=== PATIENT | female | born 1940 | race Caucasian/White ===

== ENCOUNTER 2017-02-25 09:22 | Emergency (ER) | payer MEDICARE, OTHER ==
[~2017-02-25] VITALS: Wt 90.6 kg
[~2017-02-25 09:22] MED LIST: AMLO1TAB PO; CA C1TAB69 PO; CELE200C PO; CHOL20003 PO; CIPR500T4 PO; ESOM40CA PO; GABA300C16 PO; HYDR-762 PO; LANT3I SC; LEVO500T72 PO; METO10TA96 PO; METO50TA16 PO; SENN-53 PO; SITA100T8 PO; TRAM50TA2 PO; ZOLP5TAB6 PO
[2017-02-25] MEDS ORDERED: SOD CHLORIDE 0.9% 500 ML IV STA (09:38)
[2017-02-25] MEDS ORDERED: CEFTRIAXONE 1 GM/50 ML (PMX) 50 ML IVPB STA (09:38)
[2017-02-25 10:15] LABS: ADD SCAN DIFF NO
[2017-02-25 10:19] LABS: BASOPHILS % 0.4 % (0.0-2.0); EOSINOPHILS # 0.2 10^3/ul (0.0-0.5); EOSINOPHILS % 2.8 % (0.0-7.0); HEMATOCRIT 39.5 % (37.0-47.0); HEMOGLOBIN 13.2 g/dl (12.0-16.0); LYMPHOCYTES # 2.6 10^3/ul (0.8-2.9); LYMPHOCYTES % 33.7 % (15.0-51.0); MEAN CORPUSCULAR HEMOGLOBIN 31.3 pg (29.0-33.0); MEAN CORPUSCULAR HGB CONC 33.4 g/dl (32.0-37.0); MEAN CORPUSCULAR VOLUME 93.6 fl (82.0-101.0); MEAN PLATELET VOLUME 10.2 fl (7.4-10.4); MONOCYTE # 0.4 10^3/ul (0.3-0.9); MONOCYTES % 4.8 % (0.0-11.0); NEUTROPHIL # 4.5 10^3/ul (1.6-7.5); NEUTROPHILS % 57.8 % (39.0-77.0); PLATELET COUNT 201 10^3/UL (140-415); RED BLOOD COUNT 4.22 10^6/ul (4.20-5.40); RED CELL DISTRIBUTION WIDTH 14.3 % (11.5-14.5); WHITE BLOOD COUNT 7.7 10^3/ul (4.8-10.8)
[2017-02-25 10:35] LABS: ADD UMIC NO; URINE BILIRUBIN (Dip) NEGATIVE (NEGATIVE); URINE BLOOD (Dip) NEGATIVE (NEGATIVE); URINE COLOR LT. YELLOW (YELLOW); URINE GLUCOSE (Dip) NEGATIVE (NEGATIVE); URINE KETONES (Dip) NEGATIVE (NEGATIVE); URINE LEUKOCYTE ESTERASE (Dip) NEGATIVE (NEGATIVE); URINE NITRITE (Dip) NEGATIVE (NEGATIVE); URINE TOTAL PROTEIN (Dip) NEGATIVE (NEGATIVE); URINE UROBILINOGEN (Dip) 0.2 E.U./dL (0.1-1.0)
[2017-02-25 10:36] LABS: ALBUMIN 3.8 g/dl (3.3-4.9); POTASSIUM 4.2 mmol/L (3.5-5.1)
[2017-02-25 10:38] LABS: CREATININE 0.87 mg/dl (0.44-1.00)
[2017-02-25 10:39] LABS: ALBUMIN/GLOBULIN RATIO 1.11; BILIRUBIN,INDIRECT 0.2 mg/dl (0-1.1); BILIRUBIN,TOTAL 0.2 mg/dl (0.2-1.3); CALCIUM 10.4 mg/dl (8.4-10.2); TOTAL PROTEIN 7.2 g/dl (6.1-8.1)
[2017-02-25] MEDS ORDERED: LANT3I SC ×2 (10:40)
[2017-02-25] MEDS ORDERED: FLUC150T17 PO (10:55)
--- NOTE | 2017-02-25 11:01 | ERD ---
ER Documentation Chief Complaint Date/Time DATE: 02/25/17 TIME: 10:59 Chief Complaint LEFT FLANK PAIN LOWER ABD PAIN FOR A FEW DAYS. NO VOMITING. DYSURIA AT TIME HPI 76-year-old female referred to the emergency department for abdominal pain that she has had for years now. Her physician apparently checked a urine and was concerned that she might have a urinary tract infection and therefore referred the patient to the emergency department. Patient reports the pain is nonspecific non-provoked and poorly localized. Patient has no fevers, chills, vomiting, diarrhea. Patient has no hematuria or dysuria but reports an itching inside her vagina for many years. ROS All systems reviewed and are negative except as per history of present illness. Medications Home Meds Active Scripts Fluconazole* (Diflucan*) 150 Mg Tablet, 150 MG PO ONCE, #1 TAB Prov:VLADIMIR STEPHENS 02/25/17 Reported Medications Insulin Glargine* (Lantus*) 100 Unit/Ml Soln, 30 UNIT SC QPM Y for 0, #1 VIAL 02/25/17 Insulin Glargine* (Lantus*) 100 Unit/Ml Soln, 45 UNIT SC QAM, #1 VIAL 02/25/17 Zolpidem Tartrate* (Zolpidem Tartrate*) 5 Mg Tablet, 10 MG PO HS Y, TAB 09/13/14 Ca Carbonate/Vitamin D3/Vit K (VIACTIV SOFT CHEW TABLET) 1 Each Tab.chew, 1 EACH PO WITH MEALS, TAB.CHEW 08/19/14 Esomeprazole Mag Trihydrate (Nexium) 40 Mg Capsule.dr, 40 MG PO DAILY, CAP 08/19/14 Cholecalciferol (Vitamin D3) (VITAMIN D-3) 2,000 Unit Capsule, 2000 UNIT PO DAILY 08/19/14 Wyjrwuoykf-Rheuslmnl-MZXS (Exforge HCT) 10-160-12.5 Mg Tab, 1 TAB PO DAILY, TAB 08/19/14 Metoprolol Succinate* (Toprol XL*) 50 Mg Tab.er.24h, 50 MG PO DAILY, TAB 08/19/14 Discontinued Reported Medications Insulin Glargine* (Lantus*) 100 Unit/Ml Soln, 1 UNIT SC QHS, #1 VIAL 08/09/16 Insulin Glargine* (Lantus*) 100 Unit/Ml Soln, 40 UNIT SC DAILY, #1 VIAL 08/09/16 Hydrocodone Bit-Acetaminophen* ([place]*) 10-325 Mg Tablet, 1 TAB PO BID Y for PAIN, TAB 08/19/14 Celecoxib* (Celebrex*) 200 Mg Capsule, 200 MG PO DAILY, CAP 08/19/14 Gabapentin* (Gabapentin*) 300 Mg Capsule, 300 MG PO BID, CAP 08/19/14 Sitagliptin* (Januvia*) 100 Mg Tablet, 100 MG PO DAILY, TAB 08/19/14 Discontinued Scripts Metoclopramide Hcl* (Metoclopramide Hcl*) 10 Mg Tablet, 10 MG PO Q6H Y for NAUSEA AND OR VOMITING, #20 TAB Prov:CIPRIANO DANIELLE MD 08/09/16 Sennosides* (Senna Lax*) 8.6 Mg Tablet, 1 TAB PO Q12H Y for CONSTIPATION, #10 TAB Prov:CIPRIANO DANIELLE MD 08/09/16 Ciprofloxacin Hcl* (Ciprofloxacin Hcl*) 500 Mg Tablet, 500 MG PO BID for 10 Days , TAB Prov:RUDOLPH BLACKMAN DO 06/20/16 Tramadol HCl (Tramadol HCl) 50 Mg Tab, 50 MG PO Q6 Y for PAIN, #12 TAB Prov:VANDANA HOFFMAN MD 05/26/15 Levofloxacin* (Levaquin*) 500 Mg Tab, 500 MG PO DAILY@06 for 3 Days Prov:CHINTAN ESCOBAR NP 08/29/14 Allergies Allergies: Coded Allergies: No Known Allergies (Verified Allergy, Mild, 05/26/15) PMhx/Soc History of Surgery: No Anesthesia Reaction: No Hx Neurological Disorder: No Hx Respiratory Disorders: No Hx Cardiac Disorders: Yes (HTN ) Hx Psychiatric Problems: No Hx Miscellaneous Medical Probl: Yes (DM, HIGH CHOLESTEROL ) Hx Alcohol Use: No Hx Substance Use: No Hx Tobacco Use: No FmHx Noncontributory for chief complaint Physical Exam Vitals Vital Signs Date Time Temp Pulse Resp B/P Pulse Ox O2 Delivery O2 Flow Rate FiO2 02/25/17 09:27 98.8 67 20 184/77 97 Physical Exam GENERAL: The patient is well developed and appropriate for usual state of health in no apparent distress HEENT: Pupils equal, round, and reactive to light. EOMI. There is no scleral icterus. NECK: C-spine is soft and supple, there is no meningismus. There is no cervical lymphadenopathy. LUNGS: Clear to auscultation bilaterally. There are no rales, wheezes or rhonchi. HEART: Regular rate and rhythm, no murmurs, clicks, rubs or gallops. ABDOMEN: Soft, non-tender, non-distended. There are bowel sounds in all four quadrants. No rebound or guarding. EXTREMITIES: There is no peripheral cyanosis or edema. No focal swelling or erythema. NEURO: The patient moves all four extremities with 5/5 strength. Cranial nerves II - XII are intact. Normal gait. Alert and oriented SKIN: There is no apparent rash or petechiae. HEME/LYMPHATIC: There is no evidence of excessive bruising or lymphedema. PSYCHIATRIC: The patient does not appear anxious or depressed. Result Diagram: 02/25/1750 02/25/1750 Results 24 hrs Laboratory Tests Test 02/25/17 09:30 02/25/17 09:50 Urine Color LT. YELLOW Urine Clarity CLEAR Urine pH 6.0 Urine Specific [place] 1.020 Urine Ketones NEGATIVE Urine Nitrite NEGATIVE Urine Bilirubin NEGATIVE Urine Urobilinogen 0.2 E.U./dL Urine Leukocyte Esterase NEGATIVE Urine Hemoglobin NEGATIVE Urine Glucose NEGATIVE% Urine Total Protein NEGATIVE White Blood Count 7.710^3/ul Red Blood Count 4.2210^6/ul Hemoglobin 13.2g/dl Hematocrit 39.5% Mean Corpuscular Volume 93.6fl Mean Corpuscular Hemoglobin 31.3pg Mean Corpuscular Hemoglobin Concent 33.4g/dl Red Cell Distribution Width 14.3% Platelet Count 33323^3/UL Mean Platelet Volume 10.2fl Neutrophils % 57.8% Lymphocytes % 33.7% Monocytes % 4.8% Eosinophils % 2.8% Basophils % 0.4% Nucleated Red Blood Cells % 0.0/100WBC Neutrophils # 4.510^3/ul Lymphocytes # 2.610^3/ul Monocytes # 0.410^3/ul Eosinophils # 0.210^3/ul Basophils # 0.010^3/ul Nucleated Red Blood Cells # 0.010^3/ul Sodium Level 141mmol/L Potassium Level 4.2mmol/L Chloride Level 104mmol/L Carbon Dioxide Level 28mmol/L Anion Gap 13 Blood Urea Nitrogen 16mg/dl Creatinine 0.87mg/dl Glucose Level 173mg/dl Calcium Level 10.4mg/dl Total Bilirubin 0.2mg/dl Direct Bilirubin 0.00mg/dl Indirect Bilirubin 0.2mg/dl Aspartate Amino Transf (AST/SGOT) 25IU/L Alanine Aminotransferase (ALT/SGPT) 23IU/L Alkaline Phosphatase 119IU/L Total Protein 7.2g/dl Albumin 3.8g/dl Globulin 3.40g/dl Albumin/Globulin Ratio 1.11 Lipase 121U/L Current Medications Medications (Trade) Dose Ordered Sig/Gilbert Route PRN Reason Start Time Stop Time Status Last Admin Dose Admin Sodium Chloride 500 ml @ 500 mls/hr Q1H STAT IV 02/25/17 09:38 02/25/17 10:37 DC 02/25/17 10:06 Ceftriaxone Sodium (Rocephin) 50 ml @ 100 mls/hr ONCE STAT IVPB 02/25/17 09:38 02/25/17 10:07 DC 02/25/17 10:06 Procedures/MDM Patient was taken to a room, seen and evaluated. Comfort measures were initiated. Diagnostic tests were ordered and reviewed. REEVALUATION: Patient remained comfortable in the emergency room MEDICAL DECISION MAKING: Patient presents with abdominal pain of uncertain etiology. Differential diagnosis considered includes appendicitis, diverticulitis, cholecystitis and other intra-abdominal medical and surgical concerns. I have reviewed the patients lab studies as well as multiple examinations of the abdomen. At this time, patient shows no evidence of high risk infection in her urine, her he would sugar is well controlled, she has no evidence of appendicitis or other high-risk issues. I suspect the burning is likely a low-grade vaginitis which I will treat with fluconazole, but she is otherwise clinically well and appropriate for outpatient care. Departure Diagnosis: Primary Impression: Abdominal pain Condition: Stable Patient Instructions: Abdominal Pain Referrals: RD ALVES (PCP) Additional Instructions: See your doctor for follow-up as discussed. Take a copy of your test results, if appropriate, to this follow-up visit. See your doctor or return here if your symptoms do not improve as expected. At any time, please return to the emergency department for any change or worsening in her symptoms. VLADIMIR STEPHENS Feb 25, 2017 11:01
[2017-02-25 11:22] VITALS: BP 222/98; PULSE 65; RESP 20; TEMP 98.3
== END 2017-02-25 11:23 | disposition home or self-care (01) ==
LOC: E/R 09:22
DX: R10.30 Lower abdominal pain, unspecified (principal); I10 Essential (primary) hypertension; E11.9 Type 2 diabetes mellitus without complications; Z79.4 Long term (current) use of insulin; Z79.84 Long term (current) use of oral hypoglycemic drugs
CPT/HCPCS: 36415; 80053; 81003; 83690; 85025; 96374; 99284; J0696; J7040

== ENCOUNTER 2017-04-18 16:06 | Emergency (ER) | payer MEDICARE, OTHER ==
[~2017-04-18] VITALS: Ht 157.5 cm; Wt 110.0 kg
[~2017-04-18 16:06] MED LIST changes: -CELE200C PO; -CIPR500T4 PO; +FLUC150T17 PO; -GABA300C16 PO; -HYDR-762 PO; -LEVO500T72 PO; -METO10TA96 PO; -SENN-53 PO; -SITA100T8 PO; -TRAM50TA2 PO; -ZOLP5TAB6 PO; +ZOLP5TAB7 PO
[2017-04-18 16:08] VITALS: Ht 157.5 cm; Wt 110.0 kg
[2017-04-18] MEDS ORDERED: ONDANSETRON 4 MG INJ IV STA ×2 (16:30→21:50)
[2017-04-18] MEDS ORDERED: morphine 4 MG/ML VIAL IV STA (16:30)
[2017-04-18] MEDS ORDERED: SOD CHLORIDE 0.9% 1,000 ML IV STA (16:30)
[2017-04-18] MEDS ORDERED: EXEN2PEN SQ (17:05)
--- NOTE | 2017-04-18 17:18 | RADRPT ---
PROCEDURE: XR, Chest. CLINICAL INDICATION: Cough/abdomen pain. TECHNIQUE: AP chest COMPARISON: Chest, 08/09/2016. FINDINGS: There is no acute infiltrate in the lungs. There is calcified atherosclerosis of the aortic arch. No pleural effusion. The heart is not enlarged. IMPRESSION: 1. Unremarkable chest x-ray. 2. Calcified atherosclerosis of the aortic arch. RPTAT: GG .Jesse Alford MD, MD Date Time Electronically viewed and signed by .Jesse Alford MD, on 04/18/2017 17:17 .Y/
[2017-04-18 17:49] LABS: ADD SCAN DIFF NO
[2017-04-18 17:51] LABS: BASOPHILS % 0.3 % (0.0-2.0); EOSINOPHILS # 0.2 10^3/ul (0.0-0.5); EOSINOPHILS % 1.8 % (0.0-7.0); HEMATOCRIT 42.2 % (37.0-47.0); HEMOGLOBIN 13.9 g/dl (12.0-16.0); LYMPHOCYTES # 2.6 10^3/ul (0.8-2.9); LYMPHOCYTES % 27.3 % (15.0-51.0); MEAN CORPUSCULAR HEMOGLOBIN 30.6 pg (29.0-33.0); MEAN CORPUSCULAR HGB CONC 32.9 g/dl (32.0-37.0); MEAN PLATELET VOLUME 9.9 fl (7.4-10.4); MONOCYTE # 0.5 10^3/ul (0.3-0.9); MONOCYTES % 4.9 % (0.0-11.0); NEUTROPHIL # 6.3 10^3/ul (1.6-7.5); NEUTROPHILS % 65.4 % (39.0-77.0); PLATELET COUNT 232 10^3/UL (140-415); RED BLOOD COUNT 4.54 10^6/ul (4.20-5.40); RED CELL DISTRIBUTION WIDTH 13.6 % (11.5-14.5); WHITE BLOOD COUNT 9.6 10^3/ul (4.8-10.8)
--- NOTE | 2017-04-18 17:55 | ERA ---
ER Documentation Chief Complaint Date/Time DATE: 04/18/17 TIME: 17:53 Chief Complaint vomiting today HPI 76-year-old female history of chronic abdominal pain who presents with nausea and vomiting. 24 hours of nausea vomiting that is nonbloody nonbilious. She also describes mild diffuse cramping abdominal pain. She states no diarrhea, she is having regular bowel movements. No fevers or chills. Abdominal pain feels somewhat similar to abdominal pain in the past. ROS All systems reviewed and are negative except as per history of present illness. Medications Home Meds Active Scripts Ondansetron (Ondansetron Odt) 4 Mg Tab.rapdis, 4 MG PO Q6H Y for NAUSEA AND/OR VOMITING, #30 TAB Prov:CARMELA BIANCHI MD 04/18/17 Fluconazole* (Diflucan*) 150 Mg Tablet, 150 MG PO ONCE, #1 TAB Prov:VLADIMIR STEPHENS 02/25/17 Reported Medications Exenatide Microspheres (Bydureon Pen) 2 Mg/0.65 Ml Pen.injctr, 2 MG SQ Q7D for ON Wednesday., EACH 04/18/17 Insulin Glargine* (Lantus*) 100 Unit/Ml Soln, 30 UNIT SC QPM Y for 0, #1 VIAL 02/25/17 Insulin Glargine* (Lantus*) 100 Unit/Ml Soln, 45 UNIT SC QAM, #1 VIAL 02/25/17 Zolpidem Tartrate* (Zolpidem Tartrate*) 5 Mg Tablet, 10 MG PO HS Y, TAB 09/13/14 Ca Carbonate/Vitamin D3/Vit K (VIACTIV SOFT CHEW TABLET) 1 Each Tab.chew, 1 EACH PO WITH MEALS, TAB.CHEW 08/19/14 Esomeprazole Mag Trihydrate (Nexium) 40 Mg Capsule.dr, 40 MG PO DAILY, CAP 08/19/14 Cholecalciferol (Vitamin D3) (VITAMIN D-3) 2,000 Unit Capsule, 2000 UNIT PO DAILY 08/19/14 Fbzksaujlt-Tctnujkqt-FFIY (Exforge HCT) 10-160-12.5 Mg Tab, 1 TAB PO DAILY, TAB 08/19/14 Metoprolol Succinate* (Toprol XL*) 50 Mg Tab.er.24h, 50 MG PO DAILY, TAB 08/19/14 Allergies Allergies: Coded Allergies: No Known Allergies (Verified Allergy, Mild, 05/26/15) PMhx/Soc History of Surgery: No Anesthesia Reaction: No Hx Neurological Disorder: No Hx Respiratory Disorders: No Hx Cardiac Disorders: Yes (HTN ) Hx Psychiatric Problems: No Hx Miscellaneous Medical Probl: Yes (DM, HIGH CHOLESTEROL ) Hx Alcohol Use: No Hx Substance Use: No Hx Tobacco Use: No Smoking Status: Never smoker FmHx Family History: No diabetes Physical Exam Vitals Vital Signs Date Time Temp Pulse Resp B/P Pulse Ox O2 Delivery O2 Flow Rate FiO2 04/18/17 16:08 99.4 100 18 246/111 99 Physical Exam General: Well developed, well nourished, no acute distress Head: Normocephalic, atraumatic Eyes: Pupils equally reactive, EOM intact ENT: Moist mucous membranes Neck: Supple, no lymphadenopathy Respiratory: Lungs clear bilaterally, no distress Cardiovascular: RRR, no murmurs, rubs, or gallops Abdominal: Soft, mild diffuse tenderness without rebound or guarding : Deferred MSK: No edema, no unilateral swelling, 5/5 strength Neurologic: Alert and oriented, moving all extremities, normal speech, no focal weakness, no cerebellar signs Skin: No rash Psych: Normal mood Result Diagram: 04/18/17 1736 04/18/17 1736 Results 24 hrs Laboratory Tests Test 04/18/17 17:36 04/18/17 17:56 White Blood Count 9.610^3/ul Red Blood Count 4.5410^6/ul Hemoglobin 13.9g/dl Hematocrit 42.2% Mean Corpuscular Volume 93.0fl Mean Corpuscular Hemoglobin 30.6pg Mean Corpuscular Hemoglobin Concent 32.9g/dl Red Cell Distribution Width 13.6% Platelet Count 20635^3/UL Mean Platelet Volume 9.9fl Neutrophils % 65.4% Lymphocytes % 27.3% Monocytes % 4.9% Eosinophils % 1.8% Basophils % 0.3% Nucleated Red Blood Cells % 0.0/100WBC Neutrophils # 6.310^3/ul Lymphocytes # 2.610^3/ul Monocytes # 0.510^3/ul Eosinophils # 0.210^3/ul Basophils # 0.010^3/ul Nucleated Red Blood Cells # 0.010^3/ul Prothrombin Time 12.3Sec Prothrombin Time Ratio 1.0 INR International Normalized Ratio 0.91 Activated Partial Thromboplast Time 33.4Sec Sodium Level 141mmol/L Potassium Level 3.8mmol/L Chloride Level 102mmol/L Carbon Dioxide Level 27mmol/L Anion Gap 16 Blood Urea Nitrogen 17mg/dl Creatinine 0.82mg/dl Glucose Level 81mg/dl Calcium Level 10.9mg/dl Total Bilirubin 0.1mg/dl Direct Bilirubin 0.00mg/dl Indirect Bilirubin 0.1mg/dl Aspartate Amino Transf (AST/SGOT) 27IU/L Alanine Aminotransferase (ALT/SGPT) 38IU/L Alkaline Phosphatase 127IU/L Troponin I < 0.012ng/ml Total Protein 8.1g/dl Albumin 4.1g/dl Globulin 4.00g/dl Albumin/Globulin Ratio 1.02 Lipase 59U/L Urine Color LT. YELLOW Urine Clarity CLEAR Urine pH 7.0 Urine Specific [place] <=1.005 Urine Ketones NEGATIVE Urine Nitrite NEGATIVE Urine Bilirubin NEGATIVE Urine Urobilinogen 0.2 E.U./dL Urine Leukocyte Esterase NEGATIVE Urine Hemoglobin NEGATIVE Urine Glucose NEGATIVE% Urine Total Protein NEGATIVE Current Medications Medications (Trade) Dose Ordered Sig/Gilbert Route PRN Reason Start Time Stop Time Status Last Admin Dose Admin Sodium Chloride (NS) 1,000 ml @ 1,000 mls/hr Q1H STAT IV 04/18/17 16:30 04/18/17 17:29 DC 04/18/17 17:49 Morphine Sulfate (morphine) 4 mg ONCE STAT IV 04/18/17 16:30 04/18/17 16:31 DC 04/18/17 17:49 Ondansetron HCl (Zofran Inj) 4 mg ONCE STAT IV 04/18/17 16:30 04/18/17 16:31 DC 04/18/17 17:49 Procedures/MDM EKG, MONITORS, & DIAGNOSTIC IMAGING: Chest x-ray: I reviewed and interpreted a 1 view of the chest Mediastinum: No enlargement Cardiac silhouette: No cardiomegaly Airspace: Clear lung granados bilaterally without evidence of pneumothorax Bones: No evidence of fracture EKG: I reviewed and interpreted a 12-lead EKG. Rhythm: Normal sinus rhythm Ectopy: None Intervals: No abnormalities ST segments: No elevations or depressions T waves: No contiguous inversions CT abdomen and pelvis: IMPRESSION: 1. Mild atelectasis at the lung bases posteriorly. 2. Fatty metamorphosis of the liver. 3. Atherosclerosis. 4. Normal appendix. 5. Diverticulosis of the colon without evidence of diverticulitis. 6. Degenerative changes of the spine. 7. Bilateral pars defects at L5 with grade 1 anterolisthesis at L5-S1. 8. Otherwise unremarkable noncontrast CT scan of the abdomen and pelvis. 9. No significant change from 08/09/2016. RPTAT: QQ LAB INTERPRETATION: No leukocytosis, no hepatobiliary obstruction, no urinary tract infection, negative troponin MEDICAL DECISION MAKING: The patient does have a long history of abdominal pain, she has multiple visits to the emergency room including multiple CT scans. However, given the patient says she is at risk for misdiagnosis and delayed diagnosis or atypical presentation. For this reason a repeat CT scan was ordered. Consider possible viral process versus bowel obstruction among others. ER COURSE: The patient's laboratory testing and diagnostic imaging are unrevealing. Reviewing the patient's electronic medical record she has multiple visits for abdominal pain in the past. The patient is scheduled to follow-up with gastroenterology Dr. Brown next month. It is not clear if the patient has had a colonoscopy or endoscopy. I strongly recommend this. At this time the patient tolerated p.o. intake her symptoms are improved and repeat abdominal exam is benign. The patient is safe for discharge. I kept the patient and/or family informed of laboratory and diagnostic imaging results throughout the emergency room course. DISPOSITION PLAN: We discussed follow up with the patient's primary care doctor within 24 to 48 hours as needed. We also discussed return to the emergency room for worsening symptoms or worsening condition. Outpatient referral: Gastroenterology Discharge Medications: Zofran Departure Diagnosis: Primary Impression: Abdominal pain Qualified Code: R10.84 - Generalized abdominal pain Additional Impression: Vomiting Qualified Code: R11.11 - Non-intractable vomiting without nausea, unspecified vomiting type Condition: Stable CARMELA BIANCHI MD April 18, 2017 17:55
[2017-04-18 18:04] LABS: INR 0.91; PROTIME 12.3 Sec (12.2-14.2)
[2017-04-18 18:05] LABS: PARTIAL THROMBOPLASTIN TIME 33.4 Sec (25.0-35.0)
[2017-04-18 18:07] LABS: ALBUMIN 4.1 g/dl (3.3-4.9); CHLORIDE 102 mmol/L (97-110)
[2017-04-18 18:08] LABS: POTASSIUM 3.8 mmol/L (3.5-5.1); SODIUM 141 mmol/L (135-144)
[2017-04-18 18:10] LABS: ANION GAP 16 (8-16); BILIRUBIN,INDIRECT 0.1 mg/dl (0-1.1); BILIRUBIN,TOTAL 0.1 mg/dl (0.2-1.3); CARBON DIOXIDE 27 mmol/L (21-31); CREATININE 0.82 mg/dl (0.44-1.00)
[2017-04-18 18:11] LABS: ALANINE AMINOTRANSFERASE 38 IU/L (13-69); ALBUMIN/GLOBULIN RATIO 1.02; ALKALINE PHOSPHATASE 127 IU/L (42-121); ASPARTATE AMINO TRANSFERASE 27 IU/L (15-46); BLOOD UREA NITROGEN 17 mg/dl (7-20); CALCIUM 10.9 mg/dl (8.4-10.2); GLUCOSE 81 mg/dl (70-220); TOTAL PROTEIN 8.1 g/dl (6.1-8.1)
[2017-04-18 18:34] LABS: ADD UMIC NO; URINE BILIRUBIN (Dip) NEGATIVE (NEGATIVE); URINE BLOOD (Dip) NEGATIVE (NEGATIVE); URINE COLOR LT. YELLOW (YELLOW); URINE GLUCOSE (Dip) NEGATIVE (NEGATIVE); URINE KETONES (Dip) NEGATIVE (NEGATIVE); URINE LEUKOCYTE ESTERASE (Dip) NEGATIVE (NEGATIVE); URINE NITRITE (Dip) NEGATIVE (NEGATIVE); URINE TOTAL PROTEIN (Dip) NEGATIVE (NEGATIVE); URINE UROBILINOGEN (Dip) 0.2 E.U./dL (0.1-1.0)
[2017-04-18 18:40] LABS: TROPONIN-I < 0.012 ng/ml (0.00-0.12)
--- NOTE | 2017-04-18 18:47 | RADRPT ---
PROCEDURE: CT Abdomen and Pelvis without contrast. CLINICAL INDICATION: Abdominal and pelvic pain. TECHNIQUE: CT scan of the abdomen and pelvis without contrast was performed. Coronal and sagittal reformatted images were obtained from the axial source images. Images were reviewed on a [employer] PACS workstation. Total exam DLP is 1080.65 mGy-cm. CTDIvol is 21.14 mGy. One or more of the following dose reduction techniques were used: Automated exposure control, adjustment of the mA and/ or kV according to patient size, use of iterative reconstruction technique. COMPARISON: CT scan of the abdomen and pelvis dated 08/09/2016. FINDINGS: There is mild atelectasis at the lung bases posteriorly. The lung bases are otherwise normal. Ther e is no pleural effusion or pericardial effusion. The heart size is normal. The liver is normal in size and diffusely decreased in attenuation. There is no focal hepatic lesio n. The gallbladder and bile ducts are normal. The spleen is normal in size. There is no focal splenic lesion. Both adrenals are normal with no enlargement or mass. The pancreas is unremarkable with no mass or evidence of pancreatitis. There is no renal mass or hydronephrosis. There is no renal calculus or ureteral calculus. The abdominal aorta is not dilated. There is calcification in the wall of the aorta consistent with atherosclerosis. There is no retroperitoneal lymphadenopathy or mass. There is no pelvic lymphadenopathy or mass. The bladder and distal ureters are normal. The appendix is well seen and appears normal. There is diverticulosis of the colon without evidence of diverticulitis. The bowel and mesentery ar e otherwise normal. There is no free fluid or free gas. There are degenerative changes of the spine. There is no fracture or lytic lesion. There are bilat eral pars defects at L5 with grade 1 anterolisthesis at L5-S1. IMPRESSION: 1. Mild atelectasis at the lung bases posteriorly. 2. Fatty metamorphosis of the liver. 3. Atherosclerosis. 4. Normal appendix. 5. Diverticulosis of the colon without evidence of diverticulitis. 6. Degenerative changes of the spine. 7. Bilateral pars defects at L5 with grade 1 anterolisthesis at L5-S1. 8. Otherwise unremarkable noncontrast CT scan of the abdomen and pelvis. 9. No significant change from 08/09/2016. RPTAT: QQ .Jose Gilman MD, MD Date Time Electronically viewed and signed by .Jose Gilman MD, MD on 04/18/2017 18:46 .R/
[2017-04-18] MEDS ORDERED: ONDA4TAB14 PO (19:07)
[2017-04-18] MEDS ORDERED: NICARDipine HCL 30 MG CAPSULE PO ONE (19:30)
--- NOTE | 2017-04-18 21:05 | RADRPT ---
PROCEDURE: CT Brain without contrast. CLINICAL INDICATION: Hypertension. Nausea. Vomiting.. TECHNIQUE: A CT of the brain was performed on a multislice detector CT scanner utilizing axial sec tions from the skull base through the vertex without contrast. Images were reviewed on a [employer] [employer] PACS workstation. Exam CTDlvol = 44 mGy and DLP = 630 mGy-cm. One of the following 3 dose red uction techniques were used: Automated exposure control; adjustment of the mA and/or kV according to patient size; or use of iterative reconstruction technique. COMPARISON: None available FINDINGS: There are an old right occipital and left frontal subcortical infarct. There is age appropriate ailin tral and peripheral atrophy. There is no midline shift. There is a moderate degree of supratentori al periventricular and subcortical white matter hypodensities. There is no definite acute stroke. There is no mass lesion. There is no intracranial hemorrhage or abnormal extra-axial fluid collecti on. Visualized paranasal sinuses are clear. IMPRESSION: 1. No acute intracranial abnormality. 2. 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 3. Nonspecific white matter changes most commonly seen with microvascular ischemic disease. RPTAT: HMVK .Bam Phelps MD, Date Time Electronically viewed and signed by .Bam Phelps MD, on 04/18/2017 21:05 .K/
[2017-04-18 21:24] VITALS: BP 174/76; PULSE 102; RESP 18; TEMP 98.7
== END 2017-04-18 22:18 | disposition home or self-care (01) ==
LOC: E/R 16:06
DX: R10.84 Generalized abdominal pain (principal); R11.11 Vomiting without nausea; I10 Essential (primary) hypertension; E11.9 Type 2 diabetes mellitus without complications; R93.0 Abnormal findings on diagnostic imaging of skull and head, not elsewhere classified; Z79.4 Long term (current) use of insulin
CPT/HCPCS: 70450; 71010; 74176; 80053; 81003; 83690; 84484; 85025; 85610; 85730; 93005; J2270; J2405; J7030; 36415; 96374; 96375; 96376

== ENCOUNTER 2017-06-13 14:17 | Emergency (ER) | payer MEDICARE, OTHER ==
[~2017-06-13] VITALS: Ht 157.5 cm; Wt 89.5 kg
[~2017-06-13 14:17] MED LIST changes: -CHOL20003 PO; +CHOL200073 PO; +EXEN2PEN SQ; +ONDA4TAB14 PO
[2017-06-13 14:23] VITALS: Ht 157.5 cm; Wt 89.5 kg
[2017-06-13] MEDS ORDERED: SODIUM CHLORIDE 0.9% 1L BAG IV* STA (15:48)
--- NOTE | 2017-06-13 16:07 | ERD ---
ER Documentation Chief Complaint Date/Time DATE: 06/13/17 TIME: 16:04 Chief Complaint Pt here for abdominal pain x1 day with constipation and N/V HPI This is a very pleasant 76-year-old Estonian-speaking female presents to the emergency department brought in by her daughter. The patient has a known history of insulin-dependent diabetes mellitus and hypertension. She indicates that over the past year she has had recurrent abdominal pain however over the past 3 days she states she has had worsening of her left lower quadrant pain that has radiated to the suprapubic region. She states the pain is 8 out of 10 in intensity. She states there is no alleviating or exacerbating factors. She has had no past surgical history. She stated that this morning just prior to arrival the pain increased to 10 out of 10 intensity which prompted her to come to the emergency department to be further evaluated. She has not had a bowel movement in the past 24 hours but also indicates she has not consumed any oral intake for roughly 1 day due to the pain. She is not had any diarrhea or recent hospitalizations. She does have frequency urgency and dysuria with recurrent urinary tract infections. She did not take any analgesic medication or antipyretics prior to arrival. She denies any chest pain or pressure that radiates to the neck arm back or jaw. She has no shortness of breath at rest or exertion. She denies any back pain. She did have 4 episodes of nonbloody nonbilious emesis in the past 24 hours. ROS All systems reviewed and are negative except as per history of present illness. Medications Home Meds Active Scripts Sucralfate* (Carafate*) 1 Gm Tab, 1 GM PO AC MEALS AND BEDTIME, #30 TAB Prov:ELIZABETH MARCH 06/13/17 Hydrocodone/Acetaminophen (Gilchrist 5-325 Tablet) 1 Each Tablet, 1 EACH PO Q6, #20 TAB Prov:ELIZABETH MARCH 06/13/17 Ondansetron (Ondansetron Odt) 4 Mg Tab.rapdis, 4 MG PO Q6H Y for NAUSEA AND/OR VOMITING, #30 TAB Prov:CARMELA BIANCHI MD 04/18/17 Fluconazole* (Diflucan*) 150 Mg Tablet, 150 MG PO ONCE, #1 TAB Prov:VLADIMIR STEPHENS 02/25/17 Reported Medications Exenatide Microspheres (Bydureon Pen) 2 Mg/0.65 Ml Pen.injctr, 2 MG SQ Q7D for ON Wednesday., EACH 04/18/17 Insulin Glargine* (Lantus*) 100 Unit/Ml Soln, 30 UNIT SC QPM Y for 0, #1 VIAL 02/25/17 Insulin Glargine* (Lantus*) 100 Unit/Ml Soln, 45 UNIT SC QAM, #1 VIAL 02/25/17 Zolpidem Tartrate* (Zolpidem Tartrate*) 5 Mg Tablet, 10 MG PO HS Y, TAB 09/13/14 Ca Carbonate/Vitamin D3/Vit K (VIACTIV SOFT CHEW TABLET) 1 Each Tab.chew, 1 EACH PO WITH MEALS, TAB.CHEW 08/19/14 Esomeprazole Mag Trihydrate (Nexium) 40 Mg Capsule.dr, 40 MG PO DAILY, CAP 08/19/14 Cholecalciferol (Vitamin D3) (VITAMIN D-3) 2,000 Unit Capsule, 2000 UNIT PO DAILY 08/19/14 Xagyvuzkek-Dgpzqkjgk-QNSR (Exforge HCT) 10-160-12.5 Mg Tab, 1 TAB PO DAILY, TAB 08/19/14 Metoprolol Succinate* (Toprol XL*) 50 Mg Tab.er.24h, 50 MG PO DAILY, TAB 08/19/14 Allergies Allergies: Coded Allergies: No Known Allergies (Verified Allergy, Mild, 05/26/15) PMhx/Soc History of Surgery: No Anesthesia Reaction: No Hx Neurological Disorder: No Hx Respiratory Disorders: No Hx Cardiac Disorders: Yes (HTN ) Hx Psychiatric Problems: No Hx Miscellaneous Medical Probl: Yes (DM, HIGH CHOLESTEROL ) Hx Alcohol Use: No Hx Substance Use: No Hx Tobacco Use: No Physical Exam Vitals Vital Signs Date Time Temp Pulse Resp B/P Pulse Ox O2 Delivery O2 Flow Rate FiO2 06/13/17 18:40 98.2 87 16 159/73 96 Room Air 06/13/17 16:30 98.3 91 20 168/72 97 Room Air 06/13/17 14:23 97.3 107 24 183/86 97 Physical Exam Constitutional:Well-developed. Well-nourished. HEENT:Normocephalic. Atraumatic.Pupils were equal round reactive to light. Moist mucous membranes.No tonsillar exudates. Neck: No nuchal rigidity. No lymphadenopathy. No posterior cervical spine tenderness or step-offs. Respiratory: Not using accessory muscles of respiration.Lungs were clear to auscultation bilaterally. No rhonchi. No rales. No wheezing. Cardiovascular: Regular rate regular rhythm.No murmurs. No rubs were appreciated.S1, S2 normal. Distal pulses are palpable 2+ bilaterally. GI: Abdomen was soft. Left lower quadrant tenderness. Non Distended. No pulsatile abdominal masses or bruits. No rebound. No guarding. Bowel sounds were present and normal. Muscle skeletal: Full range of motion of both the upper and lower extremities bilaterally.Normal muscle tone.No assymetrical calf tenderness or swelling. Skin: No petechia, no purpura. No lesions on the palms or the soles of the feet. No maculopapular rash. NEURO: Patient was alert, awake, orientated x3.No facial droop. Gait observed and normal with no ataxia.Speech had regular rate and rhythm. No focal neurological deficits. Result Diagram: 06/13/17 1610 06/13/17 1610 Results 24 hrs Laboratory Tests Test 06/13/17 16:10 06/13/17 18:04 06/13/17 18:10 White Blood Count 10.410^3/ul Red Blood Count 4.6310^6/ul Hemoglobin 14.1g/dl Hematocrit 42.0% Mean Corpuscular Volume 90.7fl Mean Corpuscular Hemoglobin 30.5pg Mean Corpuscular Hemoglobin Concent 33.6g/dl Red Cell Distribution Width 13.6% Platelet Count 02742^3/UL Mean Platelet Volume 9.8fl Neutrophils % 68.5% Lymphocytes % 25.7% Monocytes % 4.1% Eosinophils % 0.9% Basophils % 0.3% Nucleated Red Blood Cells % 0.0/100WBC Neutrophils # 7.110^3/ul Lymphocytes # 2.710^3/ul Monocytes # 0.410^3/ul Eosinophils # 0.110^3/ul Basophils # 0.010^3/ul Nucleated Red Blood Cells # 0.010^3/ul Prothrombin Time 11.9Sec Prothrombin Time Ratio 0.9 INR International Normalized Ratio 0.88 Activated Partial Thromboplast Time 32.6Sec Sodium Level 141mmol/L Potassium Level 4.2mmol/L Chloride Level 97mmol/L Carbon Dioxide Level 27mmol/L Anion Gap 21 Blood Urea Nitrogen 19mg/dl Creatinine 0.80mg/dl Glucose Level 163mg/dl Lactic Acid Level 1.5mmol/L Calcium Level 11.0mg/dl Total Bilirubin 0.1mg/dl Direct Bilirubin 0.00mg/dl Indirect Bilirubin 0.1mg/dl Aspartate Amino Transf (AST/SGOT) 25IU/L Alanine Aminotransferase (ALT/SGPT) 28IU/L Alkaline Phosphatase 142IU/L Troponin I < 0.012ng/ml Total Protein 8.3g/dl Albumin 4.7g/dl Globulin 3.60g/dl Albumin/Globulin Ratio 1.30 Amylase Level 52U/L Lipase 125U/L Urine Color STRAW Urine Clarity CLEAR Urine pH 7.0 Urine Specific [place] 1.020 Urine Ketones NEGATIVEmg/dL Urine Nitrite NEGATIVEmg/dL Urine Bilirubin NEGATIVEmg/dL Urine Urobilinogen NEGATIVEmg/dL Urine Leukocyte Esterase NEGATIVELeu/ul Urine Hemoglobin NEGATIVEmg/dL Urine Glucose NEGATIVEmg/dL Urine Total Protein NEGATIVEmg/dl Bedside Urine pH (LAB) 7.0 Bedside Urine Protein (LAB) Trace Bedside Urine Glucose (UA) Negative Bedside Urine Ketones (LAB) Negative Bedside Urine Blood Negative Bedside Urine Nitrite (LAB) Negative Bedside Urine Leukocyte Esterase (L Negative Current Medications Medications (Trade) Dose Ordered Sig/Gilbert Route PRN Reason Start Time Stop Time Status Last Admin Dose Admin Sodium Chloride (NS) 2,770 ml BOLUS OVER 2 HOURS STAT IV* 06/13/17 15:48 06/13/17 15:51 DC 06/13/17 16:21 IV Flush 10 ml 10 ml STK-MED ONCE .ROUTE 06/13/17 17:21 06/13/17 17:22 DC 06/13/17 17:33 Sodium Chloride (NS) 100 ml @ ud STK-MED ONCE .ROUTE 06/13/17 17:21 06/13/17 17:22 DC 06/13/17 17:34 Iodixanol (Visipaque Locm) 100 ml STK-MED ONCE .ROUTE 06/13/17 17:21 06/13/17 17:22 DC 06/13/17 17:34 Ketorolac Tromethamine (Toradol) 30 mg ONCE STAT IV 06/13/17 18:24 06/13/17 18:26 DC 06/13/17 18:38 Hydromorphone HCl (Dilaudid) 1 mg ONCE STAT IV 06/13/17 19:24 06/13/17 19:25 DC 06/13/17 19:32 Ondansetron HCl (Zofran Inj) 4 mg ONCE STAT IV 06/13/17 19:24 06/13/17 19:25 DC 06/13/17 19:32 Procedures/MDM This patient presented to the emergency department with abdominal pain and was seen and evaluated by myself. My differential diagnosis included but was not limited to abdominal aortic aneurysm, appendicitis, pancreatitis, perforated peptic ulcer, perforated viscus, Boerhaave's syndrome or visceral pain such as diverticulitis, DKA, esophagitis, hepatitis or bowel obstruction. The patient was placed on a prototype carpenter, continuous pulse oximetry, and IV access was established by nursing staff. Patient did meet SIRS criteria and therefore was given a 30 cc/kg bolus of normal saline. She was afebrile. She was given intravenous morphine and Zofran for analgesic control. I did obtain blood cultures and urine cultures. The patient did not have a urinary tract infection. Also obtained a CT scan of the patient's abdomen and pelvis which showed no acute pathology. This was reviewed by myself and the radiologist. There is no evidence of appendicitis, small bowel obstruction, masses or perforated viscus. Given that this pain has been present for over 2 years I did indicate that the patient will benefit from an outpatient upper endoscopy and colonoscopy. The patient received analgesic medication with opiates and her pain had completely resolved. Lactic acid was normal and there is no evidence of sepsis. Observation Note: Time: 6 hours Family Hx: No Hypertension Evaluation: Multiple exams showed improving symptoms and no evidence of peritoneal signs to suggest a surgical abdomen. The patient was discharged home in fair condition. They were instructed to return to the emergency department at any time if there was any worsening of their condition. The patient stated they would follow up with their PCP in the next 24-48 hours to initiate a suitable medication regimen under the care of their PCP as well as to allow their PCP to monitor any drug reactions. The patient was discharged home with prescriptions after they gave informed consent to the new medication. They were also fully informed by myself on the adverse effects and adverse drug interactions in order to provide adequate safeguards to prevent possible adverse reactions to medications. Departure Diagnosis: Primary Impression: Abdominal pain Abdominal location: left lower quadrant Qualified Code: R10.32 - Left lower quadrant pain Condition: ELIZABETH Gomez Jun 13, 2017 16:07
[2017-06-13 16:34] LABS: ADD SCAN DIFF NO
[2017-06-13 16:37] LABS: BASOPHILS % 0.3 % (0.0-2.0); EOSINOPHILS # 0.1 10^3/ul (0.0-0.5); EOSINOPHILS % 0.9 % (0.0-7.0); HEMOGLOBIN 14.1 g/dl (12.0-16.0); LYMPHOCYTES # 2.7 10^3/ul (0.8-2.9); LYMPHOCYTES % 25.7 % (15.0-51.0); MEAN CORPUSCULAR HEMOGLOBIN 30.5 pg (29.0-33.0); MEAN CORPUSCULAR HGB CONC 33.6 g/dl (32.0-37.0); MEAN CORPUSCULAR VOLUME 90.7 fl (82.0-101.0); MEAN PLATELET VOLUME 9.8 fl (7.4-10.4); MONOCYTE # 0.4 10^3/ul (0.3-0.9); MONOCYTES % 4.1 % (0.0-11.0); NEUTROPHIL # 7.1 10^3/ul (1.6-7.5); NEUTROPHILS % 68.5 % (39.0-77.0); PLATELET COUNT 248 10^3/UL (140-415); RED BLOOD COUNT 4.63 10^6/ul (4.20-5.40); RED CELL DISTRIBUTION WIDTH 13.6 % (11.5-14.5); WHITE BLOOD COUNT 10.4 10^3/ul (4.8-10.8)
--- NOTE | 2017-06-13 16:40 | RADRPT ---
PROCEDURE: XR Chest. CLINICAL INDICATION: Sepsis TECHNIQUE: Single frontal chest x-ray. COMPARISON: 04/18/2017 FINDINGS: The lungs are clear of acute infiltrates, edema, effusions, or masses. Calcific atherosclerosis of t he aorta is present.. The cardiomediastinal silhouette is unremarkable. The osseous structures are intact. IMPRESSION: No acute cardiopulmonary disease. RPTAT: HJPL .Bryson Dunn MD, MD Date Time Electronically viewed and signed by .Bryson Dunn MD, on 06/13/2017 16:40 .L/
[2017-06-13 16:56] LABS: INR 0.88; PROTIME 11.9 Sec (12.2-14.2); PT RATIO 0.9
[2017-06-13 16:57] LABS: PARTIAL THROMBOPLASTIN TIME 32.6 Sec (25.0-35.0)
[2017-06-13 17:10] LABS: ALANINE AMINOTRANSFERASE 28 IU/L (13-69); ALBUMIN 4.7 g/dl (3.3-4.9); ALKALINE PHOSPHATASE 142 IU/L (42-121); AMYLASE 52 U/L (11-123); ANION GAP 21 (8-16); ASPARTATE AMINO TRANSFERASE 25 IU/L (15-46); BILIRUBIN,INDIRECT 0.1 mg/dl (0-1.1); BILIRUBIN,TOTAL 0.1 mg/dl (0.2-1.3); BLOOD UREA NITROGEN 19 mg/dl (7-20); CARBON DIOXIDE 27 mmol/L (21-31); CHLORIDE 97 mmol/L (97-110); GLUCOSE 163 mg/dl (70-220); POTASSIUM 4.2 mmol/L (3.5-5.1); SODIUM 141 mmol/L (135-144); TOTAL PROTEIN 8.3 g/dl (6.1-8.1)
[2017-06-13] MEDS ORDERED: IODIXANOL LOCM 100 ML BTL ONE (17:21)
[2017-06-13] MEDS ORDERED: SOD CHLORIDE 0.9% 100 ML ONE (17:21)
[2017-06-13 17:29] LABS: TROPONIN-I < 0.012 ng/ml (0.00-0.12)
--- NOTE | 2017-06-13 17:48 | RADRPT ---
PROCEDURE: CT abdomen and pelvis with contrast. CLINICAL INDICATION: abdominal pain TECHNIQUE: CT scan of the abdomen and pelvis with contrast [facility] The patient was scanned after administration of 100 cc of Visipaque 320 intravenous contrast. Sagittal and coronal reformatted images were obtained from the axial source images. One or more of the following dose reduction techniques were used: - Automated exposure control. - Adjustment of the mA and/or kV according to patient size. - Use of iterative reconstruction technique. DLP 1121.0 mGycm. CTDIvol 21.4 mGy COMPARISON: 04/18/2017 FINDINGS: Mild scarring is seen in the lung bases.. Coronary artery calcifications are seen in the heart. There is hepatomegaly and fatty infiltration of the liver with a slightly nodular contour. No evide nce of focal hepatic lesion or biliary ductal dilatation. The gallbladder is unremarkable without i nflammation, and the portal vein is intact without thrombus. The spleen is at the upper limits of normal in size.. The adrenal glands are within normal limits w ithout mass. The kidneys enhance symmetrically bilaterally without hydronephrosis or perinephric st randing. The pancreas is unremarkable without focal lesion or surrounding inflammatory changes. There is no bowel obstruction or focal bowel inflammation. The appendix is unremarkable. There is a mildly fecal filled colon.. There is diverticulosis without diverticulitis. There is no free air . There is no free fluid. There are no enlarged lymph nodes. There is aortic atherosclerosis without aneurysmal dilatation. Degenerative changes are seen in t he lumbar spine with no acute osseous abnormality. The uterus and adnexal structures are grossly within normal limits. There is a trace fat containing right inguinal hernia. IMPRESSION: No evidence of bowel obstruction or inflammation. There is a mildly fecal filled colon. There is di verticulosis without diverticulitis. Atherosclerotic disease is present. There is hepatomegaly and fatty infiltration of the liver which has a slightly nodular contour. RPTAT: AA .Aníbal Weaver MD, Date Time Electronically viewed and signed by .Aníbal Weaver MD, MD on 06/13/2017 17:47 .J/
[2017-06-13 18:06] LABS: URINE BLOOD (Dip) POC Negative (NEGATIVE)
[2017-06-13] MEDS ORDERED: KETOROLAC 30 MG INJ IV STA (18:24)
[2017-06-13 18:40] VITALS: TEMP 98.2
[2017-06-13 18:48] LABS: ADD UMIC NO; UR ASCORBIC ACID NEGATIVE (NEGATIVE); UR BILIRUBIN (Dip) NEGATIVE (NEGATIVE); UR BLOOD (Dip) NEGATIVE (NEGATIVE); UR CLARITY CLEAR (CLEAR); UR COLOR STRAW (YELLOW); UR GLUCOSE (Dip) NEGATIVE (NEGATIVE); UR KETONES (Dip) NEGATIVE (NEGATIVE); UR LEUKOCYTE ESTERASE (Dip) NEGATIVE Leu/ul (NEGATIVE); UR NITRITE (Dip) NEGATIVE (NEGATIVE); UR TOTAL PROTEIN (Dip) NEGATIVE (NEGATIVE); UR UROBILINOGEN (Dip) NEGATIVE (NEGATIVE)
[2017-06-13] MEDS ORDERED: ONDANSETRON 4 MG INJ IV STA (19:24)
[2017-06-13] MEDS ORDERED: HYDROmorphONE 1 MG/ML SYG IV STA (19:24)
[2017-06-13] MEDS ORDERED: SUCR1TAB56 PO (19:26)
[2017-06-13] MEDS ORDERED: HYDR-906 PO (19:26)
[2017-06-13 20:31] VITALS: BP 154/68; PULSE 71; RESP 18
== END 2017-06-13 20:33 | disposition home or self-care (01) ==
LOC: E/R 14:17
DX: R10.32 Left lower quadrant pain (principal); I10 Essential (primary) hypertension; E11.9 Type 2 diabetes mellitus without complications; Z79.4 Long term (current) use of insulin
CPT/HCPCS: 71010; 74177; 80053; 81003; 82150; 83605; 83690; 84484; 85025; 85610; 85730; 87040; 87086; 93005; J1170; J1885; J2405; J7030; Q9967; 96374; 96375

== ENCOUNTER 2017-06-20 10:18 | Inpatient (IN) | payer MEDICARE, OTHER ==
[~2017-06-20] VITALS: Ht 157.5 cm; Wt 93.3 kg
[~2017-06-20 10:18] MED LIST changes: +HYDR-906 PO; +SUCR1TAB56 PO
[2017-06-20] MEDS ORDERED: morphine 4 MG/ML VIAL IV STA (10:32)
[2017-06-20] MEDS ORDERED: ONDANSETRON 4 MG INJ IV STA (10:32)
[2017-06-20] MEDS ORDERED: SOD CHLORIDE 0.9% 1,000 ML IV STA (10:32)
--- NOTE | 2017-06-20 10:41 | ERA ---
ER Documentation Chief Complaint Date/Time DATE: 06/20/17 TIME: 10:39 Chief Complaint 10 abd pain with N/V x 1 week HPI 76-year-old female history of chronic abdominal pain who presents with abdominal pain. Abdominal pain for approximately 1 week with nonbloody nonbilious emesis. The patient has multiple visits to the emergency room one recently within the past week or so. Patient had a CAT scan with IV contrast that showed no acute process other than mild constipation. However the patient still reports 10 out of 10 diffuse abdominal pain with nonbloody nonbilious emesis, lack of oral intake. The patient has had a colonoscopy in the last several years that showed polyps and no other acute process. No abdominal surgical history. ROS All systems reviewed and are negative except as per history of present illness. Medications Home Meds Reported Medications Alprazolam* (Alprazolam*) 0.5 Mg Tablet, 0.5 MG PO QHS Y for SLEEP, TAB 06/20/17 Omeprazole* (Omeprazole*) 40 Mg Capsule.dr, 40 MG PO DAILY, #30 CAP 06/20/17 Metoprolol Succinate* (Toprol XL*) 100 Mg Tab.sr.24h, 100 MG PO DAILY, #30 TAB 06/20/17 Insulin Glargine* (Lantus*) 100 Unit/Ml Soln, 35 UNIT SC QPM, #1 VIAL 06/20/17 Insulin Glargine* (Lantus*) 100 Unit/Ml Soln, 40 UNIT SC QAM, #1 VIAL 06/20/17 Exenatide Microspheres (Bydureon Pen) 2 Mg/0.65 Ml Pen.injctr, 2 MG SQ Q7D for ON Wednesday., EACH 04/18/17 Zolpidem Tartrate* (Zolpidem Tartrate*) 5 Mg Tablet, 10 MG PO HS Y, TAB 09/13/14 Ca Carbonate/Vitamin D3/Vit K (VIACTIV SOFT CHEW TABLET) 1 Each Tab.chew, 1 EACH PO WITH MEALS, TAB.CHEW 08/19/14 Cholecalciferol (Vitamin D3) (VITAMIN D-3) 2,000 Unit Capsule, 2000 UNIT PO DAILY 08/19/14 Ketbyicwah-Txqomhetx-GHHV (Exforge HCT) 10-160-12.5 Mg Tab, 1 TAB PO DAILY, TAB 08/19/14 Discontinued Reported Medications Insulin Glargine* (Lantus*) 100 Unit/Ml Soln, 30 UNIT SC QPM Y for 0, #1 VIAL 02/25/17 Insulin Glargine* (Lantus*) 100 Unit/Ml Soln, 45 UNIT SC QAM, #1 VIAL 02/25/17 Esomeprazole Mag Trihydrate (Nexium) 40 Mg Capsule.dr, 40 MG PO DAILY, CAP 08/19/14 Metoprolol Succinate* (Toprol XL*) 50 Mg Tab.er.24h, 50 MG PO DAILY, TAB 08/19/14 Discontinued Scripts Sucralfate* (Carafate*) 1 Gm Tab, 1 GM PO AC MEALS AND BEDTIME, #30 TAB Prov:ELIZABETH MARCH 06/13/17 Hydrocodone/Acetaminophen (Fowler 5-325 Tablet) 1 Each Tablet, 1 EACH PO Q6, #20 TAB Prov:ELIZABETH MARCH 06/13/17 Ondansetron (Ondansetron Odt) 4 Mg Tab.rapdis, 4 MG PO Q6H Y for NAUSEA AND/OR VOMITING, #30 TAB Prov:CARMELA BIANCHI MD 04/18/17 Fluconazole* (Diflucan*) 150 Mg Tablet, 150 MG PO ONCE, #1 TAB Prov:VLADIMIR STEPHENS 02/25/17 Allergies Allergies: Coded Allergies: No Known Allergies (Verified Allergy, Mild, 06/20/17) PMhx/Soc History of Surgery: No Anesthesia Reaction: No Hx Neurological Disorder: No Hx Respiratory Disorders: No Hx Cardiac Disorders: No Hx Psychiatric Problems: No Hx Miscellaneous Medical Probl: No Hx Alcohol Use: No Hx Substance Use: No Hx Tobacco Use: No FmHx Family History: No diabetes Physical Exam Vitals Vital Signs Date Time Temp Pulse Resp B/P Pulse Ox O2 Delivery O2 Flow Rate FiO2 06/20/17 12:39 98.1 96 18 167/81 96 06/20/17 10:19 98.2 120 18 194/86 96 Physical Exam General: Morbidly obese, uncomfortable Head: Normocephalic, atraumatic. Eyes: Pupils equally reactive, EOM intact ENT: Moist mucous membranes Neck: Supple, no lymphadenopathy Respiratory: Lungs clear bilaterally, no distress Cardiovascular: RRR, no murmurs, rubs, or gallops Abdominal: Soft, protuberant, diffuse tenderness without rebound or guarding, negative Recinos sign, no tenderness to McBurney's point : Deferred MSK: No edema, no unilateral swelling, 5/5 strength Neurologic: Alert and oriented, moving all extremities, normal speech, no focal weakness, no cerebellar signs Skin: No rash Psych: Normal mood Result Diagram: 06/20/17 1040 06/20/17 1040 Results 24 hrs Laboratory Tests Test 06/20/17 10:40 White Blood Count 11.210^3/ul Red Blood Count 4.7910^6/ul Hemoglobin 14.8g/dl Hematocrit 43.6% Mean Corpuscular Volume 91.0fl Mean Corpuscular Hemoglobin 30.9pg Mean Corpuscular Hemoglobin Concent 33.9g/dl Red Cell Distribution Width 13.9% Platelet Count 62072^3/UL Mean Platelet Volume 10.2fl Neutrophils % 81.1% Lymphocytes % 14.8% Monocytes % 2.9% Eosinophils % 0.3% Basophils % 0.4% Nucleated Red Blood Cells % 0.0/100WBC Neutrophils # 9.110^3/ul Lymphocytes # 1.710^3/ul Monocytes # 0.310^3/ul Eosinophils # 0.010^3/ul Basophils # 0.010^3/ul Nucleated Red Blood Cells # 0.010^3/ul Prothrombin Time 12.4Sec Prothrombin Time Ratio 1.0 INR International Normalized Ratio 0.92 Activated Partial Thromboplast Time 33.2Sec Urine Color YELLOW Urine Clarity SLIGHTLY CLOUDY Urine pH 6.0 Urine Specific [place] 1.016 Urine Ketones TRACEmg/dL Urine Nitrite NEGATIVEmg/dL Urine Bilirubin NEGATIVEmg/dL Urine Urobilinogen NEGATIVEmg/dL Urine Leukocyte Esterase NEGATIVELeu/ul Urine Microscopic RBC 2/HPF Urine Microscopic WBC 6/HPF Urine Mucus FEW/HPF Urine Hemoglobin NEGATIVEmg/dL Urine Glucose 1+mg/dL Urine Total Protein 2+mg/dl Sodium Level 145mmol/L Potassium Level 4.4mmol/L Chloride Level 99mmol/L Carbon Dioxide Level 29mmol/L Anion Gap 21 Blood Urea Nitrogen 13mg/dl Creatinine 0.89mg/dl Glucose Level 208mg/dl Lactic Acid Level 2.7mmol/L Calcium Level 11.1mg/dl Total Bilirubin 0.2mg/dl Direct Bilirubin 0.00mg/dl Indirect Bilirubin 0.2mg/dl Aspartate Amino Transf (AST/SGOT) 26IU/L Alanine Aminotransferase (ALT/SGPT) 31IU/L Alkaline Phosphatase 160IU/L Troponin I < 0.012ng/ml Total Protein 8.8g/dl Albumin 4.7g/dl Globulin 4.10g/dl Albumin/Globulin Ratio 1.14 Lipase 174U/L Current Medications Medications (Trade) Dose Ordered Sig/Gilbert Route PRN Reason Start Time Stop Time Status Last Admin Dose Admin Sodium Chloride (NS) 1,000 ml @ 1,000 mls/hr Q1H STAT IV 06/20/17 10:32 06/20/17 11:31 DC 06/20/17 10:59 Morphine Sulfate (morphine) 4 mg ONCE STAT IV 06/20/17 10:32 06/20/17 10:33 DC 06/20/17 10:59 Ondansetron HCl (Zofran Inj) 4 mg ONCE STAT IV 06/20/17 10:32 06/20/17 10:33 DC 06/20/17 10:59 Ondansetron HCl (Zofran Inj) 4 mg BRIDGE ORDER PRN IV NAUSEA AND/OR VOMITING 06/20/17 13:00 06/21/17 12:59 Acetaminophen (Tylenol Tab) 650 mg ER BRIDGE PRN PO MILD PAIN/FEVER 06/20/17 13:00 06/21/17 12:59 Procedures/MDM EKG, MONITORS, & DIAGNOSTIC IMAGING: EKG: I reviewed and interpreted a 12-lead EKG. Rhythm: Normal sinus rhythm Ectopy: None Intervals: No abnormalities ST segments: No elevations or depressions T waves: No contiguous inversions CT abdomen and pelvis: IMPRESSION: 1. Unremarkable CT scan of the abdomen and pelvis. 2. Mild colonic diverticulosis without diverticulitis. Mild fecal retention within the colon. 3. No lymphadenopathy, bowel obstruction, obstructive uropathy, inflammatory process. 4. Stable mild hepatomegaly with nodular contour. No mass, intra or extrahepatic biliary ductal dilatation. 5. Chronic changes as detailed above. RPTAT:AAJJ LAB INTERPRETATION: Elevated lactic acid, no significant leukocytosis MEDICAL DECISION MAKING: The patient has a history of chronic abdominal pain. However given her age and comorbidities she is at risk for acute intra-abdominal process. My bigger concern is that the patient has not tolerated any oral intake in the past 48 hours. She appears to be uncomfortable. Unfortunately repeat laboratory testing and CT imaging is required to rule out acute process. No evidence of dissection or mesenteric ischemia given the chronicity of symptoms. The patient had a CT with IV contrast last time. Plain CT here is appropriate. Low threshold for hospitalization given chronicity of symptoms multiple repeat visits to the emergency room. ER COURSE: The patient has 1 out of 4 Sirs criteria with no evidence of source. CT belly is negative. The patient's lactic acid is slightly elevated likely secondary to vomiting and dehydration. Fluid resuscitation will continue. Repeat lactic acid pending. At this time no indication for antibiotics. I believe the patient will benefit from hospitalization for hydration and close monitoring. I kept the patient and/or family informed of laboratory and diagnostic imaging results throughout the emergency room course. DISPOSITION PLAN: Medical surgical admission for management of vomiting, abdominal pain, dehydration CONSULTATION: Accepting care team and consultations: I discussed the current laboratory data, diagnostic imaging and emergency care provided. Admitting team: Dr. Rodrigez Admitting team indication: Insurance directed, Dr. Small, the patient's primary care physician requests admission to Dr. Rodrigez Consulting services: None Departure Diagnosis: Primary Impression: Abdominal pain Qualified Code: R10.84 - Generalized abdominal pain Additional Impressions: Nausea and vomiting Qualified Code: R11.2 - Nausea and vomiting, intractability of vomiting not specified, unspecified vomiting type Moderate dehydration Lactic acidosis Condition: Stable CARMELA BIANCHI MD Jun 20, 2017 10:41
[2017-06-20 11:06] LABS: BASOPHILS % 0.4 % (0.0-2.0); EOSINOPHILS % 0.3 % (0.0-7.0); HEMATOCRIT 43.6 % (37.0-47.0); HEMOGLOBIN 14.8 g/dl (12.0-16.0); LYMPHOCYTES # 1.7 10^3/ul (0.8-2.9); LYMPHOCYTES % 14.8 % (15.0-51.0); MEAN CORPUSCULAR HEMOGLOBIN 30.9 pg (29.0-33.0); MEAN CORPUSCULAR HGB CONC 33.9 g/dl (32.0-37.0); MEAN PLATELET VOLUME 10.2 fl (7.4-10.4); MONOCYTE # 0.3 10^3/ul (0.3-0.9); MONOCYTES % 2.9 % (0.0-11.0); NEUTROPHIL # 9.1 10^3/ul (1.6-7.5); NEUTROPHILS % 81.1 % (39.0-77.0); PLATELET COUNT 237 10^3/UL (140-415); RED BLOOD COUNT 4.79 10^6/ul (4.20-5.40); RED CELL DISTRIBUTION WIDTH 13.9 % (11.5-14.5); WHITE BLOOD COUNT 11.2 10^3/ul (4.8-10.8)
[2017-06-20] MEDS ORDERED: LANT3I SC ×2 (11:07)
[2017-06-20] MEDS ORDERED: OMEP40CA6 PO (11:08)
[2017-06-20] MEDS ORDERED: METO100T13 PO (11:08)
[2017-06-20] MEDS ORDERED: ALPR0.5T6 PO (11:08)
[2017-06-20 11:17] LABS: ADD UMIC YES; UR ASCORBIC ACID NEGATIVE (NEGATIVE); UR BILIRUBIN (Dip) NEGATIVE (NEGATIVE); UR BLOOD (Dip) NEGATIVE (NEGATIVE); UR CLARITY SLIGHTLY CLOUDY (CLEAR); UR COLOR YELLOW (YELLOW); UR GLUCOSE (Dip) 1+ mg/dL (NEGATIVE); UR KETONES (Dip) TRACE mg/dL (NEGATIVE); UR LEUKOCYTE ESTERASE (Dip) NEGATIVE Leu/ul (NEGATIVE); UR MUCUS FEW /HPF (NONE SEEN); UR NITRITE (Dip) NEGATIVE (NEGATIVE); UR RBC 2 /HPF (0-5); UR SPECIFIC GRAVITY (Dip) 1.016 (1.003-1.030); UR TOTAL PROTEIN (Dip) 2+ mg/dl (NEGATIVE); UR UROBILINOGEN (Dip) NEGATIVE (NEGATIVE)
[2017-06-20 11:24] LABS: INR 0.92; PROTIME 12.4 Sec (12.2-14.2)
[2017-06-20 11:25] LABS: PARTIAL THROMBOPLASTIN TIME 33.2 Sec (25.0-35.0)
[2017-06-20 11:28] LABS: ALANINE AMINOTRANSFERASE 31 IU/L (13-69); ALBUMIN 4.7 g/dl (3.3-4.9); ALBUMIN/GLOBULIN RATIO 1.14; ALKALINE PHOSPHATASE 160 IU/L (42-121); ANION GAP 21 (8-16); ASPARTATE AMINO TRANSFERASE 26 IU/L (15-46); BILIRUBIN,INDIRECT 0.2 mg/dl (0-1.1); BILIRUBIN,TOTAL 0.2 mg/dl (0.2-1.3); BLOOD UREA NITROGEN 13 mg/dl (7-20); CALCIUM 11.1 mg/dl (8.4-10.2); CARBON DIOXIDE 29 mmol/L (21-31); CHLORIDE 99 mmol/L (97-110); CREATININE 0.89 mg/dl (0.44-1.00); GLUCOSE 208 mg/dl (70-220); POTASSIUM 4.4 mmol/L (3.5-5.1); SODIUM 145 mmol/L (135-144); TOTAL PROTEIN 8.8 g/dl (6.1-8.1)
[2017-06-20 11:51] LABS: TROPONIN-I < 0.012 ng/ml (0.00-0.12)
--- NOTE | 2017-06-20 11:57 | RADRPT ---
PROCEDURE: CT Abdomen and Pelvis without contrast. CLINICAL INDICATION: Abdominal pain. Vomiting. TECHNIQUE: CT scan of the abdomen and pelvis with and without contrast was performed on a multidet chris high-resolution CT scanner. Coronal and sagittal reformatted images were obtained from the a xial source images. The total exam CTDI equals 21.99 mGy and the total exam DLP equals 1166.61 mGy-c m. One or more of the following dose reduction techniques were utilized: Automated exposure control , adjustment of the mA and/or kV according to patient size, use of iterative reconstruction techniqu e. COMPARISON: 06/13/2017 CT abdomen FINDINGS: CT abdomen: The lung bases are clear. The heart size is normal, without pericardial thickening or effusion. Sta ble hepatomegaly with mild nodular contour. The liver is otherwise normal in density without focal mass or intrahepatic biliary dilatation. The darryl hepatis region is clear. The spleen is normal in size and homogeneous in density. The stomach is partially collapsed, but is grossly unremarkable. The pancreas as visualized is normal. The gallbladder is mildly distended. No evidence of intra or extra hepatic biliary ductal dilatation . Minimal nodularity of the adrenal gland. Bilaterally left greater than right without focal mass. The kidneys demonstrate no parenchymal abnormality. No nephrolithiasis, hydronephrosis, or obstructi ve uropathy. The aorta is of normal caliber. Aortic vascular calcifications are present. There is no ascites, r etroperitoneal, or mesenteric lymphadenopathy. The bowel and mesentery, as visualized, are equally unremarkable. Mild fecal retention within the colon. Scattered colonic diverticulosis. CT pelvis: Normal retrocecal appendix. The small bowel loops situated within the pelvis are unremarkable. Fat containing right inguinal her susan. The pelvic organs are normal. The pelvic sidewalls and inguinal regions are clear. No lympha denopathy, free fluid, or mass. Sigmoid diverticulosis without diverticulitis. Bones: Multilevel degenerative spondylosis and enthesopathy throughout the visualized thoracic and lumbar s pine. Grade 1 anterior anterolisthesis of 5 S1 with bilateral spondylolysis vacuum disk formation. No osteolytic or osteoblastic lesion is detected. IMPRESSION: 1. Unremarkable CT scan of the abdomen and pelvis. 2. Mild colonic diverticulosis without diverticulitis. Mild fecal retention within the colon. 3. No lymphadenopathy, bowel obstruction, obstructive uropathy, inflammatory process. 4. Stable mild hepatomegaly with nodular contour. No mass, intra or extrahepatic biliary ductal di latation. 5. Chronic changes as detailed above. RPTAT:AAJJ Nate Ordoñez Physician Date Time Electronically viewed and signed by Nate Ordoñez Physician on 06/20/2017 11:56 RAJESH/
[2017-06-20 12:39] VITALS: TEMP 98.1
[2017-06-20] MEDS ORDERED: LORAZEPAM 2 MG INJ IV ONE (13:00)
[2017-06-20] MEDS ORDERED: ACETAMINOPHEN 325 MG TAB PO PRN ×2 (13:00→20:00)
[2017-06-20] MEDS ORDERED: ONDANSETRON 4 MG INJ IV PRN ×2 (13:00→20:00)
[2017-06-20 14:55] VITALS: BP 162/70; PULSE 93; RESP 20; Ht 157.5 cm; Wt 93.3 kg
[2017-06-20] MEDS: SOD CHLORIDE 0.45% 1,000 ML IV SCH (15:54)
[2017-06-20] MEDS ORDERED: DEXTROSE 50% 50 ML SYRINGE IV PRN ×2 (18:30)
[2017-06-20] MEDS ORDERED: GLUCOSE GEL 15 GRAM TUBE BUCCAL PRN (18:30)
[2017-06-20] MEDS ORDERED: GLUCOSE GEL 15 GRAM TUBE PO PRN ×2 (18:30)
[2017-06-20] MEDS ORDERED: GLUCAGON 1 MG INJ IM PRN (18:30)
[2017-06-20 18:35] LABS: ALBUMIN 4.3 g/dl (3.3-4.9); BILIRUBIN,INDIRECT 0.1 mg/dl (0-1.1); BILIRUBIN,TOTAL 0.1 mg/dl (0.2-1.3); TOTAL PROTEIN 7.8 g/dl (6.1-8.1)
[2017-06-20 19:18] LABS: WHITE BLOOD COUNT 9.5 10^3/ul (4.8-10.8)
[2017-06-20 19:19] LABS: BASOPHILS % 0.4 % (0.0-2.0); EOSINOPHILS # 0.1 10^3/ul (0.0-0.5); EOSINOPHILS % 0.6 % (0.0-7.0); HEMATOCRIT 38.6 % (37.0-47.0); HEMOGLOBIN 12.6 g/dl (12.0-16.0); LYMPHOCYTES # 2.8 10^3/ul (0.8-2.9); MEAN CORPUSCULAR HEMOGLOBIN 30.1 pg (29.0-33.0); MEAN CORPUSCULAR HGB CONC 32.6 g/dl (32.0-37.0); MEAN CORPUSCULAR VOLUME 92.1 fl (82.0-101.0); MEAN PLATELET VOLUME 10.1 fl (7.4-10.4); MONOCYTE # 0.4 10^3/ul (0.3-0.9); MONOCYTES % 4.5 % (0.0-11.0); NEUTROPHIL # 6.1 10^3/ul (1.6-7.5); PLATELET COUNT 221 10^3/UL (140-415); RED BLOOD COUNT 4.19 10^6/ul (4.20-5.40)
--- NOTE | 2017-06-20 19:33 | HP ---
Date/Time of Note Date/Time of Note DATE: 06/20/17 TIME: 19:20 Assessment/Plan VTE Prophylaxis VTE Prophylaxis Intervention: SCD's Lines/Catheters IV Catheter Type (from Nrsg): Saline Lock Assessment/Plan Assessment/Plan - intractable Abdominal pain. CT showed- diverticulosis without diverticulitis. Mild fecal retention within the colon. - ADMIT TO ms - clear liquid diet - IVF - GI consult- Dr Garcia is notified - Zosyn - bowl regimen - resume home meds -Intractable Nausea and vomiting- none at present -Moderate dehydration- IVF, am labs -Lactic acidosis - Diabetes Mellitus - Glycemic control - SCD for DVT prophylaxis - Protonix for GI prophylaxis Patient is getting Bydureon Pen 2 mg SQ q7DAY- staff to check with MD in am if needed to be continued here. Further recommendations depend upon patient clinical course. Further recommendations depend upon patient clinical course. Plan of care dw Dr Rodrigez/staff/patient daughter. HPI/ROS Admit Date/Time Admit Date/Time Jun 20, 2017 at 12:54 Hx of Present Illness HPI This is a 76-year-old female with history of chronic abdominal pain is admitted with abdominal pain from x1 week with nonbloody nonbilious emesis. The patient was seen multiple times in the emergency the past week. In ER, CAT scan with IV contrast that showed no acute process other than mild constipation but patient c/o 10 out of 10 diffuse abdominal pain with nonbloody nonbilious emesis, lack of oral intake. The patient has had a colonoscopy in the last several years that showed polyps and no other acute process. No abdominal surgical history reported. During exam patient is alert,awake. oriented, seems comfortable. During assessment, patient c/o weakness /Denies any chest pain, shortness of breath, headache, dizziness, palpitations, focal weakness/numbness, nausea/vomitting. Plan of care dw daughter/staff/Dr Waite. Daughter at bed side- all Qs answered. Patient is admitted under DR Rodrigez on med surg unit. ROS All systems reviewed and are negative except as per history of present illness. Allergies No Known Allergies (Verified Allergy, Mild, 06/20/17) ROS Respiratory: no complaints Cardiovascular: no complaints Gastrointestinal: nausea, pain Genitourinary: no complaints Skin: no complaints Neurologic: no complaints PMH/Family/Social Past Medical History PMhx/Soc History of Surgery: No Anesthesia Reaction: No Hx Neurological Disorder: No Hx Respiratory Disorders: No Hx Cardiac Disorders: No Hx Psychiatric Problems: No Hx Miscellaneous Medical Probl: No Hx Alcohol Use: No Hx Substance Use: No Hx Tobacco Use: No FmHx Family History: No diabetes Past Surgical History Past Surgical Hx: no surgical history Family History Significant Family History: no pertinent family hx Social History Alcohol Use: none Smoking Status: Never smoker Drug Use: cocaine Exam/Review of Systems Vital Signs Vitals Vital Signs Date Time Temp Pulse Resp B/P Pulse Ox O2 Delivery O2 Flow Rate FiO2 06/20/17 15:10 Nasal Cannula 2.0 06/20/17 14:55 99.3 93 20 162/70 96 Exam Constitutional: alert, oriented, well developed Psych: nl mood/affect Respiratory: clear to auscultation, normal air movement Cardiovascular: nl pulses, regular rate and rhythm Gastrointestinal: soft, tender (Diffuse tenderness without rebound or guarding , negative Recinos sign, no tenderness to McBurney's point) Musculoskeletal: nl extremities to inspection Extremities: normal pulses Neurological: nl mental status, nl speech Labs Result Diagram: 06/20/17 1905 06/20/17 1040 Medications Medications Current Medications Sodium Chloride (1/2 NS) 1,000 ml @ 50 mls/hr Q20H IV Last administered on t 15:54; Admin Dose 50 MLS/HR; Start 06/20/17 at 15:30 Ondansetron HCl (Zofran Inj) 4 mg Q6H PRN IV NAUSEA AND/OR VOMITING; Start at 15:30 Insulin Aspart (Novolog Insulin Pen) NOVOLOG *MILD* ALGORITHM Q6 SC ; Start at 00:00 Miscellaneous Information 1 ea NOTE XX ; Start 06/20/17 at 18:30 Glucose (Glutose) 15 gm Q15M PRN PO DECREASED GLUCOSE; Start 06/20/17 at 18:30 Glucose (Glutose) 22.5 gm Q15M PRN PO DECREASED GLUCOSE; Start 06/20/17 at 18: 30 Dextrose (D50w Syringe) 25 ml Q15M PRN IV DECREASED GLUCOSE; Start 06/20/17 at 18:30 Dextrose (D50w Syringe) 50 ml Q15M PRN IV DECREASED GLUCOSE; Start 06/20/17 at 18:30 Glucagon (Glucagen) 1 mg Q15M PRN IM DECREASED GLUCOSE; Start 06/20/17 at 18:30 Glucose (Glutose) 15 gm Q15M PRN BUCCAL DECREASED GLUCOSE; Start 06/20/17 at 18 :[address] ABDOMEN/PELVIS IMPRESSION: 1. Unremarkable CT scan of the abdomen and pelvis. 2. Mild colonic diverticulosis without diverticulitis. Mild fecal retention within the colon. 3. No lymphadenopathy, bowel obstruction, obstructive uropathy, inflammatory process. 4. Stable mild hepatomegaly with nodular contour. No mass, intra or extrahepatic biliary ductal dilatation. 5. Chronic changes as detailed above. JUAN PICHARDO Jun 20, 2017 19:33
[2017-06-20] MEDS ORDERED: ZOLPIDEM 5 MG TAB PO PRN (20:00)
[2017-06-20] MEDS ORDERED: PIPER-TAZO 3.375 GM IV (PMX) 100 ML IVPB ONE (20:00)
[2017-06-20 20:24] VITALS: BP 177/72; RESP 16
[2017-06-20] MEDS ORDERED: INSULIN GLARGINE [LANtus] 3 ML PEN SC SCH (21:00)
[2017-06-20] MEDS: DOCUSATE SODIUM 100 MG CAP PO SCH (21:02)
[2017-06-20] MEDS: SENNA TAB PO SCH (21:02)
[2017-06-20] MEDS: hydrALAzine 20 MG INJ IV PRN (21:15)
[2017-06-20] MEDS: INSULIN GLARGINE [LANtus] 3 ML PEN SC SCH (22:36)
[2017-06-21] VITALS (8 sets, daily range): BP systolic 115–189; BP diastolic 57–85; PULSE 84–86; RESP 16–19
[2017-06-21] MEDS: ZOLPIDEM 5 MG TAB PO PRN (00:20)
[2017-06-21] MEDS: PIPER-TAZO 3.375 GM IV (PMX) 100 ML IVPB SCH ×3 (02:13→17:10)
[2017-06-21] MEDS: INSULIN ASPART [NOVOLOG] 3 ML PEN SC SCH ×5 (06:00→21:00)
[2017-06-21] MEDS: ONDANSETRON 4 MG INJ IV PRN (06:06)
[2017-06-21 06:42] LABS: CALCIUM 10.2 mg/dl (8.4-10.2); CREATININE 0.86 mg/dl (0.44-1.00); POTASSIUM 3.9 mmol/L (3.5-5.1)
[2017-06-21] MEDS: CALCIUM CARBONATE 500 MG CHEW TAB PO SCH ×3 (08:17→18:06)
[2017-06-21] MEDS: AMLODIPINE 10 MG TAB PO SCH (08:17)
[2017-06-21] MEDS: SENNA TAB PO SCH ×2 (08:17→21:00)
[2017-06-21] MEDS: DOCUSATE SODIUM 100 MG CAP PO SCH ×2 (08:17→21:00)
[2017-06-21] MEDS: METOPROLOL (XL) 100 MG TAB PO SCH (08:17)
[2017-06-21] MEDS: CHOLECALCIFEROL 2,000 UNIT CAP PO SCH (08:17)
[2017-06-21] MEDS: INSULIN GLARGINE [LANtus] 3 ML PEN SC SCH ×2 (08:19→21:00)
[2017-06-21] MEDS ORDERED: INSULIN GLARGINE [LANtus] 3 ML PEN SC SCH (09:00)
[2017-06-21] MEDS ORDERED: METOPROLOL (XL) 100 MG TAB PO SCH (09:00)
[2017-06-21] MEDS: SOD CHLORIDE 0.45% 1,000 ML IV SCH (11:30)
[2017-06-21] MEDS: hydrALAzine 20 MG INJ IV PRN (12:13)
[2017-06-21] MEDS: morphine 2 MG INJ IV PRN (13:50)
--- NOTE | 2017-06-21 17:25 | CONS ---
Date/Time of Note Date/Time of Note DATE: 06/21/17 TIME: 17:22 Assessment/Plan Assessment/Plan Additional Assessment/Plan 1. Epigastric pain associated with nausea going on for last 6 month 2. Irregular surface of the liver probably nodular may have cirrhosis of liver. Patient's alkaline phosphatase is elevated 3. Diabetes mellitus 4. Obesity Plan Start empirically on Reglan for possible diabetic gastroparesis Hepatitis panel Cirrhosis of liver might be due to Gandhi. Patient may need EGD for abdominal pain vomiting and also surveillance for her varicose veins Consultation Date/Type/Reason Admit Date/Time Jun 20, 2017 at 12:54 Reason for Consultation Abdominal pain and vomiting Hx of Present Illness Patient is 76-year-old female with history of diabetes mellitus, presented to the ER complaining of abdominal pain confined to the epigastric area associated with nausea and vomiting. This pain is going on for last 6 months. No radiation to any part of the body. 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 No history of weight loss. Patient had a CAT scan done which showed the irregular contour consistent with the diagnosis of possible cirrhosis. Respiratory: no complaints Cardiovascular: no complaints Gastrointestinal: nausea, pain Genitourinary: no complaints Skin: no complaints Neurologic: no complaints Past Surgical History Past Surgical Hx: no surgical history Social History Alcohol Use: none Smoking Status: Never smoker Drug Use: none Exam/Review of Systems Vital Signs Vitals Vital Signs Date Time Temp Pulse Resp B/P Pulse Ox O2 Delivery O2 Flow Rate FiO2 06/21/17 15:04 84 156/68 06/21/17 14:03 98.4 18 98 06/21/17 08:30 Nasal Cannula 2.0 Intake and Output 06/20/17 06/20/17 06/21/17 15:00 23:00 07:00 Intake Total 200 ml 750 ml Balance 200 ml 750 ml Exam Constitutional: alert, oriented, well developed Psych: nl mood/affect, no complaints Head: atraumatic, normocephalic Eyes: EOMI, PERRL, nl conjunctiva, nl lids, nl sclera ENMT: nl external ears & nose, nl lips & teeth, nl nasal mucosa & septum Neck: non-tender, supple Respiratory: clear to auscultation, normal air movement Cardiovascular: nl pulses, regular rate and rhythm Gastrointestinal: nl liver, spleen, non-tender, soft Musculoskeletal: nl extremities to inspection, nl gait and stance Extremities: normal pulses Neurological: AIRLINE TRANSPORT PILOT II-XII intact, nl mental status, nl speech, nl strength Skin: nl turgor, No rash or lesions Lymph: nl lymph nodes Results Result Diagram: 06/20/17 1905 06/21/17 0502 Results 24 hrs Laboratory Tests Test 06/20/17 19:05 06/20/17 22:32 06/21/17 00:11 06/21/17 05:02 White Blood Count 9.5 Red Blood Count 4.19 L Hemoglobin 12.6 Hematocrit 38.6 Mean Corpuscular Volume 92.1 Mean Corpuscular Hemoglobin 30.1 Mean Corpuscular Hemoglobin Concent 32.6 Red Cell Distribution Width 14.0 Platelet Count 221 Mean Platelet Volume 10.1 Neutrophils % 65.0 Lymphocytes % 29.0 Monocytes % 4.5 Eosinophils % 0.6 Basophils % 0.4 Nucleated Red Blood Cells % 0.0 Neutrophils # 6.1 Lymphocytes # 2.8 Monocytes # 0.4 Eosinophils # 0.1 Basophils # 0.0 Nucleated Red Blood Cells # 0.0 Bedside Glucose 167 140 Sodium Level 141 Potassium Level 3.9 Chloride Level 99 Carbon Dioxide Level 28 Anion Gap 18 H Blood Urea Nitrogen 12 Creatinine 0.86 Glucose Level 148 # Hemoglobin A1c 7.8 H Calcium Level 10.2 Test 06/21/17 06:02 06/21/17 08:11 06/21/17 11:49 06/21/17 13:00 Bedside Glucose 137 137 134 Troponin I < 0.012 Test 06/21/17 17:11 Bedside Glucose 136 Medications Medications Current Medications Sodium Chloride (1/2 NS) 1,000 ml @ 50 mls/hr Q20H IV Last administered on 15:54; Admin Dose 50 MLS/HR; Start 06/20/17 at 15:30 Ondansetron HCl (Zofran Inj) 4 mg Q6H PRN IV NAUSEA AND/OR VOMITING Last administered on 06/21/17 06:06; Admin Dose 4 MG; Start 06/20/17 at 15:30 Insulin Aspart (Novolog Insulin Pen) NOVOLOG *MILD* ALGORITHM Q6 SC ; Start at 00:00 Miscellaneous Information 1 ea NOTE XX ; Start 06/20/17 at 18:30 Glucose (Glutose) 15 gm Q15M PRN PO DECREASED GLUCOSE; Start 06/20/17 at 18:30 Glucose (Glutose) 22.5 gm Q15M PRN PO DECREASED GLUCOSE; Start 06/20/17 at 18: 30 Dextrose (D50w Syringe) 25 ml Q15M PRN IV DECREASED GLUCOSE; Start 06/20/17 at 18:30 Dextrose (D50w Syringe) 50 ml Q15M PRN IV DECREASED GLUCOSE; Start 06/20/17 at 18:30 Glucagon (Glucagen) 1 mg Q15M PRN IM DECREASED GLUCOSE; Start 06/20/17 at 18:30 Glucose (Glutose) 15 gm Q15M PRN BUCCAL DECREASED GLUCOSE; Start 06/20/17 at 18 :30 Ondansetron HCl 4 mg 4 mg Q6H PRN IV NAUSEA AND/OR VOMITING; Start 06/20/17 at 20:00 Piperacillin Sod/ Tazobactam Sod (Zosyn 3.375gm/ 100 ml (Pmx)) 100 ml @ 25 mls/ hr TID@02,10,18 IVPB Last administered on 06/21/17 17:10; Admin Dose 25 MLS/HR ; Start 06/21/17 at 02:00 Morphine Sulfate (morphine) 2 mg Q6 PRN IV PAIN LEVEL 7-10 Last administered on 06/21/17 13:50; Admin Dose 2 MG; Start 06/20/17 at 20:00 Docusate Sodium (Colace) 200 mg BID PO Last administered on 06/21/17 08:17; Admin Dose 200 MG; Start 06/20/17 at 21:00 Senna (Senokot) 2 tab BID PO Last administered on 06/21/17 08:17; Admin Dose 2 TAB; Start 06/20/17 at 21:00 Acetaminophen (Tylenol Tab) 650 mg Q6H PRN PO PAIN AND OR ELEVATED TEMP Last administered on 06/20/17 21:15; Admin Dose 650 MG; Start 06/20/17 at 20:00 Cholecalciferol (Vitamin D) 2,000 unit DAILY PO Last administered on 06/21/17 08:17; Admin Dose 2,000 UNIT; Start 06/21/17 at 09:00 Metoprolol Succinate (Toprol Xl) 100 mg DAILY PO Last administered on 08:17; Admin Dose 100 MG; Start 06/21/17 at 09:00 Zolpidem Tartrate (Ambien) 5 mg HS PRN PO INSOMNIA Last administered on 00:20; Admin Dose 5 MG; Start 06/20/17 at 20:00 Amlodipine Besylate (Norvasc) 10 mg DAILY PO Last administered on 06/21/17 08: 17; Admin Dose 10 MG; Start 06/21/17 at 09:00 Insulin Glargine (Lantus) 35 unit QPM SC Last administered on 06/20/17 22:36; Admin Dose 35 UNIT; Start 06/20/17 at 21:00 Insulin Glargine (Lantus) 40 unit QAM SC Last administered on 06/21/17 08:19; Admin Dose 40 UNIT; Start 06/21/17 at 09:00 Miscellaneous Information (* Miscellaneous Pharmacy Order) ONCE XX ; Start at 20:00 Miscellaneous Information (* Miscellaneous Pharmacy Order) ONCE XX ; Start at 20:00 Hydralazine HCl (Apresoline) 10 mg Q6H PRN IV ELEVATED BLOOD PRESSURE Last administered on 06/21/17 12:13; Admin Dose 10 MG; Start 06/20/17 at 20:30 MEL ROBERTS MD Jun 21, 2017 17:25
--- NOTE | 2017-06-21 19:20 | PN ---
Date/Time of Note Date/Time of Note DATE: 06/21/17 TIME: 19:15 Assessment/Plan VTE Prophylaxis VTE Prophylaxis Intervention: SCD's Lines/Catheters IV Catheter Type (from Nrs): Saline Lock Assessment/Plan Chief Complaint/Hosp Course Patient denies any nausea and vomiting, denies chest pain denies shortness of breath Problems: Assessment/Plan - Epigastric pain associated with nausea going on for last [address] Garcia is following in gastroenterology consultation. Possible EGD. - Intractable nausea and vomiting and admission, continue Zofran as needed. - Possible diabetic gastroparesis, continue Reglan. - Diabetes mellitus, hemoglobin A1c 7.8, continue Lantus and NovoLog. - Hypertension, continue metoprolol and Norvasc - Obesity with BMI of 37.6 Further recommendations based on clinical course. Plan of care discussed with Dr. Rodrigez. Exam/Review of Systems Vital Signs Vitals Vital Signs Date Time Temp Pulse Resp B/P Pulse Ox O2 Delivery O2 Flow Rate FiO2 06/21/17 15:04 84 156/68 06/21/17 14:03 98.4 18 98 06/21/17 08:30 Nasal Cannula 2.0 Intake and Output 06/20/17 06/20/17 06/21/17 15:00 23:00 07:00 Intake Total 200 ml 750 ml Balance 200 ml 750 ml Exam Constitutional: alert, oriented Neck: supple Respiratory: normal air movement Cardiovascular: nl pulses Gastrointestinal: non-tender, soft Extremities: normal pulses Neurological: nl mental status Results Result Diagram: 06/20/17 1905 06/21/17 0502 Results 24 hrs Laboratory Tests Test 06/20/17 22:32 06/21/17 00:11 06/21/17 05:02 06/21/17 06:02 Bedside Glucose 167 140 137 Sodium Level 141 Potassium Level 3.9 Chloride Level 99 Carbon Dioxide Level 28 Anion Gap 18 H Blood Urea Nitrogen 12 Creatinine 0.86 Glucose Level 148 # Hemoglobin A1c 7.8 H Calcium Level 10.2 Test 06/21/17 08:11 06/21/17 11:49 06/21/17 13:00 06/21/17 17:11 Bedside Glucose 137 134 136 Troponin I < 0.012 Medications Medications Current Medications Sodium Chloride (1/2 NS) 1,000 ml @ 50 mls/hr Q20H IV Last administered on 15:54; Admin Dose 50 MLS/HR; Start 06/20/17 at 15:30 Ondansetron HCl (Zofran Inj) 4 mg Q6H PRN IV NAUSEA AND/OR VOMITING Last administered on 06/21/17 06:06; Admin Dose 4 MG; Start 06/20/17 at 15:30 Miscellaneous Information 1 ea NOTE XX ; Start 06/20/17 at 18:30 Glucose (Glutose) 15 gm Q15M PRN PO DECREASED GLUCOSE; Start 06/20/17 at 18:30 Glucose (Glutose) 22.5 gm Q15M PRN PO DECREASED GLUCOSE; Start 06/20/17 at 18: 30 Dextrose (D50w Syringe) 25 ml Q15M PRN IV DECREASED GLUCOSE; Start 06/20/17 at 18:30 Dextrose (D50w Syringe) 50 ml Q15M PRN IV DECREASED GLUCOSE; Start 06/20/17 at 18:30 Glucagon (Glucagen) 1 mg Q15M PRN IM DECREASED GLUCOSE; Start 06/20/17 at 18:30 Glucose (Glutose) 15 gm Q15M PRN BUCCAL DECREASED GLUCOSE; Start 06/20/17 at 18 :30 Ondansetron HCl 4 mg 4 mg Q6H PRN IV NAUSEA AND/OR VOMITING; Start 06/20/17 at 20:00 Piperacillin Sod/ Tazobactam Sod (Zosyn 3.375gm/ 100 ml (Pmx)) 100 ml @ 25 mls/ hr TID@02,10,18 IVPB Last administered on 06/21/17 17:10; Admin Dose 25 MLS/HR ; Start 06/21/17 at 02:00 Morphine Sulfate (morphine) 2 mg Q6 PRN IV PAIN LEVEL 7-10 Last administered on 06/21/17 13:50; Admin Dose 2 MG; Start 06/20/17 at 20:00 Docusate Sodium (Colace) 200 mg BID PO Last administered on 06/21/17 08:17; Admin Dose 200 MG; Start 06/20/17 at 21:00 Senna (Senokot) 2 tab BID PO Last administered on 06/21/17 08:17; Admin Dose 2 TAB; Start 06/20/17 at 21:00 Acetaminophen (Tylenol Tab) 650 mg Q6H PRN PO PAIN AND OR ELEVATED TEMP Last administered on 06/20/17 21:15; Admin Dose 650 MG; Start 06/20/17 at 20:00 Cholecalciferol (Vitamin D) 2,000 unit DAILY PO Last administered on 06/21/17 08:17; Admin Dose 2,000 UNIT; Start 06/21/17 at 09:00 Metoprolol Succinate (Toprol Xl) 100 mg DAILY PO Last administered on 08:17; Admin Dose 100 MG; Start 06/21/17 at 09:00 Zolpidem Tartrate (Ambien) 5 mg HS PRN PO INSOMNIA Last administered on 00:20; Admin Dose 5 MG; Start 06/20/17 at 20:00 Amlodipine Besylate (Norvasc) 10 mg DAILY PO Last administered on 06/21/17 08: 17; Admin Dose 10 MG; Start 06/21/17 at 09:00 Insulin Glargine (Lantus) 35 unit QPM SC Last administered on 06/20/17 22:36; Admin Dose 35 UNIT; Start 06/20/17 at 21:00 Insulin Glargine (Lantus) 40 unit QAM SC Last administered on 06/21/17 08:19; Admin Dose 40 UNIT; Start 06/21/17 at 09:00 Miscellaneous Information (* Miscellaneous Pharmacy Order) ONCE XX ; Start at 20:00 Miscellaneous Information (* Miscellaneous Pharmacy Order) ONCE XX ; Start at 20:00 Hydralazine HCl (Apresoline) 10 mg Q6H PRN IV ELEVATED BLOOD PRESSURE Last administered on 06/21/17 12:13; Admin Dose 10 MG; Start 06/20/17 at 20:30 VINCENZO RODRIGUEZ Jun 21, 2017 19:20
[2017-06-21 20:33] LABS: ALBUMIN 3.8 g/dl (3.3-4.9); ALBUMIN/GLOBULIN RATIO 1.08; BILIRUBIN,INDIRECT 0.2 mg/dl (0-1.1); BILIRUBIN,TOTAL 0.2 mg/dl (0.2-1.3); CALCIUM 10.1 mg/dl (8.4-10.2); CREATININE 0.9 mg/dl (0.44-1.00); POTASSIUM 3.8 mmol/L (3.5-5.1); TOTAL PROTEIN 7.3 g/dl (6.1-8.1)
[2017-06-22] MEDS: SOD CHLORIDE 0.45% 1,000 ML IV SCH (01:00)
[2017-06-22 02:00] VITALS: BP 181/72; RESP 19
[2017-06-22] MEDS: PIPER-TAZO 3.375 GM IV (PMX) 100 ML IVPB SCH ×3 (02:00→17:46)
[2017-06-22 06:12] LABS: BASOPHILS % 0.3 % (0.0-2.0); EOSINOPHILS # 0.2 10^3/ul (0.0-0.5); EOSINOPHILS % 1.5 % (0.0-7.0); HEMATOCRIT 39.5 % (37.0-47.0); HEMOGLOBIN 12.9 g/dl (12.0-16.0); LYMPHOCYTES # 2.9 10^3/ul (0.8-2.9); LYMPHOCYTES % 28.7 % (15.0-51.0); MEAN CORPUSCULAR HEMOGLOBIN 29.9 pg (29.0-33.0); MEAN CORPUSCULAR HGB CONC 32.7 g/dl (32.0-37.0); MEAN CORPUSCULAR VOLUME 91.4 fl (82.0-101.0); MEAN PLATELET VOLUME 10.1 fl (7.4-10.4); MONOCYTE # 0.6 10^3/ul (0.3-0.9); MONOCYTES % 5.5 % (0.0-11.0); NEUTROPHIL # 6.4 10^3/ul (1.6-7.5); NEUTROPHILS % 63.7 % (39.0-77.0); PLATELET COUNT 236 10^3/UL (140-415); RED BLOOD COUNT 4.32 10^6/ul (4.20-5.40); RED CELL DISTRIBUTION WIDTH 14.2 % (11.5-14.5)
[2017-06-22] MEDS: INSULIN ASPART [NOVOLOG] 3 ML PEN SC SCH ×4 (07:30→21:00)
[2017-06-22 08:13] VITALS: BP 154/69; RESP 20
[2017-06-22] MEDS: DOCUSATE SODIUM 100 MG CAP PO SCH ×2 (09:09→21:06)
[2017-06-22] MEDS: SENNA TAB PO SCH ×2 (09:09→21:07)
[2017-06-22] MEDS: AMLODIPINE 10 MG TAB PO SCH (09:10)
[2017-06-22] MEDS: METOPROLOL (XL) 100 MG TAB PO SCH (09:11)
[2017-06-22] MEDS: CHOLECALCIFEROL 2,000 UNIT CAP PO SCH (09:12)
[2017-06-22] MEDS: CALCIUM CARBONATE 500 MG CHEW TAB PO SCH ×3 (09:12→17:44)
[2017-06-22] MEDS: INSULIN GLARGINE [LANtus] 3 ML PEN SC SCH ×2 (09:16→21:08)
[2017-06-22 14:00] VITALS: BP 149/70; RESP 18
[2017-06-22] MEDS ORDERED: PEG/ELECTROLYTES 4L BTL PO ONE (16:00)
[2017-06-22] MEDS ORDERED: ALPRAZOLAM 0.5 MG TAB PO PRN (16:00)
--- NOTE | 2017-06-22 17:15 | RADRPT ---
PROCEDURE: XR Chest. CLINICAL INDICATION: Shortness of breath. TECHNIQUE: Single frontal view. COMPARISON: 06/13/2017. FINDINGS: The lungs are clear. The heart size is normal. There is calcification in the aorta consistent with atherosclerosis. There is no pleural effusion. There is no pneumothorax. IMPRESSION: 1. Atherosclerosis. 2. Otherwise normal chest radiograph. RPTAT: QQ .Jose Gilman MD, MD Date Time Electronically viewed and signed by .Jose Gilman MD, MD on 06/22/2017 17:15 .R/
--- NOTE | 2017-06-22 17:19 | PN ---
Date/Time of Note Date/Time of Note DATE: 06/22/17 TIME: 17:18 Assessment/Plan VTE Prophylaxis VTE Prophylaxis Intervention: SCD's Lines/Catheters IV C[facility]ter Type (from [facility] Saline Lock Assessment/Plan Chief Complaint/Hosp Course Patient complains of left upper quadrant pain, denies nausea vomiting. Assessment/Plan - Epigastric pain associated with nausea going on for last [address] Garcia is following in gastroenterology consultation. Possible EGD. - Intractable nausea and vomiting and admission, continue Zofran as needed. - Possible diabetic gastroparesis, continue Reglan. - Diabetes mellitus, hemoglobin A1c 7.8, continue Lantus and NovoLog. - Hypertension, continue metoprolol and Norvasc - Obesity with BMI of 37.6 Further recommendations based on clinical course. Plan of care discussed with Dr. Rodrigez. Problems: Exam/Review of Systems Vital Signs Vitals Vital Signs Date Time Temp Pulse Resp B/P Pulse Ox O2 Delivery O2 Flow Rate FiO2 06/22/17 14:00 97.8 75 18 149/70 95 06/22/17 09:00 Nasal Cannula 2.0 Intake and Output 06/21/17 06/21/17 06/22/17 15:00 23:00 07:00 Intake Total 250 ml 1010 ml 500 ml Balance 250 ml 1010 ml 500 ml Exam Constitutional: alert, oriented Neck: supple Respiratory: normal air movement Cardiovascular: nl pulses Gastrointestinal: non-tender, soft Extremities: normal pulses Neurological: nl mental status Results Result Diagram: 06/22/17 0539 06/21/172004 Results 24 hrs Laboratory Tests Test 06/21/17 20:05 06/21/17 20:47 06/21/17 22:42 06/22/17 05:39 Sodium Level 141 Potassium Level 3.8 Chloride Level 99 Carbon Dioxide Level 28 Anion Gap 18 H Blood Urea Nitrogen 12 Creatinine 0.90 Glucose Level 178 Calcium Level 10.1 Total Bilirubin 0.2 Direct Bilirubin 0.00 Indirect Bilirubin 0.2 Aspartate Amino Transf (AST/SGOT) 21 Alanine Aminotransferase (ALT/SGPT) 23 Alkaline Phosphatase 108 Total Protein 7.3 Albumin 3.8 Globulin 3.50 H Albumin/Globulin Ratio 1.08 Bedside Glucose 171 146 White Blood Count 10.0 Red Blood Count 4.32 Hemoglobin 12.9 Hematocrit 39.5 Mean Corpuscular Volume 91.4 Mean Corpuscular Hemoglobin 29.9 Mean Corpuscular Hemoglobin Concent 32.7 Red Cell Distribution Width 14.2 Platelet Count 236 Mean Platelet Volume 10.1 Neutrophils % 63.7 Lymphocytes % 28.7 Monocytes % 5.5 Eosinophils % 1.5 Basophils % 0.3 Nucleated Red Blood Cells % 0.0 Neutrophils # 6.4 Lymphocytes # 2.9 Monocytes # 0.6 Eosinophils # 0.2 Basophils # 0.0 Nucleated Red Blood Cells # 0.0 Test 06/22/17 08:08 06/22/17 11:39 Bedside Glucose 119 137 Medications Medications Current Medications Sodium Chloride (1/2 NS) 1,000 ml @ 50 mls/hr Q20H IV Last administered on 01:00; Admin Dose 50 MLS/HR; Start 06/20/17 at 15:30 Ondansetron HCl (Zofran Inj) 4 mg Q6H PRN IV NAUSEA AND/OR VOMITING Last administered on 06/21/17 06:06; Admin Dose 4 MG; Start 06/20/17 at 15:30 Miscellaneous Information 1 ea NOTE XX ; Start 06/20/17 at 18:30 Glucose (Glutose) 15 gm Q15M PRN PO DECREASED GLUCOSE; Start 06/20/17 at 18:30 Glucose (Glutose) 22.5 gm Q15M PRN PO DECREASED GLUCOSE; Start 06/20/17 at 18: 30 Dextrose (D50w Syringe) 25 ml Q15M PRN IV DECREASED GLUCOSE; Start 06/20/17 at 18:30 Dextrose (D50w Syringe) 50 ml Q15M PRN IV DECREASED GLUCOSE; Start 06/20/17 at 18:30 Glucagon (Glucagen) 1 mg Q15M PRN IM DECREASED GLUCOSE; Start 06/20/17 at 18:30 Glucose (Glutose) 15 gm Q15M PRN BUCCAL DECREASED GLUCOSE; Start 06/20/17 at 18 :30 Ondansetron HCl 4 mg 4 mg Q6H PRN IV NAUSEA AND/OR VOMITING; Start 06/20/17 at 20:00 Piperacillin Sod/ Tazobactam Sod (Zosyn 3.375gm/ 100 ml (Pmx)) 100 ml @ 25 mls/ hr TID@02,10,18 IVPB Last administered on 06/22/17 09:18; Admin Dose 25 MLS/HR ; Start 06/21/17 at 02:00 Morphine Sulfate (morphine) 2 mg Q6 PRN IV PAIN LEVEL 7-10 Last administered on 06/21/17 13:50; Admin Dose 2 MG; Start 06/20/17 at 20:00 Docusate Sodium (Colace) 200 mg BID PO Last administered on 06/22/17 09:09; Admin Dose 200 MG; Start 06/20/17 at 21:00 Senna (Senokot) 2 tab BID PO Last administered on 06/22/17 09:09; Admin Dose 2 TAB; Start 06/20/17 at 21:00 Acetaminophen (Tylenol Tab) 650 mg Q6H PRN PO PAIN AND OR ELEVATED TEMP Last administered on 06/20/17 21:15; Admin Dose 650 MG; Start 06/20/17 at 20:00 Cholecalciferol (Vitamin D) 2,000 unit DAILY PO Last administered on 06/22/17 09:12; Admin Dose 2,000 UNIT; Start 06/21/17 at 09:00 Metoprolol Succinate (Toprol Xl) 100 mg DAILY PO Last administered on 09:11; Admin Dose 100 MG; Start 06/21/17 at 09:00 Zolpidem Tartrate (Ambien) 5 mg HS PRN PO INSOMNIA Last administered on 00:20; Admin Dose 5 MG; Start 06/20/17 at 20:00 Amlodipine Besylate (Norvasc) 10 mg DAILY PO Last administered on 06/22/17 09: 10; Admin Dose 10 MG; Start 06/21/17 at 09:00 Insulin Glargine (Lantus) 35 unit QPM SC Last administered on 06/21/17 21:00; Admin Dose 35 UNIT; Start 06/20/17 at 21:00 Insulin Glargine (Lantus) 40 unit QAM SC Last administered on 06/22/17 09:16; Admin Dose 40 UNIT; Start 06/21/17 at 09:00 Miscellaneous Information (* Miscellaneous Pharmacy Order) ONCE XX ; Start at 20:00 Miscellaneous Information (* Miscellaneous Pharmacy Order) ONCE XX ; Start at 20:00 Hydralazine HCl (Apresoline) 10 mg Q6H PRN IV ELEVATED BLOOD PRESSURE Last administered on 06/21/17t 12:13; Admin Dose 10 MG; Start 06/20/17 at 20:30 Alprazolam (Xanax) 0.5 mg Q6H PRN PO ANXIETY; Start 06/22/17 at 16:00 VINCENZO RODRIGUEZ Jun 22, 2017 17:19
[2017-06-22] MEDS: morphine 2 MG INJ IV PRN (17:47)
--- NOTE | 2017-06-22 19:45 | CONS ---
Date/Time of Note Date/Time of Note DATE: 06/22/17 TIME: 19:44 Assessment/Plan Assessment/Plan Chief Complaint/Hosp Course Patient is 76-year-old female with history of diabetes mellitus, presented to the ER complaining of abdominal pain confined to the epigastric area associated with nausea and vomiting. This pain is going on for last 6 months. No radiation to any part of the body. No chest pain no shortness of breath no GI bleeding no or SORORITY MOTHER problem. No history of weight loss. Patient had a CAT scan done which showed the irregular contour consistent with the diagnosis of possible cirrhosis. Problems: Additional Assessment/Plan Additional Assessment/Plan 1. Epigastric pain associated with nausea going on for last 6 month 2. Irregular surface of the liver probably nodular may have cirrhosis of liver. Patient's alkaline phosphatase is elevated 3. Diabetes mellitus 4. Obesity Plan Start empirically on Reglan for possible diabetic gastroparesis Hepatitis panel Cirrhosis of liver might be due to Gandhi. Patient may need EGD for abdominal pain vomiting and also surveillance for her varicose veins Colonoscopy for abdominal pain and constipation Consultation Date/Type/Reason Admit Date/Time Jun 22, 2017 at 16:00 Initial Consult Date 24 HR Interval Summary Free Text/Dictation Complaints of severe, constipation. Patient also is demanding colonoscopy Exam/Review of Systems Vital Signs Vitals Vital Signs Date Time Temp Pulse Resp B/P Pulse Ox O2 Delivery O2 Flow Rate FiO2 06/22/17 14:00 97.8 75 18 149/70 95 06/22/17 09:00 Nasal Cannula 2.0 Intake and Output 06/21/17 06/21/17 06/22/17 15:00 23:00 07:00 Intake Total 250 ml 1010 ml 500 ml Balance 250 ml 1010 ml 500 ml Exam Constitutional: alert, oriented, well developed Psych: nl mood/affect, no complaints Head: atraumatic, normocephalic Eyes: EOMI, PERRL, nl conjunctiva, nl lids, nl sclera ENMT: nl external ears & nose, nl lips & teeth, nl nasal mucosa & septum Neck: non-tender, supple Respiratory: clear to auscultation, normal air movement Cardiovascular: nl pulses, regular rate and rhythm Gastrointestinal: nl liver, spleen, non-tender, soft Musculoskeletal: nl extremities to inspection, nl gait and stance Extremities: normal pulses Neurological: SORORITY MOTHER II-XII intact, nl mental status, nl speech, nl strength Skin: nl turgor, No rash or lesions Lymph: nl lymph nodes Results Result Diagram: 06/22/17 0539 06/21/172004 Results 24 hrs Laboratory Tests Test 06/21/17 20:05 06/21/17 20:47 06/21/17 22:42 06/22/17 05:39 Sodium Level 141 Potassium Level 3.8 Chloride Level 99 Carbon Dioxide Level 28 Anion Gap 18 H Blood Urea Nitrogen 12 Creatinine 0.90 Glucose Level 178 Calcium Level 10.1 Total Bilirubin 0.2 Direct Bilirubin 0.00 Indirect Bilirubin 0.2 Aspartate Amino Transf (AST/SGOT) 21 Alanine Aminotransferase (ALT/SGPT) 23 Alkaline Phosphatase 108 Total Protein 7.3 Albumin 3.8 Globulin 3.50 H Albumin/Globulin Ratio 1.08 Bedside Glucose 171 146 White Blood Count 10.0 Red Blood Count 4.32 Hemoglobin 12.9 Hematocrit 39.5 Mean Corpuscular Volume 91.4 Mean Corpuscular Hemoglobin 29.9 Mean Corpuscular Hemoglobin Concent 32.7 Red Cell Distribution Width 14.2 Platelet Count 236 Mean Platelet Volume 10.1 Neutrophils % 63.7 Lymphocytes % 28.7 Monocytes % 5.5 Eosinophils % 1.5 Basophils % 0.3 Nucleated Red Blood Cells % 0.0 Neutrophils # 6.4 Lymphocytes # 2.9 Monocytes # 0.6 Eosinophils # 0.2 Basophils # 0.0 Nucleated Red Blood Cells # 0.0 Test 06/22/17 08:08 06/22/17 11:39 06/22/17 17:33 Bedside Glucose 119 137 160 Medications Medications Current Medications Sodium Chloride (1/2 NS) 1,000 ml @ 50 mls/hr Q20H IV Last administered on 01:00; Admin Dose 50 MLS/HR; Start 06/20/17 at 15:30 Ondansetron HCl (Zofran Inj) 4 mg Q6H PRN IV NAUSEA AND/OR VOMITING Last administered on 06/21/17 06:06; Admin Dose 4 MG; Start 06/20/17 at 15:30 Miscellaneous Information 1 ea NOTE XX ; Start 06/20/17 at 18:30 Glucose (Glutose) 15 gm Q15M PRN PO DECREASED GLUCOSE; Start 06/20/17 at 18:30 Glucose (Glutose) 22.5 gm Q15M PRN PO DECREASED GLUCOSE; Start 06/20/17 at 18: 30 Dextrose (D50w Syringe) 25 ml Q15M PRN IV DECREASED GLUCOSE; Start 06/20/17 at 18:30 Dextrose (D50w Syringe) 50 ml Q15M PRN IV DECREASED GLUCOSE; Start 06/20/17 at 18:30 Glucagon (Glucagen) 1 mg Q15M PRN IM DECREASED GLUCOSE; Start 06/20/17 at 18:30 Glucose (Glutose) 15 gm Q15M PRN BUCCAL DECREASED GLUCOSE; Start 06/20/17 at 18 :30 Ondansetron HCl 4 mg 4 mg Q6H PRN IV NAUSEA AND/OR VOMITING; Start 06/20/17 at 20:00 Piperacillin Sod/ Tazobactam Sod (Zosyn 3.375gm/ 100 ml (Pmx)) 100 ml @ 25 mls/ hr TID@02,10,18 IVPB Last administered on 06/22/17 17:46; Admin Dose 25 MLS/HR ; Start 06/21/17 at 02:00 Morphine Sulfate (morphine) 2 mg Q6 PRN IV PAIN LEVEL 7-10 Last administered on 06/22/17 17:47; Admin Dose 2 MG; Start 06/20/17 at 20:00 Docusate Sodium (Colace) 200 mg BID PO Last administered on 06/22/17 09:09; Admin Dose 200 MG; Start 06/20/17 at 21:00 Senna (Senokot) 2 tab BID PO Last administered on 06/22/17 09:09; Admin Dose 2 TAB; Start 06/20/17 at 21:00 Acetaminophen (Tylenol Tab) 650 mg Q6H PRN PO PAIN AND OR ELEVATED TEMP Last administered on 06/20/17 21:15; Admin Dose 650 MG; Start 06/20/17 at 20:00 Cholecalciferol (Vitamin D) 2,000 unit DAILY PO Last administered on 06/22/17 09:12; Admin Dose 2,000 UNIT; Start 06/21/17 at 09:00 Metoprolol Succinate (Toprol Xl) 100 mg DAILY PO Last administered on 09:11; Admin Dose 100 MG; Start 06/21/17 at 09:00 Zolpidem Tartrate (Ambien) 5 mg HS PRN PO INSOMNIA Last administered on 00:20; Admin Dose 5 MG; Start 06/20/17 at 20:00 Amlodipine Besylate (Norvasc) 10 mg DAILY PO Last administered on 06/22/17 09: 10; Admin Dose 10 MG; Start 06/21/17 at 09:00 Insulin Glargine (Lantus) 35 unit QPM SC Last administered on 06/21/17 21:00; Admin Dose 35 UNIT; Start 06/20/17 at 21:00 Insulin Glargine (Lantus) 40 unit QAM SC Last administered on 06/22/17 09:16; Admin Dose 40 UNIT; Start 06/21/17 at 09:00 Miscellaneous Information (* Miscellaneous Pharmacy Order) ONCE XX ; Start at 20:00 Miscellaneous Information (* Miscellaneous Pharmacy Order) ONCE XX ; Start at 20:00 Hydralazine HCl (Apresoline) 10 mg Q6H PRN IV ELEVATED BLOOD PRESSURE Last administered on 06/21/17 12:13; Admin Dose 10 MG; Start 06/20/17 at 20:30 Alprazolam (Xanax) 0.5 mg Q6H PRN PO ANXIETY; Start 06/22/17 at 16:00 MEL ROBERTS MD Jun 22, 2017 19:45
[2017-06-22 20:00] VITALS: BP 178/74; RESP 20
[2017-06-22 20:15] VITALS: BP 153/76; PULSE 78; RESP 20
[2017-06-22] MEDS: ZOLPIDEM 5 MG TAB PO PRN (22:02)
[2017-06-23] VITALS (20 sets, daily range): BP systolic 123–190; BP diastolic 65–87; PULSE 71–90; RESP 16–28
[2017-06-23] MEDS: PIPER-TAZO 3.375 GM IV (PMX) 100 ML IVPB SCH ×2 (02:05→09:33)
[2017-06-23] MEDS: SOD CHLORIDE 0.45% 1,000 ML IV SCH (03:30)
[2017-06-23 05:34] LABS: HAAIG REFLEX REFLEX FILED
[2017-06-23 05:38] LABS: BASOPHILS % 0.3 % (0.0-2.0); EOSINOPHILS # 0.1 10^3/ul (0.0-0.5); EOSINOPHILS % 0.9 % (0.0-7.0); HEMOGLOBIN 12.6 g/dl (12.0-16.0); LYMPHOCYTES # 2.9 10^3/ul (0.8-2.9); LYMPHOCYTES % 30.7 % (15.0-51.0); MEAN CORPUSCULAR HEMOGLOBIN 30.1 pg (29.0-33.0); MEAN CORPUSCULAR HGB CONC 33.2 g/dl (32.0-37.0); MEAN CORPUSCULAR VOLUME 90.9 fl (82.0-101.0); MEAN PLATELET VOLUME 9.8 fl (7.4-10.4); MONOCYTE # 0.6 10^3/ul (0.3-0.9); NEUTROPHIL # 5.8 10^3/ul (1.6-7.5); NEUTROPHILS % 61.8 % (39.0-77.0); PLATELET COUNT 243 10^3/UL (140-415); RED BLOOD COUNT 4.18 10^6/ul (4.20-5.40); WHITE BLOOD COUNT 9.4 10^3/ul (4.8-10.8)
[2017-06-23 06:19] LABS: CALCIUM 9.8 mg/dl (8.4-10.2); CREATININE 0.9 mg/dl (0.44-1.00); POTASSIUM 3.3 mmol/L (3.5-5.1)
[2017-06-23 07:03] LABS: HEPATITIS B CORE ANTIBODY NEGATIVE (NEGATIVE)
[2017-06-23] MEDS: INSULIN ASPART [NOVOLOG] 3 ML PEN SC SCH ×4 (07:30→21:09)
[2017-06-23] MEDS: AMLODIPINE 10 MG TAB PO SCH (08:55)
[2017-06-23] MEDS: METOPROLOL (XL) 100 MG TAB PO SCH (08:55)
--- NOTE | 2017-06-23 08:59 | RADRPT ---
Vent Rate: 89 bpm RR Interval: 0 msec MI Interval: 180 msec QRS Duration: 84 msec QT Interval: 382 msec QTC Interval: 464 msec P-R-T [place]: 56 - 2 - 51 degrees Normal sinus rhythm Normal ECG Electronically Signed By: Alexandr Strickland [id number]
[2017-06-23] MEDS: CALCIUM CARBONATE 500 MG CHEW TAB PO SCH ×3 (09:00→19:41)
[2017-06-23] MEDS: DOCUSATE SODIUM 100 MG CAP PO SCH ×2 (09:00→21:06)
[2017-06-23] MEDS: CHOLECALCIFEROL 2,000 UNIT CAP PO SCH (09:00)
[2017-06-23] MEDS: SENNA TAB PO SCH ×2 (09:00→20:54)
[2017-06-23] MEDS ORDERED: DEXTROSE 5%-0.45% NACL 1,000 ML IV SCH (10:30)
[2017-06-23] MEDS: INSULIN GLARGINE [LANtus] 3 ML PEN SC SCH ×2 (10:53→21:07)
[2017-06-23] MEDS ORDERED: POTASSIUM CHLORIDE 20 MEQ in SOD CHLORIDE 0.9% 100 ML IVPB ONE (11:00)
[2017-06-23] MEDS ORDERED: ONDANSETRON 4 MG INJ IV PRN (13:00)
[2017-06-23] MEDS ORDERED: hydrALAzine 20 MG INJ IV PRN (13:00)
--- NOTE | 2017-06-23 15:58 | PN ---
Date/Time of Note Date/Time of Note DATE: 06/23/17 TIME: 15:56 Assessment/Plan VTE Prophylaxis VTE Prophylaxis Intervention: SCD's Lines/Catheters IV Catheter Type (from Nrs): Peripheral IV Assessment/Plan Chief Complaint/Hosp Course Patient status post EGD yesterday, report is not available, patient denies any nausea vomiting, states decrease in abdominal pain. Assessment/Plan - Epigastric pain associated with nausea going on for last [address] Garcia is following in gastroenterology consultation. S/p EGD, report is not available. Continue to follow-up gastroenterology recommendations. - Intractable nausea and vomiting and admission, continue Zofran as needed. - Possible diabetic gastroparesis, continue Reglan. - Diabetes mellitus, hemoglobin A1c 7.8, continue Lantus and NovoLog. - Hypertension, continue metoprolol and Norvasc - Obesity with BMI of 37.6 Further recommendations based on clinical course. Plan of care discussed with Dr. Rodrigez. Problems: Exam/Review of Systems Vital Signs Vitals Vital Signs Date Time Temp Pulse Resp B/P Pulse Ox O2 Delivery O2 Flow Rate FiO2 06/23/17 14:00 98.2 82 16 183/77 97 06/23/17 13:39 Room Air 06/22/17 20:10 2.0 Intake and Output 06/22/17 06/22/17 06/23/17 15:00 23:00 07:00 Intake Total 250 ml 1350 ml 3275 ml Output Total 7 ml Balance 250 ml 1350 ml 3268 ml Exam Constitutional: alert, oriented Neck: supple Respiratory: normal air movement Cardiovascular: nl pulses Gastrointestinal: non-tender, soft Extremities: normal pulses Neurological: nl mental status Results Result Diagram: 06/23/17 0505 06/23/17 0505 Results 24 hrs Laboratory Tests Test 06/22/17 17:33 06/22/17 21:06 06/23/17 05:05 06/23/17 07:56 Bedside Glucose 160 157 80 White Blood Count 9.4 Red Blood Count 4.18 L Hemoglobin 12.6 Hematocrit 38.0 Mean Corpuscular Volume 90.9 Mean Corpuscular Hemoglobin 30.1 Mean Corpuscular Hemoglobin Concent 33.2 Red Cell Distribution Width 14.0 Platelet Count 243 Mean Platelet Volume 9.8 Neutrophils % 61.8 Lymphocytes % 30.7 Monocytes % 6.0 Eosinophils % 0.9 Basophils % 0.3 Nucleated Red Blood Cells % 0.0 Neutrophils # 5.8 Lymphocytes # 2.9 Monocytes # 0.6 Eosinophils # 0.1 Basophils # 0.0 Nucleated Red Blood Cells # 0.0 Sodium Level 145 H Potassium Level 3.3 L Chloride Level 103 Carbon Dioxide Level 29 Anion Gap 16 Blood Urea Nitrogen 10 Creatinine 0.90 Glucose Level 78 # Calcium Level 9.8 Hepatitis B Surface Antigen NEGATIVE Hepatitis B Core Total Antibody NEGATIVE Hepatitis C Antibody NEGATIVE Test 06/23/17 09:38 06/23/17 11:44 Bedside Glucose 90 97 Medications Medications Current Medications Ondansetron HCl (Zofran Inj) 4 mg Q6H PRN IV NAUSEA AND/OR VOMITING Last administered on 06/21/17 06:06; Admin Dose 4 MG; Start 06/20/17 at 15:30 Miscellaneous Information 1 ea NOTE XX ; Start 06/20/17 at 18:30 Glucose (Glutose) 15 gm Q15M PRN PO DECREASED GLUCOSE; Start 06/20/17 at 18:30 Glucose (Glutose) 22.5 gm Q15M PRN PO DECREASED GLUCOSE; Start 06/20/17 at 18: 30 Dextrose (D50w Syringe) 25 ml Q15M PRN IV DECREASED GLUCOSE; Start 06/20/17 at 18:30 Dextrose (D50w Syringe) 50 ml Q15M PRN IV DECREASED GLUCOSE; Start 06/20/17 at 18:30 Glucagon (Glucagen) 1 mg Q15M PRN IM DECREASED GLUCOSE; Start 06/20/17 at 18:30 Glucose (Glutose) 15 gm Q15M PRN BUCCAL DECREASED GLUCOSE; Start 06/20/17 at 18 :30 Ondansetron HCl (Zofran Inj) 4 mg Q6H PRN IV NAUSEA AND/OR VOMITING; Start at 20:00 Morphine Sulfate (morphine) 2 mg Q6 PRN IV PAIN LEVEL 7-10 Last administered on 06/22/17 17:47; Admin Dose 2 MG; Start 06/20/17 at 20:00 Docusate Sodium (Colace) 200 mg BID PO Last administered on 06/22/17 21:06; Admin Dose 200 MG; Start 06/20/17 at 21:00 Senna (Senokot) 2 tab BID PO Last administered on 06/22/17 21:07; Admin Dose 2 TAB; Start 06/20/17 at 21:00 Acetaminophen (Tylenol Tab) 650 mg Q6H PRN PO PAIN AND OR ELEVATED TEMP Last administered on 06/20/17 21:15; Admin Dose 650 MG; Start 06/20/17 at 20:00 Cholecalciferol (Vitamin D) 2,000 unit DAILY PO Last administered on 06/22/17 09:12; Admin Dose 2,000 UNIT; Start 06/21/17 at 09:00 Metoprolol Succinate (Toprol Xl) 100 mg DAILY PO Last administered on 08:55; Admin Dose 100 MG; Start 06/21/17 at 09:00 Zolpidem Tartrate (Ambien) 5 mg HS PRN PO INSOMNIA Last administered on 22:02; Admin Dose 5 MG; Start 06/20/17 at 20:00 Amlodipine Besylate (Norvasc) 10 mg DAILY PO Last administered on 06/23/17 08: 55; Admin Dose 10 MG; Start 06/21/17 at 09:00 Insulin Glargine (Lantus) 35 unit QPM SC Last administered on 06/22/17 21:08; Admin Dose 35 UNIT; Start 06/20/17 at 21:00 Insulin Glargine (Lantus) 40 unit QAM SC Last administered on 06/23/17 10:53; Admin Dose 40 UNIT; Start 06/21/17 at 09:00 Miscellaneous Information (* Miscellaneous Pharmacy Order) ONCE XX ; Start at 20:00 Miscellaneous Information (* Miscellaneous Pharmacy Order) ONCE XX ; Start at 20:00 Hydralazine HCl (Apresoline) 10 mg Q6H PRN IV ELEVATED BLOOD PRESSURE Last administered on 06/21/17 12:13; Admin Dose 10 MG; Start 06/20/17 at 20:30 Alprazolam 0.5 mg 0.5 mg Q6H PRN PO ANXIETY; Start 06/22/17 at 16:00 Dextrose/Sodium Chloride (D5-1/2ns) 1,000 ml @ 50 mls/hr Q20H IV Last administered on 06/23/17 10:52; Admin Dose 50 MLS/HR; Start 06/23/17 at 10:30 VINCENZO RODRIGUEZ Jun 23, 2017 15:58
[2017-06-23] MEDS: hydrALAzine 20 MG INJ IV PRN (16:51)
[2017-06-23] MEDS: ALPRAZOLAM 0.5 MG TAB PO PRN (18:00)
[2017-06-23] MEDS ORDERED: METOCLOPRAMIDE 10 MG INJ ONE (18:03)
[2017-06-23] MEDS ORDERED: FENTAnyl 50 MCG/ML VIAL ONE (18:03)
[2017-06-23] MEDS ORDERED: PROPOFOL 20 ML ONE (18:03)
[2017-06-23] MEDS: METOPROLOL (XL) 50 MG TAB PO SCH (20:53)
[2017-06-23] MEDS: ONDANSETRON 4 MG INJ IV PRN (20:55)
[2017-06-23] MEDS: ZOLPIDEM 5 MG TAB PO PRN (20:59)
[2017-06-24 02:18] VITALS: BP 152/67; RESP 16
[2017-06-24] MEDS: INSULIN ASPART [NOVOLOG] 3 ML PEN SC SCH ×4 (07:30→20:46)
[2017-06-24 08:00] VITALS: BP 153/83; RESP 18
[2017-06-24] MEDS: AMLODIPINE 10 MG TAB PO SCH (08:08)
[2017-06-24] MEDS: METOPROLOL (XL) 50 MG TAB PO SCH ×2 (08:08→20:47)
[2017-06-24] MEDS: CHOLECALCIFEROL 2,000 UNIT CAP PO SCH (08:09)
[2017-06-24] MEDS: DOCUSATE SODIUM 100 MG CAP PO SCH ×2 (08:09→20:47)
[2017-06-24] MEDS: SENNA TAB PO SCH ×2 (08:09→20:47)
[2017-06-24] MEDS: CALCIUM CARBONATE 500 MG CHEW TAB PO SCH ×3 (08:09→17:30)
[2017-06-24] MEDS: INSULIN GLARGINE [LANtus] 3 ML PEN SC SCH ×2 (08:10→20:49)
[2017-06-24] MEDS: ALPRAZOLAM 0.5 MG TAB PO PRN (11:23)
--- NOTE | 2017-06-24 13:15 | PN ---
Date/Time of Note Date/Time of Note DATE: 06/24/17 TIME: 13:14 Assessment/Plan VTE Prophylaxis VTE Prophylaxis Intervention: other Lines/Catheters IV Catheter Type (from Nrsg): Saline Lock Assessment/Plan Chief Complaint/Hosp Course - Epigastric pain associated with nausea going on for last [address] Garcia is following in gastroenterology consultation. S/p EGD, report is not available. Continue to follow-up gastroenterology recommendations. - Intractable nausea and vomiting and admission, continue Zofran as needed. - Possible diabetic gastroparesis, continue Reglan. - Diabetes mellitus, hemoglobin A1c 7.8, continue Lantus and NovoLog. - Hypertension, continue metoprolol and Norvasc - Obesity with BMI of 37.6 Problems: Subjective 24 Hr Interval Summary Free Text/Dictation Patient complain of abdominal pain Exam/Review of Systems Vital Signs Vitals Vital Signs Date Time Temp Pulse Resp B/P Pulse Ox O2 Delivery O2 Flow Rate FiO2 06/24/17 08:00 98.6 100 18 153/83 98 06/23/17 22:30 Room Air 06/22/17 20:10 2.0 Intake and Output 06/23/17 06/23/17 06/24/17 15:00 23:00 07:00 Intake Total 50 ml 1480 ml 480 ml Output Total 200 ml Balance -150 ml 1480 ml 480 ml Exam Constitutional: well developed Head: atraumatic, normocephalic Neck: supple Respiratory: clear to auscultation Cardiovascular: regular rate and rhythm Gastrointestinal: non-tender, soft Extremities: normal pulses Results Result Diagram: 06/23/17 0505 06/23/17 0505 Results 24 hrs Laboratory Tests Test 06/23/17 16:59 06/23/17 20:32 06/24/17 08:05 06/24/17 12:30 Bedside Glucose 116 322 H 128 163 Medications Medications Current Medications Ondansetron HCl (Zofran Inj) 4 mg Q6H PRN IV NAUSEA AND/OR VOMITING Last administered on 06/23/17t 20:55; Admin Dose 4 MG; Start 06/20/17 at 15:30 Miscellaneous Information 1 ea NOTE XX ; Start 06/20/17 at 18:30 Glucose (Glutose) 15 gm Q15M PRN PO DECREASED GLUCOSE; Start 06/20/17 at 18:30 Glucose (Glutose) 22.5 gm Q15M PRN PO DECREASED GLUCOSE; Start 06/20/17 at 18: 30 Dextrose (D50w Syringe) 25 ml Q15M PRN IV DECREASED GLUCOSE; Start 06/20/17 at 18:30 Dextrose (D50w Syringe) 50 ml Q15M PRN IV DECREASED GLUCOSE; Start 06/20/17 at 18:30 Glucagon (Glucagen) 1 mg Q15M PRN IM DECREASED GLUCOSE; Start 06/20/17 at 18:30 Glucose (Glutose) 15 gm Q15M PRN BUCCAL DECREASED GLUCOSE; Start 06/20/17 at 18 :30 Ondansetron HCl (Zofran Inj) 4 mg Q6H PRN IV NAUSEA AND/OR VOMITING; Start at 20:00 Morphine Sulfate (morphine) 2 mg Q6 PRN IV PAIN LEVEL 7-10 Last administered on 06/22/17 17:47; Admin Dose 2 MG; Start 06/20/17 at 20:00 Docusate Sodium (Colace) 200 mg BID PO Last administered on 06/24/17 08:09; Admin Dose 200 MG; Start 06/20/17 at 21:00 Senna (Senokot) 2 tab BID PO Last administered on 06/24/17 08:09; Admin Dose 2 TAB; Start 06/20/17 at 21:00 Acetaminophen (Tylenol Tab) 650 mg Q6H PRN PO PAIN AND OR ELEVATED TEMP Last administered on 06/20/17 21:15; Admin Dose 650 MG; Start 06/20/17 at 20:00 Cholecalciferol (Vitamin D) 2,000 unit DAILY PO Last administered on 06/24/17 08:09; Admin Dose 2,000 UNIT; Start 06/21/17 at 09:00 Zolpidem Tartrate (Ambien) 5 mg HS PRN PO INSOMNIA Last administered on 20:59; Admin Dose 5 MG; Start 06/20/17 at 20:00 Amlodipine Besylate (Norvasc) 10 mg DAILY PO Last administered on 06/24/17 08: 08; Admin Dose 10 MG; Start 06/21/17 at 09:00 Insulin Glargine (Lantus) 35 unit QPM SC Last administered on 06/23/17 21:07; Admin Dose 35 UNIT; Start 06/20/17 at 21:00 Insulin Glargine (Lantus) 40 unit QAM SC Last administered on 06/24/17 08:10; Admin Dose 40 UNIT; Start 06/21/17 at 09:00 Miscellaneous Information (* Miscellaneous Pharmacy Order) ONCE XX ; Start at 20:00 Miscellaneous Information (* Miscellaneous Pharmacy Order) ONCE XX ; Start at 20:00 Hydralazine HCl (Apresoline) 10 mg Q6H PRN IV ELEVATED BLOOD PRESSURE Last administered on 06/23/17 16:51; Admin Dose 10 MG; Start 06/20/17 at 20:30 Alprazolam (Xanax) 0.5 mg Q6H PRN PO ANXIETY Last administered on 06/24/17 11: 23; Admin Dose 0.5 MG; Start 06/22/17 at 16:00 Metoprolol Succinate (Toprol Xl) 50 mg BID PO Last administered on 06/24/17 08 :08; Admin Dose 50 MG; Start 06/23/17 at 21:00 FABIOLA HILL Jun 24, 2017 13:14
[2017-06-24 14:00] VITALS: BP 162/74; RESP 20
[2017-06-24] MEDS: ONDANSETRON 4 MG INJ IV PRN (17:23)
[2017-06-24] MEDS: morphine 2 MG INJ IV PRN (17:23)
--- NOTE | 2017-06-24 18:03 | CONS ---
Date/Time of Note Date/Time of Note DATE: 06/24/17 TIME: 18:02 Assessment/Plan Assessment/Plan Chief Complaint/Hosp Course Patient is 76-year-old female with history of diabetes mellitus, presented to the ER complaining of abdominal pain confined to the epigastric area associated with nausea and vomiting. This pain is going on for last 6 months. No radiation to any part of the body. 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 No history of weight loss. Patient had a CAT scan done which showed the irregular contour consistent with the diagnosis of possible cirrhosis. Problems: Additional Assessment/Plan Additional Assessment/Plan 1. Epigastric pain associated with nausea going on for last 6 month 2. Irregular surface of the liver probably nodular may have cirrhosis of liver. Patient's alkaline phosphatase is elevated, hepatitis panel negative 3. Diabetes mellitus 4. Obesity 5. 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 Patient may need antispasmodic medication Consultation Date/Type/Reason Admit Date/Time Jun 22, 2017 at 16:00 24 HR Interval Summary Free Text/Dictation Patient complains of epigastric pain no nausea no vomiting. Constitutional: improved, no complaints Exam/Review of Systems Vital Signs Vitals Vital Signs Date Time Temp Pulse Resp B/P Pulse Ox O2 Delivery O2 Flow Rate FiO2 06/24/17 14:00 98.8 75 20 162/74 96 06/23/17 22:30 Room Air 06/22/17 20:10 2.0 Intake and Output 06/23/17 06/23/17 06/24/17 15:00 23:00 07:00 Intake Total 50 ml 1480 ml 480 ml Output Total 200 ml Balance -150 ml 1480 ml 480 ml Exam Constitutional: alert, oriented, well developed Psych: nl mood/affect, no complaints Head: atraumatic, normocephalic Eyes: EOMI, PERRL, nl conjunctiva, nl lids, nl sclera ENMT: nl external ears & nose, nl lips & teeth, nl nasal mucosa & septum Neck: non-tender, supple Respiratory: clear to auscultation, normal air movement Cardiovascular: nl pulses, regular rate and rhythm Gastrointestinal: nl liver, spleen, non-tender, soft Musculoskeletal: nl extremities to inspection, nl gait and stance Extremities: normal pulses Neurological: INSTALLER TECHNICIAN II-XII intact, nl mental status, nl speech, nl strength Skin: nl turgor, No rash or lesions Lymph: nl lymph nodes Results Result Diagram: 06/23/17 0505 06/23/17 0505 Results 24 hrs Laboratory Tests Test 06/23/17 20:32 06/24/17 08:05 06/24/17 12:30 06/24/17 16:42 Bedside Glucose 322 H 128 163 121 Medications Medications Current Medications Ondansetron HCl (Zofran Inj) 4 mg Q6H PRN IV NAUSEA AND/OR VOMITING Last administered on 06/24/17 17:23; Admin Dose 4 MG; Start 06/20/17 at 15:30 Miscellaneous Information 1 ea NOTE XX ; Start 06/20/17 at 18:30 Glucose (Glutose) 15 gm Q15M PRN PO DECREASED GLUCOSE; Start 06/20/17 at 18:30 Glucose (Glutose) 22.5 gm Q15M PRN PO DECREASED GLUCOSE; Start 06/20/17 at 18: 30 Dextrose (D50w Syringe) 25 ml Q15M PRN IV DECREASED GLUCOSE; Start 06/20/17 at 18:30 Dextrose (D50w Syringe) 50 ml Q15M PRN IV DECREASED GLUCOSE; Start 06/20/17 at 18:30 Glucagon (Glucagen) 1 mg Q15M PRN IM DECREASED GLUCOSE; Start 06/20/17 at 18:30 Glucose (Glutose) 15 gm Q15M PRN BUCCAL DECREASED GLUCOSE; Start 06/20/17 at 18 :30 Ondansetron HCl (Zofran Inj) 4 mg Q6H PRN IV NAUSEA AND/OR VOMITING; Start at 20:00 Morphine Sulfate (morphine) 2 mg Q6 PRN IV PAIN LEVEL 7-10 Last administered on 06/24/17 17:23; Admin Dose 2 MG; Start 06/20/17 at 20:00 Docusate Sodium (Colace) 200 mg BID PO Last administered on 06/24/17 08:09; Admin Dose 200 MG; Start 06/20/17 at 21:00 Senna (Senokot) 2 tab BID PO Last administered on 06/24/17 08:09; Admin Dose 2 TAB; Start 06/20/17 at 21:00 Acetaminophen (Tylenol Tab) 650 mg Q6H PRN PO PAIN AND OR ELEVATED TEMP Last administered on 06/20/17 21:15; Admin Dose 650 MG; Start 06/20/17 at 20:00 Cholecalciferol (Vitamin D) 2,000 unit DAILY PO Last administered on 06/24/17 08:09; Admin Dose 2,000 UNIT; Start 06/21/17 at 09:00 Zolpidem Tartrate (Ambien) 5 mg HS PRN PO INSOMNIA Last administered on 20:59; Admin Dose 5 MG; Start 06/20/17 at 20:00 Amlodipine Besylate (Norvasc) 10 mg DAILY PO Last administered on 06/24/17 08: 08; Admin Dose 10 MG; Start 06/21/17 at 09:00 Insulin Glargine (Lantus) 35 unit QPM SC Last administered on 06/23/17 21:07; Admin Dose 35 UNIT; Start 06/20/17 at 21:00 Insulin Glargine (Lantus) 40 unit QAM SC Last administered on 06/24/17 08:10; Admin Dose 40 UNIT; Start 06/21/17 at 09:00 Miscellaneous Information (* Miscellaneous Pharmacy Order) ONCE XX ; Start at 20:00 Miscellaneous Information (* Miscellaneous Pharmacy Order) ONCE XX ; Start at 20:00 Hydralazine HCl (Apresoline) 10 mg Q6H PRN IV ELEVATED BLOOD PRESSURE Last administered on 06/23/17 16:51; Admin Dose 10 MG; Start 06/20/17 at 20:30 Alprazolam (Xanax) 0.5 mg Q6H PRN PO ANXIETY Last administered on 06/24/17 11: 23; Admin Dose 0.5 MG; Start 06/22/17 at 16:00 Metoprolol Succinate (Toprol Xl) 50 mg BID PO Last administered on 06/24/17 08 :08; Admin Dose 50 MG; Start 06/23/17 at 21:00 MEL ROBERTS MD Jun 24, 2017 18:03
[2017-06-24 20:21] VITALS: BP 165/73; RESP 16
[2017-06-24] MEDS: ZOLPIDEM 5 MG TAB PO PRN (20:48)
[2017-06-24 21:45] VITALS: BP 191/72; PULSE 76
[2017-06-24] MEDS: hydrALAzine 20 MG INJ IV PRN (21:55)
[2017-06-24 22:30] VITALS: BP 139/63; PULSE 72
[2017-06-25 02:45] VITALS: BP 126/59; RESP 18
[2017-06-25] MEDS: INSULIN ASPART [NOVOLOG] 3 ML PEN SC SCH ×4 (07:30→21:00)
[2017-06-25 08:00] VITALS: BP 164/71; RESP 20
[2017-06-25] MEDS: INSULIN GLARGINE [LANtus] 3 ML PEN SC SCH ×2 (08:10→21:22)
[2017-06-25] MEDS: ALPRAZOLAM 0.5 MG TAB PO PRN (08:11)
[2017-06-25] MEDS: SENNA TAB PO SCH ×2 (08:11→21:20)
[2017-06-25] MEDS: CHOLECALCIFEROL 2,000 UNIT CAP PO SCH (08:11)
[2017-06-25] MEDS: DOCUSATE SODIUM 100 MG CAP PO SCH ×2 (08:11→21:19)
[2017-06-25] MEDS: CALCIUM CARBONATE 500 MG CHEW TAB PO SCH ×3 (08:11→17:11)
[2017-06-25] MEDS: AMLODIPINE 10 MG TAB PO SCH (08:12)
[2017-06-25] MEDS: METOPROLOL (XL) 50 MG TAB PO SCH ×2 (08:12→21:20)
--- NOTE | 2017-06-25 12:19 | CONS ---
Date/Time of Note Date/Time of Note DATE: 06/25/17 TIME: 12:18 Assessment/Plan Assessment/Plan Chief Complaint/Hosp Course Patient is 76-year-old female with history of diabetes mellitus, presented to the ER complaining of abdominal pain confined to the epigastric area associated with nausea and vomiting. This pain is going on for last 6 months. No radiation to any part of the body. 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 No history of weight loss. Patient had a CAT scan done which showed the irregular contour consistent with the diagnosis of possible cirrhosis. Problems: Additional Assessment/Plan Additional Assessment/Plan 1. Epigastric pain associated with nausea going on for last 6 month 2. Irregular surface of the liver probably nodular may have cirrhosis of liver. Patient's alkaline phosphatase is elevated, hepatitis panel negative 3. Diabetes mellitus 4. Obesity 5. 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 Patient may need antispasmodic medication Bentyl for the pain Consultation Date/Type/Reason Admit Date/Time Jun 22, 2017 at 16:00 24 HR Interval Summary Free Text/Dictation Still complains of mild epigastric discomfort Constitutional: improved Exam/Review of Systems Vital Signs Vitals Vital Signs Date Time Temp Pulse Resp B/P Pulse Ox O2 Delivery O2 Flow Rate FiO2 06/25/17 08:00 98.6 75 20 164/71 96 06/23/17 22:30 Room Air 06/22/17 20:10 2.0 Intake and Output 06/24/17 06/24/17 06/25/17 15:00 23:00 07:00 Intake Total 550 ml 500 ml Balance 550 ml 500 ml Exam Constitutional: alert, oriented, well developed Psych: nl mood/affect, no complaints Head: atraumatic, normocephalic Eyes: EOMI, PERRL, nl conjunctiva, nl lids, nl sclera ENMT: nl external ears & nose, nl lips & teeth, nl nasal mucosa & septum Neck: non-tender, supple Respiratory: clear to auscultation, normal air movement Cardiovascular: nl pulses, regular rate and rhythm Gastrointestinal: nl liver, spleen, non-tender, soft Musculoskeletal: nl extremities to inspection, nl gait and stance Extremities: normal pulses Neurological: ACCOUNTS PAYABLE ASSOCIATE II-XII intact, nl mental status, nl speech, nl strength Skin: nl turgor, No rash or lesions Lymph: nl lymph nodes Results Result Diagram: 06/23/17 0505 06/23/17 0505 Results 24 hrs Laboratory Tests Test 06/24/17 12:30 06/24/17 16:42 06/24/17 20:46 06/25/17 08:06 Bedside Glucose 163 121 147 81 Medications Medications Current Medications Ondansetron HCl (Zofran Inj) 4 mg Q6H PRN IV NAUSEA AND/OR VOMITING Last administered on 06/24/17 17:23; Admin Dose 4 MG; Start 06/20/17 at 15:30 Miscellaneous Information 1 ea NOTE XX ; Start 06/20/17 at 18:30 Glucose (Glutose) 15 gm Q15M PRN PO DECREASED GLUCOSE; Start 06/20/17 at 18:30 Glucose (Glutose) 22.5 gm Q15M PRN PO DECREASED GLUCOSE; Start 06/20/17 at 18: 30 Dextrose (D50w Syringe) 25 ml Q15M PRN IV DECREASED GLUCOSE; Start 06/20/17 at 18:30 Dextrose (D50w Syringe) 50 ml Q15M PRN IV DECREASED GLUCOSE; Start 06/20/17 at 18:30 Glucagon (Glucagen) 1 mg Q15M PRN IM DECREASED GLUCOSE; Start 06/20/17 at 18:30 Glucose (Glutose) 15 gm Q15M PRN BUCCAL DECREASED GLUCOSE; Start 06/20/17 at 18 :30 Ondansetron HCl (Zofran Inj) 4 mg Q6H PRN IV NAUSEA AND/OR VOMITING; Start at 20:00 Morphine Sulfate (morphine) 2 mg Q6 PRN IV PAIN LEVEL 7-10 Last administered on 06/24/17 17:23; Admin Dose 2 MG; Start 06/20/17 at 20:00 Docusate Sodium (Colace) 200 mg BID PO Last administered on 06/25/17 08:11; Admin Dose 200 MG; Start 06/20/17 at 21:00 Senna (Senokot) 2 tab BID PO Last administered on 06/25/17 08:11; Admin Dose 2 TAB; Start 06/20/17 at 21:00 Acetaminophen (Tylenol Tab) 650 mg Q6H PRN PO PAIN AND OR ELEVATED TEMP Last administered on 06/20/17 21:15; Admin Dose 650 MG; Start 06/20/17 at 20:00 Cholecalciferol (Vitamin D) 2,000 unit DAILY PO Last administered on 06/25/17 08:11; Admin Dose 2,000 UNIT; Start 06/21/17 at 09:00 Zolpidem Tartrate (Ambien) 5 mg HS PRN PO INSOMNIA Last administered on 20:48; Admin Dose 5 MG; Start 06/20/17 at 20:00 Amlodipine Besylate (Norvasc) 10 mg DAILY PO Last administered on 06/25/17 08: 12; Admin Dose 10 MG; Start 06/21/17 at 09:00 Insulin Glargine (Lantus) 35 unit QPM SC Last administered on 06/24/17 20:49; Admin Dose 35 UNIT; Start 06/20/17 at 21:00 Insulin Glargine (Lantus) 40 unit QAM SC Last administered on 06/25/17 08:10; Admin Dose 40 UNIT; Start 06/21/17 at 09:00 Miscellaneous Information (* Miscellaneous Pharmacy Order) ONCE XX ; Start at 20:00 Miscellaneous Information (* Miscellaneous Pharmacy Order) ONCE XX ; Start at 20:00 Hydralazine HCl (Apresoline) 10 mg Q6H PRN IV ELEVATED BLOOD PRESSURE Last administered on 06/24/17 21:55; Admin Dose 10 MG; Start 06/20/17 at 20:30 Alprazolam (Xanax) 0.5 mg Q6H PRN PO ANXIETY Last administered on 06/25/17 08: 11; Admin Dose 0.5 MG; Start 06/22/17 at 16:00 Metoprolol Succinate (Toprol Xl) 50 mg BID PO Last administered on 06/25/17 08 :12; Admin Dose 50 MG; Start 06/23/17 at 21:00 MEL ROBERTS MD Jun 25, 2017 12:19
[2017-06-25 14:00] VITALS: BP 161/72; RESP 20
--- NOTE | 2017-06-25 14:03 | PN ---
Date/Time of Note Date/Time of Note DATE: 06/25/17 TIME: 14:03 Assessment/Plan VTE Prophylaxis VTE Prophylaxis Intervention: other Lines/Catheters IV Catheter Type (from Nrsg): Saline Lock Assessment/Plan Chief Complaint/Hosp Course - Epigastric pain associated with nausea going on for last [address] Garcia is following in gastroenterology consultation. S/p EGD, report is not available. Continue to follow-up gastroenterology recommendations. - Intractable nausea and vomiting and admission, continue Zofran as needed. - Possible diabetic gastroparesis, continue Reglan. - Diabetes mellitus, hemoglobin A1c 7.8, continue Lantus and NovoLog. - Hypertension, continue metoprolol and Norvasc - Obesity with BMI of 37.6 Problems: Subjective 24 Hr Interval Summary Free Text/Dictation Patient complain of abdominal pain Exam/Review of Systems Vital Signs Vitals Vital Signs Date Time Temp Pulse Resp B/P Pulse Ox O2 Delivery O2 Flow Rate FiO2 06/25/17 08:00 98.6 75 20 164/71 96 06/23/17 22:30 Room Air 06/22/17 20:10 2.0 Intake and Output 06/24/17 06/24/17 06/25/17 15:00 23:00 07:00 Intake Total 550 ml 500 ml Balance 550 ml 500 ml Exam Constitutional: well developed Head: atraumatic, normocephalic Neck: supple Respiratory: clear to auscultation Cardiovascular: regular rate and rhythm Gastrointestinal: non-tender, soft Extremities: normal pulses Results Result Diagram: 06/23/17 0505 06/23/17 0505 Results 24 hrs Laboratory Tests Test 06/24/17 16:42 06/24/17 20:46 06/25/17 08:06 06/25/17 12:10 Bedside Glucose 121 147 81 98 Medications Medications Current Medications Ondansetron HCl (Zofran Inj) 4 mg Q6H PRN IV NAUSEA AND/OR VOMITING Last administered on 06/24/17t 17:23; Admin Dose 4 MG; Start 06/20/17 at 15:30 Miscellaneous Information 1 ea NOTE XX ; Start 06/20/17 at 18:30 Glucose (Glutose) 15 gm Q15M PRN PO DECREASED GLUCOSE; Start 06/20/17 at 18:30 Glucose (Glutose) 22.5 gm Q15M PRN PO DECREASED GLUCOSE; Start 06/20/17 at 18: 30 Dextrose (D50w Syringe) 25 ml Q15M PRN IV DECREASED GLUCOSE; Start 06/20/17 at 18:30 Dextrose (D50w Syringe) 50 ml Q15M PRN IV DECREASED GLUCOSE; Start 06/20/17 at 18:30 Glucagon (Glucagen) 1 mg Q15M PRN IM DECREASED GLUCOSE; Start 06/20/17 at 18:30 Glucose (Glutose) 15 gm Q15M PRN BUCCAL DECREASED GLUCOSE; Start 06/20/17 at 18 :30 Ondansetron HCl (Zofran Inj) 4 mg Q6H PRN IV NAUSEA AND/OR VOMITING; Start at 20:00 Morphine Sulfate (morphine) 2 mg Q6 PRN IV PAIN LEVEL 7-10 Last administered on 06/24/17 17:23; Admin Dose 2 MG; Start 06/20/17 at 20:00 Docusate Sodium (Colace) 200 mg BID PO Last administered on 06/25/17 08:11; Admin Dose 200 MG; Start 06/20/17 at 21:00 Senna (Senokot) 2 tab BID PO Last administered on 06/25/17 08:11; Admin Dose 2 TAB; Start 06/20/17 at 21:00 Acetaminophen (Tylenol Tab) 650 mg Q6H PRN PO PAIN AND OR ELEVATED TEMP Last administered on 06/20/17 21:15; Admin Dose 650 MG; Start 06/20/17 at 20:00 Cholecalciferol (Vitamin D) 2,000 unit DAILY PO Last administered on 06/25/17 08:11; Admin Dose 2,000 UNIT; Start 06/21/17 at 09:00 Zolpidem Tartrate (Ambien) 5 mg HS PRN PO INSOMNIA Last administered on 20:48; Admin Dose 5 MG; Start 06/20/17 at 20:00 Amlodipine Besylate (Norvasc) 10 mg DAILY PO Last administered on 06/25/17 08: 12; Admin Dose 10 MG; Start 06/21/17 at 09:00 Insulin Glargine (Lantus) 35 unit QPM SC Last administered on 06/24/17 20:49; Admin Dose 35 UNIT; Start 06/20/17 at 21:00 Insulin Glargine (Lantus) 40 unit QAM SC Last administered on 06/25/17 08:10; Admin Dose 40 UNIT; Start 06/21/17 at 09:00 Miscellaneous Information (* Miscellaneous Pharmacy Order) ONCE XX ; Start at 20:00 Miscellaneous Information (* Miscellaneous Pharmacy Order) ONCE XX ; Start at 20:00 Hydralazine HCl (Apresoline) 10 mg Q6H PRN IV ELEVATED BLOOD PRESSURE Last administered on 06/24/17 21:55; Admin Dose 10 MG; Start 06/20/17 at 20:30 Alprazolam (Xanax) 0.5 mg Q6H PRN PO ANXIETY Last administered on 06/25/17 08: 11; Admin Dose 0.5 MG; Start 06/22/17 at 16:00 Metoprolol Succinate (Toprol Xl) 50 mg BID PO Last administered on 06/25/17 08 :12; Admin Dose 50 MG; Start 06/23/17 at 21:00 Dicyclomine HCl (Bentyl) 20 mg Q8 PO ; Start 06/25/17 at 14:00 FABIOLA HILL Jun 25, 2017 14:03
[2017-06-25] MEDS: DICYCLOMINE 10 MG CAP PO SCH ×2 (15:15→21:23)
[2017-06-25] MEDS: morphine 2 MG INJ IV PRN (16:05)
[2017-06-25 20:27] VITALS: BP 166/72; RESP 16
[2017-06-25] MEDS: ZOLPIDEM 5 MG TAB PO PRN (21:21)
[2017-06-25 22:00] VITALS: BP 154/64; PULSE 80
[2017-06-26 02:05] VITALS: BP 145/63; RESP 17
[2017-06-26] MEDS: DICYCLOMINE 10 MG CAP PO SCH ×3 (05:42→21:13)
[2017-06-26 06:33] LABS: BASOPHILS % 0.3 % (0.0-2.0); EOSINOPHILS # 0.2 10^3/ul (0.0-0.5); EOSINOPHILS % 1.5 % (0.0-7.0); HEMATOCRIT 40.9 % (37.0-47.0); HEMOGLOBIN 13.2 g/dl (12.0-16.0); LYMPHOCYTES # 4.3 10^3/ul (0.8-2.9); LYMPHOCYTES % 37.4 % (15.0-51.0); MEAN CORPUSCULAR HEMOGLOBIN 29.9 pg (29.0-33.0); MEAN CORPUSCULAR HGB CONC 32.3 g/dl (32.0-37.0); MEAN CORPUSCULAR VOLUME 92.7 fl (82.0-101.0); MEAN PLATELET VOLUME 10.2 fl (7.4-10.4); MONOCYTE # 0.6 10^3/ul (0.3-0.9); MONOCYTES % 4.9 % (0.0-11.0); NEUTROPHIL # 6.4 10^3/ul (1.6-7.5); NEUTROPHILS % 55.5 % (39.0-77.0); PLATELET COUNT 294 10^3/UL (140-415); RED BLOOD COUNT 4.41 10^6/ul (4.20-5.40); RED CELL DISTRIBUTION WIDTH 14.5 % (11.5-14.5); WHITE BLOOD COUNT 11.5 10^3/ul (4.8-10.8)
[2017-06-26 06:59] LABS: CALCIUM 10.6 mg/dl (8.4-10.2); CREATININE 1.01 mg/dl (0.44-1.00); POTASSIUM 3.8 mmol/L (3.5-5.1)
[2017-06-26] MEDS: INSULIN ASPART [NOVOLOG] 3 ML PEN SC SCH ×4 (07:30→21:00)
[2017-06-26 08:00] VITALS: BP 160/88; RESP 18
[2017-06-26] MEDS: INSULIN GLARGINE [LANtus] 3 ML PEN SC SCH ×2 (08:01→21:12)
[2017-06-26] MEDS: CHOLECALCIFEROL 2,000 UNIT CAP PO SCH (08:04)
[2017-06-26] MEDS: DOCUSATE SODIUM 100 MG CAP PO SCH ×2 (08:04→20:06)
[2017-06-26] MEDS: CALCIUM CARBONATE 500 MG CHEW TAB PO SCH ×3 (08:04→17:15)
[2017-06-26] MEDS: SENNA TAB PO SCH ×2 (08:04→20:07)
[2017-06-26] MEDS: METOPROLOL (XL) 50 MG TAB PO SCH ×2 (08:05→20:08)
[2017-06-26] MEDS: AMLODIPINE 10 MG TAB PO SCH (08:05)
--- NOTE | 2017-06-26 11:42 | PN ---
Date/Time of Note Date/Time of Note DATE: 06/26/17 TIME: 11:42 Assessment/Plan VTE Prophylaxis VTE Prophylaxis Intervention: other Lines/Catheters IV Catheter Type (from Nrsg): Saline Lock Assessment/Plan Chief Complaint/Hosp Course - Epigastric pain associated with nausea going on for last [address] Garcia is following in gastroenterology consultation. S/p EGD, report is not available. Continue to follow-up gastroenterology recommendations. - Intractable nausea and vomiting and admission, continue Zofran as needed. - Possible diabetic gastroparesis, continue Reglan. - Diabetes mellitus, hemoglobin A1c 7.8, continue Lantus and NovoLog. - Hypertension, continue metoprolol and Norvasc - Obesity with BMI of 37.6 Problems: Subjective 24 Hr Interval Summary Free Text/Dictation Patient has no complaints Exam/Review of Systems Vital Signs Vitals Vital Signs Date Time Temp Pulse Resp B/P Pulse Ox O2 Delivery O2 Flow Rate FiO2 06/26/17 08:00 97.8 78 18 160/88 96 06/23/17 22:30 Room Air 06/22/17 20:10 2.0 Intake and Output 06/25/17 06/25/17 06/26/17 15:00 23:00 07:00 Intake Total 920 ml 250 ml Balance 920 ml 250 ml Exam Constitutional: well developed Head: atraumatic, normocephalic Neck: supple Respiratory: clear to auscultation Cardiovascular: regular rate and rhythm Gastrointestinal: non-tender, soft Extremities: normal pulses Results Result Diagram: 06/26/17 0520 06/26/17 0520 Results 24 hrs Laboratory Tests Test 06/25/17 12:10 06/25/17 17:08 06/25/17 21:17 06/26/17 05:20 Bedside Glucose 98 150 142 White Blood Count 11.5 #H Red Blood Count 4.41 Hemoglobin 13.2 Hematocrit 40.9 Mean Corpuscular Volume 92.7 Mean Corpuscular Hemoglobin 29.9 Mean Corpuscular Hemoglobin Concent 32.3 Red Cell Distribution Width 14.5 Platelet Count 294 # Mean Platelet Volume 10.2 Neutrophils % 55.5 Lymphocytes % 37.4 Monocytes % 4.9 Eosinophils % 1.5 Basophils % 0.3 Nucleated Red Blood Cells % 0.0 Neutrophils # 6.4 Lymphocytes # 4.3 H Monocytes # 0.6 Eosinophils # 0.2 Basophils # 0.0 Nucleated Red Blood Cells # 0.0 Sodium Level 145 H Potassium Level 3.8 Chloride Level 103 Carbon Dioxide Level 27 Anion Gap 19 H Blood Urea Nitrogen 18 Creatinine 1.01 H Glucose Level 59 L Calcium Level 10.6 H Test 06/26/17 07:59 Bedside Glucose 89 Medications Medications Current Medications Ondansetron HCl (Zofran Inj) 4 mg Q6H PRN IV NAUSEA AND/OR VOMITING Last administered on 06/24/17 17:23; Admin Dose 4 MG; Start 06/20/17 at 15:30 Miscellaneous Information 1 ea NOTE XX ; Start 06/20/17 at 18:30 Glucose (Glutose) 15 gm Q15M PRN PO DECREASED GLUCOSE; Start 06/20/17 at 18:30 Glucose (Glutose) 22.5 gm Q15M PRN PO DECREASED GLUCOSE; Start 06/20/17 at 18: 30 Dextrose (D50w Syringe) 25 ml Q15M PRN IV DECREASED GLUCOSE; Start 06/20/17 at 18:30 Dextrose (D50w Syringe) 50 ml Q15M PRN IV DECREASED GLUCOSE; Start 06/20/17 at 18:30 Glucagon (Glucagen) 1 mg Q15M PRN IM DECREASED GLUCOSE; Start 06/20/17 at 18:30 Glucose (Glutose) 15 gm Q15M PRN BUCCAL DECREASED GLUCOSE; Start 06/20/17 at 18 :30 Ondansetron HCl (Zofran Inj) 4 mg Q6H PRN IV NAUSEA AND/OR VOMITING; Start at 20:00 Morphine Sulfate (morphine) 2 mg Q6 PRN IV PAIN LEVEL 7-10 Last administered on 06/25/17 16:05; Admin Dose 2 MG; Start 06/20/17 at 20:00 Docusate Sodium (Colace) 200 mg BID PO Last administered on 06/26/17 08:04; Admin Dose 200 MG; Start 06/20/17 at 21:00 Senna (Senokot) 2 tab BID PO Last administered on 06/26/17 08:04; Admin Dose 2 TAB; Start 06/20/17 at 21:00 Acetaminophen (Tylenol Tab) 650 mg Q6H PRN PO PAIN AND OR ELEVATED TEMP Last administered on 06/20/17 21:15; Admin Dose 650 MG; Start 06/20/17 at 20:00 Cholecalciferol (Vitamin D) 2,000 unit DAILY PO Last administered on 06/26/17 08:04; Admin Dose 2,000 UNIT; Start 06/21/17 at 09:00 Zolpidem Tartrate (Ambien) 5 mg HS PRN PO INSOMNIA Last administered on 21:21; Admin Dose 5 MG; Start 06/20/17 at 20:00 Amlodipine Besylate (Norvasc) 10 mg DAILY PO Last administered on 06/26/17 08: 05; Admin Dose 10 MG; Start 06/21/17 at 09:00 Insulin Glargine (Lantus) 35 unit QPM SC Last administered on 06/25/17 21:22; Admin Dose 35 UNIT; Start 06/20/17 at 21:00 Insulin Glargine (Lantus) 40 unit QAM SC Last administered on 06/26/17 08:01; Admin Dose 40 UNIT; Start 06/21/17 at 09:00 Miscellaneous Information (* Miscellaneous Pharmacy Order) ONCE XX ; Start at 20:00 Miscellaneous Information (* Miscellaneous Pharmacy Order) ONCE XX ; Start at 20:00 Hydralazine HCl (Apresoline) 10 mg Q6H PRN IV ELEVATED BLOOD PRESSURE Last administered on 06/24/17 21:55; Admin Dose 10 MG; Start 06/20/17 at 20:30 Alprazolam (Xanax) 0.5 mg Q6H PRN PO ANXIETY Last administered on 06/25/17 08: 11; Admin Dose 0.5 MG; Start 06/22/17 at 16:00 Metoprolol Succinate (Toprol Xl) 50 mg BID PO Last administered on 06/26/17 08 :05; Admin Dose 50 MG; Start 06/23/17 at 21:00 Dicyclomine HCl (Bentyl) 20 mg Q8 PO Last administered on 06/26/17 05:42; Admin Dose 20 MG; Start 06/25/17 at 14:00 FABIOLA HILL Jun 26, 2017 11:42
--- NOTE | 2017-06-26 12:23 | CONS ---
Date/Time of Note Date/Time of Note DATE: 06/26/17 TIME: 12:22 Assessment/Plan Assessment/Plan Chief Complaint/Hosp Course Patient is 76-year-old female with history of diabetes mellitus, presented to the ER complaining of abdominal pain confined to the epigastric area associated with nausea and vomiting. This pain is going on for last 6 months. No radiation to any part of the body. 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 No history of weight loss. Patient had a CAT scan done which showed the irregular contour consistent with the diagnosis of possible cirrhosis. Problems: Additional Assessment/Plan Additional Assessment/Plan 1. Epigastric pain associated with nausea going on for last 6 month, resolved 2. Irregular surface of the liver probably nodular may have cirrhosis of liver. Patient's alkaline phosphatase is elevated, hepatitis panel negative 3. Diabetes mellitus 4. Obesity 5. 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 Patient may need antispasmodic medication Bentyl for the pain Consultation Date/Type/Reason Admit Date/Time Jun 22, 2017 at 16:00 24 HR Interval Summary Constitutional: improved, no complaints Exam/Review of Systems Vital Signs Vitals Vital Signs Date Time Temp Pulse Resp B/P Pulse Ox O2 Delivery O2 Flow Rate FiO2 06/26/17 08:00 97.8 78 18 160/88 96 06/23/17 22:30 Room Air 06/22/17 20:10 2.0 Intake and Output 06/25/17 06/25/17 06/26/17 15:00 23:00 07:00 Intake Total 920 ml 250 ml Balance 920 ml 250 ml Exam Constitutional: alert, oriented, well developed Psych: nl mood/affect, no complaints Head: atraumatic, normocephalic Eyes: EOMI, PERRL, nl conjunctiva, nl lids, nl sclera ENMT: nl external ears & nose, nl lips & teeth, nl nasal mucosa & septum Neck: non-tender, supple Respiratory: clear to auscultation, normal air movement Cardiovascular: nl pulses, regular rate and rhythm Gastrointestinal: nl liver, spleen, non-tender, soft Musculoskeletal: nl extremities to inspection, nl gait and stance Extremities: normal pulses Neurological: [employer]Y INTERVIEWER II-XII intact, nl mental status, nl speech, nl strength Skin: nl turgor, No rash or lesions Lymph: nl lymph nodes Results Result Diagram: 06/26/17 0520 06/26/17 0520 Results 24 hrs Laboratory Tests Test 06/25/17 17:08 06/25/17 21:17 06/26/17 05:20 06/26/17 07:59 Bedside Glucose 150 142 89 White Blood Count 11.5 #H Red Blood Count 4.41 Hemoglobin 13.2 Hematocrit 40.9 Mean Corpuscular Volume 92.7 Mean Corpuscular Hemoglobin 29.9 Mean Corpuscular Hemoglobin Concent 32.3 Red Cell Distribution Width 14.5 Platelet Count 294 # Mean Platelet Volume 10.2 Neutrophils % 55.5 Lymphocytes % 37.4 Monocytes % 4.9 Eosinophils % 1.5 Basophils % 0.3 Nucleated Red Blood Cells % 0.0 Neutrophils # 6.4 Lymphocytes # 4.3 H Monocytes # 0.6 Eosinophils # 0.2 Basophils # 0.0 Nucleated Red Blood Cells # 0.0 Sodium Level 145 H Potassium Level 3.8 Chloride Level 103 Carbon Dioxide Level 27 Anion Gap 19 H Blood Urea Nitrogen 18 Creatinine 1.01 H Glucose Level 59 L Calcium Level 10.6 H Test 06/26/17 11:51 Bedside Glucose 191 Medications Medications Current Medications Ondansetron HCl (Zofran Inj) 4 mg Q6H PRN IV NAUSEA AND/OR VOMITING Last administered on 06/24/17t 17:23; Admin Dose 4 MG; Start 06/20/17 at 15:30 Miscellaneous Information 1 ea NOTE XX ; Start 06/20/17 at 18:30 Glucose (Glutose) 15 gm Q15M PRN PO DECREASED GLUCOSE; Start 06/20/17 at 18:30 Glucose (Glutose) 22.5 gm Q15M PRN PO DECREASED GLUCOSE; Start 06/20/17 at 18: 30 Dextrose (D50w Syringe) 25 ml Q15M PRN IV DECREASED GLUCOSE; Start 06/20/17 at 18:30 Dextrose (D50w Syringe) 50 ml Q15M PRN IV DECREASED GLUCOSE; Start 06/20/17 at 18:30 Glucagon (Glucagen) 1 mg Q15M PRN IM DECREASED GLUCOSE; Start 06/20/17 at 18:30 Glucose (Glutose) 15 gm Q15M PRN BUCCAL DECREASED GLUCOSE; Start 06/20/17 at 18 :30 Ondansetron HCl (Zofran Inj) 4 mg Q6H PRN IV NAUSEA AND/OR VOMITING; Start at 20:00 Morphine Sulfate (morphine) 2 mg Q6 PRN IV PAIN LEVEL 7-10 Last administered on 06/25/17 16:05; Admin Dose 2 MG; Start 06/20/17 at 20:00 Docusate Sodium (Colace) 200 mg BID PO Last administered on 06/26/17 08:04; Admin Dose 200 MG; Start 06/20/17 at 21:00 Senna (Senokot) 2 tab BID PO Last administered on 06/26/17 08:04; Admin Dose 2 TAB; Start 06/20/17 at 21:00 Acetaminophen (Tylenol Tab) 650 mg Q6H PRN PO PAIN AND OR ELEVATED TEMP Last administered on 06/20/17 21:15; Admin Dose 650 MG; Start 06/20/17 at 20:00 Cholecalciferol (Vitamin D) 2,000 unit DAILY PO Last administered on 06/26/17 08:04; Admin Dose 2,000 UNIT; Start 06/21/17 at 09:00 Zolpidem Tartrate (Ambien) 5 mg HS PRN PO INSOMNIA Last administered on 21:21; Admin Dose 5 MG; Start 06/20/17 at 20:00 Amlodipine Besylate (Norvasc) 10 mg DAILY PO Last administered on 06/26/17 08: 05; Admin Dose 10 MG; Start 06/21/17 at 09:00 Insulin Glargine (Lantus) 35 unit QPM SC Last administered on 06/25/17 21:22; Admin Dose 35 UNIT; Start 06/20/17 at 21:00 Insulin Glargine (Lantus) 40 unit QAM SC Last administered on 06/26/17 08:01; Admin Dose 40 UNIT; Start 06/21/17 at 09:00 Miscellaneous Information (* Miscellaneous Pharmacy Order) ONCE XX ; Start at 20:00 Miscellaneous Information (* Miscellaneous Pharmacy Order) ONCE XX ; Start at 20:00 Hydralazine HCl (Apresoline) 10 mg Q6H PRN IV ELEVATED BLOOD PRESSURE Last administered on 06/24/17 21:55; Admin Dose 10 MG; Start 06/20/17 at 20:30 Alprazolam (Xanax) 0.5 mg Q6H PRN PO ANXIETY Last administered on 06/25/17 08: 11; Admin Dose 0.5 MG; Start 06/22/17 at 16:00 Metoprolol Succinate (Toprol Xl) 50 mg BID PO Last administered on 06/26/17 08 :05; Admin Dose 50 MG; Start 06/23/17 at 21:00 Dicyclomine HCl (Bentyl) 20 mg Q8 PO Last administered on 06/26/17 05:42; Admin Dose 20 MG; Start 06/25/17 at 14:00 MEL ROBERTS MD Jun 26, 2017 12:23
[2017-06-26] MEDS: ONDANSETRON 4 MG INJ IV PRN (13:55)
[2017-06-26] MEDS: morphine 2 MG INJ IV PRN (13:55)
[2017-06-26 14:00] VITALS: BP 152/82; RESP 18
[2017-06-26 20:00] VITALS: BP 179/79; RESP 20
[2017-06-26] MEDS: ZOLPIDEM 5 MG TAB PO PRN (21:13)
[2017-06-26 22:15] VITALS: BP 176/79; PULSE 70
[2017-06-26] MEDS: hydrALAzine 20 MG INJ IV PRN (22:33)
[2017-06-27] MEDS: ALPRAZOLAM 0.5 MG TAB PO PRN ×2 (00:38→12:19)
[2017-06-27 00:44] VITALS: BP 160/71; PULSE 75
[2017-06-27 02:00] VITALS: BP 147/65; RESP 20
[2017-06-27 02:30] VITALS: BP 143/65; PULSE 75; RESP 18
[2017-06-27] MEDS: DICYCLOMINE 10 MG CAP PO SCH ×2 (05:19→14:15)
[2017-06-27 06:05] LABS: BASOPHILS % 0.2 % (0.0-2.0); EOSINOPHILS # 0.1 10^3/ul (0.0-0.5); EOSINOPHILS % 1.5 % (0.0-7.0); HEMATOCRIT 36.9 % (37.0-47.0); HEMOGLOBIN 12.2 g/dl (12.0-16.0); LYMPHOCYTES # 2.6 10^3/ul (0.8-2.9); LYMPHOCYTES % 28.9 % (15.0-51.0); MEAN CORPUSCULAR HEMOGLOBIN 30.2 pg (29.0-33.0); MEAN CORPUSCULAR HGB CONC 33.1 g/dl (32.0-37.0); MEAN CORPUSCULAR VOLUME 91.3 fl (82.0-101.0); MEAN PLATELET VOLUME 10.3 fl (7.4-10.4); MONOCYTE # 0.5 10^3/ul (0.3-0.9); NEUTROPHIL # 5.8 10^3/ul (1.6-7.5); NEUTROPHILS % 64.1 % (39.0-77.0); PLATELET COUNT 242 10^3/UL (140-415); RED BLOOD COUNT 4.04 10^6/ul (4.20-5.40); RED CELL DISTRIBUTION WIDTH 14.1 % (11.5-14.5); WHITE BLOOD COUNT 9.1 10^3/ul (4.8-10.8)
[2017-06-27 06:27] LABS: CALCIUM 10.3 mg/dl (8.4-10.2); CREATININE 0.81 mg/dl (0.44-1.00); POTASSIUM 3.7 mmol/L (3.5-5.1)
[2017-06-27] MEDS: INSULIN ASPART [NOVOLOG] 3 ML PEN SC SCH ×2 (07:30→11:30)
[2017-06-27 08:00] VITALS: BP 174/74; RESP 18
[2017-06-27] MEDS: CHOLECALCIFEROL 2,000 UNIT CAP PO SCH (08:33)
[2017-06-27] MEDS: INSULIN GLARGINE [LANtus] 3 ML PEN SC SCH (08:35)
[2017-06-27] MEDS: SENNA TAB PO SCH (08:36)
[2017-06-27] MEDS: AMLODIPINE 10 MG TAB PO SCH (08:36)
[2017-06-27] MEDS: METOPROLOL (XL) 50 MG TAB PO SCH (08:37)
[2017-06-27] MEDS: DOCUSATE SODIUM 100 MG CAP PO SCH (08:37)
[2017-06-27] MEDS: CALCIUM CARBONATE 500 MG CHEW TAB PO SCH ×2 (08:37→14:15)
--- NOTE | 2017-06-27 12:40 | PN ---
Date/Time of Note Date/Time of Note DATE: 06/27/17 TIME: 12:40 Assessment/Plan VTE Prophylaxis VTE Prophylaxis Intervention: other Lines/Catheters IV C[facility]ter Type (from [facility]): [facility] Urinary Cath still in place: No Assessment/Plan Chief Complaint/Hosp Course - Epigastric pain associated with nausea going on for last [address] Garcia is following in gastroenterology consultation. S/p EGD, report is not available. Continue to follow-up gastroenterology recommendations. - Intractable nausea and vomiting and admission, continue Zofran as needed. - Possible diabetic gastroparesis, continue Reglan. - Diabetes mellitus, hemoglobin A1c 7.8, continue Lantus and NovoLog. - Hypertension, continue metoprolol and Norvasc - Obesity with BMI of 37.6 Problems: Subjective 24 Hr Interval Summary Free Text/Dictation Patient is asymptomatic, doing well Exam/Review of Systems Vital Signs Vitals Vital Signs Date Time Temp Pulse Resp B/P Pulse Ox O2 Delivery O2 Flow Rate FiO2 06/27/17 08:00 98.5 69 18 174/74 95 06/27/17 02:30 Room Air Intake and Output 06/26/17 06/26/17 06/27/17 15:00 23:00 07:00 Intake Total 960 ml 540 ml Balance 960 ml 540 ml Exam Constitutional: well developed Head: atraumatic, normocephalic Neck: supple Respiratory: clear to auscultation Cardiovascular: regular rate and rhythm Gastrointestinal: non-tender, soft Extremities: normal pulses Results Result Diagram: 06/27/17 0430 06/27/17 0430 Results 24 hrs Laboratory Tests Test 06/26/17 17:05 06/26/17 20:32 06/26/17 20:36 06/26/17 20:58 Bedside Glucose 144 123 169 Glucose Level 110 # Test 06/27/17 04:30 06/27/17 08:16 06/27/17 12:09 White Blood Count 9.1 # Red Blood Count 4.04 L Hemoglobin 12.2 Hematocrit 36.9 L Mean Corpuscular Volume 91.3 Mean Corpuscular Hemoglobin 30.2 Mean Corpuscular Hemoglobin Concent 33.1 Red Cell Distribution Width 14.1 Platelet Count 242 Mean Platelet Volume 10.3 Neutrophils % 64.1 Lymphocytes % 28.9 Monocytes % 5.0 Eosinophils % 1.5 Basophils % 0.2 Nucleated Red Blood Cells % 0.0 Neutrophils # 5.8 Lymphocytes # 2.6 Monocytes # 0.5 Eosinophils # 0.1 Basophils # 0.0 Nucleated Red Blood Cells # 0.0 Sodium Level 143 Potassium Level 3.7 Chloride Level 104 Carbon Dioxide Level 27 Anion Gap 16 Blood Urea Nitrogen 12 Creatinine 0.81 Glucose Level 95 Calcium Level 10.3 H Bedside Glucose 121 111 Medications Medications Current Medications Ondansetron HCl (Zofran Inj) 4 mg Q6H PRN IV NAUSEA AND/OR VOMITING Last administered on 06/26/17 13:55; Admin Dose 4 MG; Start 06/20/17 at 15:30 Miscellaneous Information 1 ea NOTE XX ; Start 06/20/17 at 18:30 Glucose (Glutose) 15 gm Q15M PRN PO DECREASED GLUCOSE; Start 06/20/17 at 18:30 Glucose (Glutose) 22.5 gm Q15M PRN PO DECREASED GLUCOSE Last administered on 20:13; Admin Dose 22.5 GM; Start 06/20/17 at 18:30 Dextrose (D50w Syringe) 25 ml Q15M PRN IV DECREASED GLUCOSE; Start 06/20/17 at 18:30 Dextrose (D50w Syringe) 50 ml Q15M PRN IV DECREASED GLUCOSE; Start 06/20/17 at 18:30 Glucagon (Glucagen) 1 mg Q15M PRN IM DECREASED GLUCOSE; Start 06/20/17 at 18:30 Glucose (Glutose) 15 gm Q15M PRN BUCCAL DECREASED GLUCOSE; Start 06/20/17 at 18 :30 Ondansetron HCl (Zofran Inj) 4 mg Q6H PRN IV NAUSEA AND/OR VOMITING; Start at 20:00 Morphine Sulfate (morphine) 2 mg Q6 PRN IV PAIN LEVEL 7-10 Last administered on 06/26/17 13:55; Admin Dose 2 MG; Start 06/20/17 at 20:00 Docusate Sodium (Colace) 200 mg BID PO Last administered on 06/27/17 08:37; Admin Dose 200 MG; Start 06/20/17 at 21:00 Senna (Senokot) 2 tab BID PO Last administered on 06/27/17 08:36; Admin Dose 2 TAB; Start 06/20/17 at 21:00 Acetaminophen (Tylenol Tab) 650 mg Q6H PRN PO PAIN AND OR ELEVATED TEMP Last administered on 06/20/17 21:15; Admin Dose 650 MG; Start 06/20/17 at 20:00 Cholecalciferol (Vitamin D) 2,000 unit DAILY PO Last administered on 06/27/17 08:33; Admin Dose 2,000 UNIT; Start 06/21/17 at 09:00 Zolpidem Tartrate (Ambien) 5 mg HS PRN PO INSOMNIA Last administered on 21:13; Admin Dose 5 MG; Start 06/20/17 at 20:00 Amlodipine Besylate (Norvasc) 10 mg DAILY PO Last administered on 06/27/17 08: 36; Admin Dose 10 MG; Start 06/21/17 at 09:00 Insulin Glargine (Lantus) 35 unit QPM SC Last administered on 06/26/17 21:12; Admin Dose 35 UNIT; Start 06/20/17 at 21:00 Insulin Glargine (Lantus) 40 unit QAM SC Last administered on 06/27/17 08:35; Admin Dose 40 UNIT; Start 06/21/17 at 09:00 Miscellaneous Information (* Miscellaneous Pharmacy Order) ONCE XX ; Start at 20:00 Miscellaneous Information (* Miscellaneous Pharmacy Order) ONCE XX ; Start at 20:00 Hydralazine HCl (Apresoline) 10 mg Q6H PRN IV ELEVATED BLOOD PRESSURE Last administered on 06/26/17 22:33; Admin Dose 10 MG; Start 06/20/17 at 20:30 Alprazolam (Xanax) 0.5 mg Q6H PRN PO ANXIETY Last administered on 06/27/17 12: 19; Admin Dose 0.5 MG; Start 06/22/17 at 16:00 Metoprolol Succinate (Toprol Xl) 50 mg BID PO Last administered on 06/27/17 08 :37; Admin Dose 50 MG; Start 06/23/17 at 21:00 Dicyclomine HCl (Bentyl) 20 mg Q8 PO Last administered on 06/27/17 05:19; Admin Dose 20 MG; Start 06/25/17 at 14:00 FABIOLA HILL 30, 2017 12:40
--- NOTE | 2017-06-27 13:32 | CONS ---
Date/Time of Note Date/Time of Note DATE: 06/27/17 TIME: 13:32 Assessment/Plan Assessment/Plan Chief Complaint/Hosp Course Patient is 76-year-old female with history of diabetes mellitus, presented to the ER complaining of abdominal pain confined to the epigastric area associated with nausea and vomiting. This pain is going on for last 6 months. No radiation to any part of the body. 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 No history of weight loss. Patient had a CAT scan done which showed the irregular contour consistent with the diagnosis of possible cirrhosis. Problems: Additional Assessment/Plan Additional Assessment/Plan 1. Epigastric pain associated with nausea going on for last 6 month, resolved 2. Irregular surface of the liver probably nodular may have cirrhosis of liver. Patient's alkaline phosphatase is elevated, hepatitis panel negative 3. Diabetes mellitus 4. Obesity 5. 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 Patient may need antispasmodic medication Bentyl for the pain Stable from GI point to be discharged Consultation Date/Type/Reason Admit Date/Time Jun 22, 2017 at 16:00 24 HR Interval Summary Constitutional: improved, no complaints Exam/Review of Systems Vital Signs Vitals Vital Signs Date Time Temp Pulse Resp B/P Pulse Ox O2 Delivery O2 Flow Rate FiO2 06/27/17 08:00 98.5 69 18 174/74 95 06/27/17 02:30 Room Air Intake and Output 06/26/17 06/26/17 06/27/17 15:00 23:00 07:00 Intake Total 960 ml 540 ml Balance 960 ml 540 ml Exam Constitutional: alert, oriented, well developed Psych: nl mood/affect, no complaints Head: atraumatic, normocephalic Eyes: EOMI, PERRL, nl conjunctiva, nl lids, nl sclera ENMT: nl external ears & nose, nl lips & teeth, nl nasal mucosa & septum Neck: non-tender, supple Respiratory: clear to auscultation, normal air movement Cardiovascular: nl pulses, regular rate and rhythm Gastrointestinal: nl liver, spleen, non-tender, soft Musculoskeletal: nl extremities to inspection, nl gait and stance Extremities: normal pulses 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-XII intact, nl mental status, nl speech, nl strength Skin: nl turgor, No rash or lesions Lymph: nl lymph nodes Results Result Diagram: 06/27/17 0430 06/27/17 0430 Results 24 hrs Laboratory Tests Test 06/26/17 17:05 06/26/17 20:32 06/26/17 20:36 06/26/17 20:58 Bedside Glucose 144 123 169 Glucose Level 110 # Test 06/27/17 04:30 06/27/17 08:16 06/27/17 12:09 White Blood Count 9.1 # Red Blood Count 4.04 L Hemoglobin 12.2 Hematocrit 36.9 L Mean Corpuscular Volume 91.3 Mean Corpuscular Hemoglobin 30.2 Mean Corpuscular Hemoglobin Concent 33.1 Red Cell Distribution Width 14.1 Platelet Count 242 Mean Platelet Volume 10.3 Neutrophils % 64.1 Lymphocytes % 28.9 Monocytes % 5.0 Eosinophils % 1.5 Basophils % 0.2 Nucleated Red Blood Cells % 0.0 Neutrophils # 5.8 Lymphocytes # 2.6 Monocytes # 0.5 Eosinophils # 0.1 Basophils # 0.0 Nucleated Red Blood Cells # 0.0 Sodium Level 143 Potassium Level 3.7 Chloride Level 104 Carbon Dioxide Level 27 Anion Gap 16 Blood Urea Nitrogen 12 Creatinine 0.81 Glucose Level 95 Calcium Level 10.3 H Bedside Glucose 121 111 Medications Medications Current Medications Ondansetron HCl (Zofran Inj) 4 mg Q6H PRN IV NAUSEA AND/OR VOMITING Last administered on 06/26/17 13:55; Admin Dose 4 MG; Start 06/20/17 at 15:30 Miscellaneous Information 1 ea NOTE XX ; Start 06/20/17 at 18:30 Glucose (Glutose) 15 gm Q15M PRN PO DECREASED GLUCOSE; Start 06/20/17 at 18:30 Glucose (Glutose) 22.5 gm Q15M PRN PO DECREASED GLUCOSE Last administered on 20:13; Admin Dose 22.5 GM; Start 06/20/17 at 18:30 Dextrose (D50w Syringe) 25 ml Q15M PRN IV DECREASED GLUCOSE; Start 06/20/17 at 18:30 Dextrose (D50w Syringe) 50 ml Q15M PRN IV DECREASED GLUCOSE; Start 06/20/17 at 18:30 Glucagon (Glucagen) 1 mg Q15M PRN IM DECREASED GLUCOSE; Start 06/20/17 at 18:30 Glucose (Glutose) 15 gm Q15M PRN BUCCAL DECREASED GLUCOSE; Start 06/20/17 at 18 :30 Ondansetron HCl (Zofran Inj) 4 mg Q6H PRN IV NAUSEA AND/OR VOMITING; Start at 20:00 Morphine Sulfate (morphine) 2 mg Q6 PRN IV PAIN LEVEL 7-10 Last administered on 06/26/17 13:55; Admin Dose 2 MG; Start 06/20/17 at 20:00 Docusate Sodium (Colace) 200 mg BID PO Last administered on 06/27/17 08:37; Admin Dose 200 MG; Start 06/20/17 at 21:00 Senna (Senokot) 2 tab BID PO Last administered on 06/27/17 08:36; Admin Dose 2 TAB; Start 06/20/17 at 21:00 Acetaminophen (Tylenol Tab) 650 mg Q6H PRN PO PAIN AND OR ELEVATED TEMP Last administered on 06/20/17 21:15; Admin Dose 650 MG; Start 06/20/17 at 20:00 Cholecalciferol (Vitamin D) 2,000 unit DAILY PO Last administered on 06/27/17 08:33; Admin Dose 2,000 UNIT; Start 06/21/17 at 09:00 Zolpidem Tartrate (Ambien) 5 mg HS PRN PO INSOMNIA Last administered on 21:13; Admin Dose 5 MG; Start 06/20/17 at 20:00 Amlodipine Besylate (Norvasc) 10 mg DAILY PO Last administered on 06/27/17 08: 36; Admin Dose 10 MG; Start 06/21/17 at 09:00 Insulin Glargine (Lantus) 35 unit QPM SC Last administered on 06/26/17 21:12; Admin Dose 35 UNIT; Start 06/20/17 at 21:00 Insulin Glargine (Lantus) 40 unit QAM SC Last administered on 06/27/17 08:35; Admin Dose 40 UNIT; Start 06/21/17 at 09:00 Miscellaneous Information (* Miscellaneous Pharmacy Order) ONCE XX ; Start at 20:00 Miscellaneous Information (* Miscellaneous Pharmacy Order) ONCE XX ; Start at 20:00 Hydralazine HCl (Apresoline) 10 mg Q6H PRN IV ELEVATED BLOOD PRESSURE Last administered on 06/26/17 22:33; Admin Dose 10 MG; Start 06/20/17 at 20:30 Alprazolam (Xanax) 0.5 mg Q6H PRN PO ANXIETY Last administered on 06/27/17 12: 19; Admin Dose 0.5 MG; Start 06/22/17 at 16:00 Metoprolol Succinate (Toprol Xl) 50 mg BID PO Last administered on 06/27/17 08 :37; Admin Dose 50 MG; Start 06/23/17 at 21:00 Dicyclomine HCl (Bentyl) 20 mg Q8 PO Last administered on 06/27/17 05:19; Admin Dose 20 MG; Start 06/25/17 at 14:00 MEL ROBERTS MD Jun 27, 2017 13:32
[2017-06-27 14:00] VITALS: BP 127/60; RESP 19
[2017-06-27] MEDS: morphine 2 MG INJ IV PRN (14:18)
--- NOTE | 2017-07-01 16:54 | GILP ---
DATE OF PROCEDURE: 07/01/2017 PROCEDURE PERFORMED: A 76-year-old female undergoing this procedure for abdominal pain confined to the epigastric area and the severe constipation. The risks of the procedure, related complications, anesthetic risk and alternatives were discussed and informed consent was obtained. DESCRIPTION OF PROCEDURE: The patient was brought to the GI lab and sedated by the anesthesiologist. After optimal sedation, scope was passed as much into the esophagus, which was grossly within normal limits. Stomach mucosa revealed multiple polyps. Biopsy taken from that. The patient also had gastritis, duodenum 1st and 2nd part was within normal limits. Biopsy taken from the stomach and also from the polyp. Retroversion done. No growth was seen. Scope was straightened out and removed with good patient tolerance. IMPRESSION: 1. Multiple polyps in the stomach, all are benign-looking. 2. Gastritis. 3. Normal esophagus. 4. Normal duodenum. PLAN: Plan is to review histopathology. Continue PPI in the interim. PROCEDURE PERFORMED: Colonoscopy. DESCRIPTION OF PROCEDURE: The patient was turned around. Scope was passed as much into the rectum, advanced to the sigmoid, descending, transverse colon all the way into the cecum. Diverticulosis identified in the left side of the colon. The rest of the colon was normal. While coming out mucosa lateral inspected. No gross lesion was identified. The scope was removed with good patient tolerance. Digital examination was normal. IMPRESSION: 1. Diverticulosis, otherwise negative, all the way into the cecum. 2. Normal digital examination. 3. Clarity and cleanliness was very good to adequate. PLAN: Stay on high-fiber diet. If the pain is persistent despite this, then we will start the patient on anti-spasmodic medications. Dictated By: Alvin Garcia MD /sylvester/ /Document#: [id number] CC: Nelly Cui MD;*End*
== END 2017-06-27 17:10 | disposition home or self-care (01) | DRG 74 ==
LOC: E/R 10:18 → PP2 12:54 → INTOOBSV 12:57 → OBSVTOIN 12:57 → PP2 16:15 → OBSVTOIN 06-22 16:00
PROVIDERS: ADMIT Internal Medicine; ATTEND Internal Medicine
PROC: 0DB68ZX Excision of Stomach, Via Natural or Artificial Opening Endoscopic, Diagnostic (ICD-10-PCS; principal; 2017-06-23 12:00)
PROC: 0DJD8ZZ Inspection of Lower Intestinal Tract, Via Natural or Artificial Opening Endoscopic (ICD-10-PCS; 2017-06-23 12:00)
DX: E11.43 Type 2 diabetes mellitus with diabetic autonomic (poly)neuropathy (principal); E86.0 Dehydration; K75.81 Nonalcoholic steatohepatitis (NASH); K29.70 Gastritis, unspecified, without bleeding; K31.84 Gastroparesis; K31.7 Polyp of stomach and duodenum; K59.00 Constipation, unspecified; K57.90 Diverticulosis of intestine, part unspecified, without perforation or abscess without bleeding; R11.2 Nausea with vomiting, unspecified; E66.9 Obesity, unspecified; Z68.37 Body mass index [BMI] 37.0-37.9, adult; I10 Essential (primary) hypertension
CPT/HCPCS: 36415; 71010; 74176; 80048; 80053; 80076; 81001; 82947; 82962; 83036; 83605; 83690; 84484; 85025; 85610; 85730; 86704; 86709; 86803; 87340; 88305; 88312; 93005; 96374; 96375; 96376; 99217; G0378; J0360; J1815; J2060; J2270; J2405; J2543; J2765; J3010; J3480; J7030; J7042

== ENCOUNTER 2017-10-14 09:36 | Inpatient (IN) | payer MEDICARE, OTHER ==
[2017-10-14] VITALS (7 sets, daily range): BP systolic 168–183; BP diastolic 74–77; PULSE 80–89; RESP 16–17; TEMP 97.5; Ht 157.5 cm; Wt 87.4 kg
[~2017-10-14] VITALS: Ht 157.5 cm; Wt 87.4 kg
[~2017-10-14 09:36] MED LIST changes: +ALPR0.5T6 PO; -ESOM40CA PO; -FLUC150T17 PO; -HYDR-906 PO; +METO-336 PO; -METO50TA16 PO; +OMEP40CA6 PO; -ONDA4TAB14 PO; -SUCR1TAB56 PO
[2017-10-14] MEDS ORDERED: morphine 4 MG/ML VIAL IV STA ×2 (09:56→13:11)
[2017-10-14] MEDS ORDERED: ONDANSETRON 4 MG INJ IV STA ×2 (09:56→13:11)
--- NOTE | 2017-10-14 10:27 | RADRPT ---
PROCEDURE: XR Chest. CLINICAL INDICATION: chest pain, CVA TECHNIQUE: Single frontal view of the chest was obtained COMPARISON: 08/09/16 FINDINGS: The heart and mediastinum are within normal limits. The lungs are clear. There is no pleural effusion or pneumothorax. RPTAT: AA IMPRESSION: No acute disease. .Samuel Olivas MD, MD Date Time Electronically viewed and signed by .Samuel Olivas MD, MD on 10/14/2017 10:27 .S/
[2017-10-14] MEDS ORDERED: ONDANSETRON 4 MG INJ IV PRN (10:30)
[2017-10-14] MEDS ORDERED: ACETAMINOPHEN 325 MG TAB PO PRN ×2 (10:30→16:00)
[2017-10-14 10:40] LABS: BASOPHILS % 0.4 % (0.0-2.0); EOSINOPHILS # 0.1 10^3/ul (0.0-0.5); EOSINOPHILS % 0.7 % (0.0-7.0); HEMATOCRIT 37.9 % (37.0-47.0); HEMOGLOBIN 12.6 g/dl (12.0-16.0); LYMPHOCYTES # 2.6 10^3/ul (0.8-2.9); LYMPHOCYTES % 23.6 % (15.0-51.0); MEAN CORPUSCULAR HEMOGLOBIN 29.4 pg (29.0-33.0); MEAN CORPUSCULAR HGB CONC 33.2 g/dl (32.0-37.0); MEAN CORPUSCULAR VOLUME 88.6 fl (82.0-101.0); MEAN PLATELET VOLUME 9.9 fl (7.4-10.4); MONOCYTE # 0.5 10^3/ul (0.3-0.9); MONOCYTES % 4.6 % (0.0-11.0); NEUTROPHIL # 7.8 10^3/ul (1.6-7.5); NEUTROPHILS % 70.3 % (39.0-77.0); PLATELET COUNT 209 10^3/UL (140-415); RED BLOOD COUNT 4.28 10^6/ul (4.20-5.40); WHITE BLOOD COUNT 11.1 10^3/ul (4.8-10.8)
--- NOTE | 2017-10-14 10:52 | RADRPT ---
PROCEDURE: CT Brain without contrast. CLINICAL INDICATION: Neurological deficit. TECHNIQUE: A CT of the brain was performed on multidetector high-resolution CT scanner utilizing a xial sections from the skull base through the vertex without contrast. The scan was reviewed in sof t tissue brain and high frequency resolution bone algorithm windows. Images were reviewed on a high -resolution PACS workstation. One or more the following does reduction techniques were utilized: Aut omated exposure control, adjustment of the mA/ or kV according to patient's size, or use of iterativ e reconstruction technique. The exam CTDI = 42.81 mGy and the DLP = 720.23 mGy-cm. DICOM images are available. COMPARISON: Brain CT 04/18/2017. FINDINGS: The ventricles and sulci are mildly to moderately prominent indicative of volume loss. There is mild cerebellar volume loss. There is no intracranial hemorrhage, mass effect or midline shift. No abn ormal intra-axial or extra-axial fluid collections are seen. The wilks/white matter differentiation i s preserved. 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 There is ex vacuo dilatation of the frontal horn of the left lateral ventricl e. Small old infarct in the inferior right cerebellum is noted. There are mild to moderate scattered foci of hypoattenuation in the white matter, which are nonspeci fic in etiology but likely reflect chronic small vessel ischemic changes. There are mild intracrani al vascular calcifications consistent with atherosclerosis. The visualized paranasal sinuses are ess entially clear. There is thinning of bilateral lens indicative of prior lens replacement. IMPRESSION: 1. No acute intracranial hemorrhage, transcortical infarction or mass effect. 2. Mild intracranial atherosclerosis and mild to moderate chronic small vessel ischemic changes. 3. 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 4. Small old infarct in the inferior right cerebellum. 5. Mild to moderate generalized cerebral volume loss. RPTAT: HH .Pasquale Valenzuela MD, MD Date Time Electronically viewed and signed by .Pasquale Valenzuela MD, MD on 10/14/2017 10:52 .N/
[2017-10-14 10:56] LABS: INR 0.96; PROTIME 12.8 Sec (12.2-14.2)
[2017-10-14] MEDS: LABETALOL HCL 20MG INJ IV PRN ×2 (10:56→11:09)
[2017-10-14 10:57] LABS: PARTIAL THROMBOPLASTIN TIME 34.4 Sec (25.0-35.0)
[2017-10-14 10:59] LABS: CALCIUM 10.4 mg/dl (8.4-10.2); CREATININE 1.04 mg/dl (0.44-1.00); POTASSIUM 4.2 mmol/L (3.5-5.1)
[2017-10-14 11:08] LABS: TROPONIN-I 0.017 ng/ml (0.00-0.12)
[2017-10-14] MEDS ORDERED: RANI300T3 PO (11:33)
[2017-10-14] MEDS ORDERED: DONE10TA7 PO (11:34)
[2017-10-14] MEDS ORDERED: LISI40TA9 PO (11:34)
[2017-10-14] MEDS ORDERED: DEXL60CA2 PO (11:34)
[2017-10-14] MEDS ORDERED: HYDR-902 PO (11:36)
[2017-10-14] MEDS ORDERED: TRAM-40 PO (11:36)
[2017-10-14] MEDS ORDERED: GABA300C16 PO ×2 (11:37)
--- NOTE | 2017-10-14 13:10 | ERD ---
ER Documentation Chief Complaint Chief Complaint pt bib family with c/o neck and shoulder pain x 3 wks, seen PMD , HPI Patient is a 77-year-old female with hypertension and diabetes who presents with neck pain and arm weakness. The patient has had 3 weeks of pain in her neck which radiates down her left arm and she has had weakness in the left arm was shaking. She is upper back pain as well and chest pain. The symptoms of chest pain started today. She saw Dr. Mckeon her primary doctor on Wednesday. Upon review of old medical records the patient has had multiple visits to the ER for various complaints. ROS All systems reviewed and are negative except as per history of present illness. Medications Home Meds Reported Medications Gabapentin* (Gabapentin*) 300 Mg Capsule, 600 MG PO QHS, #180 CAP 10/14/17 Gabapentin* (Gabapentin*) 300 Mg Capsule, 300 MG PO QAM, #60 CAP 10/14/17 Tramadol Hcl* (Ultram*) 50 Mg Tablet, 50 MG PO Q6H Y for PAIN, TAB 10/14/17 Hydrocodone/Acetaminophen ([place] 10-325 Tablet) 1 Each Tablet, 1 EACH PO DAILY Y for SEVERE PAIN LEVEL 7-10, TAB 10/14/17 Donepezil* (Donepezil*) 10 Mg Tablet, 10 MG PO DAILY, #30 TAB 10/14/17 Lisinopril* (Lisinopril*) 40 Mg Tablet, 40 MG PO DAILY, #30 TAB 10/14/17 Dexlansoprazole (Dexilant) 60 Mg Cap., 60 MG PO DAILY, #30 CAP 10/14/17 Ranitidine Hcl* (Zantac*) 300 Mg Tablet, 300 MG PO HS, #30 TAB 10/14/17 Alprazolam* (Alprazolam*) 0.5 Mg Tablet, 0.5 MG PO QHS Y for SLEEP, TAB 06/20/17 Insulin Glargine* (Lantus*) 100 Unit/Ml Soln, 35 UNIT SC QPM, #1 VIAL 06/20/17 Insulin Glargine* (Lantus*) 100 Unit/Ml Soln, 40 UNIT SC QAM, #1 VIAL 06/20/17 Ca Carbonate/Vitamin D3/Vit K (VIACTIV SOFT CHEW TABLET) 1 Each Tab.chew, 1 EACH PO WITH MEALS, TAB.CHEW 08/19/14 Cholecalciferol (Vitamin D3) (VITAMIN D-3) 2,000 Unit Capsule, 2000 UNIT PO DAILY 08/19/14 Discontinued Reported Medications Omeprazole* (Omeprazole*) 40 Mg Capsule.dr, 40 MG PO DAILY, #30 CAP 06/20/17 Metoprolol Succinate* (Toprol XL*) 100 Mg Tab.sr.24h, 100 MG PO DAILY, #30 TAB 06/20/17 Exenatide Microspheres (Bydureon Pen) 2 Mg/0.65 Ml Pen.injctr, 2 MG SQ Q7D for ON Wednesday., EACH 04/18/17 Zolpidem Tartrate* (Zolpidem Tartrate*) 5 Mg Tablet, 10 MG PO HS Y, TAB 09/13/14 Hticxhzsuy-Frlvnnnog-IMTM (Exforge HCT) 10-160-12.5 Mg Tab, 1 TAB PO DAILY, TAB 08/19/14 Allergies Allergies: Coded Allergies: No Known Allergies (Verified Allergy, Mild, 06/20/17) PMhx/Soc Medical and Surgical Hx: pt denies Surgical Hx History of Surgery: No Anesthesia Reaction: No Hx Neurological Disorder: Yes (MEMORY LOSS) Hx Respiratory Disorders: No Hx Cardiac Disorders: Yes (HTN) Hx Psychiatric Problems: Yes (DEPRESSION) Hx Miscellaneous Medical Probl: No Hx Alcohol Use: No Hx Substance Use: No Hx Tobacco Use: No Smoking Status: Never smoker FmHx Family History: diabetes Physical Exam Vitals Vital Signs Date Time Temp Pulse Resp B/P Pulse Ox O2 Delivery O2 Flow Rate FiO2 10/14/17 11:48 70 20 181/71 97 Nasal Cannula 1.0 10/14/17 10:57 71 20 198/63 96 Room Air 10/14/17 10:35 97.5 76 20 245/93 100 Room Air 10/14/17 09:38 98.3 89 16 237/102 99 Physical Exam Const: Moderate distress secondary to pain Head: Atraumatic Eyes: Normal Conjunctiva ENT: Normal External Ears, Nose and Mouth. Neck: Full range of motion..~ No meningismus. Resp: Clear to auscultation bilaterally Cardio: Regular rate and rhythm, no murmurs Abd: Soft, non tender, non distended. 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, cranial nerves II through XII appear intact Psych: Normal Mood and Affect Result Diagram: 10/14/17 1010 10/14/17 1010 Results 24 hrs Laboratory Tests Test 10/14/17 10:10 White Blood Count 11.110^3/ul Red Blood Count 4.2810^6/ul Hemoglobin 12.6g/dl Hematocrit 37.9% Mean Corpuscular Volume 88.6fl Mean Corpuscular Hemoglobin 29.4pg Mean Corpuscular Hemoglobin Concent 33.2g/dl Red Cell Distribution Width 14.0% Platelet Count 80247^3/UL Mean Platelet Volume 9.9fl Neutrophils % 70.3% Lymphocytes % 23.6% Monocytes % 4.6% Eosinophils % 0.7% Basophils % 0.4% Nucleated Red Blood Cells % 0.0/100WBC Neutrophils # 7.810^3/ul Lymphocytes # 2.610^3/ul Monocytes # 0.510^3/ul Eosinophils # 0.110^3/ul Basophils # 0.010^3/ul Nucleated Red Blood Cells # 0.010^3/ul Prothrombin Time 12.8Sec Prothrombin Time Ratio 1.0 INR International Normalized Ratio 0.96 Activated Partial Thromboplast Time 34.4Sec Sodium Level 139mmol/L Potassium Level 4.2mmol/L Chloride Level 102mmol/L Carbon Dioxide Level 27mmol/L Anion Gap 14 Blood Urea Nitrogen 26mg/dl Creatinine 1.04mg/dl Glucose Level 200mg/dl Hemoglobin A1c 6.5% Calcium Level 10.4mg/dl Troponin I 0.017ng/ml Current Medications Medications (Trade) Dose Ordered Sig/Gilbert Route PRN Reason Start Time Stop Time Status Last Admin Dose Admin Labetalol HCl (Labetalol) 20 mg Q20M PRN IV ELEVATED BLOOD PRESSURE 10/14/17 10:00 10/14/17 11:09 DC 10/14/17 11:09 Morphine Sulfate (morphine) 4 mg ONCE STAT IV 10/14/17 09:56 10/14/17 09:58 DC 10/14/17 11:09 Ondansetron HCl (Zofran Inj) 4 mg ONCE STAT IV 10/14/17 09:56 10/14/17 09:58 DC 10/14/17 11:09 Ondansetron HCl (Zofran Inj) 4 mg ER BRIDGE PRN IV NAUSEA AND/OR VOMITING 10/14/17 10:30 10/15/17 10:29 Acetaminophen (Tylenol Tab) 650 mg ER BRIDGE PRN PO MILD PAIN/FEVER 10/14/17 10:30 10/15/17 10:29 Procedures/MDM EKG read by me: Rate/Rhythm: Regular rate and rhythm at a normal rate Intervals: Normal Impression: No evidence of ischemia or arrhythmia CT brain shows no acute abnormality per radiology. Chest x-ray negative per radiology. Patient is a 77-year-old female with hypertension diabetes who presents with symptoms consistent with acute stroke. I believe the patient will require admission for further workup for possible stroke. It is possible the patient has some sort of cervical radiculopathy but my concern would be stroke given her age and comorbidities. She is outside the window for TPA and is not a TPA candidate. The patient was given aspirin and will be admitted to the care of Dr. Rodrigez. I spoke with Dr. Beverley Mckeon who asked me to admit to Dr. Rodrigez. Departure Diagnosis: Primary Impression: Stroke CVA mechanism: unspecified Qualified Code: I63.9 - Cerebrovascular accident (CVA), unspecified mechanism Condition: VANDANA Bowman MD Oct 14, 2017 13:10
[2017-10-14] MEDS ORDERED: ASPIRIN 325 MG TAB PO ONE (13:30)
--- NOTE | 2017-10-14 15:24 | HP ---
Date/Time of Note Date/Time of Note DATE: 10/14/17 TIME: 15:04 Assessment/Plan VTE Prophylaxis VTE Prophylaxis Intervention: SCD's Lines/Catheters IV [facility] Saline Lock Assessment/Plan Assessment/Plan -Possible acute stroke in patient with history of stroke, continue aspirin, Dr Crabtree is asked to see patient in neurology consultation. MRI of the brain and MRI of cervical spine. -Hypertensive urgency, continue hydralazine -Rule out acute coronary syndrome, obtain cardiac enzymes 3 and 2D echo, Dr. Oates is asked to see patient in cardiology consultation. -Diabetes mellitus, continue Lantus, pre-meal NovoLog and NovoLog per sliding scale. -Obesity with BMI of 36.2 -History of gastritis, continue PPI Will obtain TSH is and T4. Further recommendations based on clinical course. Plan of care discussed with Dr. Rodrigez HPI/ROS Admit Date/Time Admit Date/Time Hx of Present Illness The patient is 77-year-old female with history of hypertension diabetes obesity, gastritis. The patient is status post EGD by Dr. Garcia in June 2017 was notion of gastritis and stomach polyps. Patient is presented with complaints of severe neck pain and left arm weakness. Most of the history was obtained from patient's daughter at the bedside who lives with patient. Patient's follow with Dr. Thomas primary doctor and was diagnosed with hypothyroidism. Patient also underwent a steroid injection in the left shoulder and left knee by Dr. red kasper. Patient also complains of insomnia for which she takes Xanax and Ambien as needed. Patient denies any fever chills denies nausea vomiting, denies diarrhea. 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 Patient was diagnosed with possible acute stroke however patient is outside the window for TPA. Troponin was negative on admission. Patient also noted to have blood pressure elevated to 237 over 102 on admission. Patient will be admitted for further evaluation and management. ROS Per HPI PMH/Family/Social Past Medical History Medical History: diabetes, hypertension Past Surgical History Status post cataract surgery Family History Significant Family History: no pertinent family hx Social History Alcohol Use: none Smoking Status: Never smoker Drug Use: none Exam/Review of Systems Vital Signs Vitals Vital Signs Date Time Temp Pulse Resp B/P Pulse Ox O2 Delivery O2 Flow Rate FiO2 10/14/17 14:45 73 15 173/69 99 Room Air 10/14/17 11:48 1.0 10/14/17 10:35 97.5 Exam Constitutional: alert, oriented Head: normocephalic Eyes: nl conjunctiva Neck: supple Respiratory: normal air movement Cardiovascular: nl pulses Gastrointestinal: non-tender, soft Musculoskeletal: nl extremities to inspection Neurological: other (Left upper extremity weakness) Skin: nl turgor Labs Result Diagram: 10/14/17 1010 10/14/17 1010 VINCENZO RODRIGUEZ Oct 14, 2017 15:14
[2017-10-14] MEDS ORDERED: GLUCAGON 1 MG INJ IM PRN (16:00)
[2017-10-14] MEDS ORDERED: traMADol 50 MG TAB PO PRN (16:00)
[2017-10-14] MEDS ORDERED: GLUCOSE GEL 15 GRAM TUBE BUCCAL PRN (16:00)
[2017-10-14] MEDS ORDERED: DEXTROSE 50% 50 ML SYRINGE IV PRN ×2 (16:00)
[2017-10-14] MEDS ORDERED: NACL 0.9% 3 ML SYG IV SCH (16:00)
[2017-10-14] MEDS ORDERED: GLUCOSE GEL 15 GRAM TUBE PO PRN ×2 (16:00)
[2017-10-14] MEDS ORDERED: morphine 2 MG INJ IV PRN (16:00)
[2017-10-14] MEDS: hydrALAzine 20 MG INJ IV PRN (16:10)
[2017-10-14] MEDS: INSULIN ASPART [NOVOLOG] 3 ML PEN SC SCH ×3 (18:05→20:51)
--- NOTE | 2017-10-14 19:42 | CONS ---
DATE OF ADMISSION: 10/14/2017 DATE OF CONSULTATION: 10/14/2017 REASON FOR CONSULTATION: Hypertension, assess for rule out acute coronary syndrome. REQUESTING PHYSICIAN: Rolando Mao MD HISTORY OF PRESENT ILLNESS: The patient is a 77-year-old female with history of hypertension, diabe raj, and gastritis who initially presented with complaints of neck pain, arm weakness. Initially up on arrival, temperature 98.3, blood pressure 237/102, pulse 89, respirations 16, saturating 99%. Chuck mendieta's labs revealed white count 11.1, hemoglobin 12.6, platelet count 209. Sodium 139, potassium 4.2, creatinine 1.0, BUN 26. Troponin negative. Calcium 10.4, INR 0.9, hemoglobin A1c of 6.5. The patient underwent a chest x-ray revealing no acute cardiopulmonary abnormalities and a head CT that revealed no acute intracranial hemorrhage, mild intracranial atherosclerosis, old infarct in the me dial and right occipital lobes, small old infarct, inferior right cerebellum, and mild general ized cerebral volume loss. The patient does not have an electrocardiogram in chart for my review at this time. The patient with a diagnosis of possible acute stroke was not given TPA. Patient has n ow been admitted to the floor. PAST MEDICAL HISTORY: As above in HPI. MEDICATIONS CURRENTLY IN HOSPITAL: 1. Aricept 10 mg daily. 2. Zestril 40 mg daily. 3. Aspirin 81 mg daily. 4. Lovenox daily. 5. Zantac 300 mg at bedtime. 6. Lantus insulin. 7. Tramadol. 8. Zofran. 9. Tylenol. 10. Morphine. 11. Hydralazine p.r.n. ALLERGIES: NO KNOWN DRUG ALLERGIES. SOCIAL HISTORY: No tobacco, ETOH or illicit drug use. FAMILY HISTORY: Denies sudden cardiac or early CAD. REVIEW OF SYSTEMS: As above in HPI. CONSTITUTIONAL: No fevers, chills. PULMONARY: No current shortness of breath. CARDIOVASCULAR: No current chest pain or hypertension. GASTROINTESTINAL: No vomiting. Mild abdominal pain. GENITOURINARY: No hematuria. MUSCULOSKELETAL: Neck pain, arm weakness. PSYCHIATRIC: No documented psych history. NEUROLOGIC: Possible CVA. PHYSICAL EXAMINATION VITAL SIGNS: Temperature of 97.5, blood pressure 160/74, pulse 80, respiratory rate 17, saturation 100% on 2 liters. GENERAL: The patient is alert, awake, complaining of abdominal pain and arm weakness, neck pain. NECK: JVP approximately 8 cm water. CHEST: Fair movement throughout with mildly decreased breath sounds at bases bilaterally. HEART: Regular rate and rhythm, normal S1, S2, I/ systolic murmur, nondisplaced PMI. ABDOMEN: Positive bowel sounds, soft. EXTREMITIES: No edema, 1+ pulses bilaterally posterior tibial. LABORATORY DATA: As above in HPI. No further labs for my review at this time. IMAGING STUDIES: As above in HPI. No further imaging studies for my review at this time. ECG: No electrocardiogram to review at this time. IMPRESSION: 1. Hypertensive urgency/emergency, slowly improving on oral antihypertensives. 2. Possible acute cerebrovascular accident. 3. Diabetes mellitus. 4. Abdominal pain. 5. Arm weakness, left upper extremity. 6. Prerenal ischemia. 7. Mild leukocytosis. RECOMMENDATIONS: 1. At this time, would maintain patient on telemetry monitoring to follow rhythm and rate control cl osely. 2. Would continue the patient's current Zestril for control of blood pressure and will likely need t o add additional antihypertensive. If patient is passing the window for acute stroke, may want to p ermit hypertension and therefore will slowly lower the blood pressure and will continue to use IV pu sh p.r.n. hydralazine as necessary. 3. Check a 2D echocardiogram to further assess patient's ejection fraction, wall motion and any nicci r valve abnormalities. 4. Continue the patient's aspirin for prophylaxis against cardiovascular events. 5. Continue the patient's insulin therapy and follow blood sugars closely with ongoing neurologic ev aluation for possible CVA with possible repeat head CT and MRI pending. 6. I am going to check a fasting lipid panel for general risk stratification and initiate lipid-lowe ring medication as necessary. 7. Complete a rule out for myocardial infarction to ensure that the patient's symptoms are not the r esult of or have not resulted in acute coronary syndrome/acute myocardial infarction. Thank you for allowing me to take part in the care of this patient. I will continue to follow along very closely with you. Further recommendations will be made as the patient progresses through her inpatient hospital clinical course. Dictated By: LOUIS SAAVEDRA/FRANNIE Conf#: [id number] DID#: [id number] CC: ROLANDO MAO MD;*End*
[2017-10-14] MEDS: RANITIDINE 150 MG TAB PO SCH (20:52)
[2017-10-14] MEDS: INSULIN GLARGINE [LANtus] 3 ML PEN SC SCH (20:58)
[2017-10-15] VITALS (15 sets, daily range): BP systolic 125–197; BP diastolic 57–81; PULSE 79–117; RESP 18–19
[2017-10-15] MEDS: ACCU-CHEK XX SCH (02:00)
[2017-10-15] MEDS ORDERED: ACCU-CHEK XX SCH (02:00)
--- NOTE | 2017-10-15 03:35 | RADRPT ---
PROCEDURE: MR Brain with and without contrast. CLINICAL INDICATION: Neck pain, left upper extremity weakness, hypertension, history of CVA. TECHNIQUE: An MRI of the brain was performed utilizing the following sequences: Sagittal and axial T1 weighted, axial T2 weighted, axial FLAIR, coronal GRE, and axial diffusion weighted with ADC map ping. Additionally, postcontrast coronal and axial T1-weighted sequences were performed after 10 cc of Gadolinium were given intravenously without complication. COMPARISON: CT brain 10/14/2017. FINDINGS: There is no acute intracranial hemorrhage, midline shift, mass effect or acute ischemic infarct. The cerebellar tonsils are normal in location. Moderate generalized parenchymal volume loss is present. There is a chronic infarct within the media l right occipital lobe with high signal on T1-weighted images representing either laminar necrosis o r high proteinaceous deposition. Chronic lacunar infarcts are present within the posterior inferior right cerebellar hemisphere in addition to the body and head of the left caudate nucleus. Dilatation of the left frontal horn is associated with the above-mentioned remote left caudate nucleus infarct . There is no evidence of hydrocephalus. Multifocal punctate and confluent hyperintense signal is de monstrated on FLAIR and T2-weighted images within the bilateral subcortical and deep white matter co mpatible with moderate microvascular white matter ischemic disease. Normal variation partially empty sella is noted. No space occupying intra-axial masses or extra-axial fluid collections are present. Flow voids persist within the internal carotid, vertebral, and basilar arteries. No opacification of the mastoid or paranasal sinuses. IMPRESSION: 1. No acute CVA. 2. Remote infarcts within the medial right occipital lobe, the posterior inferior right cerebellar hemisphere and left caudate nucleus. 3. Moderate microvascular white matter ischemic disease. 4. Moderate generalized parenchymal volume loss. 5. Variation partially empty sella. RPTAT: HRSR Physician Nadir Date Time Electronically viewed and signed by Physician Nadir on 10/15/2017 03:35 RR/
[2017-10-15] MEDS: hydrALAzine 20 MG INJ IV PRN ×2 (03:40→17:21)
[2017-10-15 06:35] LABS: ADD UMIC YES; UR ASCORBIC ACID NEGATIVE (NEGATIVE); UR BACTERIA FEW /HPF (NONE SEEN); UR BILIRUBIN (Dip) NEGATIVE (NEGATIVE); UR BLOOD (Dip) NEGATIVE (NEGATIVE); UR CLARITY CLOUDY (CLEAR); UR COLOR YELLOW (YELLOW); UR GLUCOSE (Dip) NEGATIVE (NEGATIVE); UR KETONES (Dip) NEGATIVE (NEGATIVE); UR LEUKOCYTE ESTERASE (Dip) 2+ Leu/ul (NEGATIVE); UR MUCUS FEW /HPF (NONE SEEN); UR NITRITE (Dip) NEGATIVE (NEGATIVE); UR RBC 5 /HPF (0-5); UR SPECIFIC GRAVITY (Dip) 1.024 (1.003-1.030); UR SQUAMOUS EPITHELIAL CELL FEW /HPF (FEW); UR TOTAL PROTEIN (Dip) 1+ mg/dl (NEGATIVE); UR UROBILINOGEN (Dip) 1+ mg/dL (NEGATIVE)
[2017-10-15 06:43] LABS: BARBITURATES Negative (NEGATIVE); BENZODIAZEPINES Positive (NEGATIVE); CANNABINOIDS Negative (NEGATIVE); COCAINE Negative (NEGATIVE); OPIATES Positive (NEGATIVE)
[2017-10-15 06:50] LABS: BASOPHILS % 0.2 % (0.0-2.0); EOSINOPHILS % 0.2 % (0.0-7.0); HEMATOCRIT 41.1 % (37.0-47.0); HEMOGLOBIN 13.5 g/dl (12.0-16.0); LYMPHOCYTES # 1.9 10^3/ul (0.8-2.9); LYMPHOCYTES % 15.4 % (15.0-51.0); MEAN CORPUSCULAR HEMOGLOBIN 29.8 pg (29.0-33.0); MEAN CORPUSCULAR HGB CONC 32.8 g/dl (32.0-37.0); MEAN CORPUSCULAR VOLUME 90.7 fl (82.0-101.0); MEAN PLATELET VOLUME 10.4 fl (7.4-10.4); MONOCYTE # 0.6 10^3/ul (0.3-0.9); MONOCYTES % 4.4 % (0.0-11.0); NEUTROPHILS % 79.3 % (39.0-77.0); PLATELET COUNT 242 10^3/UL (140-415); RED BLOOD COUNT 4.53 10^6/ul (4.20-5.40); RED CELL DISTRIBUTION WIDTH 14.5 % (11.5-14.5); WHITE BLOOD COUNT 12.6 10^3/ul (4.8-10.8)
[2017-10-15 07:14] LABS: CALCIUM 10.4 mg/dl (8.4-10.2); CHOL/HDL RATIO 3.8 RATIO; CREATININE 0.95 mg/dl (0.44-1.00); POTASSIUM 4.6 mmol/L (3.5-5.1)
[2017-10-15 07:42] LABS: THYROID STIMULATING HORMONE 2.02 MIU/L (0.465-4.680)
[2017-10-15] MEDS: INSULIN ASPART [NOVOLOG] 3 ML PEN SC SCH ×7 (08:44→20:51)
--- NOTE | 2017-10-15 09:05 | RADRPT ---
PROCEDURE: MR Cervical Spine with and without contrast. CLINICAL INDICATION: Upper extremity weakness, hypertension, history of CVA. TECHNIQUE: An MRI of the cervical spine was performed utilizing the following sequences: Pre and p ostcontrast sagittal and axial T1 weighted, sagittal and axial T2 weighted, and sagittal T2 weighted with fat saturation 10 cc Magnevist were given intravenously without complication. COMPARISON: MR 10/14/2017 FINDINGS: There is a normal lordosis of the cervical spine. Trace retrolisthesis of C3 relative to C4 is note d. The vertebral bodies are heterogeneous in signal intensity. Vertebral body height is uniform. T he cervical cord is normal in signal intensity. The craniocervical junction is unremarkable. C2-3: Mild disc space loss and desiccation is present. No evidence of significant disc bulge or юлия iation. Minimal posterior central spondylotic changes measure 2 mm. There are bilateral facet joint degenerative changes. The central canal and foramina are adequately patent. C3-4: Moderately severe disc space loss with disc dessication. Broad-based disc osteophyte complex measures up to 2.5 mm in the midline and contacts the ventral cervical spinal cord. There is moderat e central canal stenosis with AP diameter measuring 8 mm. Bilateral uncovertebral, right greater isabel n left and facet joint degenerative changes contribute to severe bilateral foraminal, right greater than left narrowing. C4-5: Moderately severe disc space loss with disc dessication. Disc osteophyte complex eccentric to the right of midline measures 2.2 mm in maximal AP diameter. There is deformity of the ventral cerv ical spinal cord demonstrated on axial T1 image 15. There is severe central canal stenosis with the AP diameter measuring approximately 6.5 mm. Bilateral uncovertebral and facet joint degenerative loida nges with mild right foraminal narrowing. C5-6: There is severe disc space loss , desiccation and endplate degenerative changes. Broad-based d isc osteophyte ridge measures approximately 3 mm in AP diameter and mildly compresses the cervical s cooper cord. There is severe central canal stenosis with AP diameter measuring 6.5 mm. Bilateral unc overtebral and facet joint degenerative changes result in moderately severe left and mild right fora delia narrowing. C6-7: There is mild disc space loss with disc dessication. Broad-based disc osteophyte ridge with ri ght subarticular protrusion measuring 2 mm in diameter is present. No evidence of cervical spinal co rd compression. Mild central canal narrowing with the AP diameter measuring 9.5 mm. Bilateral uncove rtebral and facet joint degenerative changes with mild left foraminal narrowing. C7-T1: The intervertebral disc is normal without foraminal or canal narrowing. Mild disc space loss and desiccation is present. Minimal disc osteophyte ridge is noted centrally measuring approximately 2 mm. The central canal and foramina are adequately patent. The thyroid gland is diffusely heterogeneous. IMPRESSION: 1. C5-C6: Severe central canal stenosis with AP diameter measuring 6.5 mm secondary to a broad-bas ed disc osteophyte ridge which mildly compresses the cervical spinal cord. Moderately severe left an d mild right foraminal narrowing. 2. C4-C5: Severe central canal stenosis secondary to a 2.2 mm disc osteophyte ridge centered to th e right of midline which deforms the ventral cervical spinal cord. Mild right foraminal narrowing is present. 3. C3-C4: Moderate central canal stenosis, severe bilateral foraminal, right greater than left brii rowing. 4. C6-C7: Mild central canal narrowing and mild left foraminal narrowing. RPTAT: HRSR Physician Nadir Date Time Electronically viewed and signed by Physician Nadir on 10/15/2017 09:05 /
[2017-10-15] MEDS: LISINOPRIL 20 MG TAB PO SCH (09:36)
[2017-10-15] MEDS: DONEPEZIL 10 MG TAB PO SCH (09:36)
[2017-10-15] MEDS: ASPIRIN 81 MG TAB PO SCH (09:36)
[2017-10-15] MEDS: ENOXAPARIN 30 MG/0.3 ML SYG SC SCH (09:43)
--- NOTE | 2017-10-15 10:35 | CONS ---
Date/Time of Note Date/Time of Note DATE: 10/15/17 TIME: 10:31 Assessment/Plan Assessment/Plan Chief Complaint/Hosp Course IMPRESSION: 1. Hypertensive urgency/emergency, slowly improving on oral antihypertensives. 2. Possible acute cerebrovascular accident. 3. Diabetes mellitus. 4. Abdominal pain. 5. Arm weakness, left upper extremity. 6. Prerenal ischemia. 7. Mild leukocytosis. 8. Troponin-mildly positive on 3rd draw. No CP. Likely typr 2 infarct in setting of HTN emergency Recc: -Tele -serial ecg's -Continue ACEI and add BB --Will f/u echo -continue asa -pnding neuro eval Problems: Consultation Date/Type/Reason Admit Date/Time Oct 14, 2017 at 10:20 Initial Consult Date 10/14/2017 Type of Consultation: cardiology Reason for Consultation HTN Referring Provider: ROLANDO MAO MD Exam/Review of Systems Vital Signs Vitals Vital Signs Date Time Temp Pulse Resp B/P Pulse Ox O2 Delivery O2 Flow Rate FiO2 10/15/17 08:00 114 10/15/17 07:28 98.0 19 140/75 98 10/15/17 00:00 Nasal Cannula 2.0 Intake and Output 10/14/17 10/14/17 10/15/17 15:00 23:00 07:00 Intake Total 150 ml Balance 150 ml Exam Review of Systems: CONSTITUTIONAL: No fevers, chills. PULMONARY: No sob CARDIOVASCULAR: No chest pain/palpitations GASTROINTESTINAL: No nausea/vomiting. GENITOURINARY: No hematuria/dysuria. MUSCULOSKELETAL: No myagias/arthalgias. PSYCHIATRIC: The patient denies depression. NEUROLOGIC: No weakness Constitutional: alert Psych: no complaints Head: normocephalic Neck: jvd (9 cm water), supple Respiratory: diminished breath sounds (at bases/B) Cardiovascular: regular rate and rhythm Gastrointestinal: non-tender Musculoskeletal: muscle tone (normal) Extremities: edema (none) Neurological: other (No focal deficits) Results Result Diagram: 10/15/1716 10/15/1716 Results 24 hrs Laboratory Tests Test 10/14/17 17:01 10/14/17 20:51 10/15/17 00:43 10/15/17 01:00 Bedside Glucose 141 122 Troponin I 0.117 Urine Color YELLOW Urine Clarity CLOUDY A Urine pH 5.0 Urine Specific [place] 1.024 Urine Ketones NEGATIVE Urine Nitrite NEGATIVE Urine Bilirubin NEGATIVE Urine Urobilinogen 1+ H Urine Leukocyte Esterase 2+ H Urine Microscopic RBC 5 Urine Microscopic WBC 108 H Urine Squamous Epithelial Cells FEW Urine Bacteria FEW A Urine Mucus FEW A Urine Hemoglobin NEGATIVE Urine Glucose NEGATIVE Urine Total Protein 1+ H Urine Opiates Screen Positive Urine Barbiturates Negative Urine Amphetamines Screen Negative Urine Benzodiazepines Screen Positive Urine Cocaine Screen Negative Urine Cannabinoids Negative Test 10/15/17 06:16 10/15/17 08:36 White Blood Count 12.6 H Red Blood Count 4.53 Hemoglobin 13.5 Hematocrit 41.1 Mean Corpuscular Volume 90.7 Mean Corpuscular Hemoglobin 29.8 Mean Corpuscular Hemoglobin Concent 32.8 Red Cell Distribution Width 14.5 Platelet Count 242 Mean Platelet Volume 10.4 Neutrophils % 79.3 H Lymphocytes % 15.4 Monocytes % 4.4 Eosinophils % 0.2 Basophils % 0.2 Nucleated Red Blood Cells % 0.0 Neutrophils # 10.0 H Lymphocytes # 1.9 Monocytes # 0.6 Eosinophils # 0.0 Basophils # 0.0 Nucleated Red Blood Cells # 0.0 Sodium Level 138 Potassium Level 4.6 Chloride Level 103 Carbon Dioxide Level 27 Anion Gap 13 Blood Urea Nitrogen 27 H Creatinine 0.95 Glucose Level 179 Calcium Level 10.4 H Troponin I 0.139 *H Triglycerides Level 76 Cholesterol Level 163 LDL Cholesterol, Calculated 106 HDL Cholesterol 42 Cholesterol/HDL Ratio 3.8 Thyroid Stimulating Hormone (TSH) 2.020 Free Thyroxine 1.24 Bedside Glucose 166 Medications Medications Current Medications Hydralazine HCl (Apresoline) 10 mg Q6H PRN IV SBP>170 Last administered on 03:40; Admin Dose 10 MG; Start 10/14/17 at 15:30 Insulin Glargine (Lantus) 21 unit DAILY@20 SC Last administered on 10/14/17 20:58; Admin Dose 21 UNIT; Start 10/14/17 at 20:00 Diagnostic Test (Pha) (Accu-Chek) 1 ea 02 XX ; Start 10/15/17 at 02:00 Donepezil HCl (Aricept) 10 mg DAILY PO Last administered on 10/15/17 09:36; Admin Dose 10 MG; Start 10/15/17 at 09:00 Lisinopril (Zestril) 40 mg DAILY PO Last administered on 10/15/17 09:36; Admin Dose 40 MG; Start 10/15/17 at 09:00 Ranitidine HCl (Zantac) 300 mg HS PO Last administered on 10/14/17 20:52; Admin Dose 300 MG; Start 10/14/17 at 21:00 Tramadol HCl (Ultram) 50 mg Q6H PRN PO PAIN; Start 10/14/17 at 16:00 Ondansetron HCl (Zofran Inj) 4 mg Q6H PRN IV NAUSEA AND/OR VOMITING; Start at 16:00 Aspirin (Aspirin) 81 mg DAILY PO Last administered on 10/15/17 09:36; Admin Dose 81 MG; Start 10/15/17 at 09:00 Acetaminophen (Tylenol Tab) 650 mg Q6H PRN PO PAIN LEVEL 1-3 OR FEVER; Start 10/14/17 at 16:00 Morphine Sulfate (morphine) 2 mg Q4H PRN IV PAIN LEVEL 7-10; Start 10/14/17 at 16:00 Enoxaparin Sodium (Lovenox) 30 mg DAILY SC Last administered on 10/15/17 09: 43; Admin Dose 30 MG; Start 10/15/17 at 09:00 Miscellaneous Information 1 ea NOTE XX ; Start 10/14/17 at 16:00 Glucose (Glutose) 15 gm Q15M PRN PO DECREASED GLUCOSE; Start 10/14/17 at 16:00 Glucose (Glutose) 22.5 gm Q15M PRN PO DECREASED GLUCOSE; Start 10/14/17 at 16: 00 Dextrose (D50w Syringe) 25 ml Q15M PRN IV DECREASED GLUCOSE; Start 10/14/17 at 16:00 Dextrose (D50w Syringe) 50 ml Q15M PRN IV DECREASED GLUCOSE; Start 10/14/17 at 16:00 Glucagon (Glucagen) 1 mg Q15M PRN IM DECREASED GLUCOSE; Start 10/14/17 at 16: 00 Glucose (Glutose) 15 gm Q15M PRN BUCCAL DECREASED GLUCOSE; Start 10/14/17 at 16:00 LOUIS CRUZ 17, 2017 10:34
[2017-10-15 12:46] LABS: CK-MB 2.13 ng/ml (0.0-2.4)
[2017-10-15 12:49] LABS: TROPONIN-I 0.18 ng/ml (0.00-0.12)
--- NOTE | 2017-10-15 13:12 | CONS ---
Date/Time of Note Date/Time of Note DATE: 10/15/17 TIME: 13:07 Assessment/Plan Assessment/Plan Chief Complaint/Hosp Course 77 yo female with chronic neck pain p/w left arm pain. 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 MRI C Spine: C5-6 several canal stenosis compresses the cervical cord, C4-5 severe narrowing, deforming ventral cord C3-4 mod. canal stenosis Likely cervical radiculopathy without any myelopathic signs on exam may use antiplatelet for secondary stroke prevention optimization of blood pressure less than 140/90 moderate intensity statin would recommend evaluation with pain management , per daughter they have been evaluated by an Orthopedic surgeon and due to her advanced medical issues and high surgical risk she is not a surgical candidate Problems: Consultation Date/Type/Reason Admit Date/Time Oct 14, 2017 at 10:20 Date of Consultation: Oct 15, 2017 Type of Consultation: Neurology Reason for Consultation neck pain L arm pain Referring Provider: VINCENZO RODRIGUEZ Hx of Present Illness 77 year old female with hx of HTN, DM, chronic neck pain and OA. She is admitted with c/o neck pain and arm pain, recently she underwent a corticosteroid injection of her left shoulder and knee with no improvement. Per daughter pain has now been worsening, she denies any falls no urinary/bowel issues. She c/o mostly of radiating pain in UE. Psychological: no complaints Past Medical History Medical History: diabetes, hypertension Social History Alcohol Use: none Smoking Status: Never smoker Drug Use: none Exam/Review of Systems Vital Signs Vitals Vital Signs Date Time Temp Pulse Resp B/P Pulse Ox O2 Delivery O2 Flow Rate FiO2 10/15/17 12:00 93 10/15/17 11:44 97.4 19 147/72 95 10/15/17 00:00 Nasal Cannula 2.0 Intake and Output 10/14/17 10/14/17 10/15/17 15:00 23:00 07:00 Intake Total 150 ml Balance 150 ml Exam Constitutional: alert, obese, oriented Neurological: [employer] II-XII intact, DTR's symmetric (1+ UE and absent LE reflexes) , nl mental status, nl speech, nl strength Results Result Diagram: 10/15/17 0616 10/15/17 0616 Results 24 hrs Laboratory Tests Test 10/14/17 17:01 10/14/17 20:51 10/15/17 00:43 10/15/17 01:00 Bedside Glucose 141 122 Troponin I 0.117 Urine Color YELLOW Urine Clarity CLOUDY A Urine pH 5.0 Urine Specific [place] 1.024 Urine Ketones NEGATIVE Urine Nitrite NEGATIVE Urine Bilirubin NEGATIVE Urine Urobilinogen 1+ H Urine Leukocyte Esterase 2+ H Urine Microscopic RBC 5 Urine Microscopic WBC 108 H Urine Squamous Epithelial Cells FEW Urine Bacteria FEW A Urine Mucus FEW A Urine Hemoglobin NEGATIVE Urine Glucose NEGATIVE Urine Total Protein 1+ H Urine Opiates Screen Positive Urine Barbiturates Negative Urine Amphetamines Screen Negative Urine Benzodiazepines Screen Positive Urine Cocaine Screen Negative Urine Cannabinoids Negative Test 10/15/17 06:16 10/15/17 08:36 10/15/17 11:35 10/15/17 12:08 White Blood Count 12.6 H Red Blood Count 4.53 Hemoglobin 13.5 Hematocrit 41.1 Mean Corpuscular Volume 90.7 Mean Corpuscular Hemoglobin 29.8 Mean Corpuscular Hemoglobin Concent 32.8 Red Cell Distribution Width 14.5 Platelet Count 242 Mean Platelet Volume 10.4 Neutrophils % 79.3 H Lymphocytes % 15.4 Monocytes % 4.4 Eosinophils % 0.2 Basophils % 0.2 Nucleated Red Blood Cells % 0.0 Neutrophils # 10.0 H Lymphocytes # 1.9 Monocytes # 0.6 Eosinophils # 0.0 Basophils # 0.0 Nucleated Red Blood Cells # 0.0 Sodium Level 138 Potassium Level 4.6 Chloride Level 103 Carbon Dioxide Level 27 Anion Gap 13 Blood Urea Nitrogen 27 H Creatinine 0.95 Glucose Level 179 Calcium Level 10.4 H Troponin I 0.139 *H 0.180 *H Triglycerides Level 76 Cholesterol Level 163 LDL Cholesterol, Calculated 106 HDL Cholesterol 42 Cholesterol/HDL Ratio 3.8 Thyroid Stimulating Hormone (TSH) 2.020 Free Thyroxine 1.24 Bedside Glucose 166 183 Creatine Kinase 37 Creatine Kinase Index 5.8 Creatinine Kinase MB (Mass) 2.13 Medications Medications Current Medications Hydralazine HCl (Apresoline) 10 mg Q6H PRN IV SBP>170 Last administered on 03:40; Admin Dose 10 MG; Start 10/14/17 at 15:30 Insulin Glargine (Lantus) 21 unit DAILY@20 SC Last administered on 10/14/17 20:58; Admin Dose 21 UNIT; Start 10/14/17 at 20:00 Diagnostic Test (Pha) (Accu-Chek) 1 ea 02 XX ; Start 10/15/17 at 02:00 Donepezil HCl (Aricept) 10 mg DAILY PO Last administered on 10/15/17 09:36; Admin Dose 10 MG; Start 10/15/17 at 09:00 Lisinopril (Zestril) 40 mg DAILY PO Last administered on 10/15/17 09:36; Admin Dose 40 MG; Start 10/15/17 at 09:00 Ranitidine HCl (Zantac) 300 mg HS PO Last administered on 10/14/17 20:52; Admin Dose 300 MG; Start 10/14/17 at 21:00 Tramadol HCl (Ultram) 50 mg Q6H PRN PO PAIN; Start 10/14/17 at 16:00 Ondansetron HCl (Zofran Inj) 4 mg Q6H PRN IV NAUSEA AND/OR VOMITING; Start at 16:00 Aspirin (Aspirin) 81 mg DAILY PO Last administered on 10/15/17 09:36; Admin Dose 81 MG; Start 10/15/17 at 09:00 Acetaminophen (Tylenol Tab) 650 mg Q6H PRN PO PAIN LEVEL 1-3 OR FEVER; Start 10/14/17 at 16:00 Morphine Sulfate (morphine) 2 mg Q4H PRN IV PAIN LEVEL 7-10; Start 10/14/17 at 16:00 Enoxaparin Sodium (Lovenox) 30 mg DAILY SC Last administered on 10/15/17 09: 43; Admin Dose 30 MG; Start 10/15/17 at 09:00 Miscellaneous Information 1 ea NOTE XX ; Start 10/14/17 at 16:00 Glucose (Glutose) 15 gm Q15M PRN PO DECREASED GLUCOSE; Start 10/14/17 at 16:00 Glucose (Glutose) 22.5 gm Q15M PRN PO DECREASED GLUCOSE; Start 10/14/17 at 16: 00 Dextrose (D50w Syringe) 25 ml Q15M PRN IV DECREASED GLUCOSE; Start 10/14/17 at 16:00 Dextrose (D50w Syringe) 50 ml Q15M PRN IV DECREASED GLUCOSE; Start 10/14/17 at 16:00 Glucagon (Glucagen) 1 mg Q15M PRN IM DECREASED GLUCOSE; Start 10/14/17 at 16: 00 Glucose (Glutose) 15 gm Q15M PRN BUCCAL DECREASED GLUCOSE; Start 10/14/17 at 16:00 Metoprolol Tartrate (Lopressor) 25 mg BID PO ; Start 10/15/17 at 21:00 JESSICA CASEY MD Oct 15, 2017 13:12
--- NOTE | 2017-10-15 13:17 | RADRPT ---
Vent Rate: 112 bpm RR Interval: 0 msec TX Interval: 154 msec QRS Duration: 80 msec QT Interval: 338 msec QTC Interval: 461 msec P-R-T [place]: 67 - 11 - 57 degrees Sinus tachycardia Nonspecific ST abnormality Abnormal ECG Electronically Signed By: Stef Cardenas [id number]
[2017-10-15] MEDS: CEFTRIAXONE 1 GM/50 ML (PMX) 50 ML IVPB SCH ×2 (18:00→21:17)
--- NOTE | 2017-10-15 18:01 | PN ---
Date/Time of Note Date/Time of Note DATE: 10/15/17 TIME: 17:49 Assessment/Plan VTE Prophylaxis VTE Prophylaxis Intervention: SCD's Lines/Catheters IV Catheter Type (from Nrs): Saline Lock Assessment/Plan Chief Complaint/Hosp Course Patient is awake alert, tachycardic at times blood sugar is better controlled. Urinalysis is positive for infection will obtain urine and blood cultures start Rocephin Assessment/Plan -Cervical radiculopathy with central canal stenosis, Dr. Dao neurology consult is appreciated. Dr. Merritt is asked to see patient for pain management. -Hypertensive urgency, continue hydralazine -Elevated troponin. Dr. Oates is following in cardiology consultation. -Diabetes mellitus, continue Lantus, pre-meal NovoLog and NovoLog per sliding scale. -Obesity with BMI of 36.2 -History of gastritis, continue PPI Further recommendations based on clinical course. Plan of care discussed with Dr. Rodrigez Problems: Exam/Review of Systems Vital Signs Vitals Vital Signs Date Time Temp Pulse Resp B/P Pulse Ox O2 Delivery O2 Flow Rate FiO2 10/15/17 16:00 102 10/15/17 11:44 97.4 19 147/72 95 10/15/17 00:00 Nasal Cannula 2.0 Intake and Output 10/14/17 10/14/17 10/15/17 15:00 23:00 07:00 Intake Total 150 ml Balance 150 ml Exam Constitutional: alert, oriented Neck: supple Respiratory: normal air movement Cardiovascular: nl pulses Gastrointestinal: non-tender, soft Musculoskeletal: nl extremities to inspection Neurological: other (Left upper extremity weakness) Skin: nl turgor Results Result Diagram: 10/15/17 0616 10/15/17 0616 Results 24 hrs Laboratory Tests Test 10/14/17 20:51 10/15/17 00:43 10/15/17 01:00 10/15/17 06:16 Bedside Glucose 122 Troponin I 0.117 0.139 *H Urine Color YELLOW Urine Clarity CLOUDY A Urine pH 5.0 Urine Specific [place] 1.024 Urine Ketones NEGATIVE Urine Nitrite NEGATIVE Urine Bilirubin NEGATIVE Urine Urobilinogen 1+ H Urine Leukocyte Esterase 2+ H Urine Microscopic RBC 5 Urine Microscopic WBC 108 H Urine Squamous Epithelial Cells FEW Urine Bacteria FEW A Urine Mucus FEW A Urine Hemoglobin NEGATIVE Urine Glucose NEGATIVE Urine Total Protein 1+ H Urine Opiates Screen Positive Urine Barbiturates Negative Urine Amphetamines Screen Negative Urine Benzodiazepines Screen Positive Urine Cocaine Screen Negative Urine Cannabinoids Negative White Blood Count 12.6 H Red Blood Count 4.53 Hemoglobin 13.5 Hematocrit 41.1 Mean Corpuscular Volume 90.7 Mean Corpuscular Hemoglobin 29.8 Mean Corpuscular Hemoglobin Concent 32.8 Red Cell Distribution Width 14.5 Platelet Count 242 Mean Platelet Volume 10.4 Neutrophils % 79.3 H Lymphocytes % 15.4 Monocytes % 4.4 Eosinophils % 0.2 Basophils % 0.2 Nucleated Red Blood Cells % 0.0 Neutrophils # 10.0 H Lymphocytes # 1.9 Monocytes # 0.6 Eosinophils # 0.0 Basophils # 0.0 Nucleated Red Blood Cells # 0.0 Sodium Level 138 Potassium Level 4.6 Chloride Level 103 Carbon Dioxide Level 27 Anion Gap 13 Blood Urea Nitrogen 27 H Creatinine 0.95 Glucose Level 179 Calcium Level 10.4 H Triglycerides Level 76 Cholesterol Level 163 LDL Cholesterol, Calculated 106 HDL Cholesterol 42 Cholesterol/HDL Ratio 3.8 Thyroid Stimulating Hormone (TSH) 2.020 Free Thyroxine 1.24 Test 10/15/17 08:36 10/15/17 11:35 10/15/17 12:08 10/15/17 16:13 Bedside Glucose 166 183 163 Creatine Kinase 37 Creatine Kinase Index 5.8 Creatinine Kinase MB (Mass) 2.13 Troponin I 0.180 *H Medications Medications Current Medications Hydralazine HCl (Apresoline) 10 mg Q6H PRN IV SBP>170 Last administered on 17:21; Admin Dose 10 MG; Start 10/14/17 at 15:30 Insulin Glargine (Lantus) 21 unit DAILY@20 SC Last administered on 10/14/17 20:58; Admin Dose 21 UNIT; Start 10/14/17 at 20:00 Diagnostic Test (Pha) (Accu-Chek) 1 ea 02 XX ; Start 10/15/17 at 02:00 Donepezil HCl (Aricept) 10 mg DAILY PO Last administered on 10/15/17 09:36; Admin Dose 10 MG; Start 10/15/17 at 09:00 Lisinopril (Zestril) 40 mg DAILY PO Last administered on 10/15/17 09:36; Admin Dose 40 MG; Start 10/15/17 at 09:00 Ranitidine HCl (Zantac) 300 mg HS PO Last administered on 10/14/17 20:52; Admin Dose 300 MG; Start 10/14/17 at 21:00 Tramadol HCl (Ultram) 50 mg Q6H PRN PO PAIN; Start 10/14/17 at 16:00 Ondansetron HCl (Zofran Inj) 4 mg Q6H PRN IV NAUSEA AND/OR VOMITING; Start at 16:00 Aspirin (Aspirin) 81 mg DAILY PO Last administered on 10/15/17 09:36; Admin Dose 81 MG; Start 10/15/17 at 09:00 Acetaminophen (Tylenol Tab) 650 mg Q6H PRN PO PAIN LEVEL 1-3 OR FEVER; Start 10/14/17 at 16:00 Morphine Sulfate (morphine) 2 mg Q4H PRN IV PAIN LEVEL 7-10; Start 10/14/17 at 16:00 Enoxaparin Sodium (Lovenox) 30 mg DAILY SC Last administered on 10/15/17 09: 43; Admin Dose 30 MG; Start 10/15/17 at 09:00 Miscellaneous Information 1 ea NOTE XX ; Start 10/14/17 at 16:00 Glucose (Glutose) 15 gm Q15M PRN PO DECREASED GLUCOSE; Start 10/14/17 at 16:00 Glucose (Glutose) 22.5 gm Q15M PRN PO DECREASED GLUCOSE; Start 10/14/17 at 16: 00 Dextrose (D50w Syringe) 25 ml Q15M PRN IV DECREASED GLUCOSE; Start 10/14/17 at 16:00 Dextrose (D50w Syringe) 50 ml Q15M PRN IV DECREASED GLUCOSE; Start 10/14/17 at 16:00 Glucagon (Glucagen) 1 mg Q15M PRN IM DECREASED GLUCOSE; Start 10/14/17 at 16: 00 Glucose (Glutose) 15 gm Q15M PRN BUCCAL DECREASED GLUCOSE; Start 10/14/17 at 16:00 Metoprolol Tartrate (Lopressor) 25 mg BID PO ; Start 10/15/17 at 21:00 VINCENZO RODRIGUEZ Oct 15, 2017 18:00
[2017-10-15 18:45] LABS: CK-MB 2.63 ng/ml (0.0-2.4)
[2017-10-15 18:47] LABS: TROPONIN-I 0.28 ng/ml (0.00-0.12)
[2017-10-15] MEDS: RANITIDINE 150 MG TAB PO SCH (20:48)
[2017-10-15] MEDS: METOPROLOL 25 MG TAB PO SCH (20:48)
[2017-10-15] MEDS: INSULIN GLARGINE [LANtus] 3 ML PEN SC SCH (21:02)
[2017-10-16] VITALS (12 sets, daily range): BP systolic 125–200; BP diastolic 58–90; PULSE 63–88; RESP 17–18
[2017-10-16] MEDS: ACCU-CHEK XX SCH (01:54)
[2017-10-16] MEDS: INSULIN ASPART [NOVOLOG] 3 ML PEN SC SCH ×7 (07:55→20:09)
[2017-10-16 08:38] LABS: BASOPHILS % 0.3 % (0.0-2.0); EOSINOPHILS % 0.3 % (0.0-7.0); HEMATOCRIT 40.9 % (37.0-47.0); HEMOGLOBIN 13.4 g/dl (12.0-16.0); LYMPHOCYTES # 1.9 10^3/ul (0.8-2.9); LYMPHOCYTES % 20.4 % (15.0-51.0); MEAN CORPUSCULAR HEMOGLOBIN 29.3 pg (29.0-33.0); MEAN CORPUSCULAR HGB CONC 32.8 g/dl (32.0-37.0); MEAN CORPUSCULAR VOLUME 89.3 fl (82.0-101.0); MEAN PLATELET VOLUME 10.1 fl (7.4-10.4); MONOCYTE # 0.5 10^3/ul (0.3-0.9); MONOCYTES % 4.9 % (0.0-11.0); NEUTROPHIL # 6.8 10^3/ul (1.6-7.5); NEUTROPHILS % 73.6 % (39.0-77.0); PLATELET COUNT 245 10^3/UL (140-415); RED BLOOD COUNT 4.58 10^6/ul (4.20-5.40); WHITE BLOOD COUNT 9.3 10^3/ul (4.8-10.8)
[2017-10-16] MEDS: DONEPEZIL 10 MG TAB PO SCH (08:54)
[2017-10-16] MEDS: ASPIRIN 81 MG TAB PO SCH (08:54)
[2017-10-16] MEDS: LISINOPRIL 20 MG TAB PO SCH (08:54)
[2017-10-16] MEDS: METOPROLOL 25 MG TAB PO SCH ×2 (08:55→20:09)
[2017-10-16] MEDS: ENOXAPARIN 30 MG/0.3 ML SYG SC SCH (08:58)
--- NOTE | 2017-10-16 08:58 | CONS ---
Date/Time of Note Date/Time of Note DATE: 10/16/17 TIME: 08:51 Consultation Date/Type/Reason Admit Date/Time Oct 14, 2017 at 10:20 Type of Consultation: Pain managent Hx of Present Illness Brief note Chart reviewed pt in unavailable at this time. I have reviewed MRI of the spine and chart in detail... fOR NOW I will change to scheduled doses of ultram and oxycontin .Will wait for neuro consultation, soft collar and PT consultation if ok with neurosurg.... I will return Psychological: no complaints Past Medical History Medical History: diabetes, hypertension Social History Alcohol Use: none Smoking Status: Never smoker Drug Use: none Exam/Review of Systems Vital Signs Vitals Vital Signs Date Time Temp Pulse Resp B/P Pulse Ox O2 Delivery O2 Flow Rate FiO2 10/16/17 08:30 98.3 84 18 200/90 95 10/16/17 08:28 Nasal Cannula 2.0 Intake and Output 10/15/17 10/15/17 10/16/17 15:00 23:00 07:00 Intake Total 200 ml 300 ml Balance 200 ml 300 ml Results Result Diagram: 10/15/17 0616 10/15/17 0616 Results 24 hrs Laboratory Tests Test 10/15/17 11:35 10/15/17 12:08 10/15/17 16:13 10/15/17 17:44 Bedside Glucose 183 163 165 Creatine Kinase 37 Creatine Kinase Index 5.8 Creatinine Kinase MB (Mass) 2.13 Troponin I 0.180 *H Test 10/15/17 17:47 10/15/17 20:50 10/16/17 08:01 10/16/17 08:13 Creatine Kinase 40 Creatine Kinase Index 6.6 Creatinine Kinase MB (Mass) 2.63 H Troponin I 0.280 *H Bedside Glucose 173 138 White Blood Count 9.3 # Red Blood Count 4.58 Hemoglobin 13.4 Hematocrit 40.9 Mean Corpuscular Volume 89.3 Mean Corpuscular Hemoglobin 29.3 Mean Corpuscular Hemoglobin Concent 32.8 Red Cell Distribution Width 14.0 Platelet Count 245 Mean Platelet Volume 10.1 Neutrophils % 73.6 Lymphocytes % 20.4 Monocytes % 4.9 Eosinophils % 0.3 Basophils % 0.3 Nucleated Red Blood Cells % 0.0 Neutrophils # 6.8 Lymphocytes # 1.9 Monocytes # 0.5 Eosinophils # 0.0 Basophils # 0.0 Nucleated Red Blood Cells # 0.0 Medications Medications Current Medications Hydralazine HCl (Apresoline) 10 mg Q6H PRN IV SBP>170 Last administered on 17:21; Admin Dose 10 MG; Start 10/14/17 at 15:30 Insulin Glargine (Lantus) 21 unit DAILY@20 SC Last administered on 10/15/17 21:02; Admin Dose 21 UNIT; Start 10/14/17 at 20:00 Diagnostic Test (Pha) (Accu-Chek) 1 ea 02 XX ; Start 10/15/17 at 02:00 Donepezil HCl (Aricept) 10 mg DAILY PO Last administered on 10/15/17 09:36; Admin Dose 10 MG; Start 10/15/17 at 09:00 Lisinopril (Zestril) 40 mg DAILY PO Last administered on 10/15/17 09:36; Admin Dose 40 MG; Start 10/15/17 at 09:00 Ranitidine HCl (Zantac) 300 mg HS PO Last administered on 10/15/17 20:48; Admin Dose 300 MG; Start 10/14/17 at 21:00 Tramadol HCl (Ultram) 50 mg Q6H PRN PO PAIN; Start 10/14/17 at 16:00 Ondansetron HCl (Zofran Inj) 4 mg Q6H PRN IV NAUSEA AND/OR VOMITING; Start at 16:00 Aspirin (Aspirin) 81 mg DAILY PO Last administered on 10/15/17 09:36; Admin Dose 81 MG; Start 10/15/17 at 09:00 Acetaminophen (Tylenol Tab) 650 mg Q6H PRN PO PAIN LEVEL 1-3 OR FEVER; Start 10/14/17 at 16:00 Morphine Sulfate (morphine) 2 mg Q4H PRN IV PAIN LEVEL 7-10 Last administered on 10/15/17 18:07; Admin Dose 2 MG; Start 10/14/17 at 16:00 Enoxaparin Sodium (Lovenox) 30 mg DAILY SC Last administered on 10/15/17 09: 43; Admin Dose 30 MG; Start 10/15/17 at 09:00 Miscellaneous Information 1 ea NOTE XX ; Start 10/14/17 at 16:00 Glucose (Glutose) 15 gm Q15M PRN PO DECREASED GLUCOSE; Start 10/14/17 at 16:00 Glucose (Glutose) 22.5 gm Q15M PRN PO DECREASED GLUCOSE; Start 10/14/17 at 16: 00 Dextrose (D50w Syringe) 25 ml Q15M PRN IV DECREASED GLUCOSE; Start 10/14/17 at 16:00 Dextrose (D50w Syringe) 50 ml Q15M PRN IV DECREASED GLUCOSE; Start 10/14/17 at 16:00 Glucagon (Glucagen) 1 mg Q15M PRN IM DECREASED GLUCOSE; Start 10/14/17 at 16: 00 Glucose (Glutose) 15 gm Q15M PRN BUCCAL DECREASED GLUCOSE; Start 10/14/17 at 16:00 Metoprolol Tartrate 25 mg 25 mg BID PO Last administered on 10/15/17 20:48; Admin Dose 25 MG; Start 10/15/17 at 21:00 Ceftriaxone Sodium (Rocephin) 50 ml @ 100 mls/hr Q24H IVPB Last administered on 10/15/17 21:17; Admin Dose 100 MLS/HR; Start 10/15/17 at 18:00 Hydralazine HCl (Apresoline) 25 mg Q8 PO Last administered on 10/16/17 05:36 ; Admin Dose 25 MG; Start 10/15/17 at 18:06 Clonidine (Catapres) 0.1 mg Q4H PRN PO SBP>170 Last administered on 10/15/17 18:09; Admin Dose 0.1 MG; Start 10/15/17 at 18:00 BANDAR GOLDBERG Oct 16, 2017 08:58
[2017-10-16] MEDS: traMADol 50 MG TAB PO SCH ×3 (09:43→22:07)
[2017-10-16] MEDS: oxyCODONE (CR) 10 MG TAB [oxyCONTIN] PO SCH (09:44)
[2017-10-16] MEDS: POLYETHYLENE GLYCOL 17 GM PACKET PO SCH (09:44)
[2017-10-16 10:41] LABS: CALCIUM 10.5 mg/dl (8.4-10.2); CREATININE 0.81 mg/dl (0.44-1.00); POTASSIUM 4.1 mmol/L (3.5-5.1)
[2017-10-16] MEDS: ONDANSETRON 4 MG INJ IV PRN ×2 (12:36→20:13)
--- NOTE | 2017-10-16 15:19 | PN ---
Date/Time of Note Date/Time of Note DATE: 10/16/17 TIME: 15:16 Assessment/Plan VTE Prophylaxis VTE Prophylaxis Intervention: other Lines/Catheters IV Catheter Type (from Nrs): Saline Lock Urinary Cath still in place: No Assessment/Plan Assessment/Plan -Cervical radiculopathy with central canal stenosis, Dr. Dao neurology consult is appreciated. Dr. Merritt is asked to see patient for pain management. -Hypertensive urgency, continue hydralazine -Elevated troponin. Dr. Oates is following in cardiology consultation. -Diabetes mellitus, continue Lantus, pre-meal NovoLog and NovoLog per sliding scale. -Obesity with BMI of 35.2 -History of gastritis, continue PPI Further recommendations based on clinical course. Plan of care discussed with Dr. Rodrigez Subjective 24 Hr Interval Summary Free Text/Dictation c/o dry cough, CTABL, DENIES ANY CHEST PAIN, nad, daughter at bed side- all Qs ANSWERED, DW STAFF Respiratory: cough, no complaints Cardiovascular: no complaints Gastrointestinal: no complaints Genitourinary: no complaints Musculoskeletal: no complaints Exam/Review of Systems Vital Signs Vitals Vital Signs Date Time Temp Pulse Resp B/P Pulse Ox O2 Delivery O2 Flow Rate FiO2 10/16/17 12:49 63 10/16/17 11:40 Room Air 10/16/17 11:07 98.6 17 189/75 97 10/16/17 08:28 2.0 Intake and Output 10/15/17 10/15/17 10/16/17 15:00 23:00 07:00 Intake Total 200 ml 300 ml Balance 200 ml 300 ml Exam Constitutional: alert, well developed Respiratory: clear to auscultation, normal air movement Cardiovascular: nl pulses, other (S1S2) Gastrointestinal: non-tender, soft Musculoskeletal: nl extremities to inspection Extremities: normal pulses Neurological: confused Results Result Diagram: 10/16/17 0813 10/16/17 0813 Results 24 hrs Laboratory Tests Test 10/15/17 16:13 10/15/17 17:44 10/15/17 17:47 10/15/17 20:50 Bedside Glucose 163 165 173 Creatine Kinase 40 Creatine Kinase Index 6.6 Creatinine Kinase MB (Mass) 2.63 H Troponin I 0.280 *H Test 10/16/17 08:01 10/16/17 08:13 10/16/17 12:00 Bedside Glucose 138 144 White Blood Count 9.3 # Red Blood Count 4.58 Hemoglobin 13.4 Hematocrit 40.9 Mean Corpuscular Volume 89.3 Mean Corpuscular Hemoglobin 29.3 Mean Corpuscular Hemoglobin Concent 32.8 Red Cell Distribution Width 14.0 Platelet Count 245 Mean Platelet Volume 10.1 Neutrophils % 73.6 Lymphocytes % 20.4 Monocytes % 4.9 Eosinophils % 0.3 Basophils % 0.3 Nucleated Red Blood Cells % 0.0 Neutrophils # 6.8 Lymphocytes # 1.9 Monocytes # 0.5 Eosinophils # 0.0 Basophils # 0.0 Nucleated Red Blood Cells # 0.0 Sodium Level 139 Potassium Level 4.1 Chloride Level 101 Carbon Dioxide Level 28 Anion Gap 14 Blood Urea Nitrogen 19 Creatinine 0.81 Glucose Level 158 Calcium Level 10.5 H Medications Medications Current Medications Hydralazine HCl (Apresoline) 10 mg Q6H PRN IV SBP>170 Last administered on 17:21; Admin Dose 10 MG; Start 10/14/17 at 15:30 Insulin Glargine (Lantus) 21 unit DAILY@20 SC Last administered on 10/15/17 21:02; Admin Dose 21 UNIT; Start 10/14/17 at 20:00 Diagnostic Test (Pha) (Accu-Chek) 1 ea 02 XX ; Start 10/15/17 at 02:00 Donepezil HCl (Aricept) 10 mg DAILY PO Last administered on 10/16/17 08:54; Admin Dose 10 MG; Start 10/15/17 at 09:00 Lisinopril (Zestril) 40 mg DAILY PO Last administered on 10/16/17 08:54; Admin Dose 40 MG; Start 10/15/17 at 09:00 Ranitidine HCl (Zantac) 300 mg HS PO Last administered on 10/15/17 20:48; Admin Dose 300 MG; Start 10/14/17 at 21:00 Ondansetron HCl (Zofran Inj) 4 mg Q6H PRN IV NAUSEA AND/OR VOMITING Last administered on 10/16/17 12:36; Admin Dose 4 MG; Start 10/14/17 at 16:00 Aspirin (Aspirin) 81 mg DAILY PO Last administered on 10/16/17 08:54; Admin Dose 81 MG; Start 10/15/17 at 09:00 Acetaminophen (Tylenol Tab) 650 mg Q6H PRN PO PAIN LEVEL 1-3 OR FEVER; Start 10/14/17 at 16:00 Enoxaparin Sodium (Lovenox) 30 mg DAILY SC Last administered on 10/16/17 08: 58; Admin Dose 30 MG; Start 10/15/17 at 09:00 Miscellaneous Information 1 ea NOTE XX ; Start 10/14/17 at 16:00 Glucose (Glutose) 15 gm Q15M PRN PO DECREASED GLUCOSE; Start 10/14/17 at 16:00 Glucose (Glutose) 22.5 gm Q15M PRN PO DECREASED GLUCOSE; Start 10/14/17 at 16: 00 Dextrose (D50w Syringe) 25 ml Q15M PRN IV DECREASED GLUCOSE; Start 10/14/17 at 16:00 Dextrose (D50w Syringe) 50 ml Q15M PRN IV DECREASED GLUCOSE; Start 10/14/17 at 16:00 Glucagon (Glucagen) 1 mg Q15M PRN IM DECREASED GLUCOSE; Start 10/14/17 at 16: 00 Glucose (Glutose) 15 gm Q15M PRN BUCCAL DECREASED GLUCOSE; Start 10/14/17 at 16:00 Metoprolol Tartrate 25 mg 25 mg BID PO Last administered on 10/16/17 08:55; Admin Dose 25 MG; Start 10/15/17 at 21:00 Ceftriaxone Sodium (Rocephin) 50 ml @ 100 mls/hr Q24H IVPB Last administered on 10/15/17 21:17; Admin Dose 100 MLS/HR; Start 10/15/17 at 18:00 Clonidine (Catapres) 0.1 mg Q4H PRN PO SBP>170 Last administered on 10/16/17 12:33; Admin Dose 0.1 MG; Start 10/15/17 at 18:00 Tramadol HCl (Ultram) 50 mg Q6H PO Last administered on 10/16/17 09:43; Admin Dose 50 MG; Start 10/16/17 at 10:00 Oxycodone HCl (Oxycontin) 10 mg AM PO Last administered on 10/16/17 09:44; Admin Dose 10 MG; Start 10/16/17 at 09:00 Polyethylene Glycol (Miralax) 17 gm DAILY PO Last administered on 10/16/17 09 :44; Admin Dose 17 GM; Start 10/16/17 at 09:00 Hydralazine HCl (Apresoline) 50 mg Q8 PO Last administered on 10/16/17 12:32 ; Admin Dose 50 MG; Start 10/16/17 at 12:30 Alprazolam (Xanax) 0.5 mg Q8H PRN PO ANXIETY; Start 10/16/17 at 11:30 JUAN PICHARDO Oct 16, 2017 15:19
[2017-10-16] MEDS ORDERED: CEPASTAT LOZENGE MT PRN (15:30)
--- NOTE | 2017-10-16 15:53 | CONS ---
Date/Time of Note Date/Time of Note DATE: 10/16/17 TIME: 15:46 Assessment/Plan Assessment/Plan Chief Complaint/Hosp Course IMPRESSION: 1. Hypertensive urgency/emergency, slowly improving on oral antihypertensives. 2. Possible acute cerebrovascular accident. 3. Diabetes mellitus. 4. Abdominal pain. 5. Arm weakness, left upper extremity. 6. Prerenal ischemia. 7. Mild leukocytosis. 8. Troponin-mildly positive on 3rd draw. No CP. Likely type 2 infarct in setting of HTN emergency-with no sig uptrend on serial ecg Recc: -Tele -serial ecg's -Continue ACEI/BB --Will f/u echo -continue asa -pnding neuro eval Problems: Consultation Date/Type/Reason Admit Date/Time Oct 14, 2017 at 10:20 Initial Consult Date 10/14/2017 Type of Consultation: cardiology Reason for Consultation HTN/positive troponin Referring Provider: VINCENZO RODRIGUEZ Exam/Review of Systems Vital Signs Vitals Vital Signs Date Time Temp Pulse Resp B/P Pulse Ox O2 Delivery O2 Flow Rate FiO2 10/16/17 15:31 Nasal Cannula 2.0 10/16/17 15:00 162/70 10/16/17 12:49 63 10/16/17 11:07 98.6 17 97 Intake and Output 10/15/17 10/15/17 10/16/17 15:00 23:00 07:00 Intake Total 200 ml 300 ml Balance 200 ml 300 ml Exam Review of Systems: CONSTITUTIONAL: No fevers, chills. PULMONARY: No sob CARDIOVASCULAR: No chest pain/palpitations GASTROINTESTINAL: No nausea/vomiting. GENITOURINARY: No hematuria/dysuria. MUSCULOSKELETAL: No myagias/arthalgias. PSYCHIATRIC: The patient denies depression. NEUROLOGIC: No weakness Constitutional: alert, oriented Psych: no complaints Head: normocephalic ENMT: mucosa pink and moist Neck: jvd (9 cm water), supple Respiratory: clear to auscultation Cardiovascular: regular rate and rhythm Gastrointestinal: non-tender, soft Musculoskeletal: muscle tone (normal) Extremities: edema (trace/B) Neurological: other (No focal deficits) Results Result Diagram: 10/16/17 0813 10/16/17 0813 Results 24 hrs Laboratory Tests Test 10/15/17 16:13 10/15/17 17:44 10/15/17 17:47 10/15/17 20:50 Bedside Glucose 163 165 173 Creatine Kinase 40 Creatine Kinase Index 6.6 Creatinine Kinase MB (Mass) 2.63 H Troponin I 0.280 *H Test 10/16/17 08:01 10/16/17 08:13 10/16/17 12:00 Bedside Glucose 138 144 White Blood Count 9.3 # Red Blood Count 4.58 Hemoglobin 13.4 Hematocrit 40.9 Mean Corpuscular Volume 89.3 Mean Corpuscular Hemoglobin 29.3 Mean Corpuscular Hemoglobin Concent 32.8 Red Cell Distribution Width 14.0 Platelet Count 245 Mean Platelet Volume 10.1 Neutrophils % 73.6 Lymphocytes % 20.4 Monocytes % 4.9 Eosinophils % 0.3 Basophils % 0.3 Nucleated Red Blood Cells % 0.0 Neutrophils # 6.8 Lymphocytes # 1.9 Monocytes # 0.5 Eosinophils # 0.0 Basophils # 0.0 Nucleated Red Blood Cells # 0.0 Sodium Level 139 Potassium Level 4.1 Chloride Level 101 Carbon Dioxide Level 28 Anion Gap 14 Blood Urea Nitrogen 19 Creatinine 0.81 Glucose Level 158 Calcium Level 10.5 H Medications Medications Current Medications Hydralazine HCl (Apresoline) 10 mg Q6H PRN IV SBP>170 Last administered on 17:21; Admin Dose 10 MG; Start 10/14/17 at 15:30 Insulin Glargine (Lantus) 21 unit DAILY@20 SC Last administered on 10/15/17 21:02; Admin Dose 21 UNIT; Start 10/14/17 at 20:00 Diagnostic Test (Pha) (Accu-Chek) 1 ea 02 XX ; Start 10/15/17 at 02:00 Donepezil HCl (Aricept) 10 mg DAILY PO Last administered on 10/16/17 08:54; Admin Dose 10 MG; Start 10/15/17 at 09:00 Lisinopril (Zestril) 40 mg DAILY PO Last administered on 10/16/17 08:54; Admin Dose 40 MG; Start 10/15/17 at 09:00 Ranitidine HCl (Zantac) 300 mg HS PO Last administered on 10/15/17 20:48; Admin Dose 300 MG; Start 10/14/17 at 21:00 Ondansetron HCl (Zofran Inj) 4 mg Q6H PRN IV NAUSEA AND/OR VOMITING Last administered on 10/16/17 12:36; Admin Dose 4 MG; Start 10/14/17 at 16:00 Aspirin (Aspirin) 81 mg DAILY PO Last administered on 10/16/17 08:54; Admin Dose 81 MG; Start 10/15/17 at 09:00 Acetaminophen (Tylenol Tab) 650 mg Q6H PRN PO PAIN LEVEL 1-3 OR FEVER; Start 10/14/17 at 16:00 Enoxaparin Sodium (Lovenox) 30 mg DAILY SC Last administered on 10/16/17 08: 58; Admin Dose 30 MG; Start 10/15/17 at 09:00 Miscellaneous Information 1 ea NOTE XX ; Start 10/14/17 at 16:00 Glucose (Glutose) 15 gm Q15M PRN PO DECREASED GLUCOSE; Start 10/14/17 at 16:00 Glucose (Glutose) 22.5 gm Q15M PRN PO DECREASED GLUCOSE; Start 10/14/17 at 16: 00 Dextrose (D50w Syringe) 25 ml Q15M PRN IV DECREASED GLUCOSE; Start 10/14/17 at 16:00 Dextrose (D50w Syringe) 50 ml Q15M PRN IV DECREASED GLUCOSE; Start 10/14/17 at 16:00 Glucagon (Glucagen) 1 mg Q15M PRN IM DECREASED GLUCOSE; Start 10/14/17 at 16: 00 Glucose (Glutose) 15 gm Q15M PRN BUCCAL DECREASED GLUCOSE; Start 10/14/17 at 16:00 Metoprolol Tartrate 25 mg 25 mg BID PO Last administered on 10/16/17 08:55; Admin Dose 25 MG; Start 10/15/17 at 21:00 Ceftriaxone Sodium (Rocephin) 50 ml @ 100 mls/hr Q24H IVPB Last administered on 10/15/17 21:17; Admin Dose 100 MLS/HR; Start 10/15/17 at 18:00 Clonidine (Catapres) 0.1 mg Q4H PRN PO SBP>170 Last administered on 10/16/17 12:33; Admin Dose 0.1 MG; Start 10/15/17 at 18:00 Tramadol HCl (Ultram) 50 mg Q6H PO Last administered on 10/16/17 09:43; Admin Dose 50 MG; Start 10/16/17 at 10:00 Oxycodone HCl (Oxycontin) 10 mg AM PO Last administered on 10/16/17 09:44; Admin Dose 10 MG; Start 10/16/17 at 09:00 Polyethylene Glycol (Miralax) 17 gm DAILY PO Last administered on 10/16/17 09 :44; Admin Dose 17 GM; Start 10/16/17 at 09:00 Hydralazine HCl (Apresoline) 50 mg Q8 PO Last administered on 10/16/17 12:32 ; Admin Dose 50 MG; Start 10/16/17 at 12:30 Alprazolam (Xanax) 0.5 mg Q8H PRN PO ANXIETY; Start 10/16/17 at 11:30 Phenol (Cepastat Lozenge) 1 lozenge Q1H PRN MT COUGH; Start 10/16/17 at 15:30 LOUIS CRUZ Oct 16, 2017 15:53
[2017-10-16] MEDS: CEFTRIAXONE 1 GM/50 ML (PMX) 50 ML IVPB SCH (17:36)
--- NOTE | 2017-10-16 18:51 | RADRPT ---
Echocardiogram Report Patient Name: DEBBIE MACIAS Gender: Female Date: 1940 Study Date: 15-Oct-2017 Cyber Systems Administrator: JULIO Kinsey Location: [id number] Ref. Physician: VINCENZO RODRIGUEZ Quality: Good Procedures: Transthoracic echocardiogram with complete 2D, M-Mode, and doppler examination. Indications: Evaluate Left Ventricular function. 2D/M Mode Doppler Measurement Value Normal Ranges Measurement Value Normal Ranges LVIDd MM 4.9 cm CHET Vmax 2.4 cm2 LVIDs MM 3.0 cm CHET VTI 2.7 cm2 FS MM 38.1 % AV Mean Khris 1.3 m/sec LVPWd MM 1.2 cm AV Mean PG 8.0 mmHg LVPWs MM 1.8 cm AV Peak Khris 1.8 m/sec LVPW % MM 50 % AV Peak PG 13.0 mmHg IVSd MM 1.2 cm AV VTI 28.3 cm IVS/LVPW MM 1.0 LVOT Mean Khris 0.8 m/sec AoR Diam MM 3.3 cm LVOT Mean PG 3.0 mmHg LA/Ao MM 1.1 LVOT Peak Khris 1.3 m/sec EDV MM 116.0 cm3 LVOT Peak PG 6.0 mmHg ESV MM 27.5 cm3 LVOT VTI 22.0 cm SV MM 88.5 cm3 MV E Peak Khris 0.7 m/sec LA Dimen MM 3.7 cm MV A Peak Khris 1.4 m/sec SV MM 88.5 cm3 MV E/A 0.5 LA Dimen 2D 3.7 2.3 - 4.0 cm MV Decel Time 306 msec LVOT Diam 2.1 cm MV E/A 0.5 LVOT Area 3.5 cm2 TR Peak Khris 2.4 m/sec TR Peak PG 22.0 mmHg RVSP 25.0 mmHg Findings Left Ventricle: Hyperdynamic left ventricular systolic function. Normal left ventricular cavity size. Mild concentric left ventricular hypertrophy. Ejection fraction is visually estimated at >65 %. Abnormal Diastolic Function. Right Ventricle: Normal right ventricular size. Normal right ventricular systolic function. Left Atrium: The left atrium is normal in size. Right Atrium: The right atrium is normal in size. Mitral Valve: Normal appearance and function of the mitral valve with trace physiologic regurgitation. Aortic Valve: Normal appearance of the aortic valve. No significant aortic stenosis or insufficiency. Tricuspid Valve: Normal appearance of the tricuspid valve. Estimated peak PA systolic pressure 25 mmHg. There is mild tricuspid regurgitation. Pulmonic Valve: Normal pulmonic valve appearance. Pericardium: Normal pericardium with no significant pericardial effusion. Aorta: Normal aortic root. IVC: Normal size and normal respiratory collapse consistent with normal right atrial pressure. Pulmonary Artery: Normal pulmonary artery size. Conclusions 1.Hyperdynamic left ventricular systolic function. Normal left ventricular cavity size. Mild concentric left ventricular hypertrophy. Ejection fraction is visually estimated at >65 %. Abnormal Diastolic Function. 2.Normal appearance and function of the mitral valve with trace physiologic regurgitation. 3.Normal appearance of the tricuspid valve. Estimated peak PA systolic pressure 25 mmHg. There is mild tricuspid regurgitation. Electronically Signed By: Patrick Oates 16-Oct-2017 18:51:27 -0800 Patient Name: DEBBIE MACIAS Study Date: 15-Oct-2017 [id number]
[2017-10-16] MEDS: RANITIDINE 150 MG TAB PO SCH (20:09)
[2017-10-16] MEDS: INSULIN GLARGINE [LANtus] 3 ML PEN SC SCH (20:25)
[2017-10-16] MEDS: ALPRAZOLAM 0.5 MG TAB PO PRN (22:07)
[2017-10-17] VITALS (15 sets, daily range): BP systolic 141–191; BP diastolic 62–82; PULSE 64–90; RESP 17–18
[2017-10-17] MEDS: ACCU-CHEK XX SCH (02:00)
[2017-10-17] MEDS: traMADol 50 MG TAB PO SCH ×4 (05:05→21:32)
[2017-10-17 06:49] LABS: BASOPHILS % 0.3 % (0.0-2.0); EOSINOPHILS # 0.1 10^3/ul (0.0-0.5); EOSINOPHILS % 0.8 % (0.0-7.0); HEMATOCRIT 39.9 % (37.0-47.0); HEMOGLOBIN 13.2 g/dl (12.0-16.0); LYMPHOCYTES # 2.9 10^3/ul (0.8-2.9); LYMPHOCYTES % 33.3 % (15.0-51.0); MEAN CORPUSCULAR HEMOGLOBIN 29.7 pg (29.0-33.0); MEAN CORPUSCULAR HGB CONC 33.1 g/dl (32.0-37.0); MEAN CORPUSCULAR VOLUME 89.7 fl (82.0-101.0); MEAN PLATELET VOLUME 10.3 fl (7.4-10.4); MONOCYTE # 0.5 10^3/ul (0.3-0.9); MONOCYTES % 5.9 % (0.0-11.0); NEUTROPHIL # 5.2 10^3/ul (1.6-7.5); NEUTROPHILS % 59.4 % (39.0-77.0); PLATELET COUNT 262 10^3/UL (140-415); RED BLOOD COUNT 4.45 10^6/ul (4.20-5.40); RED CELL DISTRIBUTION WIDTH 14.3 % (11.5-14.5); WHITE BLOOD COUNT 8.7 10^3/ul (4.8-10.8)
[2017-10-17 07:09] LABS: CALCIUM 10.9 mg/dl (8.4-10.2); CREATININE 1.03 mg/dl (0.44-1.00); POTASSIUM 4.3 mmol/L (3.5-5.1)
[2017-10-17 07:21] LABS: CK-MB 0.84 ng/ml (0.0-2.4)
[2017-10-17 07:27] LABS: TROPONIN-I 0.13 ng/ml (0.00-0.12)
[2017-10-17] MEDS: INSULIN ASPART [NOVOLOG] 3 ML PEN SC SCH ×7 (08:10→20:19)
[2017-10-17] MEDS: DONEPEZIL 10 MG TAB PO SCH (08:18)
[2017-10-17] MEDS: LISINOPRIL 20 MG TAB PO SCH (08:18)
[2017-10-17] MEDS: METOPROLOL 25 MG TAB PO SCH ×2 (08:18→20:18)
[2017-10-17] MEDS: oxyCODONE (CR) 10 MG TAB [oxyCONTIN] PO SCH (08:18)
[2017-10-17] MEDS: POLYETHYLENE GLYCOL 17 GM PACKET PO SCH (08:19)
[2017-10-17] MEDS: ASPIRIN 81 MG TAB PO SCH (08:19)
[2017-10-17] MEDS: ENOXAPARIN 30 MG/0.3 ML SYG SC SCH (08:21)
[2017-10-17] MEDS: ONDANSETRON 4 MG INJ IV PRN (10:19)
[2017-10-17] MEDS: hydrALAzine 20 MG INJ IV PRN (13:02)
--- NOTE | 2017-10-17 13:32 | CONS ---
Date/Time of Note Date/Time of Note DATE: 10/17/17 TIME: 13:27 Assessment/Plan Assessment/Plan Chief Complaint/Hosp Course IMPRESSION: 1. Hypertensive urgency/emergency-still uncontrolled 2. Spinal stenosis 3. Diabetes mellitus. 4. Abdominal pain. 5. Arm weakness, left upper extremity. 6. Prerenal ischemia. 7. Mild leukocytosis. 8. Troponin-mildly positive on 3rd draw. No CP. Likely type 2 infarct in setting of HTN emergency-with no sig uptrend on serial ecg Recc: -Tele -serial ecg's -Continue ACEI/BB -Increase baseline hydralazine to improve BP control -continue asa Problems: Consultation Date/Type/Reason Admit Date/Time Oct 14, 2017 at 10:20 Initial Consult Date 10/14/2017 Type of Consultation: cardiology Reason for Consultation HTN Referring Provider: VINCENZO RODRIGUEZ Exam/Review of Systems Vital Signs Vitals Vital Signs Date Time Temp Pulse Resp B/P Pulse Ox O2 Delivery O2 Flow Rate FiO2 10/17/17 13:11 191/82 10/17/17 11:59 Room Air 10/17/17 10:59 98.4 61 17 95 10/17/17 10:16 2.0 Intake and Output 10/16/17 10/16/17 10/17/17 15:00 23:00 07:00 Intake Total 650 ml 500 ml Output Total 1053 ml Balance -403 ml 500 ml Exam Review of Systems: CONSTITUTIONAL: No fevers, chills. PULMONARY: No sob CARDIOVASCULAR: No chest pain/palpitations GASTROINTESTINAL: No nausea/vomiting. GENITOURINARY: No hematuria/dysuria. MUSCULOSKELETAL: No myagias/arthalgias. PSYCHIATRIC: The patient denies depression. NEUROLOGIC: No weakness Constitutional: alert Psych: no complaints Head: normocephalic ENMT: mucosa pink and moist Respiratory: clear to auscultation Cardiovascular: regular rate and rhythm Gastrointestinal: non-tender, soft Musculoskeletal: muscle tone (normal) Extremities: edema (none) Neurological: other (No focal deficits) Results Result Diagram: 10/17/17 0608 10/17/17 0608 Results 24 hrs Laboratory Tests Test 10/16/17 17:34 10/16/17 20:06 10/17/17 06:08 10/17/17 08:04 Bedside Glucose 133 136 165 White Blood Count 8.7 Red Blood Count 4.45 Hemoglobin 13.2 Hematocrit 39.9 Mean Corpuscular Volume 89.7 Mean Corpuscular Hemoglobin 29.7 Mean Corpuscular Hemoglobin Concent 33.1 Red Cell Distribution Width 14.3 Platelet Count 262 Mean Platelet Volume 10.3 Neutrophils % 59.4 Lymphocytes % 33.3 Monocytes % 5.9 Eosinophils % 0.8 Basophils % 0.3 Nucleated Red Blood Cells % 0.0 Neutrophils # 5.2 Lymphocytes # 2.9 Monocytes # 0.5 Eosinophils # 0.1 Basophils # 0.0 Nucleated Red Blood Cells # 0.0 Sodium Level 137 Potassium Level 4.3 Chloride Level 101 Carbon Dioxide Level 29 Anion Gap 11 Blood Urea Nitrogen 26 H Creatinine 1.03 H Glucose Level 162 Calcium Level 10.9 H Creatine Kinase 35 Creatine Kinase Index 2.4 Creatinine Kinase MB (Mass) 0.84 Troponin I 0.130 *H Test 10/17/17 11:06 10/17/17 12:13 Bedside Glucose 192 190 Medications Medications Current Medications Hydralazine HCl (Apresoline) 10 mg Q6H PRN IV SBP>170 Last administered on 13:02; Admin Dose 10 MG; Start 10/14/17 at 15:30 Insulin Glargine (Lantus) 21 unit DAILY@20 SC Last administered on 10/16/17 20:25; Admin Dose 21 UNIT; Start 10/14/17 at 20:00 Diagnostic Test (Pha) (Accu-Chek) 1 ea 02 XX ; Start 10/15/17 at 02:00 Donepezil HCl (Aricept) 10 mg DAILY PO Last administered on 10/17/17 08:18; Admin Dose 10 MG; Start 10/15/17 at 09:00 Lisinopril (Zestril) 40 mg DAILY PO Last administered on 10/17/17 08:18; Admin Dose 40 MG; Start 10/15/17 at 09:00 Ranitidine HCl (Zantac) 300 mg HS PO Last administered on 10/16/17 20:09; Admin Dose 300 MG; Start 10/14/17 at 21:00 Ondansetron HCl (Zofran Inj) 4 mg Q6H PRN IV NAUSEA AND/OR VOMITING Last administered on 10/17/17 10:19; Admin Dose 4 MG; Start 10/14/17 at 16:00 Aspirin (Aspirin) 81 mg DAILY PO Last administered on 10/17/17 08:19; Admin Dose 81 MG; Start 10/15/17 at 09:00 Acetaminophen (Tylenol Tab) 650 mg Q6H PRN PO PAIN LEVEL 1-3 OR FEVER; Start 10/14/17 at 16:00 Enoxaparin Sodium (Lovenox) 30 mg DAILY SC Last administered on 10/17/17 08: 21; Admin Dose 30 MG; Start 10/15/17 at 09:00 Miscellaneous Information 1 ea NOTE XX ; Start 10/14/17 at 16:00 Glucose (Glutose) 15 gm Q15M PRN PO DECREASED GLUCOSE; Start 10/14/17 at 16:00 Glucose (Glutose) 22.5 gm Q15M PRN PO DECREASED GLUCOSE; Start 10/14/17 at 16: 00 Dextrose (D50w Syringe) 25 ml Q15M PRN IV DECREASED GLUCOSE; Start 10/14/17 at 16:00 Dextrose (D50w Syringe) 50 ml Q15M PRN IV DECREASED GLUCOSE; Start 10/14/17 at 16:00 Glucagon (Glucagen) 1 mg Q15M PRN IM DECREASED GLUCOSE; Start 10/14/17 at 16: 00 Glucose (Glutose) 15 gm Q15M PRN BUCCAL DECREASED GLUCOSE; Start 10/14/17 at 16:00 Metoprolol Tartrate 25 mg 25 mg BID PO Last administered on 10/17/17 08:18; Admin Dose 25 MG; Start 10/15/17 at 21:00 Ceftriaxone Sodium (Rocephin) 50 ml @ 100 mls/hr Q24H IVPB Last administered on 10/16/17 17:36; Admin Dose 100 MLS/HR; Start 10/15/17 at 18:00 Clonidine (Catapres) 0.1 mg Q4H PRN PO SBP>170 Last administered on 10/17/17 12:14; Admin Dose 0.1 MG; Start 10/15/17 at 18:00 Tramadol HCl (Ultram) 50 mg Q6H PO Last administered on 10/17/17 08:19; Admin Dose 50 MG; Start 10/16/17 at 10:00 Oxycodone HCl (Oxycontin) 10 mg AM PO Last administered on 10/17/17 08:18; Admin Dose 10 MG; Start 10/16/17 at 09:00 Polyethylene Glycol (Miralax) 17 gm DAILY PO Last administered on 10/17/17 08 :19; Admin Dose 17 GM; Start 10/16/17 at 09:00 Hydralazine HCl (Apresoline) 50 mg Q8 PO Last administered on 10/17/17 13:05 ; Admin Dose 50 MG; Start 10/16/17 at 12:30 Alprazolam (Xanax) 0.5 mg Q8H PRN PO ANXIETY Last administered on 10/16/17 22 :07; Admin Dose 0.5 MG; Start 10/16/17 at 11:30 Phenol (Cepastat Lozenge) 1 lozenge Q1H PRN MT COUGH; Start 10/16/17 at 15:30 LOUIS CRUZ Oct 17, 2017 13:32
--- NOTE | 2017-10-17 14:44 | PN ---
Date/Time of Note Date/Time of Note DATE: 10/17/17 TIME: 14:37 Assessment/Plan Lines/Catheters IV Catheter Type (from Nrsg): Saline Lock Urinary Cath still in place: No Assessment/Plan Assessment/Plan -Cervical radiculopathy with central canal stenosis - Dr. Dao neurology consult is appreciated- staff will contact neurology - Dr. Merritt is asked to see patient for pain management. -Hypertensive urgency, continue hydralazine -Elevated troponin. Dr. Oates is following in cardiology consultation. -Diabetes mellitus, continue Lantus, pre-meal NovoLog and NovoLog per sliding scale. -Obesity with BMI of 35.2- dietary consult -History of gastritis, continue PPI Further recommendations based on clinical course. Plan of care discussed with Dr. Rodrigez Subjective 24 Hr Interval Summary Free Text/Dictation nad, Troponin elevated, denies any chest pain, afebrile, Bp better now. dw staff Respiratory: no complaints Cardiovascular: no complaints Gastrointestinal: no complaints Genitourinary: no complaints Musculoskeletal: no complaints Exam/Review of Systems Vital Signs Vitals Vital Signs Date Time Temp Pulse Resp B/P Pulse Ox O2 Delivery O2 Flow Rate FiO2 10/17/17 14:06 141/65 10/17/17 12:12 64 10/17/17 11:59 Room Air 10/17/17 10:59 98.4 17 95 10/17/17 10:16 2.0 Intake and Output 10/16/17 10/16/17 10/17/17 15:00 23:00 07:00 Intake Total 650 ml 500 ml Output Total 1053 ml Balance -403 ml 500 ml Exam Constitutional: alert, obese Cardiovascular: nl pulses, other (s1s2) Gastrointestinal: non-tender, soft Musculoskeletal: nl extremities to inspection Extremities: normal pulses Neurological: other (alert/ awake, responsive.) Results Result Diagram: 10/17/17 0608 10/17/17 0608 Results 24 hrs Laboratory Tests Test 10/16/17 17:34 10/16/17 20:06 10/17/17 06:08 10/17/17 08:04 Bedside Glucose 133 136 165 White Blood Count 8.7 Red Blood Count 4.45 Hemoglobin 13.2 Hematocrit 39.9 Mean Corpuscular Volume 89.7 Mean Corpuscular Hemoglobin 29.7 Mean Corpuscular Hemoglobin Concent 33.1 Red Cell Distribution Width 14.3 Platelet Count 262 Mean Platelet Volume 10.3 Neutrophils % 59.4 Lymphocytes % 33.3 Monocytes % 5.9 Eosinophils % 0.8 Basophils % 0.3 Nucleated Red Blood Cells % 0.0 Neutrophils # 5.2 Lymphocytes # 2.9 Monocytes # 0.5 Eosinophils # 0.1 Basophils # 0.0 Nucleated Red Blood Cells # 0.0 Sodium Level 137 Potassium Level 4.3 Chloride Level 101 Carbon Dioxide Level 29 Anion Gap 11 Blood Urea Nitrogen 26 H Creatinine 1.03 H Glucose Level 162 Calcium Level 10.9 H Creatine Kinase 35 Creatine Kinase Index 2.4 Creatinine Kinase MB (Mass) 0.84 Troponin I 0.130 *H Test 10/17/17 11:06 10/17/17 12:13 Bedside Glucose 192 190 Medications Medications Current Medications Hydralazine HCl (Apresoline) 10 mg Q6H PRN IV SBP>170 Last administered on 13:02; Admin Dose 10 MG; Start 10/14/17 at 15:30 Insulin Glargine (Lantus) 21 unit DAILY@20 SC Last administered on 10/16/17 20:25; Admin Dose 21 UNIT; Start 10/14/17 at 20:00 Diagnostic Test (Pha) (Accu-Chek) 1 ea 02 XX ; Start 10/15/17 at 02:00 Donepezil HCl (Aricept) 10 mg DAILY PO Last administered on 10/17/17 08:18; Admin Dose 10 MG; Start 10/15/17 at 09:00 Lisinopril (Zestril) 40 mg DAILY PO Last administered on 10/17/17 08:18; Admin Dose 40 MG; Start 10/15/17 at 09:00 Ranitidine HCl (Zantac) 300 mg HS PO Last administered on 10/16/17 20:09; Admin Dose 300 MG; Start 10/14/17 at 21:00 Ondansetron HCl (Zofran Inj) 4 mg Q6H PRN IV NAUSEA AND/OR VOMITING Last administered on 10/17/17 10:19; Admin Dose 4 MG; Start 10/14/17 at 16:00 Aspirin (Aspirin) 81 mg DAILY PO Last administered on 10/17/17 08:19; Admin Dose 81 MG; Start 10/15/17 at 09:00 Acetaminophen (Tylenol Tab) 650 mg Q6H PRN PO PAIN LEVEL 1-3 OR FEVER; Start 10/14/17 at 16:00 Enoxaparin Sodium (Lovenox) 30 mg DAILY SC Last administered on 10/17/17 08: 21; Admin Dose 30 MG; Start 10/15/17 at 09:00 Miscellaneous Information 1 ea NOTE XX ; Start 10/14/17 at 16:00 Glucose (Glutose) 15 gm Q15M PRN PO DECREASED GLUCOSE; Start 10/14/17 at 16:00 Glucose (Glutose) 22.5 gm Q15M PRN PO DECREASED GLUCOSE; Start 10/14/17 at 16: 00 Dextrose (D50w Syringe) 25 ml Q15M PRN IV DECREASED GLUCOSE; Start 10/14/17 at 16:00 Dextrose (D50w Syringe) 50 ml Q15M PRN IV DECREASED GLUCOSE; Start 10/14/17 at 16:00 Glucagon (Glucagen) 1 mg Q15M PRN IM DECREASED GLUCOSE; Start 10/14/17 at 16: 00 Glucose (Glutose) 15 gm Q15M PRN BUCCAL DECREASED GLUCOSE; Start 10/14/17 at 16:00 Metoprolol Tartrate 25 mg 25 mg BID PO Last administered on 10/17/17 08:18; Admin Dose 25 MG; Start 10/15/17 at 21:00 Ceftriaxone Sodium (Rocephin) 50 ml @ 100 mls/hr Q24H IVPB Last administered on 10/16/17 17:36; Admin Dose 100 MLS/HR; Start 10/15/17 at 18:00 Clonidine (Catapres) 0.1 mg Q4H PRN PO SBP>170 Last administered on 10/17/17 12:14; Admin Dose 0.1 MG; Start 10/15/17 at 18:00 Tramadol HCl (Ultram) 50 mg Q6H PO Last administered on 10/17/17 08:19; Admin Dose 50 MG; Start 10/16/17 at 10:00 Oxycodone HCl (Oxycontin) 10 mg AM PO Last administered on 10/17/17 08:18; Admin Dose 10 MG; Start 10/16/17 at 09:00 Polyethylene Glycol (Miralax) 17 gm DAILY PO Last administered on 10/17/17 08 :19; Admin Dose 17 GM; Start 10/16/17 at 09:00 Alprazolam (Xanax) 0.5 mg Q8H PRN PO ANXIETY Last administered on 10/16/17 22 :07; Admin Dose 0.5 MG; Start 10/16/17 at 11:30 Phenol (Cepastat Lozenge) 1 lozenge Q1H PRN MT COUGH; Start 10/16/17 at 15:30 Hydralazine HCl (Apresoline) 75 mg Q8 PO ; Start 10/17/17 at 14:00 JUAN PICHARDO Oct 17, 2017 14:43
[2017-10-17] MEDS: GABAPENTIN 100 MG CAP GTB SCH ×2 (15:03→21:33)
[2017-10-17] MEDS: CEFTRIAXONE 1 GM/50 ML (PMX) 50 ML IVPB SCH (17:32)
[2017-10-17] MEDS: INSULIN GLARGINE [LANtus] 3 ML PEN SC SCH (20:14)
[2017-10-17] MEDS: RANITIDINE 150 MG TAB PO SCH (20:17)
[2017-10-18] VITALS (16 sets, daily range): BP systolic 142–196; BP diastolic 64–80; PULSE 61–83; RESP 18–21
[2017-10-18] MEDS: ACCU-CHEK XX SCH (01:56)
[2017-10-18] MEDS: traMADol 50 MG TAB PO SCH ×4 (04:51→22:04)
[2017-10-18] MEDS: LISINOPRIL 20 MG TAB PO SCH (08:22)
[2017-10-18] MEDS: METOPROLOL 25 MG TAB PO SCH ×2 (08:22→20:21)
[2017-10-18] MEDS: ASPIRIN 81 MG TAB PO SCH (08:22)
[2017-10-18] MEDS: POLYETHYLENE GLYCOL 17 GM PACKET PO SCH (08:24)
[2017-10-18] MEDS: GABAPENTIN 100 MG CAP GTB SCH ×3 (08:24→20:20)
[2017-10-18] MEDS: DONEPEZIL 10 MG TAB PO SCH (08:24)
[2017-10-18] MEDS: oxyCODONE (CR) 10 MG TAB [oxyCONTIN] PO SCH (08:25)
[2017-10-18] MEDS: INSULIN ASPART [NOVOLOG] 3 ML PEN SC SCH ×7 (08:43→20:39)
[2017-10-18] MEDS: ENOXAPARIN 30 MG/0.3 ML SYG SC SCH (08:43)
[2017-10-18] MEDS: ONDANSETRON 4 MG INJ IV PRN (11:24)
[2017-10-18] MEDS: hydrALAzine 20 MG INJ IV PRN (11:29)
--- NOTE | 2017-10-18 11:44 | CONS ---
Date/Time of Note Date/Time of Note DATE: 10/18/17 TIME: 11:41 Assessment/Plan Assessment/Plan Chief Complaint/Hosp Course IMPRESSION: 1. Hypertensive urgency/emergency-still uncontrolled 2. Spinal stenosis 3. Diabetes mellitus. 4. Abdominal pain. 5. Arm weakness, left upper extremity. 6. Prerenal ischemia. 7. Mild leukocytosis. 8. Troponin-mildly positive on 3rd draw. No CP. Likely type 2 infarct in setting of HTN emergency-with no sig uptrend on serial ecg Recc: -Tele -serial ecg's -Continue ACEI/BB -Increase hydralazine further and will start CCB to improve BP control -continue asa Problems: Consultation Date/Type/Reason Admit Date/Time Oct 14, 2017 at 10:20 Initial Consult Date 10/14/2017 Type of Consultation: cardiology Reason for Consultation HTN Referring Provider: VINCENZO RODRIGUEZ Exam/Review of Systems Vital Signs Vitals Vital Signs Date Time Temp Pulse Resp B/P Pulse Ox O2 Delivery O2 Flow Rate FiO2 10/18/17 11:29 98.6 57 19 196/78 99 10/17/17 20:00 Nasal Cannula 2.0 Intake and Output 10/17/17 10/17/17 10/18/17 15:00 23:00 07:00 Intake Total 250 ml Output Total 201 ml Balance 49 ml Exam Review of Systems: CONSTITUTIONAL: No fevers, chills. PULMONARY: No sob CARDIOVASCULAR: No chest pain/palpitations GASTROINTESTINAL: No nausea/vomiting. GENITOURINARY: No hematuria/dysuria. MUSCULOSKELETAL: No myagias/arthalgias. PSYCHIATRIC: The patient denies depression. NEUROLOGIC: No weakness Constitutional: alert, oriented Psych: no complaints Head: normocephalic ENMT: mucosa pink and moist Neck: jvd (9 cm water), supple Respiratory: diminished breath sounds (at bases/B) Cardiovascular: regular rate and rhythm Gastrointestinal: other (mild TTP), soft Musculoskeletal: muscle tone (normal) Extremities: edema (trace/B) Neurological: other (No focal deficits) Results Result Diagram: 10/17/17 0608 10/17/17 0608 Results 24 hrs Laboratory Tests Test 10/17/17 12:13 10/17/17 17:29 10/17/17 20:10 10/18/17 08:28 Bedside Glucose 190 143 167 215 Test 10/18/17 11:28 Bedside Glucose 129 Medications Medications Current Medications Hydralazine HCl (Apresoline) 10 mg Q6H PRN IV SBP>170 Last administered on 11:29; Admin Dose 10 MG; Start 10/14/17 at 15:30 Insulin Glargine (Lantus) 21 unit DAILY@20 SC Last administered on 10/17/17 20:14; Admin Dose 21 UNIT; Start 10/14/17 at 20:00 Diagnostic Test (Pha) (Accu-Chek) 1 ea 02 XX ; Start 10/15/17 at 02:00 Donepezil HCl (Aricept) 10 mg DAILY PO Last administered on 10/18/17 08:24; Admin Dose 10 MG; Start 10/15/17 at 09:00 Lisinopril (Zestril) 40 mg DAILY PO Last administered on 10/18/17 08:22; Admin Dose 40 MG; Start 10/15/17 at 09:00 Ranitidine HCl (Zantac) 300 mg HS PO Last administered on 10/17/17 20:17; Admin Dose 300 MG; Start 10/14/17 at 21:00 Ondansetron HCl (Zofran Inj) 4 mg Q6H PRN IV NAUSEA AND/OR VOMITING Last administered on 10/18/17 11:24; Admin Dose 4 MG; Start 10/14/17 at 16:00 Aspirin (Aspirin) 81 mg DAILY PO Last administered on 10/18/17 08:22; Admin Dose 81 MG; Start 10/15/17 at 09:00 Acetaminophen (Tylenol Tab) 650 mg Q6H PRN PO PAIN LEVEL 1-3 OR FEVER; Start 10/14/17 at 16:00 Enoxaparin Sodium (Lovenox) 30 mg DAILY SC Last administered on 10/18/17 08: 43; Admin Dose 30 MG; Start 10/15/17 at 09:00 Miscellaneous Information 1 ea NOTE XX ; Start 10/14/17 at 16:00 Glucose (Glutose) 15 gm Q15M PRN PO DECREASED GLUCOSE; Start 10/14/17 at 16:00 Glucose (Glutose) 22.5 gm Q15M PRN PO DECREASED GLUCOSE; Start 10/14/17 at 16: 00 Dextrose (D50w Syringe) 25 ml Q15M PRN IV DECREASED GLUCOSE; Start 10/14/17 at 16:00 Dextrose (D50w Syringe) 50 ml Q15M PRN IV DECREASED GLUCOSE; Start 10/14/17 at 16:00 Glucagon (Glucagen) 1 mg Q15M PRN IM DECREASED GLUCOSE; Start 10/14/17 at 16: 00 Glucose (Glutose) 15 gm Q15M PRN BUCCAL DECREASED GLUCOSE; Start 10/14/17 at 16:00 Metoprolol Tartrate 25 mg 25 mg BID PO Last administered on 10/18/17 08:22; Admin Dose 25 MG; Start 10/15/17 at 21:00 Ceftriaxone Sodium (Rocephin) 50 ml @ 100 mls/hr Q24H IVPB Last administered on 10/17/17 17:32; Admin Dose 100 MLS/HR; Start 10/15/17 at 18:00 Clonidine (Catapres) 0.1 mg Q4H PRN PO SBP>170 Last administered on 10/17/17 12:14; Admin Dose 0.1 MG; Start 10/15/17 at 18:00 Tramadol HCl (Ultram) 50 mg Q6H PO Last administered on 10/18/17 11:24; Admin Dose 50 MG; Start 10/16/17 at 10:00 Oxycodone HCl (Oxycontin) 10 mg AM PO Last administered on 10/17/17 08:18; Admin Dose 10 MG; Start 10/16/17 at 09:00 Polyethylene Glycol (Miralax) 17 gm DAILY PO Last administered on 10/18/17 08 :24; Admin Dose 17 GM; Start 10/16/17 at 09:00 Alprazolam (Xanax) 0.5 mg Q8H PRN PO ANXIETY Last administered on 10/16/17 22 :07; Admin Dose 0.5 MG; Start 10/16/17 at 11:30 Phenol (Cepastat Lozenge) 1 lozenge Q1H PRN MT COUGH; Start 10/16/17 at 15:30 Hydralazine HCl (Apresoline) 75 mg Q8 PO Last administered on 10/18/17 05:12 ; Admin Dose 75 MG; Start 10/17/17 at 14:00 Gabapentin (Neurontin) 200 mg TID GTB Last administered on 10/18/17t 08:24; Admin Dose 200 MG; Start 10/17/17 at 15:00 LOUIS CRUZ Oct 18, 2017 11:44
--- NOTE | 2017-10-18 16:23 | PN ---
Date/Time of Note Date/Time of Note DATE: 10/18/17 TIME: 16:20 Assessment/Plan VTE Prophylaxis VTE Prophylaxis Intervention: other Lines/Catheters IV Catheter Type (from Nrsg): Saline Lock Urinary Cath still in place: No Assessment/Plan Assessment/Plan -Cervical radiculopathy with central canal stenosis - Dr. Dao neurology consult is appreciated- staff will contact neurology - Dr. Merritt is asked to see patient for pain management. -Hypertensive urgency, continue hydralazine -Elevated troponin. Dr. Oates is following in cardiology consultation. -Diabetes mellitus, continue Lantus, pre-meal NovoLog and NovoLog per sliding scale. -Obesity with BMI of 35.2- dietary consult -History of gastritis, continue PPI Further recommendations based on clinical course. Plan of care discussed with Dr. Rodrigez Subjective 24 Hr Interval Summary Free Text/Dictation nad, Troponin elevated, denies any chest pain, afebrile, Bp elevated, son at bed side- all Qs answered. dw staff Respiratory: no complaints Cardiovascular: no complaints Gastrointestinal: no complaints Genitourinary: no complaints Musculoskeletal: no complaints Exam/Review of Systems Vital Signs Vitals Vital Signs Date Time Temp Pulse Resp B/P Pulse Ox O2 Delivery O2 Flow Rate FiO2 10/18/17 15:38 98.8 78 20 168/74 96 10/18/17 13:58 1.0 10/18/17 08:30 Nasal Cannula Intake and Output 10/17/17 10/17/17 10/18/17 15:00 23:00 07:00 Intake Total 250 ml Output Total 201 ml Balance 49 ml Exam Constitutional: alert, obese Respiratory: normal air movement Cardiovascular: nl pulses Gastrointestinal: non-tender, soft Musculoskeletal: nl extremities to inspection Extremities: normal pulses Neurological: other Results Result Diagram: 10/17/17 0608 10/17/17 0608 Results 24 hrs Laboratory Tests Test 10/17/17 17:29 10/17/17 20:10 10/18/17 08:28 10/18/17 11:28 Bedside Glucose 143 167 215 129 Medications Medications Current Medications Hydralazine HCl (Apresoline) 10 mg Q6H PRN IV SBP>170 Last administered on t 11:29; Admin Dose 10 MG; Start 10/14/17 at 15:30 Insulin Glargine (Lantus) 21 unit DAILY@20 SC Last administered on 10/17/17 20:14; Admin Dose 21 UNIT; Start 10/14/17 at 20:00 Diagnostic Test (Pha) (Accu-Chek) 1 ea 02 XX ; Start 10/15/17 at 02:00 Donepezil HCl (Aricept) 10 mg DAILY PO Last administered on 10/18/17 08:24; Admin Dose 10 MG; Start 10/15/17 at 09:00 Lisinopril (Zestril) 40 mg DAILY PO Last administered on 10/18/17 08:22; Admin Dose 40 MG; Start 10/15/17 at 09:00 Ranitidine HCl (Zantac) 300 mg HS PO Last administered on 10/17/17 20:17; Admin Dose 300 MG; Start 10/14/17 at 21:00 Ondansetron HCl (Zofran Inj) 4 mg Q6H PRN IV NAUSEA AND/OR VOMITING Last administered on 10/18/17 11:24; Admin Dose 4 MG; Start 10/14/17 at 16:00 Aspirin (Aspirin) 81 mg DAILY PO Last administered on 10/18/17 08:22; Admin Dose 81 MG; Start 10/15/17 at 09:00 Acetaminophen (Tylenol Tab) 650 mg Q6H PRN PO PAIN LEVEL 1-3 OR FEVER; Start 10/14/17 at 16:00 Enoxaparin Sodium (Lovenox) 30 mg DAILY SC Last administered on 10/18/17 08: 43; Admin Dose 30 MG; Start 10/15/17 at 09:00 Miscellaneous Information 1 ea NOTE XX ; Start 10/14/17 at 16:00 Glucose (Glutose) 15 gm Q15M PRN PO DECREASED GLUCOSE; Start 10/14/17 at 16:00 Glucose (Glutose) 22.5 gm Q15M PRN PO DECREASED GLUCOSE; Start 10/14/17 at 16: 00 Dextrose (D50w Syringe) 25 ml Q15M PRN IV DECREASED GLUCOSE; Start 10/14/17 at 16:00 Dextrose (D50w Syringe) 50 ml Q15M PRN IV DECREASED GLUCOSE; Start 10/14/17 at 16:00 Glucagon (Glucagen) 1 mg Q15M PRN IM DECREASED GLUCOSE; Start 10/14/17 at 16: 00 Glucose (Glutose) 15 gm Q15M PRN BUCCAL DECREASED GLUCOSE; Start 10/14/17 at 16:00 Metoprolol Tartrate (Lopressor) 25 mg BID PO Last administered on 10/18/17 08 :22; Admin Dose 25 MG; Start 10/15/17 at 21:00 Clonidine (Catapres) 0.1 mg Q4H PRN PO SBP>170 Last administered on 10/17/17 12:14; Admin Dose 0.1 MG; Start 10/15/17 at 18:00 Tramadol HCl (Ultram) 50 mg Q6H PO Last administered on 10/18/17 11:24; Admin Dose 50 MG; Start 10/16/17 at 10:00 Oxycodone HCl (Oxycontin) 10 mg AM PO Last administered on 10/17/17 08:18; Admin Dose 10 MG; Start 10/16/17 at 09:00 Polyethylene Glycol (Miralax) 17 gm DAILY PO Last administered on 10/18/17 08 :24; Admin Dose 17 GM; Start 10/16/17 at 09:00 Alprazolam (Xanax) 0.5 mg Q8H PRN PO ANXIETY Last administered on 10/16/17 22 :07; Admin Dose 0.5 MG; Start 10/16/17 at 11:30 Phenol (Cepastat Lozenge) 1 lozenge Q1H PRN MT COUGH; Start 10/16/17 at 15:30 Gabapentin (Neurontin) 200 mg TID GTB Last administered on 10/18/17 13:13; Admin Dose 200 MG; Start 10/17/17 at 15:00 Hydralazine HCl (Apresoline) 100 mg Q8 PO Last administered on 10/18/17 13:15 ; Admin Dose 100 MG; Start 10/18/17 at 14:00 Amlodipine Besylate (Norvasc) 5 mg BID PO ; Start 10/18/17 at 21:00 JUAN PICHAROD Oct 18, 2017 16:23
[2017-10-18] MEDS: AMLODIPINE 5 MG TAB PO SCH (20:20)
[2017-10-18] MEDS: RANITIDINE 150 MG TAB PO SCH (20:21)
[2017-10-18] MEDS: INSULIN GLARGINE [LANtus] 3 ML PEN SC SCH (20:27)
[2017-10-19] VITALS (12 sets, daily range): BP systolic 156–201; BP diastolic 53–85; PULSE 64–98; RESP 18–20
[2017-10-19] MEDS: ZOLPIDEM 5 MG TAB PO PRN (01:32)
[2017-10-19] MEDS: ACCU-CHEK XX SCH (02:00)
[2017-10-19] MEDS: traMADol 50 MG TAB PO SCH ×2 (04:00→10:36)
[2017-10-19 07:28] LABS: BASOPHILS % 0.4 % (0.0-2.0); EOSINOPHILS # 0.2 10^3/ul (0.0-0.5); EOSINOPHILS % 1.5 % (0.0-7.0); HEMATOCRIT 41.1 % (37.0-47.0); HEMOGLOBIN 13.8 g/dl (12.0-16.0); LYMPHOCYTES # 3.3 10^3/ul (0.8-2.9); LYMPHOCYTES % 32.8 % (15.0-51.0); MEAN CORPUSCULAR HEMOGLOBIN 30.1 pg (29.0-33.0); MEAN CORPUSCULAR HGB CONC 33.6 g/dl (32.0-37.0); MEAN CORPUSCULAR VOLUME 89.5 fl (82.0-101.0); MONOCYTE # 0.7 10^3/ul (0.3-0.9); MONOCYTES % 6.9 % (0.0-11.0); NEUTROPHIL # 5.8 10^3/ul (1.6-7.5); PLATELET COUNT 292 10^3/UL (140-415); RED BLOOD COUNT 4.59 10^6/ul (4.20-5.40); RED CELL DISTRIBUTION WIDTH 14.6 % (11.5-14.5); WHITE BLOOD COUNT 9.9 10^3/ul (4.8-10.8)
[2017-10-19 07:57] LABS: CALCIUM 10.4 mg/dl (8.4-10.2); CREATININE 0.95 mg/dl (0.44-1.00); POTASSIUM 3.9 mmol/L (3.5-5.1)
[2017-10-19] MEDS: GABAPENTIN 100 MG CAP GTB SCH ×3 (08:31→20:09)
[2017-10-19] MEDS: METOPROLOL 25 MG TAB PO SCH (08:32)
[2017-10-19] MEDS: oxyCODONE (CR) 10 MG TAB [oxyCONTIN] PO SCH (08:32)
[2017-10-19] MEDS: LISINOPRIL 20 MG TAB PO SCH (08:32)
[2017-10-19] MEDS: ASPIRIN 81 MG TAB PO SCH (08:33)
[2017-10-19] MEDS: AMLODIPINE 5 MG TAB PO SCH (08:33)
[2017-10-19] MEDS: DONEPEZIL 10 MG TAB PO SCH (08:33)
[2017-10-19] MEDS: POLYETHYLENE GLYCOL 17 GM PACKET PO SCH (08:33)
[2017-10-19] MEDS: ENOXAPARIN 30 MG/0.3 ML SYG SC SCH (08:43)
[2017-10-19] MEDS: INSULIN ASPART [NOVOLOG] 3 ML PEN SC SCH ×7 (08:43→20:10)
--- NOTE | 2017-10-19 10:32 | CONS ---
Date/Time of Note Date/Time of Note DATE: 10/19/17 TIME: 10:29 Assessment/Plan Assessment/Plan Additional Assessment/Plan 1. Hypertensive urgency/emergency-still uncontrolled - still on high side, add BP Rx now 2. Spinal stenosis - per ortho 3. Diabetes mellitus- ont o keep euglycemic now. 4. Abdominal pain - better. 5. Arm weakness, left upper extremity. 6. Prerenal ischemia- renal team follows, avoid nephrotoxic meds. 7. Mild leukocytosis. 8. Troponin-mildly positive on 3rd draw. No CP. Likely type 2 infarct in setting of HTN emergency-with no sig uptrend on serial ecg Consultation Date/Type/Reason Admit Date/Time Oct 14, 2017 at 10:20 Initial Consult Date 10/15/17 Type of Consultation: cardiology Referring Provider: VINCENZO RODRIGUEZ 24 HR Interval Summary Free Text/Dictation NO acute events - BP still high - con't to adjust Rx as tolerated. ROS: No fever, no chills, no nausea, no vomiting, no diarrhea/constipation No recent weight changes No chest pain, no PND, no orthopnea No dizziness, blurred vision No thirst, no heat or cold intolerance Exam/Review of Systems Vital Signs Vitals Vital Signs Date Time Temp Pulse Resp B/P Pulse Ox O2 Delivery O2 Flow Rate FiO2 10/19/17 08:14 98 10/19/17 07:39 98.6 19 173/53 96 10/18/17 20:00 Nasal Cannula 2.0 Intake and Output 10/18/17 10/18/17 10/19/17 14:59 22:59 06:59 Intake Total 700 ml 120 ml Balance 700 ml 120 ml Exam General: WN/WD/NAD, AOx 3 [place] HEENT: Unicetric/atraumatic/EOMI (follows commands) NECK: JVD elevated, no thyromegaly Lymph: no lymphadenopathy HEART: regular with no S3, II/ systolic murmur at apex LUNGS: Coarse sounds ABD: soft, NT, ND, +BS : Intact Neuro: non focal SKIN: chronic changes EXT: trace edema Results Result Diagram: 10/19/17 0645 10/19/17 0645 Results 24 hrs Laboratory Tests Test 10/18/17 11:28 10/18/17 18:18 10/18/17 20:23 10/19/17 06:45 Bedside Glucose 129 166 140 White Blood Count 9.9 Red Blood Count 4.59 Hemoglobin 13.8 Hematocrit 41.1 Mean Corpuscular Volume 89.5 Mean Corpuscular Hemoglobin 30.1 Mean Corpuscular Hemoglobin Concent 33.6 Red Cell Distribution Width 14.6 H Platelet Count 292 Mean Platelet Volume 10.0 Neutrophils % 58.0 Lymphocytes % 32.8 Monocytes % 6.9 Eosinophils % 1.5 Basophils % 0.4 Nucleated Red Blood Cells % 0.0 Neutrophils # 5.8 Lymphocytes # 3.3 H Monocytes # 0.7 Eosinophils # 0.2 Basophils # 0.0 Nucleated Red Blood Cells # 0.0 Sodium Level 134 L Potassium Level 3.9 Chloride Level 99 Carbon Dioxide Level 26 Anion Gap 13 Blood Urea Nitrogen 21 H Creatinine 0.95 Glucose Level 156 Calcium Level 10.4 H Test 10/19/17 08:27 Bedside Glucose 204 Medications Medications Current Medications Hydralazine HCl (Apresoline) 10 mg Q6H PRN IV SBP>170 Last administered on 11:29; Admin Dose 10 MG; Start 10/14/17 at 15:30 Insulin Glargine (Lantus) 21 unit DAILY@20 SC Last administered on 10/18/17 20:27; Admin Dose 21 UNIT; Start 10/14/17 at 20:00 Diagnostic Test (Pha) (Accu-Chek) 1 ea 02 XX ; Start 10/15/17 at 02:00 Donepezil HCl (Aricept) 10 mg DAILY PO Last administered on 10/19/17 08:33; Admin Dose 10 MG; Start 10/15/17 at 09:00 Lisinopril (Zestril) 40 mg DAILY PO Last administered on 10/19/17 08:32; Admin Dose 40 MG; Start 10/15/17 at 09:00 Ranitidine HCl (Zantac) 300 mg HS PO Last administered on 10/18/17 20:21; Admin Dose 300 MG; Start 10/14/17 at 21:00 Ondansetron HCl (Zofran Inj) 4 mg Q6H PRN IV NAUSEA AND/OR VOMITING Last administered on 10/18/17 11:24; Admin Dose 4 MG; Start 10/14/17 at 16:00 Aspirin (Aspirin) 81 mg DAILY PO Last administered on 10/19/17 08:33; Admin Dose 81 MG; Start 10/15/17 at 09:00 Acetaminophen (Tylenol Tab) 650 mg Q6H PRN PO PAIN LEVEL 1-3 OR FEVER; Start 10/14/17 at 16:00 Enoxaparin Sodium (Lovenox) 30 mg DAILY SC Last administered on 10/19/17 08: 43; Admin Dose 30 MG; Start 10/15/17 at 09:00 Miscellaneous Information 1 ea NOTE XX ; Start 10/14/17 at 16:00 Glucose (Glutose) 15 gm Q15M PRN PO DECREASED GLUCOSE; Start 10/14/17 at 16:00 Glucose (Glutose) 22.5 gm Q15M PRN PO DECREASED GLUCOSE; Start 10/14/17 at 16: 00 Dextrose (D50w Syringe) 25 ml Q15M PRN IV DECREASED GLUCOSE; Start 10/14/17 at 16:00 Dextrose (D50w Syringe) 50 ml Q15M PRN IV DECREASED GLUCOSE; Start 10/14/17 at 16:00 Glucagon (Glucagen) 1 mg Q15M PRN IM DECREASED GLUCOSE; Start 10/14/17 at 16: 00 Glucose (Glutose) 15 gm Q15M PRN BUCCAL DECREASED GLUCOSE; Start 10/14/17 at 16:00 Metoprolol Tartrate (Lopressor) 25 mg BID PO Last administered on 10/19/17 08 :32; Admin Dose 25 MG; Start 10/15/17 at 21:00 Clonidine (Catapres) 0.1 mg Q4H PRN PO SBP>170 Last administered on 10/17/17 12:14; Admin Dose 0.1 MG; Start 10/15/17 at 18:00 Tramadol HCl (Ultram) 50 mg Q6H PO Last administered on 10/18/17 22:04; Admin Dose 50 MG; Start 10/16/17 at 10:00 Oxycodone HCl (Oxycontin) 10 mg AM PO Last administered on 10/19/17 08:32; Admin Dose 10 MG; Start 10/16/17 at 09:00 Polyethylene Glycol (Miralax) 17 gm DAILY PO Last administered on 10/19/17 08 :33; Admin Dose 17 GM; Start 10/16/17 at 09:00 Alprazolam (Xanax) 0.5 mg Q8H PRN PO ANXIETY Last administered on 10/16/17 22 :07; Admin Dose 0.5 MG; Start 10/16/17 at 11:30 Phenol (Cepastat Lozenge) 1 lozenge Q1H PRN MT COUGH; Start 10/16/17 at 15:30 Gabapentin (Neurontin) 200 mg TID GTB Last administered on 10/19/17 08:31; Admin Dose 200 MG; Start 10/17/17 at 15:00 Hydralazine HCl (Apresoline) 100 mg Q8 PO Last administered on 10/19/17 05:35 ; Admin Dose 100 MG; Start 10/18/17 at 14:00 Amlodipine Besylate (Norvasc) 5 mg BID PO Last administered on 10/19/17 08:33 ; Admin Dose 5 MG; Start 10/18/17 at 21:00 Zolpidem Tartrate (Ambien) 5 mg HS PRN PO INSOMNIA Last administered on 01:32; Admin Dose 5 MG; Start 10/19/17 at 01:00 MACY YANCEY MD Oct 19, 2017 10:32
[2017-10-19] MEDS: ONDANSETRON 4 MG INJ IV PRN (11:34)
[2017-10-19] MEDS: hydrALAzine 20 MG INJ IV PRN (11:35)
--- NOTE | 2017-10-19 14:30 | RADRPT ---
Vent Rate: 79 bpm RR Interval: 0 msec CA Interval: 152 msec QRS Duration: 82 msec QT Interval: 386 msec QTC Interval: 442 msec P-R-T [place]: 59 - -22 - 20 degrees Normal sinus rhythm Minimal voltage criteria for LVH, may be normal variant Borderline ECG Electronically Signed By: Bam Rodgers [id number]
--- NOTE | 2017-10-19 17:22 | PN ---
Date/Time of Note Date/Time of Note DATE: 10/19/17 TIME: 17:20 Assessment/Plan VTE Prophylaxis VTE Prophylaxis Intervention: SCD's Lines/Catheters IV Catheter Type (from Nrs): Saline Lock Central line still needed: Yes Urinary Cath still in place: No Assessment/Plan Chief Complaint/Hosp Course Patient denies to have elevated blood pressure, BP medication is being optimized by cardiology, continue telemetry monitoring. Assessment/Plan -Cervical radiculopathy with central canal stenosis, Dr. Dao neurology consult is appreciated. Dr. Merritt is following patient for pain management. -Hypertensive urgency, continue hydralazine -Elevated troponin. Dr. Oates is following in cardiology consultation. -Diabetes mellitus, continue Lantus, pre-meal NovoLog and NovoLog per sliding scale. -Obesity with BMI of 36.2 -History of gastritis, continue PPI Further recommendations based on clinical course. Plan of care discussed with Dr. Rodrigez Problems: Exam/Review of Systems Vital Signs Vitals Vital Signs Date Time Temp Pulse Resp B/P Pulse Ox O2 Delivery O2 Flow Rate FiO2 10/19/17 16:06 97.6 79 19 164/72 96 10/19/17 08:30 Nasal Cannula 2.0 Intake and Output 10/18/17 10/18/17 10/19/17 15:00 23:00 07:00 Intake Total 700 ml 120 ml Balance 700 ml 120 ml Exam Constitutional: alert, oriented Neck: supple Respiratory: normal air movement Cardiovascular: nl pulses Gastrointestinal: non-tender, soft Musculoskeletal: nl extremities to inspection Neurological: other (Left upper extremity weakness) Skin: nl turgor Results Result Diagram: 10/19/17 0645 10/19/17 0645 Results 24 hrs Laboratory Tests Test 10/18/17 18:18 10/18/17 20:23 10/19/17 06:45 10/19/17 08:27 Bedside Glucose 166 140 204 White Blood Count 9.9 Red Blood Count 4.59 Hemoglobin 13.8 Hematocrit 41.1 Mean Corpuscular Volume 89.5 Mean Corpuscular Hemoglobin 30.1 Mean Corpuscular Hemoglobin Concent 33.6 Red Cell Distribution Width 14.6 H Platelet Count 292 Mean Platelet Volume 10.0 Neutrophils % 58.0 Lymphocytes % 32.8 Monocytes % 6.9 Eosinophils % 1.5 Basophils % 0.4 Nucleated Red Blood Cells % 0.0 Neutrophils # 5.8 Lymphocytes # 3.3 H Monocytes # 0.7 Eosinophils # 0.2 Basophils # 0.0 Nucleated Red Blood Cells # 0.0 Sodium Level 134 L Potassium Level 3.9 Chloride Level 99 Carbon Dioxide Level 26 Anion Gap 13 Blood Urea Nitrogen 21 H Creatinine 0.95 Glucose Level 156 Calcium Level 10.4 H Test 10/19/17 11:41 10/19/17 17:10 Bedside Glucose 271 H 150 Medications Medications Current Medications Hydralazine HCl (Apresoline) 10 mg Q6H PRN IV SBP>170 Last administered on 11:35; Admin Dose 10 MG; Start 10/14/17 at 15:30 Insulin Glargine (Lantus) 21 unit DAILY@20 SC Last administered on 10/18/17 20:27; Admin Dose 21 UNIT; Start 10/14/17 at 20:00 Diagnostic Test (Pha) (Accu-Chek) 1 ea 02 XX ; Start 10/15/17 at 02:00 Donepezil HCl (Aricept) 10 mg DAILY PO Last administered on 10/19/17 08:33; Admin Dose 10 MG; Start 10/15/17 at 09:00 Lisinopril (Zestril) 40 mg DAILY PO Last administered on 10/19/17 08:32; Admin Dose 40 MG; Start 10/15/17 at 09:00 Ranitidine HCl (Zantac) 300 mg HS PO Last administered on 10/18/17 20:21; Admin Dose 300 MG; Start 10/14/17 at 21:00 Ondansetron HCl (Zofran Inj) 4 mg Q6H PRN IV NAUSEA AND/OR VOMITING Last administered on 10/19/17 11:34; Admin Dose 4 MG; Start 10/14/17 at 16:00 Aspirin (Aspirin) 81 mg DAILY PO Last administered on 10/19/17 08:33; Admin Dose 81 MG; Start 10/15/17 at 09:00 Acetaminophen (Tylenol Tab) 650 mg Q6H PRN PO PAIN LEVEL 1-3 OR FEVER; Start 10/14/17 at 16:00 Enoxaparin Sodium (Lovenox) 30 mg DAILY SC Last administered on 10/19/17 08: 43; Admin Dose 30 MG; Start 10/15/17 at 09:00 Miscellaneous Information 1 ea NOTE XX ; Start 10/14/17 at 16:00 Glucose (Glutose) 15 gm Q15M PRN PO DECREASED GLUCOSE; Start 10/14/17 at 16:00 Glucose (Glutose) 22.5 gm Q15M PRN PO DECREASED GLUCOSE; Start 10/14/17 at 16: 00 Dextrose (D50w Syringe) 25 ml Q15M PRN IV DECREASED GLUCOSE; Start 10/14/17 at 16:00 Dextrose (D50w Syringe) 50 ml Q15M PRN IV DECREASED GLUCOSE; Start 10/14/17 at 16:00 Glucagon (Glucagen) 1 mg Q15M PRN IM DECREASED GLUCOSE; Start 10/14/17 at 16: 00 Glucose (Glutose) 15 gm Q15M PRN BUCCAL DECREASED GLUCOSE; Start 10/14/17 at 16:00 Clonidine (Catapres) 0.1 mg Q4H PRN PO SBP>170 Last administered on 10/19/17 14:54; Admin Dose 0.1 MG; Start 10/15/17 at 18:00 Oxycodone HCl (Oxycontin) 10 mg AM PO Last administered on 10/19/17 08:32; Admin Dose 10 MG; Start 10/16/17 at 09:00 Polyethylene Glycol (Miralax) 17 gm DAILY PO Last administered on 10/19/17 08 :33; Admin Dose 17 GM; Start 10/16/17 at 09:00 Alprazolam (Xanax) 0.5 mg Q8H PRN PO ANXIETY Last administered on 10/16/17 22 :07; Admin Dose 0.5 MG; Start 10/16/17 at 11:30 Phenol (Cepastat Lozenge) 1 lozenge Q1H PRN MT COUGH; Start 10/16/17 at 15:30 Gabapentin (Neurontin) 200 mg TID GTB Last administered on 10/19/17 12:44; Admin Dose 200 MG; Start 10/17/17 at 15:00 Hydralazine HCl (Apresoline) 100 mg Q8 PO Last administered on 10/19/17 14:53 ; Admin Dose 100 MG; Start 10/18/17 at 14:00 Zolpidem Tartrate (Ambien) 5 mg HS PRN PO INSOMNIA Last administered on t 01:32; Admin Dose 5 MG; Start 10/19/17 at 01:00 Nifedipine (Procardia Xl) 60 mg BID PO ; Start 10/19/17 at 21:00 Metoprolol Tartrate (Lopressor) 50 mg BID PO ; Start 10/19/17 at 21:00 VINCENZO RODRIGUEZ Oct 19, 2017 17:21
[2017-10-19] MEDS: RANITIDINE 150 MG TAB PO SCH (20:08)
[2017-10-19] MEDS: METOPROLOL 50 MG TAB PO SCH (20:08)
[2017-10-19] MEDS: NIFEdipine (XL) 60 MG TAB PO SCH (20:09)
[2017-10-19] MEDS: ALPRAZOLAM 0.5 MG TAB PO PRN (20:15)
[2017-10-19] MEDS: INSULIN GLARGINE [LANtus] 3 ML PEN SC SCH (20:39)
[2017-10-20] VITALS (17 sets, daily range): BP systolic 124–183; BP diastolic 63–78; PULSE 62–85; RESP 18–20
[2017-10-20] MEDS: ACCU-CHEK XX SCH (01:53)
[2017-10-20 07:19] LABS: BASOPHILS % 0.4 % (0.0-2.0); EOSINOPHILS # 0.1 10^3/ul (0.0-0.5); EOSINOPHILS % 1.1 % (0.0-7.0); HEMOGLOBIN 14.3 g/dl (12.0-16.0); LYMPHOCYTES # 2.9 10^3/ul (0.8-2.9); LYMPHOCYTES % 27.7 % (15.0-51.0); MEAN CORPUSCULAR HEMOGLOBIN 29.7 pg (29.0-33.0); MEAN CORPUSCULAR HGB CONC 33.3 g/dl (32.0-37.0); MEAN CORPUSCULAR VOLUME 89.2 fl (82.0-101.0); MEAN PLATELET VOLUME 9.7 fl (7.4-10.4); MONOCYTE # 0.6 10^3/ul (0.3-0.9); MONOCYTES % 5.6 % (0.0-11.0); NEUTROPHIL # 6.8 10^3/ul (1.6-7.5); NEUTROPHILS % 64.9 % (39.0-77.0); PLATELET COUNT 288 10^3/UL (140-415); RED BLOOD COUNT 4.82 10^6/ul (4.20-5.40); RED CELL DISTRIBUTION WIDTH 14.5 % (11.5-14.5); WHITE BLOOD COUNT 10.4 10^3/ul (4.8-10.8)
[2017-10-20 07:40] LABS: CALCIUM 10.7 mg/dl (8.4-10.2); CREATININE 0.92 mg/dl (0.44-1.00); POTASSIUM 4.1 mmol/L (3.5-5.1)
[2017-10-20] MEDS: INSULIN ASPART [NOVOLOG] 3 ML PEN SC SCH ×7 (08:47→21:00)
[2017-10-20] MEDS: oxyCODONE (CR) 10 MG TAB [oxyCONTIN] PO SCH (09:00)
[2017-10-20] MEDS: LISINOPRIL 20 MG TAB PO SCH (10:16)
[2017-10-20] MEDS: GABAPENTIN 100 MG CAP GTB SCH ×3 (10:17→20:55)
[2017-10-20] MEDS: NIFEdipine (XL) 60 MG TAB PO SCH ×2 (10:17→20:55)
[2017-10-20] MEDS: DONEPEZIL 10 MG TAB PO SCH (10:18)
[2017-10-20] MEDS: ASPIRIN 81 MG TAB PO SCH (10:18)
[2017-10-20] MEDS: METOPROLOL 50 MG TAB PO SCH ×2 (10:18→20:55)
[2017-10-20] MEDS: POLYETHYLENE GLYCOL 17 GM PACKET PO SCH (10:19)
[2017-10-20] MEDS: ENOXAPARIN 30 MG/0.3 ML SYG SC SCH (10:24)
[2017-10-20] MEDS: ONDANSETRON 4 MG INJ IV PRN ×2 (13:57→20:54)
--- NOTE | 2017-10-20 14:13 | CONS ---
Date/Time of Note Date/Time of Note DATE: 10/20/17 TIME: 14:10 Assessment/Plan Assessment/Plan Chief Complaint/Hosp Course IMPRESSION: 1. Hypertensive urgency/emergency-still uncontrolled 2. Spinal stenosis 3. Diabetes mellitus. 4. Abdominal pain. 5. Arm weakness, left upper extremity. 6. Prerenal ischemia. 7. Mild leukocytosis. 8. Troponin-mildly positive on 3rd draw. No CP. Likely type 2 infarct in setting of HTN emergency-with no sig uptrend on serial ecg Recc: -Tele -serial ecg's -Continue ACEI/BB/hydralazine/CCB -and start cardura to improve BP -continue asa Problems: Consultation Date/Type/Reason Admit Date/Time Oct 14, 2017 at 10:20 Initial Consult Date 10/14/2017 Type of Consultation: cardiology Reason for Consultation HTN Referring Provider: VINCENZO RODRIGUEZ Exam/Review of Systems Vital Signs Vitals Vital Signs Date Time Temp Pulse Resp B/P Pulse Ox O2 Delivery O2 Flow Rate FiO2 10/20/17 13:49 66 178/72 10/20/17 11:47 98.3 18 98 10/20/17 08:00 Nasal Cannula 2.0 Intake and Output 10/19/17 10/19/17 10/20/17 15:00 23:00 07:00 Intake Total 700 ml 350 ml Balance 700 ml 350 ml Exam Review of Systems: CONSTITUTIONAL: No fevers, chills. PULMONARY: No sob CARDIOVASCULAR: No chest pain/palpitations GASTROINTESTINAL: No nausea/vomiting. GENITOURINARY: No hematuria/dysuria. MUSCULOSKELETAL: No myagias/arthalgias. PSYCHIATRIC: The patient denies depression. NEUROLOGIC: No weakness Constitutional: alert, oriented Psych: no complaints Head: normocephalic ENMT: mucosa pink and moist Neck: jvd, supple Respiratory: diminished breath sounds (at bases/B) Cardiovascular: regular rate and rhythm Gastrointestinal: non-tender, soft Musculoskeletal: muscle tone (normal) Extremities: edema (trace/B) Neurological: other (No focal deficits) Results Result Diagram: 10/20/17 0647 10/20/17 0647 Results 24 hrs Laboratory Tests Test 10/19/17 17:10 10/19/17 20:05 10/20/17 06:47 10/20/17 08:32 Bedside Glucose 150 153 221 H White Blood Count 10.4 Red Blood Count 4.82 Hemoglobin 14.3 Hematocrit 43.0 Mean Corpuscular Volume 89.2 Mean Corpuscular Hemoglobin 29.7 Mean Corpuscular Hemoglobin Concent 33.3 Red Cell Distribution Width 14.5 Platelet Count 288 Mean Platelet Volume 9.7 Neutrophils % 64.9 Lymphocytes % 27.7 Monocytes % 5.6 Eosinophils % 1.1 Basophils % 0.4 Nucleated Red Blood Cells % 0.0 Neutrophils # 6.8 Lymphocytes # 2.9 Monocytes # 0.6 Eosinophils # 0.1 Basophils # 0.0 Nucleated Red Blood Cells # 0.0 Sodium Level 136 Potassium Level 4.1 Chloride Level 100 Carbon Dioxide Level 30 Anion Gap 10 Blood Urea Nitrogen 19 Creatinine 0.92 Glucose Level 164 Calcium Level 10.7 H Test 10/20/17 12:18 Bedside Glucose 141 Medications Medications Current Medications Hydralazine HCl (Apresoline) 10 mg Q6H PRN IV SBP>170 Last administered on 11:35; Admin Dose 10 MG; Start 10/14/17 at 15:30 Insulin Glargine (Lantus) 21 unit DAILY@20 SC Last administered on 10/19/17 20:39; Admin Dose 21 UNIT; Start 10/14/17 at 20:00 Diagnostic Test (Pha) (Accu-Chek) 1 ea 02 XX ; Start 10/15/17 at 02:00 Donepezil HCl (Aricept) 10 mg DAILY PO Last administered on 10/20/17 10:18; Admin Dose 10 MG; Start 10/15/17 at 09:00 Lisinopril (Zestril) 40 mg DAILY PO Last administered on 10/20/17 10:16; Admin Dose 40 MG; Start 10/15/17 at 09:00 Ranitidine HCl (Zantac) 300 mg HS PO Last administered on 10/19/17 20:08; Admin Dose 300 MG; Start 10/14/17 at 21:00 Ondansetron HCl (Zofran Inj) 4 mg Q6H PRN IV NAUSEA AND/OR VOMITING Last administered on 10/20/17 13:57; Admin Dose 4 MG; Start 10/14/17 at 16:00 Aspirin (Aspirin) 81 mg DAILY PO Last administered on 10/20/17 10:18; Admin Dose 81 MG; Start 10/15/17 at 09:00 Acetaminophen (Tylenol Tab) 650 mg Q6H PRN PO PAIN LEVEL 1-3 OR FEVER; Start 10/14/17 at 16:00 Enoxaparin Sodium (Lovenox) 30 mg DAILY SC Last administered on 10/20/17 10: 24; Admin Dose 30 MG; Start 10/15/17 at 09:00 Miscellaneous Information 1 ea NOTE XX ; Start 10/14/17 at 16:00 Glucose (Glutose) 15 gm Q15M PRN PO DECREASED GLUCOSE; Start 10/14/17 at 16:00 Glucose (Glutose) 22.5 gm Q15M PRN PO DECREASED GLUCOSE; Start 10/14/17 at 16: 00 Dextrose (D50w Syringe) 25 ml Q15M PRN IV DECREASED GLUCOSE; Start 10/14/17 at 16:00 Dextrose (D50w Syringe) 50 ml Q15M PRN IV DECREASED GLUCOSE; Start 10/14/17 at 16:00 Glucagon (Glucagen) 1 mg Q15M PRN IM DECREASED GLUCOSE; Start 10/14/17 at 16: 00 Glucose (Glutose) 15 gm Q15M PRN BUCCAL DECREASED GLUCOSE; Start 10/14/17 at 16:00 Clonidine (Catapres) 0.1 mg Q4H PRN PO SBP>170 Last administered on 10/19/17 14:54; Admin Dose 0.1 MG; Start 10/15/17 at 18:00 Oxycodone HCl (Oxycontin) 10 mg AM PO Last administered on 10/19/17 08:32; Admin Dose 10 MG; Start 10/16/17 at 09:00 Polyethylene Glycol (Miralax) 17 gm DAILY PO Last administered on 10/20/17 10 :19; Admin Dose 17 GM; Start 10/16/17 at 09:00 Alprazolam (Xanax) 0.5 mg Q8H PRN PO ANXIETY Last administered on 10/19/17 20 :15; Admin Dose 0.5 MG; Start 10/16/17 at 11:30 Phenol (Cepastat Lozenge) 1 lozenge Q1H PRN MT COUGH; Start 10/16/17 at 15:30 Gabapentin (Neurontin) 200 mg TID GTB Last administered on 10/20/17 13:48; Admin Dose 200 MG; Start 10/17/17 at 15:00 Hydralazine HCl (Apresoline) 100 mg Q8 PO Last administered on 10/20/17 13:48 ; Admin Dose 100 MG; Start 10/18/17 at 14:00 Zolpidem Tartrate (Ambien) 5 mg HS PRN PO INSOMNIA Last administered on 01:32; Admin Dose 5 MG; Start 10/19/17 at 01:00 Nifedipine (Procardia Xl) 60 mg BID PO Last administered on 10/20/17 10:17; Admin Dose 60 MG; Start 10/19/17 at 21:00 Metoprolol Tartrate (Lopressor) 50 mg BID PO Last administered on 10/20/17 10 :18; Admin Dose 50 MG; Start 10/19/17 at 21:00 LOUIS CRUZ Oct 20, 2017 14:13
--- NOTE | 2017-10-20 16:40 | PN ---
Date/Time of Note Date/Time of Note DATE: 10/20/17 TIME: 16:38 Assessment/Plan VTE Prophylaxis VTE Prophylaxis Intervention: SCD's Lines/Catheters [facility] Saline [facility] Urinary Cath still in place: No Assessment/Plan Chief Complaint/Hosp Course Patient continues to have elevated blood pressure, continue medical optimization by cardiology, continue telemetry monitoring. When blood pressure is well controlled patient could be transferred to acute rehab. Assessment/Plan -Cervical radiculopathy with central canal stenosis, Dr. Dao neurology consult is appreciated. Dr. Merritt is following patient for pain management. -Hypertensive urgency, continue hydralazine -Elevated troponin. Dr. Oates is following in cardiology consultation. -Diabetes mellitus, continue Lantus, pre-meal NovoLog and NovoLog per sliding scale. -Obesity with BMI of 36.2 -History of gastritis, continue PPI Further recommendations based on clinical course. Plan of care discussed with Dr. Rodrigez Problems: Exam/Review of Systems Vital Signs Vitals Vital Signs Date Time Temp Pulse Resp B/P Pulse Ox O2 Delivery O2 Flow Rate FiO2 10/20/17 15:55 98.1 67 20 164/74 97 10/20/17 08:00 Nasal Cannula 2.0 Intake and Output 10/19/17 10/19/17 10/20/17 14:59 22:59 06:59 Intake Total 700 ml 350 ml Balance 700 ml 350 ml Exam Constitutional: alert, oriented Neck: supple Respiratory: normal air movement Cardiovascular: nl pulses Gastrointestinal: non-tender, soft Musculoskeletal: nl extremities to inspection Neurological: other (Left upper extremity weakness) Results Result Diagram: 10/20/17 0647 10/20/17 0647 Results 24 hrs Laboratory Tests Test 10/19/17 17:10 10/19/17 20:05 10/20/17 06:47 10/20/17 08:32 Bedside Glucose 150 153 221 H White Blood Count 10.4 Red Blood Count 4.82 Hemoglobin 14.3 Hematocrit 43.0 Mean Corpuscular Volume 89.2 Mean Corpuscular Hemoglobin 29.7 Mean Corpuscular Hemoglobin Concent 33.3 Red Cell Distribution Width 14.5 Platelet Count 288 Mean Platelet Volume 9.7 Neutrophils % 64.9 Lymphocytes % 27.7 Monocytes % 5.6 Eosinophils % 1.1 Basophils % 0.4 Nucleated Red Blood Cells % 0.0 Neutrophils # 6.8 Lymphocytes # 2.9 Monocytes # 0.6 Eosinophils # 0.1 Basophils # 0.0 Nucleated Red Blood Cells # 0.0 Sodium Level 136 Potassium Level 4.1 Chloride Level 100 Carbon Dioxide Level 30 Anion Gap 10 Blood Urea Nitrogen 19 Creatinine 0.92 Glucose Level 164 Calcium Level 10.7 H Test 10/20/17 12:18 Bedside Glucose 141 Medications Medications Current Medications Hydralazine HCl (Apresoline) 10 mg Q6H PRN IV SBP>170 Last administered on 11:35; Admin Dose 10 MG; Start 10/14/17 at 15:30 Insulin Glargine (Lantus) 21 unit DAILY@20 SC Last administered on 10/19/17 20:39; Admin Dose 21 UNIT; Start 10/14/17 at 20:00 Diagnostic Test (Pha) (Accu-Chek) 1 ea 02 XX ; Start 10/15/17 at 02:00 Donepezil HCl (Aricept) 10 mg DAILY PO Last administered on 10/20/17 10:18; Admin Dose 10 MG; Start 10/15/17 at 09:00 Lisinopril (Zestril) 40 mg DAILY PO Last administered on 10/20/17 10:16; Admin Dose 40 MG; Start 10/15/17 at 09:00 Ranitidine HCl (Zantac) 300 mg HS PO Last administered on 10/19/17 20:08; Admin Dose 300 MG; Start 10/14/17 at 21:00 Ondansetron HCl (Zofran Inj) 4 mg Q6H PRN IV NAUSEA AND/OR VOMITING Last administered on 10/20/17 13:57; Admin Dose 4 MG; Start 10/14/17 at 16:00 Aspirin (Aspirin) 81 mg DAILY PO Last administered on 10/20/17 10:18; Admin Dose 81 MG; Start 10/15/17 at 09:00 Acetaminophen (Tylenol Tab) 650 mg Q6H PRN PO PAIN LEVEL 1-3 OR FEVER; Start 10/14/17 at 16:00 Enoxaparin Sodium (Lovenox) 30 mg DAILY SC Last administered on 10/20/17 10: 24; Admin Dose 30 MG; Start 10/15/17 at 09:00 Miscellaneous Information 1 ea NOTE XX ; Start 10/14/17 at 16:00 Glucose (Glutose) 15 gm Q15M PRN PO DECREASED GLUCOSE; Start 10/14/17 at 16:00 Glucose (Glutose) 22.5 gm Q15M PRN PO DECREASED GLUCOSE; Start 10/14/17 at 16: 00 Dextrose (D50w Syringe) 25 ml Q15M PRN IV DECREASED GLUCOSE; Start 10/14/17 at 16:00 Dextrose (D50w Syringe) 50 ml Q15M PRN IV DECREASED GLUCOSE; Start 10/14/17 at 16:00 Glucagon (Glucagen) 1 mg Q15M PRN IM DECREASED GLUCOSE; Start 10/14/17 at 16: 00 Glucose (Glutose) 15 gm Q15M PRN BUCCAL DECREASED GLUCOSE; Start 10/14/17 at 16:00 Clonidine (Catapres) 0.1 mg Q4H PRN PO SBP>170 Last administered on 10/19/17 14:54; Admin Dose 0.1 MG; Start 10/15/17 at 18:00 Oxycodone HCl (Oxycontin) 10 mg AM PO Last administered on 10/19/17 08:32; Admin Dose 10 MG; Start 10/16/17 at 09:00 Polyethylene Glycol (Miralax) 17 gm DAILY PO Last administered on 10/20/17 10 :19; Admin Dose 17 GM; Start 10/16/17 at 09:00 Alprazolam (Xanax) 0.5 mg Q8H PRN PO ANXIETY Last administered on 10/19/17 20 :15; Admin Dose 0.5 MG; Start 10/16/17 at 11:30 Phenol (Cepastat Lozenge) 1 lozenge Q1H PRN MT COUGH; Start 10/16/17 at 15:30 Gabapentin (Neurontin) 200 mg TID GTB Last administered on 10/20/17 13:48; Admin Dose 200 MG; Start 10/17/17 at 15:00 Hydralazine HCl (Apresoline) 100 mg Q8 PO Last administered on 10/20/17 13:48 ; Admin Dose 100 MG; Start 10/18/17 at 14:00 Zolpidem Tartrate (Ambien) 5 mg HS PRN PO INSOMNIA Last administered on 11/21/ 17at 01:32; Admin Dose 5 MG; Start 10/19/17 at 01:00 Nifedipine (Procardia Xl) 60 mg BID PO Last administered on 10/20/17 10:17; Admin Dose 60 MG; Start 10/19/17 at 21:00 Metoprolol Tartrate (Lopressor) 50 mg BID PO Last administered on 10/20/17 10 :18; Admin Dose 50 MG; Start 10/19/17 at 21:00 Doxazosin Mesylate (Cardura) 2 mg BID PO ; Start 10/20/17 at 21:00 VINCENZO RODRIGUEZ Oct 20, 2017 16:40
[2017-10-20] MEDS: hydrALAzine 20 MG INJ IV PRN (17:48)
[2017-10-20] MEDS ORDERED: NA PHOSPHATE/BIPHOS 133 ML ENEMA PR ONE (20:00)
[2017-10-20] MEDS: RANITIDINE 150 MG TAB PO SCH (20:54)
[2017-10-20] MEDS: DOXAZOSIN 2 MG TAB PO SCH (20:55)
[2017-10-20] MEDS: INSULIN GLARGINE [LANtus] 3 ML PEN SC SCH (21:11)
[2017-10-21] VITALS (12 sets, daily range): BP systolic 103–131; BP diastolic 47–60; PULSE 53–71; RESP 16–20
[2017-10-21] MEDS: ACCU-CHEK XX SCH (02:00)
[2017-10-21 07:21] LABS: CALCIUM 10.5 mg/dl (8.4-10.2); CREATININE 1.24 mg/dl (0.44-1.00); POTASSIUM 4.5 mmol/L (3.5-5.1)
[2017-10-21] MEDS: GABAPENTIN 100 MG CAP GTB SCH ×3 (08:40→21:02)
[2017-10-21] MEDS: NIFEdipine (XL) 60 MG TAB PO SCH ×2 (08:40→21:00)
[2017-10-21] MEDS: ASPIRIN 81 MG TAB PO SCH (08:41)
[2017-10-21] MEDS: DOXAZOSIN 2 MG TAB PO SCH ×2 (08:41→21:00)
[2017-10-21] MEDS: DONEPEZIL 10 MG TAB PO SCH (08:41)
[2017-10-21] MEDS: METOPROLOL 50 MG TAB PO SCH ×2 (08:41→21:00)
[2017-10-21] MEDS: LISINOPRIL 20 MG TAB PO SCH (08:41)
[2017-10-21] MEDS: oxyCODONE (CR) 10 MG TAB [oxyCONTIN] PO SCH (08:42)
[2017-10-21] MEDS: POLYETHYLENE GLYCOL 17 GM PACKET PO SCH (08:42)
[2017-10-21] MEDS: INSULIN ASPART [NOVOLOG] 3 ML PEN SC SCH ×7 (08:48→21:00)
[2017-10-21] MEDS: ENOXAPARIN 30 MG/0.3 ML SYG SC SCH (08:49)
[2017-10-21] MEDS: ONDANSETRON 4 MG INJ IV PRN (11:07)
--- NOTE | 2017-10-21 12:18 | CONS ---
Date/Time of Note Date/Time of Note DATE: 10/21/17 TIME: 12:17 Assessment/Plan Assessment/Plan Additional Assessment/Plan 1. Hypertensive urgency/emergency-still uncontrolled - still on high side, add BP Rx now - better now, will monitor clinically, 2. Spinal stenosis - per ortho - defer 3. Diabetes mellitus- ont o keep euglycemic now. 4. Abdominal pain - better. 5. Arm weakness, left upper extremity. 6. Prerenal ischemia- renal team follows, avoid nephrotoxic meds. 7. Mild leukocytosis. 8. Troponin-mildly positive on 3rd draw. No CP. Likely type 2 infarct in setting of HTN emergency-with no sig uptrend on serial ecg - no intervention palnned now. Consultation Date/Type/Reason Admit Date/Time Oct 14, 2017 at 10:20 Initial Consult Date 10/15/17 Type of Consultation: cardiology Referring Provider: VINCENZO RODRIGUEZ 24 HR Interval Summary Free Text/Dictation No acute events - pt feels better - more alert and awake - will Rx medically for now ROS: No fever, no chills, no nausea, no vomiting, no diarrhea/constipation No recent weight changes No chest pain, no PND, no orthopnea No dizziness, blurred vision No thirst, no heat or cold intolerance Exam/Review of Systems Vital Signs Vitals Vital Signs Date Time Temp Pulse Resp B/P Pulse Ox O2 Delivery O2 Flow Rate FiO2 10/21/17 11:18 98.1 67 18 109/55 98 10/20/17 20:00 Nasal Cannula 2.0 Intake and Output 10/20/17 10/20/17 10/21/17 15:00 23:00 07:00 Intake Total 1260 ml 300 ml Balance 1260 ml 300 ml Exam General: WN/WD/NAD, AOx 3 [place] HEENT: Unicetric/atraumatic/EOMI (follow commands) NECK: JVD elevated, no thyromegaly Lymph: no lymphadenopathy HEART: regular with no S3, II/ systolic murmur at apex LUNGS: Coarse sounds ABD: soft, NT, ND, +BS : Intact Neuro: post CVA SKIN: chronic changes EXT: trace edema Results Result Diagram: 10/20/17 0647 10/21/17 0619 Results 24 hrs Laboratory Tests Test 10/20/17 12:18 10/20/17 17:54 10/20/17 20:30 10/21/17 06:19 Bedside Glucose 141 102 132 Sodium Level 134 L Potassium Level 4.5 Chloride Level 98 Carbon Dioxide Level 29 Anion Gap 12 Blood Urea Nitrogen 27 H Creatinine 1.24 H Glucose Level 154 Calcium Level 10.5 H Test 10/21/17 08:38 Bedside Glucose 282 H Medications Medications Current Medications Hydralazine HCl (Apresoline) 10 mg Q6H PRN IV SBP>170 Last administered on 17:48; Admin Dose 10 MG; Start 10/14/17 at 15:30 Insulin Glargine (Lantus) 21 unit DAILY@20 SC Last administered on 10/20/17 21:11; Admin Dose 21 UNIT; Start 10/14/17 at 20:00 Diagnostic Test (Pha) (Accu-Chek) 1 ea 02 XX ; Start 10/15/17 at 02:00 Donepezil HCl (Aricept) 10 mg DAILY PO Last administered on 10/21/17 08:41; Admin Dose 10 MG; Start 10/15/17 at 09:00 Lisinopril (Zestril) 40 mg DAILY PO Last administered on 10/21/17 08:41; Admin Dose 40 MG; Start 10/15/17 at 09:00 Ranitidine HCl (Zantac) 300 mg HS PO Last administered on 10/20/17 20:54; Admin Dose 300 MG; Start 10/14/17 at 21:00 Ondansetron HCl (Zofran Inj) 4 mg Q6H PRN IV NAUSEA AND/OR VOMITING Last administered on 10/21/17 11:07; Admin Dose 4 MG; Start 10/14/17 at 16:00 Aspirin (Aspirin) 81 mg DAILY PO Last administered on 10/21/17 08:41; Admin Dose 81 MG; Start 10/15/17 at 09:00 Acetaminophen (Tylenol Tab) 650 mg Q6H PRN PO PAIN LEVEL 1-3 OR FEVER Last administered on 10/20/17 20:54; Admin Dose 650 MG; Start 10/14/17 at 16:00 Enoxaparin Sodium (Lovenox) 30 mg DAILY SC Last administered on 10/21/17 08: 49; Admin Dose 30 MG; Start 10/15/17 at 09:00 Miscellaneous Information 1 ea NOTE XX ; Start 10/14/17 at 16:00 Glucose (Glutose) 15 gm Q15M PRN PO DECREASED GLUCOSE; Start 10/14/17 at 16:00 Glucose (Glutose) 22.5 gm Q15M PRN PO DECREASED GLUCOSE; Start 10/14/17 at 16: 00 Dextrose (D50w Syringe) 25 ml Q15M PRN IV DECREASED GLUCOSE; Start 10/14/17 at 16:00 Dextrose (D50w Syringe) 50 ml Q15M PRN IV DECREASED GLUCOSE; Start 10/14/17 at 16:00 Glucagon (Glucagen) 1 mg Q15M PRN IM DECREASED GLUCOSE; Start 10/14/17 at 16: 00 Glucose (Glutose) 15 gm Q15M PRN BUCCAL DECREASED GLUCOSE; Start 10/14/17 at 16:00 Clonidine (Catapres) 0.1 mg Q4H PRN PO SBP>170 Last administered on 10/19/17 14:54; Admin Dose 0.1 MG; Start 10/15/17 at 18:00 Oxycodone HCl (Oxycontin) 10 mg AM PO Last administered on 10/21/17 08:42; Admin Dose 10 MG; Start 10/16/17 at 09:00 Polyethylene Glycol (Miralax) 17 gm DAILY PO Last administered on 10/21/17 08 :42; Admin Dose 17 GM; Start 10/16/17 at 09:00 Alprazolam (Xanax) 0.5 mg Q8H PRN PO ANXIETY Last administered on 10/19/17 20 :15; Admin Dose 0.5 MG; Start 10/16/17 at 11:30 Phenol (Cepastat Lozenge) 1 lozenge Q1H PRN MT COUGH; Start 10/16/17 at 15:30 Gabapentin (Neurontin) 200 mg TID GTB Last administered on 10/21/17 08:40; Admin Dose 200 MG; Start 10/17/17 at 15:00 Hydralazine HCl (Apresoline) 100 mg Q8 PO Last administered on 10/21/17 05:59 ; Admin Dose 100 MG; Start 10/18/17 at 14:00 Zolpidem Tartrate (Ambien) 5 mg HS PRN PO INSOMNIA Last administered on 01:32; Admin Dose 5 MG; Start 10/19/17 at 01:00 Nifedipine (Procardia Xl) 60 mg BID PO Last administered on 10/21/17 08:40; Admin Dose 60 MG; Start 10/19/17 at 21:00 Metoprolol Tartrate (Lopressor) 50 mg BID PO Last administered on 10/21/17 08 :41; Admin Dose 50 MG; Start 10/19/17 at 21:00 Doxazosin Mesylate (Cardura) 2 mg BID PO Last administered on 10/21/17 08:41 ; Admin Dose 2 MG; Start 10/20/17 at 21:00 MACY YANCEY MD Oct 21, 2017 12:18
--- NOTE | 2017-10-21 15:04 | PN ---
Date/Time of Note Date/Time of Note DATE: 10/21/17 TIME: 15:02 Assessment/Plan VTE Prophylaxis VTE Prophylaxis Intervention: other Lines/Catheters IV Catheter Type (from [facility]): Saline Lock Urinary Cath still in place: No Assessment/Plan Assessment/Plan -Cervical radiculopathy with central canal stenosis, Dr. Dao neurology consult is appreciated. Dr. Merritt is following patient for pain management. -Hypertensive urgency, continue hydralazine -Elevated troponin. Dr. Oates is following in cardiology consultation. -Diabetes mellitus, continue Lantus, pre-meal NovoLog and NovoLog per sliding scale. -Obesity with BMI of 36.2 -History of gastritis, continue PPI For ARU rehab placement. Further recommendations based on clinical course. Plan of care discussed with Dr. Rodrigez Subjective 24 Hr Interval Summary ENT: no complaints Respiratory: no complaints Cardiovascular: no complaints Gastrointestinal: no complaints Musculoskeletal: other Exam/Review of Systems Vital Signs Vitals Vital Signs Date Time Temp Pulse Resp B/P Pulse Ox O2 Delivery O2 Flow Rate FiO2 10/21/17 12:24 65 10/21/17 11:18 98.1 18 109/55 98 10/20/17 20:00 Nasal Cannula 2.0 Intake and Output 10/20/17 10/20/17 10/21/17 15:00 23:00 07:00 Intake Total 1260 ml 300 ml Balance 1260 ml 300 ml Exam Constitutional: alert, obese, oriented Respiratory: clear to auscultation Gastrointestinal: non-tender, soft Musculoskeletal: nl extremities to inspection Extremities: normal pulses Neurological: other Results Result Diagram: 10/20/17 0647 10/21/17 0619 Results 24 hrs Laboratory Tests Test 10/20/17 17:54 10/20/17 20:30 10/21/17 06:19 10/21/17 08:38 Bedside Glucose 102 132 282 H Sodium Level 134 L Potassium Level 4.5 Chloride Level 98 Carbon Dioxide Level 29 Anion Gap 12 Blood Urea Nitrogen 27 H Creatinine 1.24 H Glucose Level 154 Calcium Level 10.5 H Test 10/21/17 12:32 Bedside Glucose 167 Medications Medications Current Medications Hydralazine HCl (Apresoline) 10 mg Q6H PRN IV SBP>170 Last administered on t 17:48; Admin Dose 10 MG; Start 10/14/17 at 15:30 Insulin Glargine (Lantus) 21 unit DAILY@20 SC Last administered on 10/20/17 21:11; Admin Dose 21 UNIT; Start 10/14/17 at 20:00 Diagnostic Test (Pha) (Accu-Chek) 1 ea 02 XX ; Start 10/15/17 at 02:00 Donepezil HCl (Aricept) 10 mg DAILY PO Last administered on 10/21/17 08:41; Admin Dose 10 MG; Start 10/15/17 at 09:00 Lisinopril (Zestril) 40 mg DAILY PO Last administered on 10/21/17 08:41; Admin Dose 40 MG; Start 10/15/17 at 09:00 Ranitidine HCl (Zantac) 300 mg HS PO Last administered on 10/20/17 20:54; Admin Dose 300 MG; Start 10/14/17 at 21:00 Ondansetron HCl (Zofran Inj) 4 mg Q6H PRN IV NAUSEA AND/OR VOMITING Last administered on 10/21/17 11:07; Admin Dose 4 MG; Start 10/14/17 at 16:00 Aspirin (Aspirin) 81 mg DAILY PO Last administered on 10/21/17 08:41; Admin Dose 81 MG; Start 10/15/17 at 09:00 Acetaminophen (Tylenol Tab) 650 mg Q6H PRN PO PAIN LEVEL 1-3 OR FEVER Last administered on 10/20/17 20:54; Admin Dose 650 MG; Start 10/14/17 at 16:00 Enoxaparin Sodium (Lovenox) 30 mg DAILY SC Last administered on 10/21/17 08: 49; Admin Dose 30 MG; Start 10/15/17 at 09:00 Miscellaneous Information 1 ea NOTE XX ; Start 10/14/17 at 16:00 Glucose (Glutose) 15 gm Q15M PRN PO DECREASED GLUCOSE; Start 10/14/17 at 16:00 Glucose (Glutose) 22.5 gm Q15M PRN PO DECREASED GLUCOSE; Start 10/14/17 at 16: 00 Dextrose (D50w Syringe) 25 ml Q15M PRN IV DECREASED GLUCOSE; Start 10/14/17 at 16:00 Dextrose (D50w Syringe) 50 ml Q15M PRN IV DECREASED GLUCOSE; Start 10/14/17 at 16:00 Glucagon (Glucagen) 1 mg Q15M PRN IM DECREASED GLUCOSE; Start 10/14/17 at 16: 00 Glucose (Glutose) 15 gm Q15M PRN BUCCAL DECREASED GLUCOSE; Start 10/14/17 at 16:00 Clonidine (Catapres) 0.1 mg Q4H PRN PO SBP>170 Last administered on 10/19/17 14:54; Admin Dose 0.1 MG; Start 10/15/17 at 18:00 Oxycodone HCl (Oxycontin) 10 mg AM PO Last administered on 10/21/17 08:42; Admin Dose 10 MG; Start 10/16/17 at 09:00 Polyethylene Glycol (Miralax) 17 gm DAILY PO Last administered on 10/21/17 08 :42; Admin Dose 17 GM; Start 10/16/17 at 09:00 Alprazolam (Xanax) 0.5 mg Q8H PRN PO ANXIETY Last administered on 10/19/17 20 :15; Admin Dose 0.5 MG; Start 10/16/17 at 11:30 Phenol (Cepastat Lozenge) 1 lozenge Q1H PRN MT COUGH; Start 10/16/17 at 15:30 Gabapentin (Neurontin) 200 mg TID GTB Last administered on 10/21/17 12:33; Admin Dose 200 MG; Start 10/17/17 at 15:00 Hydralazine HCl (Apresoline) 100 mg Q8 PO Last administered on 10/21/17 05:59 ; Admin Dose 100 MG; Start 10/18/17 at 14:00 Zolpidem Tartrate (Ambien) 5 mg HS PRN PO INSOMNIA Last administered on 01:32; Admin Dose 5 MG; Start 10/19/17 at 01:00 Nifedipine (Procardia Xl) 60 mg BID PO Last administered on 10/21/17 08:40; Admin Dose 60 MG; Start 10/19/17 at 21:00 Metoprolol Tartrate (Lopressor) 50 mg BID PO Last administered on 10/21/17 08 :41; Admin Dose 50 MG; Start 10/19/17 at 21:00 Doxazosin Mesylate (Cardura) 2 mg BID PO Last administered on 10/21/17 08:41 ; Admin Dose 2 MG; Start 10/20/17 at 21:00 JUAN PICHARDO Oct 21, 2017 15:04
[2017-10-21] MEDS ORDERED: SOD CHLORIDE 0.45% 500 ML IV ONE (15:30)
[2017-10-21] MEDS: RANITIDINE 150 MG TAB PO SCH (21:04)
[2017-10-21] MEDS: INSULIN GLARGINE [LANtus] 3 ML PEN SC SCH (21:13)
[2017-10-21] MEDS: ALPRAZOLAM 0.5 MG TAB PO PRN (21:15)
[2017-10-22] VITALS (12 sets, daily range): BP systolic 103–154; BP diastolic 53–78; PULSE 62–94; RESP 17–20
[2017-10-22] MEDS: ACCU-CHEK XX SCH (02:00)
[2017-10-22 07:10] LABS: BASOPHILS % 0.2 % (0.0-2.0); EOSINOPHILS # 0.1 10^3/ul (0.0-0.5); EOSINOPHILS % 1.1 % (0.0-7.0); HEMATOCRIT 36.7 % (37.0-47.0); HEMOGLOBIN 12.2 g/dl (12.0-16.0); LYMPHOCYTES # 1.9 10^3/ul (0.8-2.9); LYMPHOCYTES % 31.3 % (15.0-51.0); MEAN CORPUSCULAR HGB CONC 33.2 g/dl (32.0-37.0); MEAN CORPUSCULAR VOLUME 90.4 fl (82.0-101.0); MEAN PLATELET VOLUME 10.2 fl (7.4-10.4); MONOCYTE # 0.4 10^3/ul (0.3-0.9); MONOCYTES % 5.7 % (0.0-11.0); NEUTROPHIL # 3.8 10^3/ul (1.6-7.5); NEUTROPHILS % 61.4 % (39.0-77.0); PLATELET COUNT 234 10^3/UL (140-415); RED BLOOD COUNT 4.06 10^6/ul (4.20-5.40); RED CELL DISTRIBUTION WIDTH 14.5 % (11.5-14.5); WHITE BLOOD COUNT 6.2 10^3/ul (4.8-10.8)
[2017-10-22 07:32] LABS: CALCIUM 10.4 mg/dl (8.4-10.2); CREATININE 1.08 mg/dl (0.44-1.00); POTASSIUM 4.3 mmol/L (3.5-5.1)
[2017-10-22] MEDS: INSULIN ASPART [NOVOLOG] 3 ML PEN SC SCH ×7 (08:44→21:00)
[2017-10-22] MEDS: NIFEdipine (XL) 60 MG TAB PO SCH ×2 (09:29→20:52)
[2017-10-22] MEDS: POLYETHYLENE GLYCOL 17 GM PACKET PO SCH (09:29)
[2017-10-22] MEDS: ASPIRIN 81 MG TAB PO SCH (09:29)
[2017-10-22] MEDS: DONEPEZIL 10 MG TAB PO SCH (09:29)
[2017-10-22] MEDS: METOPROLOL 50 MG TAB PO SCH ×2 (09:29→20:53)
[2017-10-22] MEDS: DOXAZOSIN 2 MG TAB PO SCH ×2 (09:30→20:52)
[2017-10-22] MEDS: oxyCODONE (CR) 10 MG TAB [oxyCONTIN] PO SCH (09:30)
[2017-10-22] MEDS: GABAPENTIN 100 MG CAP GTB SCH ×3 (09:30→20:51)
[2017-10-22] MEDS: LISINOPRIL 20 MG TAB PO SCH (09:30)
[2017-10-22] MEDS: ENOXAPARIN 30 MG/0.3 ML SYG SC SCH (09:34)
--- NOTE | 2017-10-22 13:51 | CONS ---
Date/Time of Note Date/Time of Note DATE: 10/22/17 TIME: 13:50 Assessment/Plan Assessment/Plan Additional Assessment/Plan 1. Hypertensive urgency/emergency-still uncontrolled - still on high side, add BP Rx now - better now, will monitor clinically, WILL MONITPR CLINICALLY NOW - much better overall. 2. Spinal stenosis - per ortho - defer 3. Diabetes mellitus- ont o keep euglycemic now. 4. Abdominal pain - better. 5. Arm weakness, left upper extremity. 6. Prerenal ischemia- renal team follows, avoid nephrotoxic meds. 7. Mild leukocytosis. 8. Troponin-mildly positive on 3rd draw. No CP. Likely type 2 infarct in setting of HTN emergency-with no sig uptrend on serial ecg - no intervention planned now. OUTPT f/up as needed. Consultation Date/Type/Reason Admit Date/Time Oct 14, 2017 at 10:20 Initial Consult Date 10/15/17 Type of Consultation: cardiology Referring Provider: VINCENZO RODRIGUEZ 24 HR Interval Summary Free Text/Dictation Much better overall - no significant ectopy on tele. ROS: No fever, no chills, no nausea, no vomiting, no diarrhea/constipation No recent weight changes No chest pain, no PND, no orthopnea No dizziness, blurred vision No thirst, no heat or cold intolerance Exam/Review of Systems Vital Signs Vitals Vital Signs Date Time Temp Pulse Resp B/P Pulse Ox O2 Delivery O2 Flow Rate FiO2 10/22/17 12:31 70 10/22/17 11:47 98.8 18 150/65 96 10/20/17 20:00 Nasal Cannula 2.0 Intake and Output 10/21/17 10/21/17 10/22/17 14:59 22:59 06:59 Intake Total 740 ml 500 ml Balance 740 ml 500 ml Exam General: WN/WD/NAD, AOx 3 - up to chair HEENT: Unicetric/atraumatic/EOMI (follow commands) NECK: JVD elevated, no thyromegaly Lymph: no lymphadenopathy HEART: regular with no S3, II/ systolic murmur at apex LUNGS: Coarse sounds ABD: soft, NT, ND, +BS : Intact Neuro: post CVA SKIN: chronic changes EXT: trace edema Results Result Diagram: 10/22/1764010/22/17640 Results 24 hrs Laboratory Tests Test 10/21/17 17:16 10/21/17 20:58 10/22/17 06:41 10/22/17 08:36 Bedside Glucose 172 150 224 H White Blood Count 6.2 # Red Blood Count 4.06 L Hemoglobin 12.2 Hematocrit 36.7 L Mean Corpuscular Volume 90.4 Mean Corpuscular Hemoglobin 30.0 Mean Corpuscular Hemoglobin Concent 33.2 Red Cell Distribution Width 14.5 Platelet Count 234 Mean Platelet Volume 10.2 Neutrophils % 61.4 Lymphocytes % 31.3 Monocytes % 5.7 Eosinophils % 1.1 Basophils % 0.2 Nucleated Red Blood Cells % 0.0 Neutrophils # 3.8 Lymphocytes # 1.9 Monocytes # 0.4 Eosinophils # 0.1 Basophils # 0.0 Nucleated Red Blood Cells # 0.0 Sodium Level 138 Potassium Level 4.3 Chloride Level 100 Carbon Dioxide Level 30 Anion Gap 12 Blood Urea Nitrogen 27 H Creatinine 1.08 H Glucose Level 168 Calcium Level 10.4 H Test 10/22/17 12:08 10/22/17 12:49 Bedside Glucose 178 Lab Scanned Report REFERENCE LAB Medications Medications Current Medications Hydralazine HCl (Apresoline) 10 mg Q6H PRN IV SBP>170 Last administered on 17:48; Admin Dose 10 MG; Start 10/14/17 at 15:30 Insulin Glargine (Lantus) 21 unit DAILY@20 SC Last administered on 10/21/17 21:13; Admin Dose 21 UNIT; Start 10/14/17 at 20:00 Diagnostic Test (Pha) (Accu-Chek) 1 ea 02 XX ; Start 10/15/17 at 02:00 Donepezil HCl (Aricept) 10 mg DAILY PO Last administered on 10/22/17 09:29; Admin Dose 10 MG; Start 10/15/17 at 09:00 Lisinopril (Zestril) 40 mg DAILY PO Last administered on 10/22/17 09:30; Admin Dose 40 MG; Start 10/15/17 at 09:00 Ranitidine HCl (Zantac) 300 mg HS PO Last administered on 10/21/17 21:04; Admin Dose 300 MG; Start 10/14/17 at 21:00 Ondansetron HCl (Zofran Inj) 4 mg Q6H PRN IV NAUSEA AND/OR VOMITING Last administered on 10/21/17 11:07; Admin Dose 4 MG; Start 10/14/17 at 16:00 Aspirin (Aspirin) 81 mg DAILY PO Last administered on 10/22/17 09:29; Admin Dose 81 MG; Start 10/15/17 at 09:00 Acetaminophen (Tylenol Tab) 650 mg Q6H PRN PO PAIN LEVEL 1-3 OR FEVER Last administered on 10/20/17 20:54; Admin Dose 650 MG; Start 10/14/17 at 16:00 Enoxaparin Sodium (Lovenox) 30 mg DAILY SC Last administered on 10/22/17 09: 34; Admin Dose 30 MG; Start 10/15/17 at 09:00 Miscellaneous Information 1 ea NOTE XX ; Start 10/14/17 at 16:00 Glucose (Glutose) 15 gm Q15M PRN PO DECREASED GLUCOSE; Start 10/14/17 at 16:00 Glucose (Glutose) 22.5 gm Q15M PRN PO DECREASED GLUCOSE; Start 10/14/17 at 16: 00 Dextrose (D50w Syringe) 25 ml Q15M PRN IV DECREASED GLUCOSE; Start 10/14/17 at 16:00 Dextrose (D50w Syringe) 50 ml Q15M PRN IV DECREASED GLUCOSE; Start 10/14/17 at 16:00 Glucagon (Glucagen) 1 mg Q15M PRN IM DECREASED GLUCOSE; Start 10/14/17 at 16: 00 Glucose (Glutose) 15 gm Q15M PRN BUCCAL DECREASED GLUCOSE; Start 10/14/17 at 16:00 Clonidine (Catapres) 0.1 mg Q4H PRN PO SBP>170 Last administered on 10/19/17 14:54; Admin Dose 0.1 MG; Start 10/15/17 at 18:00 Oxycodone HCl (Oxycontin) 10 mg AM PO Last administered on 10/22/17 09:30; Admin Dose 10 MG; Start 10/16/17 at 09:00 Polyethylene Glycol (Miralax) 17 gm DAILY PO Last administered on 10/22/17 09 :29; Admin Dose 17 GM; Start 10/16/17 at 09:00 Alprazolam (Xanax) 0.5 mg Q8H PRN PO ANXIETY Last administered on 10/21/17 21 :15; Admin Dose 0.5 MG; Start 10/16/17 at 11:30 Phenol (Cepastat Lozenge) 1 lozenge Q1H PRN MT COUGH; Start 10/16/17 at 15:30 Gabapentin (Neurontin) 200 mg TID GTB Last administered on 10/22/17 13:25; Admin Dose 200 MG; Start 10/17/17 at 15:00 Hydralazine HCl (Apresoline) 100 mg Q8 PO Last administered on 10/22/17 13:25 ; Admin Dose 100 MG; Start 10/18/17 at 14:00 Zolpidem Tartrate (Ambien) 5 mg HS PRN PO INSOMNIA Last administered on 01:32; Admin Dose 5 MG; Start 10/19/17 at 01:00 Nifedipine (Procardia Xl) 60 mg BID PO Last administered on 10/22/17 09:29; Admin Dose 60 MG; Start 10/19/17 at 21:00 Metoprolol Tartrate (Lopressor) 50 mg BID PO Last administered on 10/22/17 09 :29; Admin Dose 50 MG; Start 10/19/17 at 21:00 Doxazosin Mesylate (Cardura) 2 mg BID PO Last administered on 10/22/17 09:30 ; Admin Dose 2 MG; Start 10/20/17 at 21:00 MACY YANCEY MD Oct 22, 2017 13:51
--- NOTE | 2017-10-22 15:56 | PN ---
Date/Time of Note Date/Time of Note DATE: 10/22/17 TIME: 15:54 Assessment/Plan VTE Prophylaxis VTE Prophylaxis Intervention: SCD's Lines/Catheters IV Catheter Type (from Nrs): Saline Lock Urinary Cath still in place: No Assessment/Plan Chief Complaint/Hosp Course Blood sugar slightly elevated, will adjust Lantus and NovoLog, blood pressure is better controlled, okay for acute rehab transfer Assessment/Plan -Cervical radiculopathy with central canal stenosis, Dr. Dao neurology consult is appreciated. Dr. Merritt is following patient for pain management. -Hypertensive urgency, continue hydralazine -Elevated troponin. Dr. Oates is following in cardiology consultation. -Diabetes mellitus, continue Lantus, pre-meal NovoLog and NovoLog per sliding scale. -Obesity with BMI of 36.2 -History of gastritis, continue PPI Further recommendations based on clinical course. Plan of care discussed with Dr. Rodrigez Problems: Exam/Review of Systems Vital Signs Vitals Vital Signs Date Time Temp Pulse Resp B/P Pulse Ox O2 Delivery O2 Flow Rate FiO2 10/22/17 12:31 70 10/22/17 11:47 98.8 18 150/65 96 10/20/17 20:00 Nasal Cannula 2.0 Intake and Output 10/21/17 10/21/17 10/22/17 15:00 23:00 07:00 Intake Total 740 ml 500 ml Balance 740 ml 500 ml Exam Constitutional: alert, oriented Neck: supple Respiratory: normal air movement Cardiovascular: nl pulses Gastrointestinal: non-tender, soft Musculoskeletal: nl extremities to inspection Neurological: other (Left upper extremity weakness) Results Result Diagram: 10/22/17 0641 10/22/17 0641 Results 24 hrs Laboratory Tests Test 10/21/17 17:16 10/21/17 20:58 10/22/17 06:41 10/22/17 08:36 Bedside Glucose 172 150 224 H White Blood Count 6.2 # Red Blood Count 4.06 L Hemoglobin 12.2 Hematocrit 36.7 L Mean Corpuscular Volume 90.4 Mean Corpuscular Hemoglobin 30.0 Mean Corpuscular Hemoglobin Concent 33.2 Red Cell Distribution Width 14.5 Platelet Count 234 Mean Platelet Volume 10.2 Neutrophils % 61.4 Lymphocytes % 31.3 Monocytes % 5.7 Eosinophils % 1.1 Basophils % 0.2 Nucleated Red Blood Cells % 0.0 Neutrophils # 3.8 Lymphocytes # 1.9 Monocytes # 0.4 Eosinophils # 0.1 Basophils # 0.0 Nucleated Red Blood Cells # 0.0 Sodium Level 138 Potassium Level 4.3 Chloride Level 100 Carbon Dioxide Level 30 Anion Gap 12 Blood Urea Nitrogen 27 H Creatinine 1.08 H Glucose Level 168 Calcium Level 10.4 H Test 10/22/17 12:08 10/22/17 12:49 Bedside Glucose 178 Lab Scanned Report REFERENCE LAB Medications Medications Current Medications Hydralazine HCl (Apresoline) 10 mg Q6H PRN IV SBP>170 Last administered on 17:48; Admin Dose 10 MG; Start 10/14/17 at 15:30 Insulin Glargine (Lantus) 21 unit DAILY@20 SC Last administered on 10/21/17 21:13; Admin Dose 21 UNIT; Start 10/14/17 at 20:00 Diagnostic Test (Pha) (Accu-Chek) 1 ea 02 XX ; Start 10/15/17 at 02:00 Donepezil HCl (Aricept) 10 mg DAILY PO Last administered on 10/22/17 09:29; Admin Dose 10 MG; Start 10/15/17 at 09:00 Lisinopril (Zestril) 40 mg DAILY PO Last administered on 10/22/17 09:30; Admin Dose 40 MG; Start 10/15/17 at 09:00 Ranitidine HCl (Zantac) 300 mg HS PO Last administered on 10/21/17 21:04; Admin Dose 300 MG; Start 10/14/17 at 21:00 Ondansetron HCl (Zofran Inj) 4 mg Q6H PRN IV NAUSEA AND/OR VOMITING Last administered on 10/21/17 11:07; Admin Dose 4 MG; Start 10/14/17 at 16:00 Aspirin (Aspirin) 81 mg DAILY PO Last administered on 10/22/17 09:29; Admin Dose 81 MG; Start 10/15/17 at 09:00 Acetaminophen (Tylenol Tab) 650 mg Q6H PRN PO PAIN LEVEL 1-3 OR FEVER Last administered on 10/20/17 20:54; Admin Dose 650 MG; Start 10/14/17 at 16:00 Enoxaparin Sodium (Lovenox) 30 mg DAILY SC Last administered on 10/22/17 09: 34; Admin Dose 30 MG; Start 10/15/17 at 09:00 Miscellaneous Information 1 ea NOTE XX ; Start 10/14/17 at 16:00 Glucose (Glutose) 15 gm Q15M PRN PO DECREASED GLUCOSE; Start 10/14/17 at 16:00 Glucose (Glutose) 22.5 gm Q15M PRN PO DECREASED GLUCOSE; Start 10/14/17 at 16: 00 Dextrose (D50w Syringe) 25 ml Q15M PRN IV DECREASED GLUCOSE; Start 10/14/17 at 16:00 Dextrose (D50w Syringe) 50 ml Q15M PRN IV DECREASED GLUCOSE; Start 10/14/17 at 16:00 Glucagon (Glucagen) 1 mg Q15M PRN IM DECREASED GLUCOSE; Start 10/14/17 at 16: 00 Glucose (Glutose) 15 gm Q15M PRN BUCCAL DECREASED GLUCOSE; Start 10/14/17 at 16:00 Clonidine (Catapres) 0.1 mg Q4H PRN PO SBP>170 Last administered on 10/19/17 14:54; Admin Dose 0.1 MG; Start 10/15/17 at 18:00 Oxycodone HCl (Oxycontin) 10 mg AM PO Last administered on 10/22/17 09:30; Admin Dose 10 MG; Start 10/16/17 at 09:00 Polyethylene Glycol (Miralax) 17 gm DAILY PO Last administered on 10/22/17 09 :29; Admin Dose 17 GM; Start 10/16/17 at 09:00 Alprazolam (Xanax) 0.5 mg Q8H PRN PO ANXIETY Last administered on 10/21/17 21 :15; Admin Dose 0.5 MG; Start 10/16/17 at 11:30 Phenol (Cepastat Lozenge) 1 lozenge Q1H PRN MT COUGH; Start 10/16/17 at 15:30 Gabapentin (Neurontin) 200 mg TID GTB Last administered on 10/22/17 13:25; Admin Dose 200 MG; Start 10/17/17 at 15:00 Hydralazine HCl (Apresoline) 100 mg Q8 PO Last administered on 10/22/17 13:25 ; Admin Dose 100 MG; Start 10/18/17 at 14:00 Zolpidem Tartrate (Ambien) 5 mg HS PRN PO INSOMNIA Last administered on 01:32; Admin Dose 5 MG; Start 10/19/17 at 01:00 Nifedipine (Procardia Xl) 60 mg BID PO Last administered on 10/22/17 09:29; Admin Dose 60 MG; Start 10/19/17 at 21:00 Metoprolol Tartrate (Lopressor) 50 mg BID PO Last administered on 10/22/17 09 :29; Admin Dose 50 MG; Start 10/19/17 at 21:00 Doxazosin Mesylate (Cardura) 2 mg BID PO Last administered on 10/22/17 09:30 ; Admin Dose 2 MG; Start 10/20/17 at 21:00 VINCENZO RODRIGUEZ Oct 22, 2017 15:56
[2017-10-22] MEDS: RANITIDINE 150 MG TAB PO SCH (20:52)
[2017-10-22] MEDS: INSULIN GLARGINE [LANtus] 3 ML PEN SC SCH (20:58)
[2017-10-22] MEDS: ZOLPIDEM 5 MG TAB PO PRN (21:02)
[2017-10-23] VITALS (7 sets, daily range): BP systolic 104–143; BP diastolic 51–65; PULSE 58–85; RESP 16–20
[2017-10-23] MEDS: ACCU-CHEK XX SCH (02:00)
[2017-10-23 07:18] LABS: CALCIUM 10.4 mg/dl (8.4-10.2); POTASSIUM 4.2 mmol/L (3.5-5.1)
[2017-10-23] MEDS: INSULIN ASPART [NOVOLOG] 3 ML PEN SC SCH ×10 (07:55→21:00)
[2017-10-23] MEDS: ASPIRIN 81 MG TAB PO SCH (09:24)
[2017-10-23] MEDS: POLYETHYLENE GLYCOL 17 GM PACKET PO SCH (09:24)
[2017-10-23] MEDS: DOXAZOSIN 2 MG TAB PO SCH ×2 (09:25→21:26)
[2017-10-23] MEDS: LISINOPRIL 20 MG TAB PO SCH (09:25)
[2017-10-23] MEDS: GABAPENTIN 100 MG CAP GTB SCH ×3 (09:25→21:25)
[2017-10-23] MEDS: DONEPEZIL 10 MG TAB PO SCH (09:26)
[2017-10-23] MEDS: oxyCODONE (CR) 10 MG TAB [oxyCONTIN] PO SCH (09:26)
[2017-10-23] MEDS: NIFEdipine (XL) 60 MG TAB PO SCH ×2 (09:27→21:26)
[2017-10-23] MEDS: METOPROLOL 50 MG TAB PO SCH ×2 (09:27→21:27)
[2017-10-23] MEDS: ENOXAPARIN 30 MG/0.3 ML SYG SC SCH (09:41)
--- NOTE | 2017-10-23 11:09 | PN ---
Date/Time of Note Date/Time of Note DATE: 10/23/17 TIME: 11:08 Assessment/Plan VTE Prophylaxis VTE Prophylaxis Intervention: other Lines/Catheters IV C[facility]ter Type (from [facility]): Saline Lock Urinary Cath still in place: No Assessment/Plan Chief Complaint/Hosp Course -Cervical radiculopathy with central canal stenosis, Dr. Dao neurology consult is appreciated. Dr. Merritt is following patient for pain management. -Hypertensive urgency, continue hydralazine -Elevated troponin. Dr. Oates is following in cardiology consultation. -Diabetes mellitus, continue Lantus, pre-meal NovoLog and NovoLog per sliding scale. -Obesity with BMI of 36.2 -History of gastritis, continue PPI Problems: Subjective 24 Hr Interval Summary Free Text/Dictation Patient denies pain but does state that she feels weak Exam/Review of Systems Vital Signs Vitals Vital Signs Date Time Temp Pulse Resp B/P Pulse Ox O2 Delivery O2 Flow Rate FiO2 10/23/17 07:40 97.8 78 18 143/63 99 10/23/17 01:34 Room Air 10/20/17 20:00 2.0 Intake and Output 10/22/17 10/22/17 10/23/17 15:00 23:00 07:00 Intake Total 650 ml 480 ml Balance 650 ml 480 ml Exam Constitutional: well developed Head: atraumatic, normocephalic Neck: supple Respiratory: clear to auscultation Cardiovascular: regular rate and rhythm Gastrointestinal: non-tender, soft Extremities: normal pulses Results Result Diagram: 10/22/17 0641 10/23/17 0511 Results 24 hrs Laboratory Tests Test 10/22/17 12:08 10/22/17 12:49 10/22/17 16:56 10/22/17 20:49 Bedside Glucose 178 175 169 Lab Scanned Report REFERENCE LAB Test 10/23/17 05:11 10/23/17 08:30 10/23/17 09:34 Sodium Level 138 Potassium Level 4.2 Chloride Level 100 Carbon Dioxide Level 31 Anion Gap 11 Blood Urea Nitrogen 25 H Creatinine 1.00 Glucose Level 102 # Calcium Level 10.4 H Bedside Glucose 136 198 Medications Medications Current Medications Hydralazine HCl (Apresoline) 10 mg Q6H PRN IV SBP>170 Last administered on t 17:48; Admin Dose 10 MG; Start 10/14/17 at 15:30 Diagnostic Test (Pha) (Accu-Chek) 1 ea 02 XX ; Start 10/15/17 at 02:00 Donepezil HCl (Aricept) 10 mg DAILY PO Last administered on 10/23/17 09:26; Admin Dose 10 MG; Start 10/15/17 at 09:00 Lisinopril (Zestril) 40 mg DAILY PO Last administered on 10/23/17 09:25; Admin Dose 40 MG; Start 10/15/17 at 09:00 Ranitidine HCl (Zantac) 300 mg HS PO Last administered on 10/22/17 20:52; Admin Dose 300 MG; Start 10/14/17 at 21:00 Ondansetron HCl (Zofran Inj) 4 mg Q6H PRN IV NAUSEA AND/OR VOMITING Last administered on 10/21/17 11:07; Admin Dose 4 MG; Start 10/14/17 at 16:00 Aspirin (Aspirin) 81 mg DAILY PO Last administered on 10/23/17 09:24; Admin Dose 81 MG; Start 10/15/17 at 09:00 Acetaminophen (Tylenol Tab) 650 mg Q6H PRN PO PAIN LEVEL 1-3 OR FEVER Last administered on 10/20/17 20:54; Admin Dose 650 MG; Start 10/14/17 at 16:00 Enoxaparin Sodium (Lovenox) 30 mg DAILY SC Last administered on 10/23/17 09: 41; Admin Dose 30 MG; Start 10/15/17 at 09:00 Miscellaneous Information 1 ea NOTE XX ; Start 10/14/17 at 16:00 Glucose (Glutose) 15 gm Q15M PRN PO DECREASED GLUCOSE; Start 10/14/17 at 16:00 Glucose (Glutose) 22.5 gm Q15M PRN PO DECREASED GLUCOSE; Start 10/14/17 at 16: 00 Dextrose (D50w Syringe) 25 ml Q15M PRN IV DECREASED GLUCOSE; Start 10/14/17 at 16:00 Dextrose (D50w Syringe) 50 ml Q15M PRN IV DECREASED GLUCOSE; Start 10/14/17 at 16:00 Glucagon (Glucagen) 1 mg Q15M PRN IM DECREASED GLUCOSE; Start 10/14/17 at 16: 00 Glucose (Glutose) 15 gm Q15M PRN BUCCAL DECREASED GLUCOSE; Start 10/14/17 at 16:00 Clonidine (Catapres) 0.1 mg Q4H PRN PO SBP>170 Last administered on 10/19/17 14:54; Admin Dose 0.1 MG; Start 10/15/17 at 18:00 Oxycodone HCl (Oxycontin) 10 mg AM PO Last administered on 10/23/17 09:26; Admin Dose 10 MG; Start 10/16/17 at 09:00 Polyethylene Glycol (Miralax) 17 gm DAILY PO Last administered on 10/23/17 09 :24; Admin Dose 17 GM; Start 10/16/17 at 09:00 Alprazolam (Xanax) 0.5 mg Q8H PRN PO ANXIETY Last administered on 10/21/17 21 :15; Admin Dose 0.5 MG; Start 10/16/17 at 11:30 Phenol (Cepastat Lozenge) 1 lozenge Q1H PRN MT COUGH; Start 10/16/17 at 15:30 Gabapentin (Neurontin) 200 mg TID GTB Last administered on 10/23/17 09:25; Admin Dose 200 MG; Start 10/17/17 at 15:00 Hydralazine HCl (Apresoline) 100 mg Q8 PO Last administered on 10/23/17 05:12 ; Admin Dose 100 MG; Start 10/18/17 at 14:00 Zolpidem Tartrate (Ambien) 5 mg HS PRN PO INSOMNIA Last administered on 21:02; Admin Dose 5 MG; Start 10/19/17 at 01:00 Nifedipine (Procardia Xl) 60 mg BID PO Last administered on 10/23/17 09:27; Admin Dose 60 MG; Start 10/19/17 at 21:00 Metoprolol Tartrate (Lopressor) 50 mg BID PO Last administered on 10/23/17 09 :27; Admin Dose 50 MG; Start 10/19/17 at 21:00 Doxazosin Mesylate (Cardura) 2 mg BID PO Last administered on 10/23/17 09:25 ; Admin Dose 2 MG; Start 10/20/17 at 21:00 Insulin Glargine (Lantus) 24 unit DAILY@20 SC Last administered on 11/24/17at 20:58; Admin Dose 24 UNIT; Start 10/22/17 at 20:00 FABIOLA HILL Oct 23, 2017 11:09
[2017-10-23] MEDS: ZOLPIDEM 5 MG TAB PO PRN (21:25)
[2017-10-23] MEDS: ONDANSETRON 4 MG INJ IV PRN (21:25)
[2017-10-23] MEDS: RANITIDINE 150 MG TAB PO SCH (21:25)
[2017-10-23] MEDS: INSULIN GLARGINE [LANtus] 3 ML PEN SC SCH (22:06)
[2017-10-24] MEDS: ACCU-CHEK XX SCH (01:00)
[2017-10-24 02:17] VITALS: BP 133/61; RESP 18
[2017-10-24 07:37] VITALS: BP 121/57; RESP 18
[2017-10-24] MEDS: INSULIN ASPART [NOVOLOG] 3 ML PEN SC SCH ×7 (08:13→20:13)
[2017-10-24] MEDS: ASPIRIN 81 MG TAB PO SCH (08:24)
[2017-10-24] MEDS: NIFEdipine (XL) 60 MG TAB PO SCH ×2 (08:25→20:12)
[2017-10-24] MEDS: POLYETHYLENE GLYCOL 17 GM PACKET PO SCH (08:25)
[2017-10-24] MEDS: LISINOPRIL 20 MG TAB PO SCH (08:26)
[2017-10-24] MEDS: GABAPENTIN 100 MG CAP GTB SCH ×3 (08:26→20:12)
[2017-10-24] MEDS: DONEPEZIL 10 MG TAB PO SCH (08:26)
[2017-10-24] MEDS: DOXAZOSIN 2 MG TAB PO SCH ×2 (08:27→20:11)
[2017-10-24] MEDS: METOPROLOL 50 MG TAB PO SCH ×2 (08:27→20:12)
[2017-10-24] MEDS: ENOXAPARIN 30 MG/0.3 ML SYG SC SCH (08:30)
[2017-10-24] MEDS: oxyCODONE (CR) 10 MG TAB [oxyCONTIN] PO SCH (08:33)
--- NOTE | 2017-10-24 10:49 | PN ---
Date/Time of Note Date/Time of Note DATE: 10/24/17 TIME: 10:48 Assessment/Plan VTE Prophylaxis VTE Prophylaxis Intervention: other Lines/Catheters IV [facility]ter Type (from [facility]): Saline Lock Urinary Cath still in place: No Assessment/Plan Chief Complaint/Hosp Course -Cervical radiculopathy with central canal stenosis, Dr. Dao neurology consult is appreciated. Dr. Merritt is following patient for pain management. -Hypertensive urgency, continue hydralazine -Elevated troponin. Dr. Oates is following in cardiology consultation. -Diabetes mellitus, continue Lantus, pre-meal NovoLog and NovoLog per sliding scale. -Obesity with BMI of 36.2 -History of gastritis, continue PPI Problems: Subjective 24 Hr Interval Summary Free Text/Dictation Patient has no complaints, able to ambulate with walker Exam/Review of Systems Vital Signs Vitals Vital Signs Date Time Temp Pulse Resp B/P Pulse Ox O2 Delivery O2 Flow Rate FiO2 10/24/17 07:37 98.2 76 18 121/57 98 10/23/17 01:34 Room Air 10/20/17 20:00 2.0 Intake and Output 10/23/17 10/23/17 10/24/17 14:59 22:59 06:59 Intake Total 960 ml 240 ml Output Total 200 ml 800 ml Balance 760 ml -560 ml Exam Constitutional: well developed Head: atraumatic, normocephalic Neck: supple Respiratory: clear to auscultation Cardiovascular: regular rate and rhythm Gastrointestinal: non-tender, soft Extremities: normal pulses Results Result Diagram: 10/22/17 0641 10/23/17 0511 Results 24 hrs Laboratory Tests Test 10/23/17 12:22 10/23/17 17:25 10/23/17 21:22 10/24/17 08:12 Bedside Glucose 128 160 142 120 Medications Medications Current Medications Hydralazine HCl (Apresoline) 10 mg Q6H PRN IV SBP>170 Last administered on 17:48; Admin Dose 10 MG; Start 10/14/17 at 15:30 Diagnostic Test (Pha) (Accu-Chek) 1 ea 02 XX ; Start 10/15/17 at 02:00 Donepezil HCl (Aricept) 10 mg DAILY PO Last administered on 10/24/17 08:26; Admin Dose 10 MG; Start 10/15/17 at 09:00 Lisinopril (Zestril) 40 mg DAILY PO Last administered on 10/24/17 08:26; Admin Dose 40 MG; Start 10/15/17 at 09:00 Ranitidine HCl (Zantac) 300 mg HS PO Last administered on 10/23/17 21:25; Admin Dose 300 MG; Start 10/14/17 at 21:00 Ondansetron HCl (Zofran Inj) 4 mg Q6H PRN IV NAUSEA AND/OR VOMITING Last administered on 10/23/17 21:25; Admin Dose 4 MG; Start 10/14/17 at 16:00 Aspirin (Aspirin) 81 mg DAILY PO Last administered on 10/24/17 08:24; Admin Dose 81 MG; Start 10/15/17 at 09:00 Acetaminophen (Tylenol Tab) 650 mg Q6H PRN PO PAIN LEVEL 1-3 OR FEVER Last administered on 10/20/17 20:54; Admin Dose 650 MG; Start 10/14/17 at 16:00 Enoxaparin Sodium (Lovenox) 30 mg DAILY SC Last administered on 10/24/17 08: 30; Admin Dose 30 MG; Start 10/15/17 at 09:00 Miscellaneous Information 1 ea NOTE XX ; Start 10/14/17 at 16:00 Glucose (Glutose) 15 gm Q15M PRN PO DECREASED GLUCOSE; Start 10/14/17 at 16:00 Glucose (Glutose) 22.5 gm Q15M PRN PO DECREASED GLUCOSE; Start 10/14/17 at 16: 00 Dextrose (D50w Syringe) 25 ml Q15M PRN IV DECREASED GLUCOSE; Start 10/14/17 at 16:00 Dextrose (D50w Syringe) 50 ml Q15M PRN IV DECREASED GLUCOSE; Start 10/14/17 at 16:00 Glucagon (Glucagen) 1 mg Q15M PRN IM DECREASED GLUCOSE; Start 10/14/17 at 16: 00 Glucose (Glutose) 15 gm Q15M PRN BUCCAL DECREASED GLUCOSE; Start 10/14/17 at 16:00 Clonidine (Catapres) 0.1 mg Q4H PRN PO SBP>170 Last administered on 10/19/17 14:54; Admin Dose 0.1 MG; Start 10/15/17 at 18:00 Oxycodone HCl (Oxycontin) 10 mg AM PO Last administered on 10/24/17 08:33; Admin Dose 10 MG; Start 10/16/17 at 09:00 Polyethylene Glycol (Miralax) 17 gm DAILY PO Last administered on 10/24/17 08 :25; Admin Dose 17 GM; Start 10/16/17 at 09:00 Alprazolam (Xanax) 0.5 mg Q8H PRN PO ANXIETY Last administered on 10/21/17 21 :15; Admin Dose 0.5 MG; Start 10/16/17 at 11:30 Phenol (Cepastat Lozenge) 1 lozenge Q1H PRN MT COUGH; Start 10/16/17 at 15:30 Gabapentin (Neurontin) 200 mg TID GTB Last administered on 10/24/17 08:26; Admin Dose 200 MG; Start 10/17/17 at 15:00 Hydralazine HCl (Apresoline) 100 mg Q8 PO Last administered on 10/24/17 05:30 ; Admin Dose 100 MG; Start 10/18/17 at 14:00 Zolpidem Tartrate (Ambien) 5 mg HS PRN PO INSOMNIA Last administered on 21:25; Admin Dose 5 MG; Start 10/19/17 at 01:00 Nifedipine (Procardia Xl) 60 mg BID PO Last administered on 10/24/17 08:25; Admin Dose 60 MG; Start 10/19/17 at 21:00 Metoprolol Tartrate (Lopressor) 50 mg BID PO Last administered on 10/24/17 08 :27; Admin Dose 50 MG; Start 10/19/17 at 21:00 Doxazosin Mesylate (Cardura) 2 mg BID PO Last administered on 10/24/17 08:27 ; Admin Dose 2 MG; Start 10/20/17 at 21:00 Insulin Glargine (Lantus) 24 unit DAILY@20 SC Last administered on 10/23/17 22:06; Admin Dose 24 UNIT; Start 10/22/17 at 20:00 FABIOLA HILL Oct 24, 2017 10:49
[2017-10-24 13:47] VITALS: BP 107/51; RESP 20
[2017-10-24 19:55] VITALS: BP 145/65; RESP 18
[2017-10-24] MEDS: INSULIN GLARGINE [LANtus] 3 ML PEN SC SCH (20:11)
[2017-10-24] MEDS: RANITIDINE 150 MG TAB PO SCH (20:12)
[2017-10-24] MEDS: ZOLPIDEM 5 MG TAB PO PRN (21:35)
[2017-10-25] MEDS: ACCU-CHEK XX SCH (02:00)
[2017-10-25 02:26] VITALS: BP 122/58; RESP 18
[2017-10-25 06:44] LABS: BASOPHILS % 0.5 % (0.0-2.0); EOSINOPHILS # 0.2 10^3/ul (0.0-0.5); EOSINOPHILS % 2.3 % (0.0-7.0); HEMOGLOBIN 11.2 g/dl (12.0-16.0); LYMPHOCYTES # 1.9 10^3/ul (0.8-2.9); MEAN CORPUSCULAR HGB CONC 32.9 g/dl (32.0-37.0); MEAN CORPUSCULAR VOLUME 91.2 fl (82.0-101.0); MEAN PLATELET VOLUME 10.5 fl (7.4-10.4); MONOCYTE # 0.4 10^3/ul (0.3-0.9); MONOCYTES % 5.8 % (0.0-11.0); NEUTROPHIL # 3.9 10^3/ul (1.6-7.5); NEUTROPHILS % 61.2 % (39.0-77.0); PLATELET COUNT 226 10^3/UL (140-415); RED BLOOD COUNT 3.73 10^6/ul (4.20-5.40); RED CELL DISTRIBUTION WIDTH 14.9 % (11.5-14.5); WHITE BLOOD COUNT 6.4 10^3/ul (4.8-10.8)
[2017-10-25 06:55] LABS: CALCIUM 10.1 mg/dl (8.4-10.2); CREATININE 1.03 mg/dl (0.44-1.00); POTASSIUM 4.5 mmol/L (3.5-5.1)
[2017-10-25 08:00] VITALS: BP 150/65; RESP 16
[2017-10-25] MEDS: INSULIN ASPART [NOVOLOG] 3 ML PEN SC SCH ×7 (08:15→20:57)
[2017-10-25] MEDS: POLYETHYLENE GLYCOL 17 GM PACKET PO SCH (08:19)
[2017-10-25] MEDS: NIFEdipine (XL) 60 MG TAB PO SCH ×2 (08:20→20:58)
[2017-10-25] MEDS: GABAPENTIN 100 MG CAP GTB SCH ×3 (08:20→20:56)
[2017-10-25] MEDS: ASPIRIN 81 MG TAB PO SCH (08:20)
[2017-10-25] MEDS: LISINOPRIL 20 MG TAB PO SCH (08:21)
[2017-10-25] MEDS: METOPROLOL 50 MG TAB PO SCH ×2 (08:21→20:59)
[2017-10-25] MEDS: DOXAZOSIN 2 MG TAB PO SCH ×2 (08:21→20:58)
[2017-10-25] MEDS: DONEPEZIL 10 MG TAB PO SCH (08:21)
[2017-10-25] MEDS: oxyCODONE (CR) 10 MG TAB [oxyCONTIN] PO SCH (08:22)
[2017-10-25] MEDS: ENOXAPARIN 30 MG/0.3 ML SYG SC SCH (08:26)
--- NOTE | 2017-10-25 13:18 | PN ---
Date/Time of Note Date/Time of Note DATE: 10/25/17 TIME: 13:17 Assessment/Plan VTE Prophylaxis VTE Prophylaxis Intervention: SCD's Lines/Catheters IV Catheter Type (from Nrsg): Saline Lock Urinary Cath still in place: No Assessment/Plan Chief Complaint/Hosp Course DC oxycodone, continue [place] as needed for pain. If pain is well controlled on [place] patient can be discharged home tomorrow. Patient will benefit from acute rehab however family refused ARU, anticipate discharge home with home health services. Assessment/Plan -Cervical radiculopathy with central canal stenosis, Dr. Dao neurology consult is appreciated. Dr. Merritt is following patient for pain management. -Hypertensive urgency, continue hydralazine -Elevated troponin. Dr. Oates is following in cardiology consultation. -Diabetes mellitus, continue Lantus, pre-meal NovoLog and NovoLog per sliding scale. -Obesity with BMI of 36.2 -History of gastritis, continue PPI Further recommendations based on clinical course. Plan of care discussed with Dr. Rodrigez Problems: Exam/Review of Systems Vital Signs Vitals Vital Signs Date Time Temp Pulse Resp B/P Pulse Ox O2 Delivery O2 Flow Rate FiO2 10/25/17 08:00 98.2 73 16 150/65 96 10/23/17 01:34 Room Air Intake and Output 10/24/17 10/24/17 10/25/17 15:00 23:00 07:00 Intake Total 1040 ml 240 ml Output Total 600 ml 300 ml Balance 440 ml -60 ml Exam Constitutional: alert, oriented Neck: supple Respiratory: normal air movement Cardiovascular: nl pulses Gastrointestinal: non-tender, soft Musculoskeletal: nl extremities to inspection Neurological: other (Left upper extremity weakness) Results Result Diagram: 10/25/17 0541 10/25/17 0541 Results 24 hrs Laboratory Tests Test 10/24/17 17:43 10/24/17 20:07 10/25/17 05:41 10/25/17 08:03 Bedside Glucose 144 146 138 White Blood Count 6.4 Red Blood Count 3.73 L Hemoglobin 11.2 L Hematocrit 34.0 L Mean Corpuscular Volume 91.2 Mean Corpuscular Hemoglobin 30.0 Mean Corpuscular Hemoglobin Concent 32.9 Red Cell Distribution Width 14.9 H Platelet Count 226 Mean Platelet Volume 10.5 H Neutrophils % 61.2 Lymphocytes % 30.0 Monocytes % 5.8 Eosinophils % 2.3 Basophils % 0.5 Nucleated Red Blood Cells % 0.0 Neutrophils # 3.9 Lymphocytes # 1.9 Monocytes # 0.4 Eosinophils # 0.2 Basophils # 0.0 Nucleated Red Blood Cells # 0.0 Sodium Level 137 Potassium Level 4.5 Chloride Level 100 Carbon Dioxide Level 29 Anion Gap 13 Blood Urea Nitrogen 23 H Creatinine 1.03 H Glucose Level 124 Calcium Level 10.1 Test 10/25/17 12:15 Bedside Glucose 160 Medications Medications Current Medications Hydralazine HCl (Apresoline) 10 mg Q6H PRN IV SBP>170 Last administered on 17:48; Admin Dose 10 MG; Start 10/14/17 at 15:30 Diagnostic Test (Pha) (Accu-Chek) 1 ea 02 XX ; Start 10/15/17 at 02:00 Donepezil HCl (Aricept) 10 mg DAILY PO Last administered on 10/25/17 08:21; Admin Dose 10 MG; Start 10/15/17 at 09:00 Lisinopril (Zestril) 40 mg DAILY PO Last administered on 10/25/17 08:21; Admin Dose 40 MG; Start 10/15/17 at 09:00 Ranitidine HCl (Zantac) 300 mg HS PO Last administered on 10/24/17 20:12; Admin Dose 300 MG; Start 10/14/17 at 21:00 Ondansetron HCl (Zofran Inj) 4 mg Q6H PRN IV NAUSEA AND/OR VOMITING Last administered on 10/23/17 21:25; Admin Dose 4 MG; Start 10/14/17 at 16:00 Aspirin (Aspirin) 81 mg DAILY PO Last administered on 10/25/17 08:20; Admin Dose 81 MG; Start 10/15/17 at 09:00 Acetaminophen (Tylenol Tab) 650 mg Q6H PRN PO PAIN LEVEL 1-3 OR FEVER Last administered on 10/20/17 20:54; Admin Dose 650 MG; Start 10/14/17 at 16:00 Enoxaparin Sodium (Lovenox) 30 mg DAILY SC Last administered on 10/25/17 08: 26; Admin Dose 30 MG; Start 10/15/17 at 09:00 Miscellaneous Information 1 ea NOTE XX ; Start 10/14/17 at 16:00 Glucose (Glutose) 15 gm Q15M PRN PO DECREASED GLUCOSE; Start 10/14/17 at 16:00 Glucose (Glutose) 22.5 gm Q15M PRN PO DECREASED GLUCOSE; Start 10/14/17 at 16: 00 Dextrose (D50w Syringe) 25 ml Q15M PRN IV DECREASED GLUCOSE; Start 10/14/17 at 16:00 Dextrose (D50w Syringe) 50 ml Q15M PRN IV DECREASED GLUCOSE; Start 10/14/17 at 16:00 Glucagon (Glucagen) 1 mg Q15M PRN IM DECREASED GLUCOSE; Start 10/14/17 at 16: 00 Glucose (Glutose) 15 gm Q15M PRN BUCCAL DECREASED GLUCOSE; Start 10/14/17 at 16:00 Clonidine (Catapres) 0.1 mg Q4H PRN PO SBP>170 Last administered on 10/19/17 14:54; Admin Dose 0.1 MG; Start 10/15/17 at 18:00 Oxycodone HCl (Oxycontin) 10 mg AM PO Last administered on 10/24/17 08:33; Admin Dose 10 MG; Start 10/16/17 at 09:00 Polyethylene Glycol (Miralax) 17 gm DAILY PO Last administered on 10/25/17 08 :19; Admin Dose 17 GM; Start 10/16/17 at 09:00 Alprazolam (Xanax) 0.5 mg Q8H PRN PO ANXIETY Last administered on 10/21/17 21 :15; Admin Dose 0.5 MG; Start 10/16/17 at 11:30 Phenol (Cepastat Lozenge) 1 lozenge Q1H PRN MT COUGH; Start 10/16/17 at 15:30 Gabapentin (Neurontin) 200 mg TID GTB Last administered on 10/25/17 12:16; Admin Dose 200 MG; Start 10/17/17 at 15:00 Hydralazine HCl (Apresoline) 100 mg Q8 PO Last administered on 10/25/17 06:01 ; Admin Dose 100 MG; Start 10/18/17 at 14:00 Zolpidem Tartrate (Ambien) 5 mg HS PRN PO INSOMNIA Last administered on 21:35; Admin Dose 5 MG; Start 10/19/17 at 01:00 Nifedipine (Procardia Xl) 60 mg BID PO Last administered on 10/25/17 08:20; Admin Dose 60 MG; Start 10/19/17 at 21:00 Metoprolol Tartrate (Lopressor) 50 mg BID PO Last administered on 10/25/17 08 :21; Admin Dose 50 MG; Start 10/19/17 at 21:00 Doxazosin Mesylate (Cardura) 2 mg BID PO Last administered on 10/25/17 08:21 ; Admin Dose 2 MG; Start 10/20/17 at 21:00 Insulin Glargine (Lantus) 24 unit DAILY@20 SC Last administered on 10/24/17 20:11; Admin Dose 24 UNIT; Start 10/22/17 at 20:00 VINCENZO RODRIGUEZ Oct 25, 2017 13:18
[2017-10-25 14:40] VITALS: BP 119/56; RESP 18
[2017-10-25 20:11] VITALS: BP 147/64; RESP 17
[2017-10-25] MEDS: RANITIDINE 150 MG TAB PO SCH (20:57)
[2017-10-25] MEDS: INSULIN GLARGINE [LANtus] 3 ML PEN SC SCH (21:11)
[2017-10-25] MEDS: ZOLPIDEM 5 MG TAB PO PRN (22:00)
[2017-10-26 02:00] VITALS: BP 133/60; RESP 17
[2017-10-26] MEDS: ACCU-CHEK XX SCH (02:00)
[2017-10-26 07:49] VITALS: BP 120/56; RESP 18
[2017-10-26] MEDS: DONEPEZIL 10 MG TAB PO SCH (08:08)
[2017-10-26] MEDS: DOXAZOSIN 2 MG TAB PO SCH ×2 (08:08→20:21)
[2017-10-26] MEDS: GABAPENTIN 100 MG CAP GTB SCH ×3 (08:08→20:22)
[2017-10-26] MEDS: METOPROLOL 50 MG TAB PO SCH ×2 (08:08→20:21)
[2017-10-26] MEDS: ASPIRIN 81 MG TAB PO SCH (08:09)
[2017-10-26] MEDS: POLYETHYLENE GLYCOL 17 GM PACKET PO SCH (08:09)
[2017-10-26] MEDS: NIFEdipine (XL) 60 MG TAB PO SCH ×2 (08:09→20:22)
[2017-10-26] MEDS: INSULIN ASPART [NOVOLOG] 3 ML PEN SC SCH ×7 (08:14→21:00)
[2017-10-26] MEDS: ENOXAPARIN 30 MG/0.3 ML SYG SC SCH (08:15)
[2017-10-26] MEDS: LISINOPRIL 20 MG TAB PO SCH (09:00)
[2017-10-26] MEDS: HYDROCODONE/APAP (5/325) TAB PO PRN ×2 (09:29→13:22)
[2017-10-26 14:00] VITALS: BP 135/58; RESP 18
[2017-10-26] MEDS ORDERED: DOXA2TAB61 PO (15:37)
[2017-10-26] MEDS ORDERED: LISI20TA11 PO (15:37)
[2017-10-26] MEDS ORDERED: HYDR-3671 PO (15:37)
[2017-10-26] MEDS ORDERED: NOVO3I SC (15:37)
[2017-10-26] MEDS ORDERED: LANT3I SC (15:37)
[2017-10-26] MEDS ORDERED: HYDR-3498 PO (15:37)
[2017-10-26] MEDS ORDERED: ASPI81TA3 PO (15:37)
[2017-10-26] MEDS ORDERED: GABA100C14 GTB (15:37)
[2017-10-26] MEDS ORDERED: NIFE60TA7 PO (15:37)
[2017-10-26] MEDS ORDERED: ZOLP5TAB PO (15:37)
[2017-10-26] MEDS ORDERED: METO-429 PO (15:37)
--- NOTE | 2017-10-26 15:45 | DS ---
Date/Time of Note Date/Time of Note DATE: 10/26/17 TIME: 15:43 Discharge Summary Admission/Discharge Info Admit Date/Time Oct 14, 2017 at 10:20 Discharge Date/Time Patient Condition: Stable Hx of Present Illness The patient is 77-year-old female with history of hypertension diabetes obesity, gastritis. The patient is status post EGD by Dr. Garcia in June 2017 was notion of gastritis and stomach polyps. Patient is presented with complaints of severe neck pain and left arm weakness. Most of the history was obtained from patient's daughter at the bedside who lives with patient. Patient's follow with Dr. Thomas primary doctor and was diagnosed with hypothyroidism. Patient also underwent a steroid injection in the left shoulder and left knee by Dr. red kasper. Patient also complains of insomnia for which she takes Xanax and Ambien as needed. Patient denies any fever chills denies nausea vomiting, denies diarrhea. 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 Patient was diagnosed with possible acute stroke however patient is outside the window for TPA. Troponin was negative on admission. Patient also noted to have blood pressure elevated to 237 over 102 on admission. Patient will be admitted for further evaluation and management. Hospital Course Patient and patient's family refused acute rehab, she will be discharged home with home health services -Cervical radiculopathy with central canal stenosis, Dr. Dao neurology consult is appreciated. Dr. Merritt is following patient for pain management. She stated that her pain is currently under control -Hypertensive urgency, continue hydralazine, Toprol and Procardia -Elevated troponin. Dr. Oates is following in cardiology consultation. -Diabetes mellitus, continue Lantus, pre-meal NovoLog and NovoLog per sliding scale. -Obesity with BMI of 36.2, weight loss advised -History of gastritis, continue PPI Home Meds Active Scripts Zolpidem Tartrate (Ambien Dennis) 5 Mg Tablet, 5 MG PO HS Y for INSOMNIA for 30 Days, #30 TAB Prov:VINCENZO RODRIGUEZ 10/26/17 Nifedipine (Afeditab CR) 60 Mg Tablet.sa, 60 MG PO BID for 30 Days Prov:VINCENZO RODRIGUEZ 10/26/17 Metoprolol Tartrate* (Lopressor*) 50 Mg Tab, 50 MG PO BID for 30 Days, TAB Prov:10/26/17 Lisinopril* (Lisinopril*) 20 Mg Tablet, 40 MG PO DAILY for 30 Days, TAB Prov:10/26/17 Insulin Glargine* (Lantus*) 100 Unit/Ml Soln, 24 UNIT SC DAILY@20 for 30 Days Prov:10/26/17 Insulin Aspart* (Novolog Insulin Pen*) 100 Unit/Ml Soln, 9 UNIT SC WITH MEALS for 30 Days Prov:10/26/17 Hydrocodone Bit-Acetaminophen (Hydrocodone Bit-APAP) 5-325MG Tablet, 1 TAB PO Q4H Y for PAIN, #30 TAB Prov:10/26/17 Hydralazine Hcl* (Hydralazine Hcl*) 25 Mg Tab, 100 MG PO Q8 for 30 Days, TAB Prov:10/26/17 Gabapentin* (Gabapentin*) 100 Mg Capsule, 200 MG GTB TID for 30 Days, CAP Prov:10/26/17 Doxazosin Mesylate* (Cardura*) 2 Mg Tablet, 2 MG PO BID for 30 Days, TAB Prov:10/26/17 Aspirin (Aspirin) 81 Mg Chew, 81 MG PO DAILY for 30 Days, TAB Prov:[facility]10/26/17 Reported Medications Gabapentin* (Gabapentin*) 300 Mg Capsule, 600 MG PO QHS, #180 CAP 10/14/17 Gabapentin* (Gabapentin*) 300 Mg Capsule, 300 MG PO QAM, #60 CAP 10/14/17 Tramadol Hcl* (Ultram*) 50 Mg Tablet, 50 MG PO Q6H Y for PAIN, TAB 10/14/17 Hydrocodone/Acetaminophen ([place] 10-325 Tablet) 1 Each Tablet, 1 EACH PO DAILY Y for SEVERE PAIN LEVEL 7-10, TAB 10/14/17 Donepezil* (Donepezil*) 10 Mg Tablet, 10 MG PO DAILY, #30 TAB 10/14/17 Lisinopril* (Lisinopril*) 40 Mg Tablet, 40 MG PO DAILY, #30 TAB 10/14/17 Dexlansoprazole (Dexilant) 60 Mg Norman., 60 MG PO DAILY, #30 CAP 10/14/17 Ranitidine Hcl* (Zantac*) 300 Mg Tablet, 300 MG PO HS, #30 TAB 10/14/17 Alprazolam* (Alprazolam*) 0.5 Mg Tablet, 0.5 MG PO QHS Y for SLEEP, TAB 06/20/17 Insulin Glargine* (Lantus*) 100 Unit/Ml Soln, 35 UNIT SC QPM, #1 VIAL 06/20/17 Insulin Glargine* (Lantus*) 100 Unit/Ml Soln, 40 UNIT SC QAM, #1 VIAL 06/20/17 Ca Carbonate/Vitamin D3/Vit K (VIACTIV SOFT CHEW TABLET) 1 Each Tab.chew, 1 EACH PO WITH MEALS, TAB.CHEW 08/19/14 Cholecalciferol (Vitamin D3) (VITAMIN D-3) 2,000 Unit Capsule, 2000 UNIT PO DAILY 08/19/14 Follow-up Plan Follow-up with PMD in 2 weeks Primary Care Provider Beverley Mckeon MD Time spent on discharge: > 30 minutes Pending Labs Laboratory Tests Test 10/25/17 17:35 10/25/17 20:50 10/26/17 07:58 10/26/17 12:02 Bedside Glucose 124mg/dL (70-220) 126mg/dL (70-220) 149mg/dL (70-220) 150mg/dL (70-220) VINCENZO RODRIGUEZ Oct 26, 2017 15:45
[2017-10-26 20:17] VITALS: BP 194/78; RESP 20
[2017-10-26] MEDS: RANITIDINE 150 MG TAB PO SCH (20:22)
[2017-10-26] MEDS ORDERED: ALPRAZOLAM 0.25 MG TAB PO PRN (21:00)
[2017-10-26] MEDS: ZOLPIDEM 5 MG TAB PO PRN (21:16)
[2017-10-26] MEDS: INSULIN GLARGINE [LANtus] 3 ML PEN SC SCH (22:09)
[2017-10-27] MEDS: ACCU-CHEK XX SCH (02:00)
[2017-10-27 02:07] VITALS: BP 143/66; RESP 18
[2017-10-27 08:06] VITALS: BP 150/65; RESP 19
[2017-10-27] MEDS: INSULIN ASPART [NOVOLOG] 3 ML PEN SC SCH ×4 (08:27→12:13)
[2017-10-27] MEDS: ASPIRIN 81 MG TAB PO SCH (08:37)
[2017-10-27] MEDS: GABAPENTIN 100 MG CAP GTB SCH ×2 (08:37→12:16)
[2017-10-27] MEDS: LISINOPRIL 20 MG TAB PO SCH (08:37)
[2017-10-27] MEDS: NIFEdipine (XL) 60 MG TAB PO SCH (08:38)
[2017-10-27] MEDS: DONEPEZIL 10 MG TAB PO SCH (08:38)
[2017-10-27] MEDS: DOXAZOSIN 2 MG TAB PO SCH (08:38)
[2017-10-27] MEDS: METOPROLOL 50 MG TAB PO SCH (08:38)
[2017-10-27] MEDS: ENOXAPARIN 30 MG/0.3 ML SYG SC SCH (08:39)
[2017-10-27] MEDS: POLYETHYLENE GLYCOL 17 GM PACKET PO SCH (08:39)
[2017-10-27 12:30] VITALS: BP 122/59; PULSE 69
--- NOTE | 2017-10-27 13:11 | PN ---
Date/Time of Note Date/Time of Note DATE: 10/27/17 TIME: 13:08 Assessment/Plan VTE Prophylaxis VTE Prophylaxis Intervention: SCD's Lines/Catheters [facility] Urinary Cath still in place: No Assessment/Plan Chief Complaint/Hosp Course D/ c was held yesterday due to elevated BP and anxiety, today BP is stable, pt denies any chest pain, denies SOB, d/w pt's daughter at the bedside, d/c planning. Assessment/Plan -Cervical radiculopathy with central canal stenosis, Dr. Dao neurology consult is appreciated. Dr. Merritt is following patient for pain management. -Hypertensive urgency, continue hydralazine -Elevated troponin. Dr. Oates is following in cardiology consultation. -Diabetes mellitus, continue Lantus, pre-meal NovoLog and NovoLog per sliding scale. -Obesity with BMI of 36.2 -History of gastritis, continue PPI Further recommendations based on clinical course. Plan of care discussed with Dr. Rodrigez Problems: Exam/Review of Systems Vital Signs Vitals Vital Signs Date Time Temp Pulse Resp B/P Pulse Ox O2 Delivery O2 Flow Rate FiO2 10/27/17 12:30 69 122/59 10/27/17 08:06 98.7 19 99 Intake and Output 10/26/17 10/26/17 10/27/17 15:00 23:00 07:00 Intake Total 2090 ml 480 ml Output Total 900 ml 1000 ml Balance 1190 ml -520 ml Exam Constitutional: alert, oriented Neck: supple Respiratory: normal air movement Cardiovascular: nl pulses Gastrointestinal: non-tender, soft Musculoskeletal: nl extremities to inspection Neurological: other (Left upper extremity weakness) Results Result Diagram: 10/25/17 0541 10/25/17 0541 Results 24 hrs Laboratory Tests Test 10/26/17 17:26 10/26/17 21:07 10/26/17 22:07 10/27/17 08:12 Bedside Glucose 181 96 100 171 Test 10/27/17 12:05 Bedside Glucose 156 Medications Medications Current Medications Hydralazine HCl (Apresoline) 10 mg Q6H PRN IV SBP>170 Last administered on t 17:48; Admin Dose 10 MG; Start 10/14/17 at 15:30 Diagnostic Test (Pha) (Accu-Chek) 1 ea 02 XX ; Start 10/15/17 at 02:00 Donepezil HCl (Aricept) 10 mg DAILY PO Last administered on 10/27/17 08:38; Admin Dose 10 MG; Start 10/15/17 at 09:00 Lisinopril (Zestril) 40 mg DAILY PO Last administered on 10/27/17 08:37; Admin Dose 40 MG; Start 10/15/17 at 09:00 Ranitidine HCl (Zantac) 300 mg HS PO Last administered on 10/26/17 20:22; Admin Dose 300 MG; Start 10/14/17 at 21:00 Ondansetron HCl (Zofran Inj) 4 mg Q6H PRN IV NAUSEA AND/OR VOMITING Last administered on 10/23/17 21:25; Admin Dose 4 MG; Start 10/14/17 at 16:00 Aspirin (Aspirin) 81 mg DAILY PO Last administered on 10/27/17 08:37; Admin Dose 81 MG; Start 10/15/17 at 09:00 Acetaminophen (Tylenol Tab) 650 mg Q6H PRN PO PAIN LEVEL 1-3 OR FEVER Last administered on 10/20/17 20:54; Admin Dose 650 MG; Start 10/14/17 at 16:00 Enoxaparin Sodium (Lovenox) 30 mg DAILY SC Last administered on 10/27/17 08: 39; Admin Dose 30 MG; Start 10/15/17 at 09:00 Miscellaneous Information 1 ea NOTE XX ; Start 10/14/17 at 16:00 Glucose (Glutose) 15 gm Q15M PRN PO DECREASED GLUCOSE; Start 10/14/17 at 16:00 Glucose (Glutose) 22.5 gm Q15M PRN PO DECREASED GLUCOSE; Start 10/14/17 at 16: 00 Dextrose (D50w Syringe) 25 ml Q15M PRN IV DECREASED GLUCOSE; Start 10/14/17 at 16:00 Dextrose (D50w Syringe) 50 ml Q15M PRN IV DECREASED GLUCOSE; Start 10/14/17 at 16:00 Glucagon (Glucagen) 1 mg Q15M PRN IM DECREASED GLUCOSE; Start 10/14/17 at 16: 00 Glucose (Glutose) 15 gm Q15M PRN BUCCAL DECREASED GLUCOSE; Start 10/14/17 at 16:00 Clonidine (Catapres) 0.1 mg Q4H PRN PO SBP>170 Last administered on 10/19/17 14:54; Admin Dose 0.1 MG; Start 10/15/17 at 18:00 Polyethylene Glycol (Miralax) 17 gm DAILY PO Last administered on 10/27/17 08 :39; Admin Dose 17 GM; Start 10/16/17 at 09:00 Phenol (Cepastat Lozenge) 1 lozenge Q1H PRN MT COUGH; Start 10/16/17 at 15:30 Gabapentin (Neurontin) 200 mg TID GTB Last administered on 10/27/17 12:16; Admin Dose 200 MG; Start 10/17/17 at 15:00 Hydralazine HCl (Apresoline) 100 mg Q8 PO Last administered on 10/27/17 06:10 ; Admin Dose 100 MG; Start 10/18/17 at 14:00 Zolpidem Tartrate (Ambien) 5 mg HS PRN PO INSOMNIA Last administered on 21:16; Admin Dose 5 MG; Start 10/19/17 at 01:00 Nifedipine (Procardia Xl) 60 mg BID PO Last administered on 10/27/17 08:38; Admin Dose 60 MG; Start 10/19/17 at 21:00 Metoprolol Tartrate (Lopressor) 50 mg BID PO Last administered on 10/27/17 08 :38; Admin Dose 50 MG; Start 10/19/17 at 21:00 Doxazosin Mesylate (Cardura) 2 mg BID PO Last administered on 10/27/17 08:38 ; Admin Dose 2 MG; Start 10/20/17 at 21:00 Insulin Glargine (Lantus) 24 unit DAILY@20 SC Last administered on 10/26/17 22:09; Admin Dose 24 UNIT; Start 10/22/17 at 20:00 Acetaminophen/ Hydrocodone Bitart ([place] (5/325)) 1 tab Q4H PRN PO PAIN Last administered on 10/26/17 13:22; Admin Dose 1 TAB; Start 10/25/17 at 13:30 Alprazolam (Xanax) 0.5 mg Q8H PRN PO ANXIETY; Start 10/26/17 at 21:00 VINCENZO RODRIGUEZ Oct 27, 2017 13:11
== END 2017-10-27 13:35 | disposition home health service (06) | DRG 74 ==
LOC: E/R 09:36 → TEL 10:20 → MS2 10-23 01:05
PROVIDERS: ADMIT Internal Medicine; ATTEND Internal Medicine
DX: M54.12 Radiculopathy, cervical region (principal); E11.9 Type 2 diabetes mellitus without complications; M48.02 Spinal stenosis, cervical region; N28.0 Ischemia and infarction of kidney; I10 Essential (primary) hypertension; D72.829 Elevated white blood cell count, unspecified; I16.1 Hypertensive emergency; Z86.73 Personal history of transient ischemic attack (TIA), and cerebral infarction without residual deficits; E66.9 Obesity, unspecified; Z68.36 Body mass index [BMI] 36.0-36.9, adult; E03.9 Hypothyroidism, unspecified; G47.00 Insomnia, unspecified; R79.89 Other specified abnormal findings of blood chemistry; K29.70 Gastritis, unspecified, without bleeding; K31.7 Polyp of stomach and duodenum
CPT/HCPCS: 36415; 70450; 70553; 71010; 72156; 80048; 80061; 80307; 81001; 82550; 82553; 82962; 83036; 84439; 84443; 84484; 85025; 85610; 85730; 87040; 87086; 92526; 92610; 93005; 93306; 94760; 96374; 96375; 96376; 97110; 97116; 97162; 97530; J0360; J0696; J1650; J1815; J2270; J2405

== ENCOUNTER 2018-06-24 09:13 | Emergency (ER) | END 2018-06-24 14:25 | disposition home or self-care (01) ==

== ENCOUNTER 2018-07-18 09:37 | Emergency (ER) | END 2018-07-18 16:20 | disposition home or self-care (01) ==

== ENCOUNTER 2019-05-20 12:32 | Emergency (ER) | payer MEDICARE, OTHER ==
[~2019-05-20] VITALS: Ht 165.1 cm; Wt 85.9 kg
[~2019-05-20 12:32] MED LIST changes: +ALPR0.5T PO; -ALPR0.5T6 PO; +AMLO-147 PO; -AMLO1TAB PO; -CA C1TAB69 PO; -CHOL200073 PO; +DONE10TA7 PO; -EXEN2PEN SQ; +FAMO-96 PO; +GABA400C14 PO; +HYDR-4011 PO; +LIDO20SO19 MM; +LISI40TA3 PO; -OMEP40CA6 PO; +PANT40TA4 PO; +POLY17PO6 PO; +TRAM50TA2 PO; -ZOLP5TAB7 PO
[2019-05-20 12:43] VITALS: Ht 165.1 cm; Wt 85.9 kg
[2019-05-20] MEDS ORDERED: SOD CHLORIDE 0.9% 1,000 ML IV STA (13:51)
[2019-05-20] MEDS ORDERED: HYDR25TA6 PO (15:12)
[2019-05-20] MEDS ORDERED: TRAM50TA PO (15:12)
[2019-05-20] MEDS ORDERED: LEVO50TA71 PO (15:13)
[2019-05-20] MEDS ORDERED: CEPH-443 PO (15:25)
[2019-05-20] MEDS ORDERED: CEFTRIAXONE 1 GM/50 ML (PMX) 50 ML IVPB ONE (15:30)
--- NOTE | 2019-05-20 15:49 | ERD ---
ER Documentation Chief Complaint Chief Complaint painful urination-pelvic, abdominal, flank pain x 1 week HPI 78-year-old female brought in by daughter for painful urination for the past few days. She is complaining of burning with urination and suprapubic pain. Per the daughter, the patient always has chronic pain all over her body for which she takes tramadol. Today she gave her mother Alelaila for her headache and currently the patient is denying any headache. She complains of diffuse back pain but denies any focal flank pain. No fevers or chills. No nausea or vomiting. She has chronic problems with constipation but is passing gas. ROS All systems reviewed and are negative except as per history of present illness. Medications Home Meds Active Scripts Cephalexin* (Keflex*) 500 Mg Capsule, 500 MG PO BID for 7 Days, CAP Prov:CIPRIANO DANIELLE MD 05/20/19 Reported Medications Levothyroxine Sodium* (Levoxyl*) 50 Mcg Tablet, 50 MCG PO BEFORE BREAKFAST, #30 TAB 05/20/19 Hydrochlorothiazide* (Hydrochlorothiazide*) 25 Mg Tab, 25 MG PO DAILY, #30 TAB 05/20/19 Tramadol Hcl* (Ultram*) 50 Mg Tablet, 50 MG PO Q6H PRN for PAIN, TAB 05/20/19 Alprazolam* (Xanax*) 0.5 Mg Tab, 0.5 MG PO Q8H PRN for ANXIETY, TAB 06/24/18 Insulin Glargine* (Lantus*) 100 Unit/Ml Soln, 25 UNIT SC QHS, #1 VIAL 06/24/18 Insulin Glargine* (Lantus*) 100 Unit/Ml Soln, 40 UNIT SC QAM, #1 VIAL 06/24/18 Amlodipine Besylate* (Amlodipine Besylate*) 10 Mg Tablet, 10 MG PO DAILY, #30 TAB 06/24/18 Metoprolol Succinate* (Toprol XL*) 100 Mg Tab.sr.24h, 100 MG PO DAILY, #30 TAB 06/24/18 Lisinopril* (Lisinopril*) 40 Mg Tablet, 40 MG PO DAILY, #30 TAB 06/24/18 Pantoprazole* (Pantoprazole*) 40 Mg Tablet.dr, 40 MG PO AC BREAKFAST, TAB 06/24/18 Donepezil* (Donepezil*) 10 Mg Tablet, 10 MG PO DAILY, #30 TAB 06/24/18 Discontinued Reported Medications Gabapentin* (Gabapentin*) 400 Mg Capsule, 400 MG PO BID, #90 CAP 06/24/18 Hydrocodone/Acetaminophen ([place] 5-325 Tablet) 1 Each Tablet, 1 EACH PO NEEDED, TAB 06/24/18 Discontinued Scripts Famotidine* (Pepcid*) 20 Mg Tablet, 20 MG PO BID for 10 Days, TAB Prov:NATE MUNIZ MD 07/18/18 Tramadol HCl (Tramadol HCl) 50 Mg Tablet, 50 MG PO Q6, #12 TAB Prov:NATE MUNIZ MD 07/18/18 Polyethylene Glycol* (Miralax*) 17 Gm Powd.pack, 17 GM PO DAILY, #7 Prov:NATE MUNIZ MD 07/18/18 Lidocaine (Lidocaine Viscous) 100 Ml Soln, 15 ML MM BEFORE MEALS, #120 ML Prov:KARINA HYATT DO 06/24/18 Allergies Allergies: Coded Allergies: No Known Allergies (Verified Allergy, Mild, 05/20/19) PMhx/Soc History of Surgery: Yes (CATARACT SURGERY BOTH EYE) Anesthesia Reaction: No Hx Neurological Disorder: No Hx Respiratory Disorders: No Hx Cardiac Disorders: Yes (HTN, HIGH CHOLESTEROL) Hx Psychiatric Problems: No Hx Miscellaneous Medical Probl: Yes (ARTHRITIS, GASTRITIS) Hx Alcohol Use: No Hx Substance Use: No Hx Tobacco Use: No Smoking Status: Never smoker FmHx Family History: No diabetes Physical Exam Vitals Vital Signs Date Temp Pulse Resp B/P (MAP) Pulse Ox O2 O2 Flow FiO2 Time Delivery Rate 05/20/19 99.0 78 18 172/72 97 12:43 (105) Physical Exam Const: No acute distress, nontoxic. Obese Head: Atraumatic Eyes: Normal Conjunctiva ENT: Normal External Ears, Nose and Mouth. Neck: Full range of motion. No meningismus. Resp: Clear to auscultation bilaterally Cardio: Regular rate and rhythm, no murmurs Abd: Soft, mild suprapubic tenderness to palpation with no rebound or guarding. No masses. non distended. Normal bowel sounds Skin: No petechiae or rashes Back: No midline or flank tenderness Ext: No cyanosis, or edema Neur: Awake and alert Psych: Normal Mood and Affect Result Diagram: 05/20/19 1410 05/20/19 1410 Results 24 hrs Laboratory Tests Test 05/20/19 14:10 White Blood Count 10.3 10^3/ul Red Blood Count 4.14 10^6/ul Hemoglobin 12.5 g/dl Hematocrit 38.7 % Mean Corpuscular Volume 93.5 fl Mean Corpuscular Hemoglobin 30.2 pg Mean Corpuscular Hemoglobin Concent 32.3 g/dl Red Cell Distribution Width 13.8 % Platelet Count 225 10^3/UL Mean Platelet Volume 9.9 fl Immature Granulocytes % 0.400 % Neutrophils % 68.7 % Lymphocytes % 24.5 % Monocytes % 4.0 % Eosinophils % 2.1 % Basophils % 0.3 % Nucleated Red Blood Cells % 0.0 /100WBC Immature Granulocytes # 0.040 10^3/ul Neutrophils # 7.1 10^3/ul Lymphocytes # 2.5 10^3/ul Monocytes # 0.4 10^3/ul Eosinophils # 0.2 10^3/ul Basophils # 0.0 10^3/ul Nucleated Red Blood Cells # 0.0 10^3/ul Urine Color YELLOW Urine Clarity CLOUDY Urine pH 6.0 Urine Specific [place] 1.020 Urine Ketones NEGATIVE mg/dL Urine Nitrite NEGATIVE mg/dL Urine Bilirubin NEGATIVE mg/dL Urine Urobilinogen NEGATIVE mg/dL Urine Leukocyte Esterase 3+ Nemesio/ul Urine Microscopic RBC 1 /HPF Urine Microscopic WBC 73 /HPF Urine Squamous Epithelial Cells MODERATE /HPF Urine Bacteria FEW /HPF Urine Mucus FEW /HPF Urine Hemoglobin NEGATIVE mg/dL Urine Glucose NEGATIVE mg/dL Urine Total Protein NEGATIVE mg/dl Sodium Level 139 mmol/L Potassium Level 4.4 mmol/L Chloride Level 104 mmol/L Carbon Dioxide Level 28 mmol/L Anion Gap 7 Blood Urea Nitrogen 21 mg/dl Creatinine 0.88 mg/dl Est Glomerular Filtrat Rate mL/min mL/min Glucose Level 121 mg/dl Calcium Level 11.0 mg/dl Current Medications Medications Dose Sig/Gilbert Start Time Status Last (Trade) Ordered Route PRN Stop Time Admin Dose Reason Admin Sodium 1,000 ml @ Q1H STAT 05/20/19 DC 05/20/19 Chloride 1,000 mls/hr IV 13:51 14:20 05/20/19 14:50 Ceftriaxone 50 ml @ ONCE ONCE 05/20/19 Sodium 100 mls/hr IVPB 15:30 05/20/19 15:59 Procedures/MDM EMERGENT LABS AND DIAGNOSTIC STUDIES: Lab Results above were reviewed and interpreted by me. CBC: no anemia or evidence of infection BMP: Mild hypercalcemia. No e/o other electrolyte abnormality, severe acidosis, alkalosis, renal failure, diabetic ketoacidosis UA: abnormalities consistent with UTI Initial Nursing notes reviewed. Previous Medical Records requested via the Electronic Health Record. EMERGENCY DEPARTMENT COURSE / MEDICAL DECISION MAKING: Patient is presenting with recurrent UTI. She is afebrile with normal vitals. No evidence of acute surgical abdomen. I have a low suspicion for pyelonephritis. Her urinalysis was consistent with UTI. She was noted to have mild hypercalcemia for which I instructed she follow-up with her primary care doctor. She was given 1 L of IV fluids here. Repeat blood work will be recommended within the next few days by primary care doctor. Patient will be discharged with Keflex. 1 dose of ceftriaxone given here prior to discharge Patient's blood pressure was elevated (>120/80) but appears stable without evidence of hypertensive emergency or urgency. The patient was counseled about the risks of hypertension and urged to pursue outpatient monitoring and therapy within a week with their primary care physician. Departure Diagnosis: Primary Impression: UTI (urinary tract infection) Urinary tract infection type: acute cystitis Hematuria presence: without hematuria Qualified Codes: N30.00 - Acute cystitis without hematuria Additional Impression: Hypercalcemia Condition: Stable Patient Instructions: Hypercalcemia, Cystitis Additional Instructions: Natali kemar joe con tapia medico primario en 2-3 borges. CIPRIANO DANIELLE MD May 20, 2019 15:49
[2019-05-20 16:30] VITALS: BP 138/76; PULSE 73; RESP 18
== END 2019-05-20 17:09 | disposition home or self-care (01) ==
LOC: E/R 12:32
DX: N30.00 Acute cystitis without hematuria (principal); I10 Essential (primary) hypertension; E83.52 Hypercalcemia; Z79.4 Long term (current) use of insulin
CPT/HCPCS: 80048; 81001; 85025; 87086; J0696; J7030; 36415; 96374

== ENCOUNTER 2019-06-25 09:53 | Emergency (ER) | payer MEDICARE, OTHER ==
[~2019-06-25] VITALS: Ht 157.5 cm; Wt 88.0 kg
[~2019-06-25 09:53] MED LIST changes: +CEPH-443 PO; -FAMO-96 PO; -GABA400C14 PO; -HYDR-4011 PO; +HYDR25TA6 PO; +LEVO50TA71 PO; -LIDO20SO19 MM; -POLY17PO6 PO; +TRAM50TA PO; -TRAM50TA2 PO
[2019-06-25 09:55] VITALS: Ht 157.5 cm; Wt 88.0 kg
[2019-06-25] MEDS ORDERED: BISACODYL 10 MG SUPP PR ONE (10:30)
[2019-06-25] MEDS ORDERED: LACTULOSE 30ML CUP PO ONE (10:30)
[2019-06-25] MEDS ORDERED: FLUCONAZOLE 200 MG TAB PO ONE (10:30)
[2019-06-25] MEDS ORDERED: NITROFURANTOIN (SR) 100 MG CAP PO ONE (11:30)
[2019-06-25] MEDS ORDERED: IBUP-1542 PO (12:49)
[2019-06-25] MEDS ORDERED: NITR-58 PO (12:49)
--- NOTE | 2019-06-25 12:50 | ERD ---
ER Documentation Chief Complaint Chief Complaint lt side abd pain radiating to back HPI Patient is an 78-year-old female with a history of hypertension, diabetes, and UTI who presents with abdominal pain. Please note that a timber inspector was used for the entire history and physical exam. The patient has abdominal pain which radiates to her left side. She has bilateral legs that feel like they are falling asleep. She notes white discharge from her vagina as well. Upon review of old medical record the patient has multiple visits and symptoms for months and she feels like this is the same as before. She has no fevers. She has nausea but no vomiting. She saw her primary doctor on . She has no diarrhea. She does have a primary doctor. ROS All systems reviewed and are negative except as per history of present illness. Medications Home Meds Active Scripts Ibuprofen* (Motrin*) 600 Mg Tab, 600 MG PO Q6H PRN for PAIN AND OR ELEVATED TEMP, #30 TAB Prov:VANDANA HOFFMAN MD 06/25/19 Nitrofurantoin Monohyd Macrocr* (Macrobid*) 100 Mg Capsr, 100 MG PO BID for 7 Days, CAP Prov:VANDANA HOFFMAN MD 06/25/19 Reported Medications Levothyroxine Sodium* (Levoxyl*) 50 Mcg Tablet, 50 MCG PO BEFORE BREAKFAST, #30 TAB 05/20/19 Hydrochlorothiazide* (Hydrochlorothiazide*) 25 Mg Tab, 25 MG PO DAILY, #30 TAB 05/20/19 Tramadol Hcl* (Ultram*) 50 Mg Tablet, 50 MG PO Q6H PRN for PAIN, TAB 05/20/19 Alprazolam* (Xanax*) 0.5 Mg Tab, 0.5 MG PO Q8H PRN for ANXIETY, TAB 06/24/18 Insulin Glargine* (Lantus*) 100 Unit/Ml Soln, 25 UNIT SC QHS, #1 VIAL 06/24/18 Insulin Glargine* (Lantus*) 100 Unit/Ml Soln, 40 UNIT SC QAM, #1 VIAL 06/24/18 Amlodipine Besylate* (Amlodipine Besylate*) 10 Mg Tablet, 10 MG PO DAILY, #30 TAB 06/24/18 Metoprolol Succinate* (Toprol XL*) 100 Mg Tab.sr.24h, 100 MG PO DAILY, #30 TAB 06/24/18 Lisinopril* (Lisinopril*) 40 Mg Tablet, 40 MG PO DAILY, #30 TAB 06/24/18 Pantoprazole* (Pantoprazole*) 40 Mg Tablet.dr, 40 MG PO AC BREAKFAST, TAB 06/24/18 Donepezil* (Donepezil*) 10 Mg Tablet, 10 MG PO DAILY, #30 TAB 06/24/18 Discontinued Scripts Cephalexin* (Keflex*) 500 Mg Capsule, 500 MG PO BID for 7 Days, CAP Prov:CIPRIANO DANIELLE MD 05/20/19 Allergies Allergies: Coded Allergies: No Known Allergies (Verified Allergy, Mild, 06/25/19) PMhx/Soc History of Surgery: Yes (CATARACT SURGERY BOTH EYE) Anesthesia Reaction: No Hx Neurological Disorder: No Hx Respiratory Disorders: No Hx Cardiac Disorders: Yes (HTN, HIGH CHOLESTEROL) Hx Psychiatric Problems: No Hx Miscellaneous Medical Probl: Yes (ARTHRITIS, GASTRITIS) Hx Alcohol Use: No Hx Substance Use: No Hx Tobacco Use: No Smoking Status: Never smoker FmHx Family History: diabetes Physical Exam Vitals Vital Signs Date Temp Pulse Resp B/P (MAP) Pulse Ox O2 O2 Flow FiO2 Time Delivery Rate 06/25/19 98.0 67 18 136/47 96 Room Air 12:38 (76) 06/25/19 97.8 73 18 122/66 98 09:55 (84) Physical Exam Const: No acute distress Head: Atraumatic Eyes: Normal Conjunctiva ENT: Normal External Ears, Nose and Mouth. Neck: Full range of motion. No meningismus. Resp: Clear to auscultation bilaterally Cardio: Regular rate and rhythm, no murmurs Abd: Soft, left upper quadrant tenderness to palpation without rebound or guarding Skin: No petechiae or rashes Back: No midline or flank tenderness Ext: No cyanosis, or edema Neur: Awake and alert Psych: Normal Mood and Affect Result Diagram: 06/25/19 1027 06/25/19 1027 Results 24 hrs Laboratory Tests Test 06/25/19 10:27 06/25/19 10:30 White Blood Count 8.6 10^3/ul Red Blood Count 4.31 10^6/ul Hemoglobin 12.9 g/dl Hematocrit 40.4 % Mean Corpuscular Volume 93.7 fl Mean Corpuscular Hemoglobin 29.9 pg Mean Corpuscular Hemoglobin Concent 31.9 g/dl Red Cell Distribution Width 13.5 % Platelet Count 220 10^3/UL Mean Platelet Volume 9.9 fl Immature Granulocytes % 0.200 % Neutrophils % 55.0 % Lymphocytes % 37.2 % Monocytes % 5.5 % Eosinophils % 1.6 % Basophils % 0.5 % Nucleated Red Blood Cells % 0.0 /100WBC Immature Granulocytes # 0.020 10^3/ul Neutrophils # 4.7 10^3/ul Lymphocytes # 3.2 10^3/ul Monocytes # 0.5 10^3/ul Eosinophils # 0.1 10^3/ul Basophils # 0.0 10^3/ul Nucleated Red Blood Cells # 0.0 10^3/ul Sodium Level 138 mmol/L Potassium Level 4.0 mmol/L Chloride Level 102 mmol/L Carbon Dioxide Level 28 mmol/L Anion Gap 8 Blood Urea Nitrogen 23 mg/dl Creatinine 1.07 mg/dl Est Glomerular Filtrat Rate mL/min mL/min Glucose Level 124 mg/dl Calcium Level 11.3 mg/dl Total Bilirubin 0.3 mg/dl Direct Bilirubin 0.00 mg/dl Indirect Bilirubin 0.3 mg/dl Aspartate Amino Transf (AST/SGOT) 19 IU/L Alanine Aminotransferase (ALT/SGPT) 15 IU/L Alkaline Phosphatase 149 IU/L Troponin I < 0.012 ng/ml Total Protein 8.0 g/dl Albumin 4.1 g/dl Globulin 3.90 g/dl Albumin/Globulin Ratio 1.05 Lipase 70 U/L Urine Color YELLOW Urine Clarity SLIGHTLY CLOUDY Urine pH 6.0 Urine Specific [place] 1.009 Urine Ketones NEGATIVE mg/dL Urine Nitrite NEGATIVE mg/dL Urine Bilirubin NEGATIVE mg/dL Urine Urobilinogen NEGATIVE mg/dL Urine Leukocyte Esterase 1+ Nemesio/ul Urine Microscopic RBC 0 /HPF Urine Microscopic WBC 26 /HPF Urine Squamous Epithelial Cells FEW /HPF Urine Bacteria FEW /HPF Urine Mucus FEW /HPF Urine Hemoglobin NEGATIVE mg/dL Urine Glucose NEGATIVE mg/dL Urine Total Protein NEGATIVE mg/dl Current Medications Medications Dose Sig/Gilbert Start Time Status Last (Trade) Ordered Route PRN Stop Time Admin Dose Reason Admin Bisacodyl 10 mg ONCE ONCE 06/25/19 DC 06/25/19 (Dulcolax AK 10:30 10:39 Supp) 06/25/19 10:31 Lactulose 20 gm ONCE ONCE 06/25/19 DC 06/25/19 (Enulose) PO 10:30 10:39 06/25/19 10:31 Fluconazole 200 mg ONCE ONCE 06/25/19 DC 06/25/19 (Diflucan) PO 10:30 10:39 06/25/19 10:31 100 mg ONCE ONCE 06/25/19 DC 06/25/19 Nitrofurantoi PO 11:30 11:59 n 06/25/19 11:44 Macrocrystals (Macrobid) Procedures/MDM EKG read by me: Rate/Rhythm: Regular rate and rhythm at a rate of 76 Intervals: Normal Impression: No evidence of ischemia or arrhythmia CT abdomen pelvis read by radiology. Patient is an 78-year-old female who presents with abdominal pain. The patient has left-sided upper abdominal pain which radiates to her flank. The patient is otherwise well-appearing. Laboratory studies were done as well as a CT scan of the abdomen and pelvis. CT scan shows no surgical process. The patient was found to have acute cystitis. I doubt pyonephritis or sepsis. I doubt appendicitis, cholecystitis, pancreatitis, or bowel obstruction. I believe outpatient management is appropriate. However the patient will need close follow-up with her primary doctor within 24 to 48 hours. She will be given a prescription for Macrobid. She can return for any worsening symptoms. Departure Diagnosis: Primary Impression: Cystitis Additional Impression: Abdominal pain Abdominal location: left upper quadrant Qualified Codes: R10.12 - Left upper quadrant pain Condition: Fair Patient Instructions: Abdominal Pain, Cystitis Additional Instructions: Llame al doctor MAANA y darren kemar NATHALIA PARA DENTRO DE 1-2 GASTON.Dgale a la secretaria que nosotros le instruimos hacer esta nathalia.Avise o llame si tapia condicin se empeora antes de la nathalia. Regresa aqui si peor o no mejor. VANDANA HOFFMAN MD Jun 25, 2019 12:50
[2019-06-25 13:49] VITALS: BP 130/50; PULSE 70; RESP 17
== END 2019-06-25 13:50 | disposition home or self-care (01) ==
LOC: E/R 09:53
DX: N30.90 Cystitis, unspecified without hematuria (principal); I10 Essential (primary) hypertension; E11.9 Type 2 diabetes mellitus without complications; Z79.4 Long term (current) use of insulin
CPT/HCPCS: 36415; 74176; 80053; 81001; 83690; 84484; 85025; 93005

== ENCOUNTER 2019-07-16 13:06 | Emergency (ER) | payer MEDICARE, OTHER ==
[~2019-07-16] VITALS: Ht 162.6 cm; Wt 90.0 kg
[~2019-07-16 13:06] MED LIST changes: +ACET-141 PO; -CEPH-443 PO; +IBUP-1542 PO; +NITR-58 PO
[2019-07-16 13:09] VITALS: Ht 162.6 cm; Wt 90.0 kg
[2019-07-16] MEDS ORDERED: ACETAMINOPHEN 325 MG TAB PO ONE (14:30)
--- NOTE | 2019-07-16 18:01 | ERD ---
ER Documentation Chief Complaint Chief Complaint pt lost balance - denies dizziness/ko- c/o R arm pain ROS All systems reviewed and are negative except as per history of present illness. Medications Home Meds Active Scripts Acetaminophen* (Acetaminophen*) 500 MG Extra Strength Tablet, 500 MG PO Q4H PRN for PAIN AND OR ELEVATED TEMP, #30 TAB Prov:MIGUEL CASTRO DO 07/16/19 Ibuprofen* (Motrin*) 600 Mg Tab, 600 MG PO Q6H PRN for PAIN AND OR ELEVATED TEMP, #30 TAB Prov:VANDANA HOFFMAN MD 06/25/19 Nitrofurantoin Monohyd Macrocr* (Macrobid*) 100 Mg Capsr, 100 MG PO BID for 7 Days, CAP Prov:VANDANA HOFFMAN MD 06/25/19 Reported Medications Levothyroxine Sodium* (Levoxyl*) 50 Mcg Tablet, 50 MCG PO BEFORE BREAKFAST, #30 TAB 05/20/19 Hydrochlorothiazide* (Hydrochlorothiazide*) 25 Mg Tab, 25 MG PO DAILY, #30 TAB 05/20/19 Tramadol Hcl* (Ultram*) 50 Mg Tablet, 50 MG PO Q6H PRN for PAIN, TAB 05/20/19 Alprazolam* (Xanax*) 0.5 Mg Tab, 0.5 MG PO Q8H PRN for ANXIETY, TAB 06/24/18 Insulin Glargine* (Lantus*) 100 Unit/Ml Soln, 25 UNIT SC QHS, #1 VIAL 06/24/18 Insulin Glargine* (Lantus*) 100 Unit/Ml Soln, 40 UNIT SC QAM, #1 VIAL 06/24/18 Amlodipine Besylate* (Amlodipine Besylate*) 10 Mg Tablet, 10 MG PO DAILY, #30 TAB 06/24/18 Metoprolol Succinate* (Toprol XL*) 100 Mg Tab.sr.24h, 100 MG PO DAILY, #30 TAB 06/24/18 Lisinopril* (Lisinopril*) 40 Mg Tablet, 40 MG PO DAILY, #30 TAB 06/24/18 Pantoprazole* (Pantoprazole*) 40 Mg Tablet.dr, 40 MG PO AC BREAKFAST, TAB 06/24/18 Donepezil* (Donepezil*) 10 Mg Tablet, 10 MG PO DAILY, #30 TAB 06/24/18 Allergies Allergies: Coded Allergies: No Known Allergies (Verified Allergy, Mild, 06/25/19) PMhx/Soc History of Surgery: Yes (CATARACT SURGERY BOTH EYE) Anesthesia Reaction: No Hx Neurological Disorder: No Hx Respiratory Disorders: No Hx Cardiac Disorders: Yes (HTN, HIGH CHOLESTEROL) Hx Psychiatric Problems: No Hx Miscellaneous Medical Probl: Yes (ARTHRITIS, GASTRITIS) Hx Alcohol Use: No Hx Substance Use: No Hx Tobacco Use: No Smoking Status: Never smoker Physical Exam Vitals Vital Signs Date Temp Pulse Resp B/P (MAP) Pulse Ox O2 O2 Flow FiO2 Time Delivery Rate 07/16/19 168/81 13:35 (110) 07/16/19 98.6 86 20 191/106 98 13:09 (134) Physical Exam Const: No acute distress Head: Atraumatic Eyes: Normal Conjunctiva ENT: Normal External Ears, Nose and Mouth. Neck: Full range of motion. No meningismus. Resp: Clear to auscultation bilaterally Cardio: Regular rate and rhythm, no murmurs Abd: Soft, non tender, non distended. Normal bowel sounds Skin: No petechiae or rashes Back: No midline or flank tenderness Ext: No cyanosis, or edema Neur: Awake and alert Psych: Normal Mood and Affect Results 24 hrs Current Medications Medications Dose Sig/Gilbert Start Time Status Last (Trade) Ordered Route PRN Stop Time Admin Dose Reason Admin 650 mg ONCE ONCE 07/16/19 DC 07/16/19 Acetaminophen PO 14:30 14:37 (Tylenol 07/16/19 14:32 Tab) Departure Diagnosis: Primary Impression: Right wrist pain Condition: Fair Patient Instructions: Fracture, Wrist [General] Referrals: RAMONE KENYON MD [facility] YOU HAVE RECEIVED A MEDICAL SCREENING EXAM AND THE RESULTS INDICATE THAT YOU DO NOT HAVE A CONDITION THAT REQUIRES URGENT TREATMENT IN THE EMERGENCY DEPARTMENT. FURTHER EVALUATION AND TREATMENT OF YOUR CONDITION CAN WAIT UNTIL YOU ARE SEEN IN YOUR DOCTORS OFFICE WITHIN THE NEXT 1-2 DAYS. IT IS YOUR RESPONSIBILITY TO MAKE AN APPOINTMENT FOR FOLOW-UP CARE. IF YOU HAVE A PRIMARY DOCTOR --you should call your primary doctor and schedule an appointment IF YOU DO NOT HAVE A PRIMARY DOCTOR YOU CAN CALL OUR PHYSICIAN REFERRAL HOTLINE AT IF YOU CAN NOT AFFORD TO SEE A PHYSICIAN YOU CAN CHOSE FROM THE FOLLOWING [facility] CLINICS [facility] [address] [facility] [address] [facility] [facility] [address] [facility] [address] [facility] [address] [facility] [facility] [address] [facility]. [facility] Urgent Care 7 a.m.- 11 p.m. Every Day of the Week NO APPOINTMENT OR AUTHORIZATION NEEDED Additional Instructions: Call your primary care doctor TOMORROW for an appointment during the next 1-2 days.See the doctor sooner or return here if your condition worsens before your appointment time. Follow up with orthopedic surgery MIGUEL Lemus DO Jul 16, 2019 18:01
[2019-07-16] MEDS ORDERED: traMADol 50 MG TAB PO ONE (19:00)
[2019-07-16 19:27] VITALS: BP 196/80; PULSE 81; RESP 16
[2019-07-16] MEDS ORDERED: LABETALOL 100 MG TAB PO ONE (19:30)
== END 2019-07-16 20:14 | disposition home or self-care (01) ==
LOC: FTE 13:06
DX: S52.611A Displaced fracture of right ulna styloid process, initial encounter for closed fracture (principal); I10 Essential (primary) hypertension; X58.XXXA Exposure to other specified factors, initial encounter; Y92.9 Unspecified place or not applicable; Z79.4 Long term (current) use of insulin
CPT/HCPCS: 72170; 73010; 93005

== ENCOUNTER 2019-08-05 13:54 | Emergency (ER) | payer MEDICARE, OTHER ==
[~2019-08-05] VITALS: Ht 157.5 cm; Wt 100.0 kg
[~2019-08-05 13:54] MED LIST changes: +CEPH-443 PO; +ONDA4TAB14 PO; +PHEN-538 PO
[2019-08-05 13:59] VITALS: Ht 157.5 cm; Wt 100.0 kg
[2019-08-05] MEDS ORDERED: PHENAZOPYRIDINE 100 MG TAB PO ONE (15:30)
[2019-08-05] MEDS ORDERED: CEPHALEXIN 500 MG CAP PO ONE (15:30)
[2019-08-05 16:01] VITALS: BP 153/72; PULSE 81; RESP 20
== END 2019-08-05 16:15 | disposition home or self-care (01) ==
LOC: E/R 13:54
DX: N30.90 Cystitis, unspecified without hematuria (principal); I10 Essential (primary) hypertension; E11.9 Type 2 diabetes mellitus without complications; Z79.4 Long term (current) use of insulin
CPT/HCPCS: 81003; 87086; 99283